=== PATIENT | male | born 1955 | race Caucasian/White ===

== ENCOUNTER 2024-01-04 09:53 | Inpatient (IN) ==
--- NOTE | 2024-01-04 10:17 | Emergency Department Note ---
Impression & Plan Hypoxia, SOB (shortness of breath), COPD exacerbation, Leukocytosis, Failure of outpatient treatment ED Provider Note NAME: VAZQUEZ ORDONEZ AGE: 68 SEX: M : 1955 ARRIVES VIA: Ambulance INFORMANT: [Patient][EMS, nursing] ED PROVIDER(S): [Prosper Barroso MD] CHIEF COMPLAINT: Short of breath HISTORY OF PRESENT ILLNESS: The patient is a 68-year-old male with COPD. He is currently residing at the [facility] on a voluntary commitment. He has a history of homelessness. He does still smoke tobacco products. Patient has had increasing shortness of breath over the last month. He states he has tried different antibiotics but he seems to keep getting diarrhea. He states that he was very short of breath today and his saturation was recorded at 88% as per EMS. He received 125 mg of IV Solu-Medrol in route. He was given a DuoNeb. He still feels short of breath. Patient states that the [facility] facility switched him from his inhalers to a nebulizer. He is not sure the nebulizer is doing its job. There has been no fever. He does cough but this is chronic with the COPD. He has no abdominal pain. No real chest pain, just chest tightness. The patient states that he is concerned that he may have COVID as he has been exposed to other [facility]. Of note, the patient was in this ED on the and also the with complaints of shortness of breath. CT imaging did not show findings of PE, he was felt to have a flare of COPD. He was not felt in need of a hospital stay. PMHx/PSHx/Social Hx: See Below PHYSICAL EXAM: GENERAL: Patient is in mild respiratory distress. HEENT: No acute trauma, normocephalic atraumatic, mucous membranes moist, no nasal congestion. NECK: No stridor, no adenopathy, no meningismus, trachea is midline. LUNGS: He does appear to be in mild respiratory distress but there is an increased respiratory rate. Breath sounds are diminished bilaterally. There are wheezes bilaterally. Dry cough noted. HEART: Without murmurs gallops or rubs, regular rate and rhythm. Heart tones are distant. ABDOMEN: Soft, nontender, no peritonitis. EXTREMITIES: No cyanosis, full range of motion of all the joints without pain or difficulty. NEUROLOGIC: Oriented x 3, no acute motor or sensory deficits, no focal weakness. SKIN: No jaundice, no diaphoresis. DIFFERENTIAL DIAGNOSIS: Exacerbation of COPD, CHF, pneumonia, bronchitis, anemia, SD, failed outpatient management, among others. EMERGENCY DEPARTMENT PROCEDURES: MEDICAL DECISION MAKING: There is a moderate leukocytosis, this could be consistent with infection or just the stress of his presentation. The patient was slightly anemic however, this has been documented before. There was a normal platelet count. No renal failure or significant electrolyte abnormality. Lactic acid level was not elevated making severe sepsis unlikely. There was no concerning liver enzyme elevation. ECG showed a normal sinus rhythm, no obvious ischemia. Cardiac enzyme testing x 1 was not consistent with acute cardiac injury. COVID, influenza and RSV test were negative. Chest x-ray did not show pneumonia, pneumothorax or CHF. On exam, the patient was in mild respiratory distress. He was tachypneic and wheezing. Patient was given 2 DuoNebs while here in the ED. He was given 1 g of IV magnesium. He had already received IV Solu-Medrol prior to his ED arrival. Patient has been here a few times already in the last 10 days for dyspnea. Things keep worsening. He was hypoxic prior to arrival. He had some mild respiratory distress and was tachypneic on my exam. Given the failure of outpatient management, I do think hospitalization is indicated. At this point, patient appears to have a flare of his COPD, no findings to suggest a bacterial pneumonia. I did speak with the patient and case management, the on-call hospitalist was consulted. Prior/Outside records/notes reviewed: Today's EMS notes describing his presentation and transport to this hospital. ECG per my interpretation: Indication was shortness of breath. The ECG shows a normal sinus rhythm with a potential old septal infarct. The rate was 75. There was no acute ST elevation, no PVCs, the QTc was 415. Continuous Cardiac Monitoring per my interpretation: An order was placed for continuous cardiac monitoring. The monitor shows a rate of 80 with normal sinus rhythm. Imaging/x-ray results per my interpretation: Chest x-ray shows findings of COPD, no infiltrate, CHF or pneumothorax. Chronic Medical/Social conditions affecting care: Homelessness, history of COPD. Care/Management discussed with: Case management, the on-call hospitalist. Level of care consideration(s): After review of the information above and other included data: --I believe the patient requires escalation of care to admission DISPOSITION: Admission Past Med/Surg History Medical History (Updated 01/04/24 @ 14:32 by Prosper Barroso MD) Agitation Depression Arthritis Encounter for smoking cessation counseling Dyspnea Acute exacerbation of chronic obstructive pulmonary disease (COPD) COPD (chronic obstructive pulmonary disease) Abdominal aneurysm Surgical History History of appendectomy Family History Mother Diabetes Social History Smoking Status: Current some day smoker Tobacco Type: Cigarettes Hx Alcohol Use: Yes Hx Substance Use: Yes Last Used Substance: Unknown Preferred Language: Cam[place]onian [employer] Required: No Current Living Situation: Homeless Feels Safe at Home: Yes Allergies Allergies Allergy/AdvReac Type Severity Reaction Status Date / Time No Known Allergies Allergy Verified 01/04/24 12:37 Home Meds Home Medications Medication Instructions Recorded Confirmed albuterol sulfate 90 mcg/actuation 2 puff inhalation Q6H PRN 11/13/19 01/04/24 aerosol inhaler (Ventolin HFA) Shortness Of Breath clonazepam 1 mg tablet (Klonopin) 1 mg PO BID PRN Anxiety 11/13/19 01/04/24 quetiapine 50 mg tablet (Seroquel) 25 mg PO HS 11/13/19 01/04/24 sertraline 50 mg tablet (Zoloft) 50 mg PO DAILY 11/13/19 01/04/24 tiotropium bromide 18 mcg capsule 1 cap inhalation DAILY 11/13/19 01/04/24 with inhalation device (Spiriva with HandiHaler) gabapentin 300 mg capsule 300 mg PO DAILY 12/27/23 01/04/24 cefdinir 300 mg capsule 300 mg PO BID 01/04/24 01/04/24 Previous Rx's Medication Instructions Recorded prochlorperazine maleate 10 mg 10 mg PO QID PRN nausea and 12/27/23 tablet vomiting #14 tabs Results & Data (ED) Vital Signs Vital Signs - 24 hr 01/04/24 10:05 01/04/24 10:06 01/04/24 10:30 Temperature 36.8 C Temperature Source Oral Pulse Rate 90 85 81 Pulse Rate from SpO2 Sensor 82 Respiratory Rate 20 27 H Blood Pressure 119/83 Blood Pressure Mean 95 Pulse Oximetry 95 96 Oxygen Delivery Method Nasal Cannula Oxygen Flow Rate 2 Sepsis New/Unexplained Change in Mental Status No Sepsis Action Taken by Nursing No Action Required 01/04/24 10:31 01/04/24 10:31 01/04/24 11:00 Temperature Temperature Source Pulse Rate 82 80 Pulse Rate from SpO2 Sensor 81 80 Respiratory Rate 24 31 H Blood Pressure 129/80 Blood Pressure Mean 100 Pulse Oximetry 94 100 Oxygen Delivery Method Nasal Cannula Room Air Oxygen Flow Rate 2 Sepsis New/Unexplained Change in Mental Status Sepsis Action Taken by Nursing 01/04/24 11:00 01/04/24 11:30 01/04/24 11:30 Temperature Temperature Source Pulse Rate Pulse Rate from SpO2 Sensor 91 H Respiratory Rate Blood Pressure 123/69 126/67 Blood Pressure Mean 85 77 Pulse Oximetry 100 Oxygen Delivery Method Nebulizer Oxygen Flow Rate Sepsis New/Unexplained Change in Mental Status Sepsis Action Taken by Nursing 01/04/24 12:00 01/04/24 12:00 Temperature Temperature Source Pulse Rate 92 H Pulse Rate from SpO2 Sensor 92 H Respiratory Rate 26 H Blood Pressure 126/79 Blood Pressure Mean 86 Pulse Oximetry 95 Oxygen Delivery Method Oxygen Flow Rate Sepsis New/Unexplained Change in Mental Status Sepsis Action Taken by [facility] Medications Current Medication List: was personally reviewed by me Laboratory Data Attestation: I reviewed the patient's lab results. 01/04/24 10:28 01/04/24 10:28 Lab Results 01/04/24 01/04/24 Range/Units 10:28 10:38 WBC 16.98 H (4.8-10.8) K/ul RBC 3.80 L (4.70-6.10) M/uL Hgb 11.6 L (14.0-18.0) g/dl Hct 33.6 L (42.0-52.0) % MCV 88.4 (80.0-100.0) fL MCH 30.5 (25.0-34.0) pg MCHC 34.5 (32.0-36.0) g/dL RDW Std Deviation 70.3 H (36.4-46.3) fL RDW Coeff of Judd 21.7 H (11.5-14.5) % Plt Count 353 (130-400) K/uL MPV 10.0 (9.4-12.4) fL Immature Gran % (Auto) 0.7 % Neut % (Auto) 80.2 % Lymph % (Auto) 7.5 % [place] % (Auto) 10.2 % Eos % (Auto) 1.2 % Baso % (Auto) 0.2 % Neut # (Auto) 13.60 H (1.40-6.50) K/uL Lymph # (Auto) 1.27 (1.20-3.40) K/uL [place] # (Auto) 1.74 H (0.11-0.59) K/uL Eos # (Auto) 0.21 (0.00-0.50) K/uL Baso # (Auto) 0.04 (0.00-0.20) K/uL Immature Gran # (Auto) 0.12 (0.01-0.20) K/uL Absolute Nucleated RBC 0.04 (0.00-0.12) K/uL Nucleated RBC % (auto) 0.2 % Anisocytosis Present Sodium 138 (136-145) mmol/L Potassium 4.3 (3.5-5.1) mmol/L Chloride 105 (98-107) mmol/L Carbon Dioxide 25 (21-32) mmol/L Anion Gap 8 (3-11) BUN 30 H (6-23) mg/dl Creatinine 0.79 (0.6-1.4) mg/dl Est Cr Clr Drug Dosing 84.8 ml/min Est GFR ( Amer) 107.7 ml/min Est GFR (Non-Af Amer) 92.9 ml/min BUN/Creatinine Ratio 38.0 H (10-20) Glucose 114 H (70-99(Fasting)) mg/dl Lactate 1.3 (0.4-2.0) mmol/L Calcium 9.6 (8.6-10.3) mg/dl Magnesium 1.9 (1.7-2.4) mg/dl Total Bilirubin 0.5 (0.2-1.0) mg/dl AST 14 (13-39) U/L ALT 15 (7-52) U/L Alkaline Phosphatase 68 (34-104) U/L Troponin I High Sens 4.3 (0-20) pg/ml Total Protein 6.7 (6.0-8.3) gm/dl Albumin 4.4 (3.4-5.0) gm/dl Globulin 2.3 L (2.5-4.0) gm/dl Albumin/Globulin Ratio 1.9 (0.9-2) SARS-CoV-2 (PCR) NEGATIVE (Negative) Influenza Type A (PCR) Negative (Neg) Influenza Type B (PCR) Negative (Neg) RSV (RT-PCR) Negative (Neg) Administered Medications Albuterol (Albuterol 0.083% Nebu Soln 3 Ml Vial) 2.5 mg NEB Q2H PRN; Protocol PRN Reason: Shortness Of Breath Or Wheezing Stop: 02/03/24 12:02 Last Admin: 01/04/24 12:21 Dose: 2.5 mg Documented By: STEVENSON Heparin Sodium (Porcine) (Heparin Sod 5,000 Unit/0.5 Ml Vial) 5,000 units SQ Q8 NIKKO Stop: 02/03/24 13:59 Last Admin: 01/04/24 13:19 Dose: Not Given Documented By: JESSICA Azithromycin 500 mg/ Dextrose 255 mls @ 125 mls/hr IV Q24H PENDING SALE TO [facility] Stop: 01/11/24 12:59 Last Admin: 01/04/24 12:35 Dose: 125 mls/hr Documented By: STEVENSON Discontinued Medications Albuterol (Albut/Ipratrop 3mg/0.5mg Neb 3 Ml Vial) 3 ml NEB NOW STA; Protocol Stop: 01/04/24 10:04 Last Admin: 01/04/24 10:37 Dose: 3 ml Documented By: STEVENSON Albuterol (Albut/Ipratrop 3mg/0.5mg Neb 3 Ml Vial) 3 ml NEB NOW STA; Protocol Stop: 01/04/24 11:11 Last Admin: 01/04/24 11:18 Dose: 3 ml Documented By: STEVENSON Magnesium Sulfate/Dextrose (Magnesium Sulfate / D5w) 1 gm in 100 mls @ 100 mls/hr IV NOW STA Stop: 01/04/24 11:09 Last Infusion: 01/04/24 11:35 Dose: Infused Documented By: Admin: 01/04/24 10:35 Dose: 100 mls/hr Documented By: STEVENSON Imaging Data Radiologist's Impression: Chest X-Ray 01/04/24 10:03 SINGLE VIEW CHEST CLINICAL HISTORY: Dyspnea FINDINGS: An AP, portable, upright chest radiograph is compared to chest x-ray and chest CT dated 01/01/2024. The cardiomediastinal silhouette is unremarkable. Emphysema and chronic interstitial thickening is similar to previous. There is mild bibasilar scarring/atelectasis. No pneumothorax is seen. The bony thorax is grossly intact. IMPRESSION: Emphysematous change with no active disease in the chest. ACT 112: Negative or not required by law. Electronically signed by: Prosper Quiroga M.D. 01/04/2024 10:37 AM Discharge Plan Visit Data Chief Complaint: Shortness of Breath/Dyspnea ED Provider: Prosper Barroso Discharge Problem: Hypoxia, SOB (shortness of breath), COPD exacerbation, Leukocytosis, Failure of outpatient treatment Patient Disposition: Admitted As Inpatient Condition: Fair Discharge Instructions Interventions: ED Discharge Assessment Last Done: 01/04/24 12:55 Discharge Problem: Leukocytosis Qualifiers: Leukocytosis type: unspecified Qualified Code(s): D72.829 - Elevated white blood cell count, unspecified
[2024-01-04] MEDS: MAGNESIUM SULFATE / D5W 1 GM/100 ML BAG IV STA (10:35)
[2024-01-04] MEDS: ALBUT/IPRATROP 3MG/0.5MG NEB 3 ML VIAL NEB STA ×2 (10:37→11:18)
--- NOTE | 2024-01-04 10:38 | XRay Report ---
SINGLE VIEW CHEST CLINICAL HISTORY: Dyspnea FINDINGS: An AP, portable, upright chest radiograph is compared to chest x-ray and chest CT dated 12/09. The cardiomediastinal silhouette is unremarkable. Emphysema and chronic interstitial thickeni ng is similar to previous. There is mild bibasilar scarring/atelectasis. No pneumothorax is seen. The bony thorax is grossly intact. IMPRESSION: Emphysematous change with no active disease in the chest. ACT 112: Negative or not required by law. Electronically signed by: Prosper Quiroga M.D. 01/04/2024 10:37 AM
[2024-01-04 10:53] LABS: Basophils # (auto) 0.04 K/uL (0.00-0.20); Basophils % (auto) 0.2 %; Eosinophils # (auto) 0.21 K/uL (0.00-0.50); Eosinophils % (auto) 1.2 %; Hematocrit (blood only) 33.6 % (42.0-52.0); Hemoglobin 11.6 g/dl (14.0-18.0); Immature Granulocytes # (auto) 0.12 K/uL (0.01-0.20); Immature Granulocytes % (auto) 0.7 %; Lymphocytes # (auto) 1.27 K/uL (1.20-3.40); Lymphocytes % (auto) 7.5 %; Mean Corpuscular Hemoglobin 30.5 pg (25.0-34.0); Mean Corpuscular Hgb Conc 34.5 g/dL (32.0-36.0); Mean Corpuscular Volume 88.4 fL (80.0-100.0); Monocytes # (auto) 1.74 K/uL (0.11-0.59); Monocytes % (auto) 10.2 %; Neutrophils % (auto) 80.2 %; Nucleated RBC # (auto) 0.04 K/uL (0.00-0.12); Nucleated RBC % (auto) 0.2 %; Platelet Count 353 K/uL (130-400); RDW Coefficient of Variation 21.7 % (11.5-14.5); RDW Standard Deviation 70.3 fL (36.4-46.3); White Blood Count 16.98 K/ul (4.8-10.8)
[2024-01-04 11:07] LABS: Albumin Globulin Ratio 1.9 (0.9-2); Albumin Level 4.4 gm/dl (3.4-5.0); Bilirubin,Total 0.5 mg/dl (0.2-1.0); Calcium 9.6 mg/dl (8.6-10.3); Creatinine Clr Calc Pharmacy 84.8 ml/min; Est GFR (African American) 107.7 ml/min; Est GFR (Non-African American) 92.9 ml/min; Globulin 2.3 gm/dl (2.5-4.0); Magnesium 1.9 mg/dl (1.7-2.4); Potassium 4.3 mmol/L (3.5-5.1); Total Protein 6.7 gm/dl (6.0-8.3)
[2024-01-04 11:13] LABS: Troponin I High Sensitivity 4.3 pg/ml (0-20)
[2024-01-04 11:23] LABS: Anisocytosis Present
[2024-01-04 11:38] LABS: Influenza A virus by PCR Negative (Neg); Influenza B virus by PCR Negative (Neg); RSV by PCR Negative (Neg); SARS CoV2 RNA(COVID-19) Ceph NEGATIVE (Negative)
[2024-01-04] MEDS ORDERED: MELATONIN 3 MG TAB PO PRN (12:05)
[2024-01-04] MEDS ORDERED: ACETAMINOPHEN 325 MG TAB PO PRN (12:05)
--- NOTE | 2024-01-04 12:18 | History & Physical Report ---
Date of Service January 04, 2024 Assessment & Plan (1) Acute hypoxemic respiratory failure: Plan: Assessment: 1. Acute hypoxemic respiratory failure secondary to #2. 2. Acute exacerbation of COPD. IV Solu-Medrol, nebulizer therapy DuoNebs 4 times daily plus as needed albuterol every 2 hours, IV azithromycin, sputum cultures. 3. Ongoing tobacco abuse in the form of smoking cigarettes she typically smokes 1-1/2 to 2 packs of cigarettes per day-discussed cessation. He states he quit 2 days ago. 4. History of abdominal aortic aneurysm with no abdominal pain today. He does state he has been following with his primary care physician for imaging with relatively recent ultrasound as an outpatient per patient. 5 depression. Patient currently patient at the [facility] admission for depression he is not actively homicidal or suicidal I personally discussed with him. 6. Homelessness case management's been consulted for discharge planning Plan: As discussed above. Please refer to orders for further planning. History of Present Illness Chief Complaint: Shortness of breath cough Primary Care Provider: Barak Almonte This is a pleasant 68-year-old male who is initially a patient at the [facility] as a voluntary admission for depression. He currently denies any homicidal or suicidal ideation. Over the last week he has had increasing shortness of breath and cough. This is his third ER visit today with the above complaint. On January 01 2024 he had a CTA of his chest in the ER which was negative for acute pulmonary embolism. And there were no other acute findings. He has been treated with outpatient nebulizers from steroid therapy. He continues to worsen. He presents today for further evaluation and treatment. He presents to the ER by EMS. And route he had 125 mg of IV Solu-Medrol. He was 88% on room air. He was placed on 2 L of oxygen nasal cannula. And received nebulizer treatment and route. In the emergency department he had an unremarkable plain film chest x-ray today. He had a negative respiratory viral panel including COVID, influenza a and B and RSV. In the ER he had multiple nebulizer treatments and continues to require supplemental oxygen therapy and has shortness of breath. We are called admit the patient for further evaluation and treatment. Will admit the patient to the general medical floor. He is IV steroids nebulizer therapy will add azithromycin. Case management has been consulted for discharge planning as the patient is homeless. Allergies Allergy/AdvReac Type Severity Reaction Status Date / Time No Known Allergies Allergy Verified 01/01/24 19:06 Home Medications Medication Instructions Recorded Confirmed Type albuterol sulfate 90 mcg/actuation 2 puff inhalation Q6H PRN 11/13/19 01/01/24 History aerosol inhaler (Ventolin HFA) Shortness Of Breath clonazepam 1 mg tablet (Klonopin) 1 mg PO BID PRN Anxiety 11/13/19 01/01/24 History quetiapine 50 mg tablet (Seroquel) 25 mg PO HS 11/13/19 01/01/24 History sertraline 50 mg tablet (Zoloft) 50 mg PO DAILY 11/13/19 01/01/24 History tiotropium bromide 18 mcg capsule 1 cap inhalation DAILY 11/13/19 01/01/24 History with inhalation device (Spiriva with HandiHaler) gabapentin 300 mg capsule 300 mg PO DAILY 12/27/23 01/01/24 History prochlorperazine maleate 10 mg 10 mg PO QID PRN nausea and 12/27/23 01/01/24 Rx tablet vomiting #14 tabs Past Med/Surg History Medical History (Updated 01/04/24 @ 12:15 by Michael Garcia, PhD, DO) Agitation Depression Arthritis Encounter for smoking cessation counseling Dyspnea Acute exacerbation of chronic obstructive pulmonary disease (COPD) COPD (chronic obstructive pulmonary disease) Abdominal aneurysm Surgical History History of appendectomy Family History Mother Diabetes Social History Smoking Status: Current some day smoker Tobacco Type: Cigarettes Preferred Language: Sami Feels Safe at Home: Yes Review of Systems Review of Systems: A 10 point review of system was obtained and unless otherwise stated here or in history of present illness are negative and noncontributory to chief complaint. Physical Exam Physical Exam: In General: In general pleasant 68-year-old white male he is short of breath he has conversational dyspnea approximately 4 words at a time during my interview. He is using accessory muscles of respiration during my interview. Otherwise he is in no acute distress and interacts appropriately and pleasantly. HEENT: Normocephalic atraumatic pupils are equal round and reactive to light bilaterally. No scleral icterus no conjunctival injection external auditory canals are patent septum is in the midline nose is without discharge oral mucosa is pink and moist without lesion. NECK: Supple no rigidity no lymphadenopathy no thyromegaly no carotid bruits no JVD no masses. HEART: Regular rate and rhythm I do not appreciate any ectopy or rub. No mur mur. LUNGS: Coarse bilaterally with diffuse expiratory wheezing and actually has inspiratory wheezing in the lower lung carmichael bilaterally. ABDOMEN: Soft nontender, no rebound, no peritoneal signs, positive bowel sounds, no abdominal bruits, no appreciable organomegaly. EXTREMITIES: Positive digital clubbing. Intact, no peripheral cyanosis, or edema. Strength is 5 out of 5 in extremities x4, no pathological reflexes. NEUROLOGICAL: Cranial nerves II through XII are grossly intact with no focal deficit elicited upon examination. No tremor. Results & Data Results & Data Vital Signs (Past 12 Hours) Vital Signs Temp Pulse Resp BP Pulse Ox O2 Del Method O2 Flow Rate 01/04/24 11:30 126/67 01/04/24 11:30 100 Nebulizer 01/04/24 11:00 123/69 01/04/24 11:00 80 31 H 100 Room Air 01/04/24 10:31 82 24 94 Nasal Cannula 2 01/04/24 10:31 129/80 01/04/24 10:30 81 27 H 96 01/04/24 10:06 85 01/04/24 10:05 36.8 C 90 20 119/83 95 Nasal Cannula 2 Code Status & VTE Plan Code Status Full code-I did personally discuss with the patient at the bedside today. VTE Prophylaxis Plan VTE Prophylaxis will be ordered: Yes PG Care Time/CCT Total # of Minutes Spent Total Time Spent with Patient: Total time spent is greater than 50% in coordination of care (as documented) at patient's floor/unit and/or counseling patient: Coding Level of Care Code 04709 INT INP/OBS CARE 3/75MIN Diagnoses Acute hypoxemic respiratory failure J96.01
[2024-01-04] MEDS: ALBUTEROL 0.083% NEBU SOLN 3 ML VIAL NEB PRN (12:21)
[2024-01-04] MEDS: AZITHROMYCIN 500 MG in DEXTROSE 5% 250 ML IV SCH (12:35)
[2024-01-04] MEDS: HEPARIN SOD 5,000 UNIT/0.5 ML VIAL SQ SCH (13:19)
--- NOTE | 2024-01-04 15:05 | Electrocardiogram Report ---
Test Reason : Blood Pressure : / mmHG Vent. Rate : 075 BPM Atrial Rate : 075 BPM P-R Int : 142 ms QRS Dur : 084 ms QT Int : 372 ms P-R-T Axes : 068 -26 052 degrees QTc Int : 415 ms Normal sinus rhythm Septal infarct , age undetermined Abnormal ECG When compared with ECG of 01-JAN-2024 18:12, Septal infarct is now Present Confirmed by Adria Trinidad ([id number]) on 01/04/2024 3:05:10 PM Referred By: REFERRED SELF Confirmed By:Adria Trinidad
[2024-01-04] MEDS: NICOTINE 14 MG/24 HR PATCH TD SCH (15:09)
[2024-01-04] MEDS: ALBUT/IPRATROP 3MG/0.5MG NEB 3 ML VIAL NEB SCH (15:13)
[2024-01-04] MEDS: QUEtiapine FUMARATE 25 MG TABLET PO SCH (20:34)
[2024-01-04] MEDS: methylPREDNISolone 40 MG in SYRINGE 0 ML IV SCH (20:34)
[2024-01-04] MEDS: FAMOTIDINE 20 MG TAB PO ONE (22:07)
[2024-01-05] MEDS: SERTRALINE HCL 50 MG TABLET PO SCH (08:31)
[2024-01-05] MEDS: GABAPENTIN 300 MG CAP PO SCH (08:32)
[2024-01-05 08:58] LABS: Basophils # (auto) 0.02 K/uL (0.00-0.20); Basophils % (auto) 0.2 %; Eosinophils # (auto) 0.02 K/uL (0.00-0.50); Eosinophils % (auto) 0.2 %; Hematocrit (blood only) 33.6 % (42.0-52.0); Hemoglobin 11.5 g/dl (14.0-18.0); Immature Granulocytes # (auto) 0.09 K/uL (0.01-0.20); Immature Granulocytes % (auto) 0.7 %; Lymphocytes # (auto) 1.85 K/uL (1.20-3.40); Lymphocytes % (auto) 14.8 %; Mean Corpuscular Hemoglobin 30.4 pg (25.0-34.0); Mean Corpuscular Hgb Conc 34.2 g/dL (32.0-36.0); Mean Corpuscular Volume 88.9 fL (80.0-100.0); Mean Platelet Volume 10.2 fL (9.4-12.4); Monocytes # (auto) 2.86 K/uL (0.11-0.59); Monocytes % (auto) 22.8 %; Neutrophils # (auto) 7.69 K/uL (1.40-6.50); Neutrophils % (auto) 61.3 %; Nucleated RBC # (auto) 0.05 K/uL (0.00-0.12); Nucleated RBC % (auto) 0.4 %; Platelet Count 388 K/uL (130-400); RDW Coefficient of Variation 22.5 % (11.5-14.5); RDW Standard Deviation 73.1 fL (36.4-46.3); Red Blood Count 3.78 M/uL (4.70-6.10); White Blood Count 12.53 K/ul (4.8-10.8)
[2024-01-05 09:18] LABS: Hypochromasia Present; Ovalocytes 1+; Polychromasia 1+
[2024-01-05 09:19] LABS: Albumin Globulin Ratio 2.1 (0.9-2); Albumin Level 4.5 gm/dl (3.4-5.0); BUN Creatinine Ratio 37.8 (10-20); Bilirubin,Total 0.6 mg/dl (0.2-1.0); Calcium 9.5 mg/dl (8.6-10.3); Creatinine Clr Calc Pharmacy 74.5 ml/min; Est GFR (African American) 102.1 ml/min; Est GFR (Non-African American) 88.1 ml/min; Globulin 2.1 gm/dl (2.5-4.0); Magnesium 2.2 mg/dl (1.7-2.4); Potassium 4.2 mmol/L (3.5-5.1); Total Protein 6.6 gm/dl (6.0-8.3)
--- NOTE | 2024-01-05 13:08 | Hospitalist Progress Note ---
Date of Service January 05, 2024 Assessment & Plan (1) Acute exacerbation of chronic obstructive pulmonary disease (COPD): Plan: Patient presents to the hospital worsening shortness of breath and wheeze. Has a history of COPD, has expiratory wheeze on exam Started on IV Solu-Medrol, albuterol nebulizer, IV azithromycin. Upon reevaluation this morning, patient states shortness of breath and wheeze much improved although still has some expiratory wheeze on exam. Will continue the above treatment. (2) Acute hypoxemic respiratory failure: Plan: Patient usually not on oxygen at home Acute hypoxemic respiratory failure secondary to COPD exacerbation Patient currently on 6 L of oxygen through nasal cannula Wean as tolerated (3) Abdominal aneurysm: Plan: Patient follows up with his primary care physician with regular imaging Plan Patient has been going in and out of the meters and currently some of his belongings are still in the [place]. However the measures said before he can come back he will need psychiatry evaluation Admission and Anticipated Discharge Date Admission Date: January 04, 2024 Subjective Patient seen and examined, states shortness of breath has improved but still has some minimal wheeze Review of Systems Review of Systems: The patient is awake, alert and oriented 3, well developed and well nourished, normocephalic and atraumatic, lying in bed and in no acute distress. HEENT--PERRL, EOMI, mucous membranes and oropharynx mildly dry Neck--supple. No JVD. No bruits. Thyroid normal, trachea midline, no adenopathy. Heart--normal S1 and S2. No murmurs, rubs or gallops. Lungs--reduced air entry on auscultation, bibasilar wheeze Abdomen--normal bowel sounds and soft. Extremities--no cyanosis or clubbing. No edema. Dermatologic--normal skin turgor, normal color, no abnormal lymph nodes, no rash. Neurologic--cranial nerves II through XII grossly intact. Rheumatologic--normal range of motion. Psychiatric--normal affect. Results & Data Results & Data Vital Signs (Past 12 Hours) Vital Signs Temp Pulse Resp BP Pulse Ox O2 Del Method O2 Flow Rate 01/05/24 11:32 98.2 F 79 24 142/71 H 97 Nebulizer 6 01/05/24 11:08 90 22 94 Nasal Cannula 2 01/05/24 08:00 Nasal Cannula 2 01/05/24 07:51 98.1 F 71 24 125/68 96 Nasal Cannula 2 01/05/24 06:06 86 18 94 Room Air PG Care Time/CCT Total # of Minutes Spent Total Time Spent with Patient: Total time spent is greater than 50% in coordination of care (as documented) at patient's floor/unit and/or counseling patient: Coding Level of Care Code 10138 SUB INP/OBS CARE 2/35MIN Diagnoses Acute exacerbation of chronic obstructive pulmonary disease (COPD) J44.1 Acute hypoxemic respiratory failure J96.01 Abdominal aneurysm I71.4 Time Spent (min) 35
[2024-01-05] MEDS: methylPREDNISolone 40 MG in SYRINGE 0 ML IV SCH (13:22)
[2024-01-05] MEDS: traMADol HCL 50 MG TABLET PO STA (16:10)
[2024-01-05] MEDS: ALPRAZolam 0.5 MG TABLET PO ONE (18:18)
[2024-01-06 08:29] LABS: Hematocrit (blood only) 34.5 % (42.0-52.0); Hemoglobin 11.7 g/dl (14.0-18.0); Mean Corpuscular Hemoglobin 30.2 pg (25.0-34.0); Mean Corpuscular Hgb Conc 33.9 g/dL (32.0-36.0); Mean Corpuscular Volume 89.1 fL (80.0-100.0); Nucleated RBC # (auto) 0.07 K/uL (0.00-0.12); Nucleated RBC % (auto) 0.5 %; Platelet Count 413 K/uL (130-400); RDW Coefficient of Variation 22.5 % (11.5-14.5); RDW Standard Deviation 74.5 fL (36.4-46.3); Red Blood Count 3.87 M/uL (4.70-6.10); White Blood Count 12.88 K/ul (4.8-10.8)
[2024-01-06 08:51] LABS: BUN Creatinine Ratio 48.9 (10-20); Calcium 9.7 mg/dl (8.6-10.3); Creatinine Clr Calc Pharmacy 76.2 ml/min; Est GFR (Non-African American) 88.9 ml/min; Potassium 4.5 mmol/L (3.5-5.1)
--- NOTE | 2024-01-06 10:32 | Pulmonary Consultation ---
Date of Consultation January 06, 2024 Assessment & Plan (1) Acute exacerbation of chronic obstructive pulmonary disease (COPD): (2) SOB (shortness of breath): (3) Cough: Cough type: acute Qualified Code(s): R05.1 - Acute cough Plan IMPRESSION: 68-year-old man with a significant history of COPD who presents in the setting of COPD exacerbation. RECOMMENDATIONS: 1. COPD exacerbation - Patient with apparent longstanding history of COPD and significant smoking history. On exam, he remains moderately bronchospastic. Patient reports previously not doing well on maintenance inhalers. That being said, given his recurrence of respiratory symptoms and admissions, he certainly should be on some degree of maintenance inhalers. He does report a history of asthma, however I do not have pulmonary function testings to review this. That being said consideration for outpatient inhaler combination to include LABA/LAMA/ICS may be in the patient's benefit until he can undergo formal pulmonary function testing. We will place him on nebulized budesonide and Perforomist as well as Incruse. Agree with continuing intravenous corticosteroids for now until he is with improved bronchospasm. Agree with continuing completion of atypical antibiotic coverage. Chest x-ray and CTA does not demonstrate any infiltrative processes concerning for overt pneumonia process. Ideally, the patient would benefit from routine outpatient pulmonary management, pulmonary function testing, etc., however I am uncertain as to how this will be achieved given his current home situation. Certainly, once the patient has recovered from current episode, he is welcome to follow-up at our outpatient clinic or 1 more convenient for his home location. 2. Shortness of breath/cough - Secondary to #1. 3. Tobacco abuse history - Patient with significant tobacco abuse history of 1- 1/2 to 2 packs/day for greater than 50 years. Thank you for allowing us to participate in the care of this patient. We will continue to follow along. History of Present Illness Reason for Consultation: copd exacerbation Requesting Physician: Dr. Ferreira Attending Physician: Jhon Calix MD History of Present Illness Patient is a 68-year-old male with a significant past medical history of COPD previously diagnosed at outside facility and psychiatric history who presented to the emergency department from the [facility] with complaints of ongoing COPD exacerbation. The patient reports a prior diagnosis several years ago in [facility]. He had previously followed with a regional training manager, but had not done so recently. He states that his only inhalers have been albuterol rescue inhalers. He had previously tried maintenance inhalers of which she reports he had not received symptomatic relief. He states that he was diagnosed with pneumonia approximately 1 month ago at [facility] and placed a course of Levaquin. He had felt better for several days, but had return of symptoms which have seemed to persist. He was provided a nebulizer at home, however he is undomiciled at this time and does not have the capabilities to be able to use this machine. He did receive nebulizer treatments while at the [facility] psychiatric facility, however these did not seem to provide relief. During his evaluation in the emergency department, the patient underwent chest x-ray which demonstrated no infiltrative process. CTA demonstrated no PE or consolidative pneumonia processes. He has received intravenous antibiotics as well as steroids and scheduled DuoNebs. Upon evaluation in room 3762, patient is awake, alert, and oriented. He reports ongoing cough and shortness of breath. He continues to wheeze. He has multiple complaints related to his care, but does not provide specifics regarding his breathing. He reports a significant smoking history of between 75 and 100 pack years. He smoked for 50 years and technically had continue to smoke up until 2 days ago. He does carry history of asthma as well as COPD. Again, there is been no records at our institution to follow otherwise. He complains of no chest pain, palpitations, dizziness, lightheadedness, or hemoptysis. Allergies Allergy/AdvReac Type Severity Reaction Status Date / Time No Known Allergies Allergy Verified 01/04/24 12:37 Home Medications Medication Instructions Recorded Confirmed Type albuterol sulfate 90 mcg/actuation 2 puff inhalation Q6H PRN 11/13/19 01/04/24 History aerosol inhaler (Ventolin HFA) Shortness Of Breath clonazepam 1 mg tablet (Klonopin) 1 mg PO BID PRN Anxiety 11/13/19 01/04/24 History quetiapine 50 mg tablet (Seroquel) 25 mg PO HS 11/13/19 01/04/24 History sertraline 50 mg tablet (Zoloft) 50 mg PO DAILY 11/13/19 01/04/24 History tiotropium bromide 18 mcg capsule 1 cap inhalation DAILY 11/13/19 01/04/24 History with inhalation device (Spiriva with HandiHaler) gabapentin 300 mg capsule 300 mg PO DAILY 12/27/23 01/04/24 History prochlorperazine maleate 10 mg 10 mg PO QID PRN nausea and 12/27/23 01/04/24 Rx tablet vomiting #14 tabs cefdinir 300 mg capsule 300 mg PO BID 01/04/24 01/04/24 History Patient History Medical History (Updated 01/05/24 @ 13:05 by Jhon Calix MD) Acute exacerbation of chronic obstructive pulmonary disease (COPD) Agitation Depression Arthritis Encounter for smoking cessation counseling Dyspnea COPD (chronic obstructive pulmonary disease) Abdominal aneurysm Surgical History History of appendectomy Family History Mother Diabetes Social History Smoking Status: Current some day smoker Tobacco Type: Cigarettes Hx Alcohol Use: Yes Hx Substance Use: Yes Last Used Substance: Unknown Preferred Language: Ivorian Communication Ability: Effective Paper Products Printer Required: No Current Living Situation: Homeless Feels Safe at Home: Yes Assistive Devices: Nebulizer Review of Systems Review of Systems: A complete 10 point review of systems was reviewed with the patient with pertinent positives and negatives as per history of present illness. All else were negative. Physical Exam Physical Exam: VITAL SIGNS - Vital signs and nursing notes were reviewed. GENERAL - 68-year-old male appearing his stated age who is in no acute distress. Communicates well with provider and answers questions appropriately. SKIN - Without rashes or lesions. NOSE - Midline and without cyanosis. MOUTH/OROPHARYNX - Without perioral cyanosis. NECK - Neck with FROM. LUNGS - Chest wall evaluation demonstrates increased chest wall A:P diameter. Auscultation reveals delayed air entry with diffuse expiratory wheezes throughout. No rales noted. CARDIAC - RRR with S1/S2. No murmur, rubs, or gallops appreciated. ABDOMEN - Abdominal inspection demonstrates a flat abdomen. BS normoactive all four quadrants. No tenderness, palpable masses, or ascites noted. PSYCH - A&Ox3 and cooperates fully with examiner. Pt is very pleasant and interacts well with examiner. Results & Data Results & Data Vital Signs (Past 12 Hours) Vital Signs Temp Pulse Resp BP Pulse Ox O2 Del Method O2 Flow Rate 01/06/24 10:16 74 18 133/73 93 Room Air 01/06/24 09:57 Nasal Cannula 2 01/06/24 07:35 67 18 94 Room Air 01/06/24 07:15 36.6 C 72 18 131/78 92 Room Air PG Care Time/CCT Total # of Minutes Spent Total Time Spent with Patient: Total time spent is greater than 50% in coordination of care (as documented) at patient's floor/unit and/or counseling patient: Coding Level of Care Code 07296 INT INP/OBS CARE MIN Diagnoses Acute exacerbation of chronic obstructive pulmonary disease (COPD) J44.1 SOB (shortness of breath) R06.02 Cough R05.1 Cough type: acute
--- NOTE | 2024-01-06 13:30 | Hospitalist Progress Note ---
Date of Service January 06, 2024 Assessment & Plan (1) Acute exacerbation of chronic obstructive pulmonary disease (COPD): Plan: Patient presents to the hospital worsening shortness of breath and wheeze. Has a history of COPD, has expiratory wheeze on exam Started on IV Solu-Medrol, albuterol nebulizer, IV azithromycin. Robitussin as needed for cough Patient states his shortness of breath and cough still not getting better Still some expiratory wheeze on exam Will consult pulmonology Will continue the above treatment. (2) Acute hypoxemic respiratory failure: Plan: Now resolved patient saturating well on room air (3) Abdominal aneurysm: Plan: Patient follows up with his primary care physician with regular imaging Plan Patient has been going in and [place] [facility] and currently some of his belongings are still in the [facility]. However the [facility] said before he can come back he will need psychiatry evaluation Admission and Anticipated Discharge Date Admission Date: January 04, 2024 Subjective Patient seen and examined, said that shortness of breath initially improved but got worse, still complains of a lot of coughing Review of Systems Review of Systems: All systems reviewed are negative, apart from the ones contained in the history. Physical Exam Physical Exam: The patient is awake, alert and oriented 3, well developed and well nourished, normocephalic and atraumatic, lying in bed and in no acute distress. HEENT--PERRL, EOMI, mucous membranes and oropharynx mildly dry Neck--supple. No JVD. No bruits. Thyroid normal, trachea midline, no a denopathy. Heart--normal S1 and S2. No murmurs, rubs or gallops. Lungs--reduced and on auscultation, bibasilar wheeze Abdomen--normal bowel sounds and soft. Extremities--no cyanosis or clubbing. No edema. Dermatologic--normal skin turgor, normal color, no abnormal lymph nodes, no rash. Neurologic--cranial nerves II through XII grossly intact. Rheumatologic--normal range of motion. Psychiatric--normal affect. Results & Data Results & Data Vital Signs (Past 12 Hours) Vital Signs Temp Pulse Resp BP Pulse Ox O2 Del Method O2 Flow Rate 01/06/24 11:11 80 16 92 Room Air 01/06/24 10:16 74 18 133/73 93 Room Air 01/06/24 09:57 Nasal Cannula 2 01/06/24 07:35 67 18 94 Room Air 01/06/24 07:15 97.9 F 72 18 131/78 92 Room Air PG Care Time/CCT Total # of Minutes Spent Total Time Spent with Patient: Total time spent is greater than 50% in coordination of care (as documented) at patient's floor/unit and/or counseling patient: Coding Level of Care Code 07946 SUB INP/OBS CARE 2/35MIN Diagnoses Acute exacerbation of chronic obstructive pulmonary disease (COPD) J44.1 Acute hypoxemic respiratory failure J96.01 Abdominal aneurysm I71.4 Time Spent (min) 35
[2024-01-06] MEDS: FORMOTEROL 20 MCG/2 ML VIAL INH SCH (19:27)
[2024-01-06] MEDS: BUDESONIDE 0.5 MG/2 ML VIAL (PULMICORT) INH SCH (19:27)
[2024-01-07 06:48] LABS: Hematocrit (blood only) 31.8 % (42.0-52.0); Hemoglobin 11.1 g/dl (14.0-18.0); Mean Corpuscular Hemoglobin 30.7 pg (25.0-34.0); Mean Corpuscular Hgb Conc 34.9 g/dL (32.0-36.0); Mean Corpuscular Volume 87.8 fL (80.0-100.0); Nucleated RBC # (auto) 0.07 K/uL (0.00-0.12); Nucleated RBC % (auto) 0.5 %; Platelet Count 402 K/uL (130-400); RDW Coefficient of Variation 22.4 % (11.5-14.5); RDW Standard Deviation 72.4 fL (36.4-46.3); Red Blood Count 3.62 M/uL (4.70-6.10); White Blood Count 15.13 K/ul (4.8-10.8)
[2024-01-07 07:12] LABS: Calcium 9.4 mg/dl (8.6-10.3); Creatinine Clr Calc Pharmacy 69.8 ml/min; Est GFR (African American) 94.4 ml/min; Est GFR (Non-African American) 81.5 ml/min; Potassium 4.5 mmol/L (3.5-5.1)
[2024-01-07] MEDS: UMECLIDINIUM BROMIDE 62.5MCG/BLISTER 7 PUFFS/INHALER INH SCH (08:49)
[2024-01-07] MEDS: guaiFENesin/DEXTROM SYRUP 200MG/20MG 10ML UDC PO PRN (08:50)
--- NOTE | 2024-01-07 10:50 | Hospitalist Progress Note ---
Date of Service January 07, 2024 Assessment & Plan (1) Acute exacerbation of chronic obstructive pulmonary disease (COPD): Plan: Patient presents to the hospital worsening shortness of breath and wheeze. Has a history of COPD, has expiratory wheeze on exam Started on IV Solu-Medrol, albuterol nebulizer, IV azithromycin. Bioprocess Development Engineer evaluated and added nebulized budesonide, Perforomist, and Incruse Robitussin as needed for cough Patient states his shortness of breath and cough still not getting better Still some expiratory wheeze on exam Will continue treatment as above Patient has been urged several times to quit smoking, he agrees at this time (2) Acute hypoxemic respiratory failure: Plan: Now resolved patient saturating well on room air (3) Abdominal aneurysm: Plan: Patient follows up with his primary care physician with regular imaging Plan Patient has been going in and [facility] and currently some of his belongings are still in the [facility]. However the [facility] said before he can come back he will need psychiatry evaluation Admission and Anticipated Discharge Date Admission Date: January 04, 2024 Subjective Patient seen and examined, said that shortness of breath initially improved but got worse, still complains of a lot of coughing Review of Systems Review of Systems: All systems reviewed are negative, apart from the ones contained in the history. Physical Exam Physical Exam: The patient is awake, alert and oriented 3, well developed and well nourished, normocephalic and atraumatic, lying in bed and in no acute distress. HEENT--PERRL, EOMI, mucous membranes and oropharynx mildly dry Neck--supple. No JVD. No bruits. Thyroid normal, trachea midline, no adenopathy. Heart--normal S1 and S2. No murmurs, rubs or gallops. Lungs--reduced and on auscultation, bibasilar wheeze Abdomen--normal bowel sounds and soft. Extremities--no cyanosis or clubbing. No edema. Dermatologic--normal skin turgor, normal color, no abnormal lymph nodes, no rash. Neurologic--cranial nerves II through XII grossly intact. Rheumatologic--normal range of motion. Psychiatric--normal affect. Results & Data Results & Data Vital Signs (Past 12 Hours) Vital Signs Temp Pulse Resp BP Pulse Ox O2 Del Method 01/07/24 08:14 97.9 F 72 20 161/88 H 91 Room Air 01/07/24 07:38 75 18 95 Room Air PG Care Time/CCT Total # of Minutes Spent Total Time Spent with Patient: Total time spent is greater than 50% in coordination of care (as documented) at patient's floor/unit and/or counseling patient: Coding Level of Care Code 76262 SUB INP/OBS CARE 2/35MIN Diagnoses Acute exacerbation of chronic obstructive pulmonary disease (COPD) J44.1 Acute hypoxemic respiratory failure J96.01 Abdominal aneurysm I71.4 Time Spent (min) 35
--- NOTE | 2024-01-07 10:59 | Pulmonology Progress Note ---
Date of Service January 07, 2024 Assessment & Plan (1) Acute exacerbation of chronic obstructive pulmonary disease (COPD): (2) SOB (shortness of breath): (3) Cough: Cough type: acute Qualified Code(s): R05.1 - Acute cough (4) Peripheral eosinophilia: Plan IMPRESSION: 68-year-old man with a significant history of COPD who presents in the setting of COPD exacerbation. RECOMMENDATIONS: 1. COPD exacerbation -continue nebulized budesonide and formoterol. Continue Incruse Ellipta. Continue azithromycin 500 mg daily for 5 days total. Continue methylprednisone 40 mg 3 times daily and consider transitioning to p.o. prednisone starting tomorrow for short course of 7 days. Continue as needed DuoNebs.Certainly may have an eosinophilic component as his absolute eosinophil counts have been elevated upwards of 750 during this admission. A benefit from outpatient allergy workup and potential biologic therapy once maximized on COPD therapies 2. Shortness of breath/cough - Secondary to #1 as well as deconditioning. 3. Tobacco abuse history - Patient with significant tobacco abuse history of 1- 1/2 to 2 packs/day for greater than 50 years. Patient would benefit from outpatient PFTs and low-dose lung cancer screening. He will need to establish with a pulmonary provider as an outpatient. Thank you for allowing us to participate in the care of this patient. We will continue to follow along. Admission and Anticipated Discharge Date Admission Date: January 04, 2024 Subjective Patient seen and examined. He still complains of severe shortness of breath with minimal exertion. He also notes cough with yellow productive sputum. He denies any fevers or chills. His sleep is poor last night. Review of Systems Review of Systems: All systems reviewed & are unremarkable except as noted in HPI & below Physical Exam Physical Exam: VITAL SIGNS - Vital signs and nursing notes were reviewed. GENERAL - 68-year-old male appearing his stated age who is in no acute distress. Communicates well with provider and answers questions appropriately. SKIN - Without rashes or lesions. NOSE - Midline and without cyanosis. MOUTH/OROPHARYNX - Without perioral cyanosis. NECK - Neck with FROM. LUNGS - Chest wall evaluation demonstrates increased chest wall A:P diameter. Auscultation reveals delayed air entry with diffuse expiratory wheezes throughout. No rales noted. CARDIAC - RRR with S1/S2. No murmur, rubs, or gallops appreciated. ABDOMEN - Abdominal inspection demonstrates a flat abdomen. BS normoactive all four quadrants. No tenderness, palpable masses, or ascites noted. PSYCH - A&Ox3 and cooperates fully with examiner. Pt is very pleasant and interacts well with examiner. Results & Data Results & Data Vital Signs (Past 12 Hours) Vital Signs Temp Pulse Resp BP Pulse Ox O2 Del Method 01/07/24 08:14 36.6 C 72 20 161/88 H 91 Room Air 01/07/24 07:38 75 18 95 Room Air PG Care Time/CCT Total # of Minutes Spent Total Time Spent with Patient: Total time spent is greater than 50% in coordination of care (as documented) at patient's floor/unit and/or counseling patient: Coding Level of Care Code 79720 SUB INP/OBS CARE 2/35MIN Diagnoses Acute exacerbation of chronic obstructive pulmonary disease (COPD) J44.1 SOB (shortness of breath) R06.02 Cough R05.1 Cough type: acute Peripheral eosinophilia D72.19
[2024-01-07] MEDS: clonazePAM 1 MG TAB PO PRN (15:58)
[2024-01-08 08:02] LABS: Hematocrit (blood only) 33.5 % (42.0-52.0); Hemoglobin 11.2 g/dl (14.0-18.0); Mean Corpuscular Hemoglobin 29.9 pg (25.0-34.0); Mean Corpuscular Hgb Conc 33.4 g/dL (32.0-36.0); Mean Corpuscular Volume 89.6 fL (80.0-100.0); Nucleated RBC # (auto) 0.06 K/uL (0.00-0.12); Nucleated RBC % (auto) 0.4 %; Platelet Count 389 K/uL (130-400); RDW Standard Deviation 72.6 fL (36.4-46.3); Red Blood Count 3.74 M/uL (4.70-6.10); White Blood Count 15.77 K/ul (4.8-10.8)
[2024-01-08 08:09] LABS: Calcium 9.3 mg/dl (8.6-10.3); Creatinine Clr Calc Pharmacy 79.8 ml/min; Est GFR (Non-African American) 90.6 ml/min; Potassium 4.5 mmol/L (3.5-5.1)
--- NOTE | 2024-01-08 11:01 | Hospitalist Progress Note ---
Date of Service January 08, 2024 Assessment & Plan (1) Acute exacerbation of chronic obstructive pulmonary disease (COPD): Plan: Patient presented to the hospital worsening shortness of breath and wheeze. Has a history of COPD, has expiratory wheeze on exam Started on IV Solu-Medrol, albuterol nebulizer, IV azithromycin. An/Syq 13 Nav/C2 Operator evaluated and added nebulized budesonide, Perforomist, and Incruse Robitussin as needed for cough Patient states shortness of breath wheezing cough much improved today Still some expiratory wheeze on exam Will continue treatment as above Patient has been urged several times to quit smoking, he agrees at this time (2) Acute hypoxemic respiratory failure: Plan: Now resolved patient saturating well on room air (3) Abdominal aneurysm: Plan: Patient follows up with his primary care physician with regular imaging Plan Patient has been going in and [facility] of [place] [facility] and currently some of his belongings are still in the [facility]. However the [facility] said before he can come back he will need psychiatry evaluation Admission and Anticipated Discharge Date Admission Date: January 04, 2024 Subjective Patient seen and examined today, states shortness of breath and wheeze much improved, although still coughing Review of Systems Review of Systems: All systems reviewed are negative, apart from the ones contained in the history. Physical Exam Physical Exam: The patient is awake, alert and oriented 3, well developed and well nourished, normocephalic and atraumatic, lying in bed and in no acute distress. HEENT--PERRL, EOMI, mucous membranes and oropharynx mildly dry Neck--supple. No JVD. No bruits. Thyroid normal, trachea midline, no adenopathy. Heart--normal S1 and S2. No murmurs, rubs or gallops. Lungs--reduced and on auscultation, bibasilar wheeze Abdomen--normal bowel sounds and soft. Extremities--no cyanosis or clubbing. No edema. Dermatologic--normal skin turgor, normal color, no abnormal lymph nodes, no rash. Neurologic--cranial nerves II through XII grossly intact. Rheumatologic--normal range of motion. Psychiatric--normal affect. Results & Data Results & Data Vital Signs (Past 12 Hours) Vital Signs Temp Pulse Resp BP Pulse Ox O2 Del Method 01/08/24 08:00 Room Air 01/08/24 07:59 97.5 F L 57 L 20 154/84 H 97 Room Air 01/08/24 07:42 67 16 96 Room Air PG Care Time/CCT Total # of Minutes Spent Total Time Spent with Patient: Total time spent is greater than 50% in coordination of care (as documented) at patient's floor/unit and/or counseling patient: Coding Level of Care Code 86984 SUB INP/OBS CARE 2/35MIN Diagnoses Acute exacerbation of chronic obstructive pulmonary disease (COPD) J44.1 Acute hypoxemic respiratory failure J96.01 Abdominal aneurysm I71.4 Time Spent (min) 35
--- NOTE | 2024-01-08 11:31 | Pulmonology Progress Note ---
Date of Service January 08, 2024 Assessment & Plan (1) Acute exacerbation of chronic obstructive pulmonary disease (COPD): (2) SOB (shortness of breath): (3) Cough: Cough type: acute Qualified Code(s): R05.1 - Acute cough (4) Peripheral eosinophilia: Plan IMPRESSION: 68-year-old man with a significant history of COPD who presents in the setting of COPD exacerbation. RECOMMENDATIONS: 1. COPD exacerbation -continue nebulized budesonide and formoterol. Continue Incruse Ellipta. Continue azithromycin 500 mg daily for 5 days total. Continue methylprednisone 40 mg 3 times daily and consider transitioning to p.o. prednisone starting tomorrow for short course of 7 days. Continue as needed DuoNebs.Certainly may have an eosinophilic component as his absolute eosinophil counts have been elevated upwards of 750 during this admission. Patient may benefit from outpatient allergy workup and potential biologic therapy once maximized on COPD therapies 2. Shortness of breath/cough - Secondary to #1 as well as deconditioning. 3. Tobacco abuse history - Patient with significant tobacco abuse history of 1- 1/2 to 2 packs/day for greater than 50 years. Patient would benefit from o utpatient PFTs and low-dose lung cancer screening. He will need to establish with a pulmonary provider as an outpatient. No further recommendations at this time. Pulmonary to sign off. Please call with questions. Admission and Anticipated Discharge Date Admission Date: January 04, 2024 Subjective Patient seen and examined. He continues to have wheezing and coughing. He lays in bed and has had minimal ambulation. He feels his breathing has remained the same over the past 24 hours. Review of Systems Review of Systems: All systems reviewed & are unremarkable except as noted in HPI & below Physical Exam Physical Exam: VITAL SIGNS - Vital signs and nursing notes were reviewed. GENERAL - 68-year-old male appearing his stated age who is in no acute distress. Communicates well with provider and answers questions appropriately. SKIN - Without rashes or lesions. NOSE - Midline and without cyanosis. MOUTH/OROPHARYNX - Without perioral cyanosis. NECK - Neck with FROM. LUNGS - Chest wall evaluation demonstrates increased chest wall A:P diameter. Auscultation reveals delayed air entry with diffuse expiratory wheezes throughout. No rales noted. CARDIAC - RRR with S1/S2. No murmur, rubs, or gallops appreciated. ABDOMEN - Abdominal inspection demonstrates a flat abdomen. BS normoactive all f our quadrants. No tenderness, palpable masses, or ascites noted. PSYCH - A&Ox3 and cooperates fully with examiner. Pt is very pleasant and interacts well with examiner. Results & Data Results & Data Vital Signs (Past 12 Hours) Vital Signs Temp Pulse Resp BP Pulse Ox O2 Del Method 01/08/24 08:00 Room Air 01/08/24 07:59 36.4 C L 57 L 20 154/84 H 97 Room Air 01/08/24 07:42 67 16 96 Room Air PG Care Time/CCT Total # of Minutes Spent Total Time Spent with Patient: Total time spent is greater than 50% in coordination of care (as documented) at patient's floor/unit and/or counseling patient: Coding Level of Care Code 03323 SUB INP/OBS CARE 25MIN Diagnoses Acute exacerbation of chronic obstructive pulmonary disease (COPD) J44.1 SOB (shortness of breath) R06.02 Cough R05.1 Cough type: acute Peripheral eosinophilia D72.19
[2024-01-09 07:16] LABS: Hematocrit (blood only) 33.8 % (42.0-52.0); Hemoglobin 11.5 g/dl (14.0-18.0); Mean Corpuscular Hemoglobin 30.4 pg (25.0-34.0); Mean Corpuscular Volume 89.4 fL (80.0-100.0); Mean Platelet Volume 10.1 fL (9.4-12.4); Nucleated RBC # (auto) 0.09 K/uL (0.00-0.12); Nucleated RBC % (auto) 0.5 %; Platelet Count 402 K/uL (130-400); RDW Coefficient of Variation 21.5 % (11.5-14.5); RDW Standard Deviation 71.1 fL (36.4-46.3); Red Blood Count 3.78 M/uL (4.70-6.10); White Blood Count 19.13 K/ul (4.8-10.8)
[2024-01-09 07:47] LABS: Anion Gap 7 (3-11); BUN Creatinine Ratio 46.3 (10-20); Blood Urea Nitrogen 44 mg/dl (6-23); Calcium 9.3 mg/dl (8.6-10.3); Carbon Dioxide 24 mmol/L (21-32); Chloride 104 mmol/L (98-107); Creatinine Clr Calc Pharmacy 70.5 ml/min; Est GFR (African American) 95.6 ml/min; Est GFR (Non-African American) 82.5 ml/min; Glucose 110 mg/dl (70-99(Fasting)); Sodium 135 mmol/L (136-145)
--- NOTE | 2024-01-09 14:38 | Hospitalist Progress Note ---
Date of Service January 09, 2024 Assessment & Plan (1) Acute exacerbation of chronic obstructive pulmonary disease (COPD): Plan: Patient presented to the hospital worsening shortness of breath and wheeze. Has a history of COPD, has mild expiratory wheeze on exam Started on IV Solu-Medrol, albuterol nebulizer, IV azithromycin. Jtac evaluated and added nebulized budesonide, Perforomist, and Incruse Robitussin as needed for cough Pulmonology recommends switching to prednisone Discontinue Solu-Medrol and start prednisone tomorrow Patient states shortness of breath wheezing cough much improved today Still some expiratory wheeze on exam Will continue treatment as above Smoking cessation discussed (2) Acute hypoxemic respiratory failure: Plan: Now resolved patient saturating well on room air (3) Abdominal aneurysm: Plan: Patient follows up with his primary care physician with regular imaging Plan Patient has been going in and [place] of [place] [facility] and currently some of his belongings are still in the [facility]. Per case management, patient will return to his hotel upon discharge. If he cannot afford the hotel, he will go to a homeless jail Admission and Anticipated Discharge Date Admission Date: January 04, 2024 Subjective Patient complains of continued wheezing and coughing. Breathing improved overall Review of Systems Review of Systems: All systems reviewed & are unremarkable except as noted in Subjective Physical Exam Physical Exam: General: Awake, conversant Heart: S1, S2/regular rate and rhythm, no murmur rubs or gallops Lungs: Prolonged expiration with minimal wheezing. Normal effort Abdomen: Soft/nontender/nondistended. No hepatosplenomegaly Extremities: No clubbing/cyanosis. No edema Behavior: Appropriate, cooperative Results & Data Results & Data Vital Signs (Past 12 Hours) Vital Signs Temp Pulse Resp BP Pulse Ox O2 Del Method 01/09/24 11:13 72 24 94 Room Air 01/09/24 08:16 36.6 C 69 22 157/88 H 93 Room Air 01/09/24 08:00 Room Air 01/09/24 07:12 77 18 94 Room Air Laboratory Results Abnormal lab results 01/09/24 Range/Units 06:41 WBC 19.13 H (4.8-10.8) K/ul RBC 3.78 L (4.70-6.10) M/uL Hgb 11.5 L (14.0-18.0) g/dl Hct 33.8 L (42.0-52.0) % RDW Std Deviation 71.1 H (36.4-46.3) fL RDW Coeff of Judd 21.5 H (11.5-14.5) % Plt Count 402 H (130-400) K/uL Sodium 135 L (136-145) mmol/L BUN 44 H (6-23) mg/dl BUN/Creatinine Ratio 46.3 H (10-20) Glucose 110 H (70-99(Fasting)) mg/dl PG Care Time/CCT Total # of Minutes Spent Total Time Spent with Patient: Total time spent is greater than 50% in coordination of care (as documented) at patient's floor/unit and/or counseling patient: Coding Level of Care Code 04221 SUB INP/OBS CARE 2/35MIN Diagnoses Acute exacerbation of chronic obstructive pulmonary disease (COPD) J44.1 Acute hypoxemic respiratory failure J96.01 Abdominal aneurysm I71.4
[2024-01-10] MEDS: ALBUT/IPRATROP 3MG/0.5MG NEB 3 ML VIAL NEB STA (08:41)
[2024-01-10] MEDS: predniSONE 20 MG TAB PO SCH (09:26)
--- NOTE | 2024-01-10 10:04 | Discharge Summary ---
Date of Service January 10, 2024 Admission HPI Per Admitting Provider This is a pleasant 68-year-old male who is initially a patient at the [facility] as a voluntary admission for depression. He currently denies any homicidal or suicidal ideation. Over the last week he has had increasing shortness of breath and cough. This is his third ER visit today with the above complaint. On January 01 2024 he had a CTA of his chest in the ER which was negative for acute pulmonary embolism. And there were no other acute findings. He has been treated with outpatient nebulizers from steroid therapy. He continues to worsen. He presents today for further evaluation and treatment. He presents to the ER by EMS. And route he had 125 mg of IV Solu-Medrol. He was 88% on room air. He was placed on 2 L of oxygen nasal cannula. And received nebulizer treatment and route. In the emergency department he had an unremarkable plain film chest x-ray today. He had a negative respiratory viral panel including COVID, influenza a and B and RSV. In the ER he had multiple nebulizer treatments and continues to require supplemental oxygen therapy and has shortness of breath. We are called admit the patient for further evaluation and treatment. Will admit the patient to the general medical floor. He is IV steroids nebulizer therapy will add azithromycin. Case management has been consulted for discharge planning as the patient is homeless. Admission Exam Per Admitting Provider In General: In general pleasant 68-year-old white male he is short of breath he has conversational dyspnea approximately 4 words at a time during my interview. He is using accessory muscles of respiration during my interview. Otherwise he is in no acute distress and interacts appropriately and pleasantly. HEENT: Normocephalic atraumatic pupils are equal round and reactive to light bilaterally. No scleral icterus no conjunctival injection external auditory canals are patent septum is in the midline nose is without discharge oral mucosa is pink and moist without lesion. NECK: Supple no rigidity no lymphadenopathy no thyromegaly no carotid bruits no JVD no masses. HEART: Regular rate and rhythm I do not appreciate any ectopy or rub. No murmur. LUNGS: Coarse bilaterally with diffuse expiratory wheezing and actually has inspiratory wheezing in the lower lung carmichael bilaterally. ABDOMEN: Soft nontender, no rebound, no peritoneal signs, positive bowel sounds, no abdominal bruits, no appreciable organomegaly. EXTREMITIES: Positive digital clubbing. Intact, no peripheral cyanosis, or edema. Strength is 5 out of 5 in extremities x4, no pathological reflexes. NEUROLOGICAL: Cranial nerves II through XII are grossly intact with no focal deficit elicited upon examination. No tremor. Principal Diagnosis Acute exacerbation of COPD Discharge Exam General: Awake, conversant Heart: S1, S2/regular rate and rhythm, no murmur rubs or gallops Lungs: Prolonged expiration with minimal wheezing. Normal effort Abdomen: Soft/nontender/nondistended. No hepatosplenomegaly Extremities: No clubbing/cyanosis. No edema Behavior: Appropriate, cooperative Discharge Data Allergies Allergy/AdvReac Type Severity Reaction Status Date / Time No Known Allergies Allergy Verified 01/04/24 12:37 Consultations 01/04/24 11:34 ED Decision to Admit Stat 01/05/24 18:04 Consult Pulmonology Routine Hospital Course (1) Acute exacerbation of chronic obstructive pulmonary disease (COPD): Patient presented to the hospital worsening shortness of breath and wheeze. Has a history of COPD, has mild expiratory wheeze on exam Started on IV Solu-Medrol, albuterol nebulizer, IV azithromycin. Manufacturing Assembler evaluated and added nebulized budesonide, Perforomist, and Incruse Robitussin as needed for cough Pulmonology recommends switching to prednisone Discontinue Solu-Medrol and started prednisone today Patient states shortness of breath wheezing cough much improved today Patient has been threatening to leave AMA today but decided to wait until I discharged him Patient is homeless and may not be able to afford the expensive inhalers. He is being discharged on Spiriva, Ventolin inhaler and prednisone. He has been advised to follow-up with his PCP. He may need a new certified first assistant established. Smoking cessation discussed (2) Acute hypoxemic respiratory failure: Now resolved patient saturating well on room air (3) Abdominal aneurysm: Patient follows up with his primary care physician with regular imaging Plan Patient has been going in and out of the [place] and currently some of his belongings are still in the [place]. Per case management, patient will return to his hotel upon discharge. If he cannot afford the hotel, he will go to a homeless skilled nursing Total Time Total Time Spent Total Time Spent (In Minutes): 35 Discharge Plan Discharge Items Patient Disposition: Home - Self-Care Reason For Visit: COPD EX Discharge Diagnosis: Acute exacerbation COPD Condition on Discharge: Fair Activity: Resume your previous activity Non-emergency contact: Primary Care Provider Call non-emergency contact if: you have any medication questions and your symp toms worsen Follow-up/Referrals: Barak Almonte [Primary Care Provider] - 01/13/24 9:30 am Diet: Heart Healthy Addtl Attending Provider Instructions: Advised to follow-up with PCP in 1 week. You may need a referral to a certified first assistant. Pending Studies at Discharge: No Stand-Alone Forms: My [facility], Smoking Cessation Medications and DC Order Prescriptions: New prednisone 10 mg tablet 10 mg PO DAILY Qty: 20 0RF Rx Instructions: 4 tabs for 2 days, then drop by 1 tab every 2 days, then stop Continued clonazepam [Klonopin] 1 mg Tablet 1 mg PO BID PRN (Reason: Anxiety) sertraline [Zoloft] 50 mg Tablet 50 mg PO DAILY quetiapine [Seroquel] 50 mg Tablet 25 mg PO HS albuterol sulfate [Ventolin HFA] 90 mcg/actuation Hfa Aerosol Inhaler 2 puff INHALATION Q6H PRN (Reason: Shortness Of Breath) tiotropium bromide [Spiriva with HandiHaler] 18 mcg Capsule, W/Inhalation Device 1 cap INHALATION DAILY gabapentin 300 mg Capsule 300 mg PO DAILY prochlorperazine maleate 10 mg tablet 10 mg PO QID PRN (Reason: nausea and vomiting) Qty: 14 0RF Discontinued cefdinir 300 mg Capsule 300 mg PO BID Rx Instructions: For 7 days , Recorded 12/27/2023 Discharge Orders: Discharge Order (Routine); Ordered 01/10/24 Ordered By: Andres Caal/Other Patient Handouts: COPD: Wheezing and Chest Tightness Admission Data Admit Date/Time: 01/04/24 12:07 Attending Provider: Andres Schafer Admit Provider: Michael Garcia Primary Care Provider: Barak Almonte Other Providers: Michael Garcia; Patrick Law Other Interventions: Discharge Summary Assessment (RN) Last Done: 01/10/24 10:07 Coding Level of Care Code 48200 INP/OBS DISCH >30 MIN Diagnoses Acute exacerbation of chronic obstructive pulmonary disease (COPD) J44.1 Acute hypoxemic respiratory failure J96.01 Abdominal aneurysm I71.4
== END 2024-01-10 12:31 | disposition home or self-care (01) | DRG 190 ==
LOC: ED 09:53 → 3N 12:07 → SUATTDRO 12:07 → 3N 12:55

== ENCOUNTER 2024-11-28 21:46 | Observation (INO) ==
[2024-11-28 22:20] LABS: Appearance Urine Clear (Clear); Bilirubin Urine Negative (Negative); Blood Urine Negative (Negative); Color Urine Yellow; Glucose Urine UA Negative (Negative); Ketones Urine Trace (Negative); Leukocyte Esterase Urine Negative (Negative); Nitrite Urine Negative (Negative); Protein Urine Negative (Negative); Specific Gravity Urine 1.026 (1.000-1.030); Urobilinogen Urine Negative (Negative)
[2024-11-28 22:28] LABS: Basophils # (auto) 0.06 K/uL (0.00-0.20); Basophils % (auto) 0.4 %; Eosinophils # (auto) 0.25 K/uL (0.00-0.50); Eosinophils % (auto) 1.6 %; Hematocrit (blood only) 34.1 % (42.0-52.0); Hemoglobin 11.8 g/dl (14.0-18.0); Immature Granulocytes # (auto) 0.04 K/uL (0.01-0.20); Immature Granulocytes % (auto) 0.3 %; Lymphocytes # (auto) 3.59 K/uL (1.20-3.40); Lymphocytes % (auto) 23.6 %; Mean Corpuscular Hemoglobin 30.9 pg (25.0-34.0); Mean Corpuscular Hgb Conc 34.6 g/dL (32.0-36.0); Mean Corpuscular Volume 89.3 fL (80.0-100.0); Mean Platelet Volume 9.7 fL (9.4-12.4); Monocytes # (auto) 1.39 K/uL (0.11-0.59); Monocytes % (auto) 9.1 %; Neutrophils # (auto) 9.91 K/uL (1.40-6.50); Nucleated RBC # (auto) 0.07 K/uL (0.00-0.12); Nucleated RBC % (auto) 0.5 %; Platelet Count 315 K/uL (130-400); RDW Coefficient of Variation 21.9 % (11.5-14.5); RDW Standard Deviation 72.7 fL (36.4-46.3); Red Blood Count 3.82 M/uL (4.70-6.10); White Blood Count 15.24 K/ul (4.8-10.8)
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
[2024-11-28 22:44] LABS: Alanine Aminotransferase 14 U/L (7-52); Albumin Level 4.7 gm/dl (3.4-5.0); Alkaline Phosphatase 90 U/L (34-104); Anion Gap 9 (3-11); Aspartate Aminotransferase 16 U/L (13-39); BUN Creatinine Ratio 31.5 (10-20); Bilirubin,Total 0.7 mg/dl (0.2-1.0); Blood Urea Nitrogen 29 mg/dl (6-23); Calcium 8.9 mg/dl (8.6-10.3); Carbon Dioxide 23 mmol/L (21-32); Chloride 105 mmol/L (98-107); Globulin 2.3 gm/dl (2.5-4.0); Glucose 99 mg/dl (70-99(Fasting)); Sodium 137 mmol/L (136-145)
[2024-11-28 22:45] LABS: Anisocytosis Present; Polychromasia 1+
[2024-11-28 22:46] LABS: Acetaminophen < 3 ug/ml (10-30); Salicylate < 3.0 mg/dl (3.0-30)
[2024-11-28 22:47] LABS: Amphetamines+Metham, Urine Neg (Neg); Barbiturates, Urine Neg (Neg); Benzodiazepine, Urine Neg (Neg); Cocaine, Urine Neg (Neg); Fentanyl, Urine Neg (Neg); MDMA (Ecstacy), Urine Neg (Neg); Marijuana, Urine Pos (Neg); Methadone, Urine Neg (Neg); Opiate, Urine Neg (Neg); Phencyclidine, Urine Neg (Neg)
[2024-11-28 22:59] LABS: Thyroid Stimulating Hormone 2.876 uIu/ml (0.300-4.500)
[2024-11-28] MEDS: guaiFENesin 600 MG TABCR PO ONE (23:59)
--- NOTE | 2024-11-29 00:55 | Emergency Department Note ---
ED Visit Note Patient signed out to me at change of shift from Dr. Hernandez. Patient medically cleared prior to signout, here with depression and suicidal ideation. 302 was originally petition by police and upon by Dr. Hernandez. Bed search ongoing at this time. During the course of my shift patient was denied by several facilities. This was due to his COVID-positive status additionally. Case management states in light of this he will need to be medically admitted with a psychiatric consult. .
[2024-11-29] MEDS: ALBUTEROL HFA 8 GM INHALER INH ONE (02:18)
--- NOTE | 2024-11-29 06:43 | History & Physical Report ---
Date of Service November 29, 2024 Assessment & Plan (1) COVID: (2) Suicidal ideation: Plan 69-year-old male PMHx COPD and depression presenting to ED after reportedly being argumentative and making suicidal comments at the [facility]. Initially brought in with health concerns and had presented with few suicidal ideations. 302 petition. Incidentally found to have COVID-19 and has been complaining of coughing with minimal sputum production, unsure for how long. CBC revealed leukocytosis. Patient was medically cleared with 302 which was petitioned by police signed by Dr. Hernandez in ED. Bed search for patient was ongoing but was denied by all facilities through statewide search mainly due to his COVID-positive status. Case management aware. To be medically admitted for now with psychiatric consult. #COVID-19 COVID 19 diagnosed on admission; no known sick contacts per the patient. States he has had an ongoing productive cough for an unknown amount of time and that he always wheezes. Does have underlying COPD and uses medications as prescribed. Does not feel as though these medications are helping. - CBC revealing leukocytosis on admission; unable to obtain CXR at time of admission - No O2 at baseline - Incentive spirometry + flutter valve; Oxygen as needed; although attempt to wean off as tolerated - DuoNebs scheduled- patient prefers mask rather than handheld device for such - Continue inhalers - Dexamethasone 6 mg daily; guaifenesin 600 p.o. as needed; consider adding hypertonic saline nebs if congestion - Nicotine patch order placed if patient needs - Since unknown duration of symptoms, deferred remdesivir at time of admission #COPD H/o COPD, no O2 at baseline. States he takes his medications as prescribed. - No evidence of exacerbation today; does have presence of COVID - Continue home meds in neb form #Suicidal ideations Police petitioned for 302 signed by ED physician. Statewide bed search yielded negative results given COVID-positive status. Patient being admitted to medical service with psychiatric in place. Patient continues to say derogatory things to staff throughout entire stay. - Denying active SI/HI at time of admission however states that he plans to lie about this so he can leave the hospital. - Patient aware of 302 - Suicide precautions - Psychiatric consult placed- appreciate psych input and recs Dispo: Admit, med/sx VTE prophylaxis: Lovenox This document was dictated utilizing [employer] Software. Please excuse any grammatical errors that may be secondary to use of this software. Admission and Anticipated Discharge Date Admission Date: 11/29/2024 History of Present Illness Chief Complaint: SOB Primary Care Provider: Barak Almonte 69-year-old male PMHx COPD and depression presenting to ED after reportedly being argumentative and making suicidal comments at the [facility]. Initially brought in with health concerns and had presented with few suicidal ideations. Upset about an episode that had happened at the [facility] was another individual and the police had to kick him out. Patient had made comments that there were razors and knives in his backpack and when he was going to use it to cut himself. Upon workup in the ED he was found to have a leukocytosis and tested positive for rhino/enterovirus and COVID-19. Does admit to feeling short of breath and states that he wheezes "all the time." Denying chest pain, palpitations, abdominal pain, N/V/D/C, numbness/tingling, LUTS, or fever/chills. 302 was petitioned; patient aware. Please see Dr. Yu's attestation for adjustments/additions to treatment plan. Allergies Allergy/AdvReac Type Severity Reaction Status Date / Time No Known Allergies Allergy Verified 01/04/24 12:37 Home Medications Medication Instructions Recorded Confirmed Type albuterol sulfate 90 mcg/actuation 2 puff inhalation Q6H PRN 11/13/19 11/29/24 History aerosol inhaler (Ventolin HFA) Shortness Of Breath tiotropium bromide 18 mcg capsule 1 cap inhalation DAILY 11/13/19 11/29/24 History with inhalation device (Spiriva with HandiHaler) gabapentin 300 mg capsule 300 mg PO DAILY 12/27/23 11/29/24 History prochlorperazine maleate 10 mg 10 mg PO QID PRN nausea and 12/27/23 11/29/24 Rx tablet vomiting #14 tabs clonazepam 1 mg tablet (Klonopin) 1 mg PO BID PRN Anxiety #20 tabs 11/29/24 Rx dexamethasone 1 mg tablet 6 mg (6 x 1 mg) PO DAILY #4 tabs 11/29/24 Rx guaifenesin 600 mg tablet, 600 mg PO Q12 #20 tabs 11/29/24 Rx extended release 12 hr (Mucinex) quetiapine 50 mg tablet (Seroquel) 25 mg (1/2 x 50 mg) PO HS #30 tabs 11/29/24 Rx Past Med/Surg History Problem List (Updated 11/29/24 @ 13:09 by Beth Faajrdo MD) Housing insecurity Depression Malingering Suicidal ideation (Acute) COVID (Acute) Peripheral eosinophilia Acute exacerbation of chronic obstructive pulmonary disease (COPD) Failure of outpatient treatment (Acute) Leukocytosis (Acute) COPD exacerbation (Acute) SOB (shortness of breath) (Acute) Hypoxia (Acute) Acute hypoxemic respiratory failure Arthritis COPD (chronic obstructive pulmonary disease) (Acute) Abdominal aneurysm Medical History Agitation Depression Encounter for smoking cessation counseling Dyspnea Surgical History History of appendectomy Family History Mother Diabetes Social History Smoking Status: Current every day smoker Tobacco Type: Cigarettes Hx Alcohol Use: No Hx Substance Use: Yes Last Used Substance: Just Prior to Arrival Preferred Language: Syriac Communication Ability: Effective Nuclear Control Room Operator Required: No Beliefs That Will Affect Care: None Current Living Situation: Homeless Feels Safe at Home: Yes Gender Identity: Male Assistive Devices: None Review of Systems Review of Systems: All systems reviewed & are unremarkable except as noted in Subjective Physical Exam Physical Exam: General: No acute distress, sleeping in bed Skin: Warm and dry Head: Normocephalic, atraumatic Eyes: PERRL, conjunctivae clear, sclera non-icteric ENT: External ear and ear canal without swelling; nose atraumatic; poor dentition Neck: Supple, no LAD Cardio: RRR, no M/G/R, S1 and S2 normal Resp: No respiratory distress, expiratory wheezing throughout all lung carmichael, otherwise lungs CTA in all lobes bilaterally, without rales or rhonchi Abdomen: Soft, symmetric, nontender; No masses or hepatosplenomegaly; Bowel sounds normoactive MSK: No deformities, full ROM throughout; pulses palpable and equal; no edema. Neuro: Awake, alert upon arrival in the room; CN grossly intact Psych: Easily agitated. States that he is going to tell people that he does not want to kill himself just if he can leave. States "I will see you in hell" when leaving the room. Results & Data Results & Data Vital Signs (Past 12 Hours) Vital Signs Temp Pulse Pulse Resp BP BP Pulse Ox 11/29/24 04:49 36.6 C 89 16 154/82 H 95 11/28/24 21:54 37.1 C 97 H 20 154/103 H 96 O2 Del Method 11/29/24 04:49 Room Air 11/28/24 21:54 Room Air Laboratory Results 11/28/24 11/28/24 11/28/24 22:07 22:06 21:52 WBC 15.24 H RBC 3.82 L Hgb 11.8 L Hct 34.1 L MCV 89.3 MCH 30.9 MCHC 34.6 RDW Std Deviation 72.7 H RDW Coeff of Judd 21.9 H Plt Count 315 MPV 9.7 Immature Gran % (Auto) 0.3 Neut % (Auto) 65.0 Lymph % (Auto) 23.6 Glades % (Auto) 9.1 Eos % (Auto) 1.6 Baso % (Auto) 0.4 Neut # (Auto) 9.91 H Lymph # (Auto) 3.59 H Glades # (Auto) 1.39 H Eos # (Auto) 0.25 Baso # (Auto) 0.06 Immature Gran # (Auto) 0.04 Absolute Nucleated RBC 0.07 Nucleated RBC % (auto) 0.5 Polychromasia 1+ Anisocytosis Present Sodium 137 Potassium 4.0 Chloride 105 Carbon Dioxide 23 Anion Gap 9 BUN 29 H Creatinine 0.92 Est Cr Clr Drug Dosing Not Reportable eGFR 90.61 BUN/Creatinine Ratio 31.5 H Glucose 99 Calcium 8.9 Total Bilirubin 0.7 AST 16 ALT 14 Alkaline Phosphatase 90 Total Protein 7.0 Albumin 4.7 Globulin 2.3 L Albumin/Globulin Ratio 2.0 TSH 2.876 Urine Color Yellow Urine Appearance Clear Urine pH 6.0 Ur Specific [place] 1.026 Urine Protein Negative Urine Glucose (UA) Negative Urine Ketones Trace H Urine Blood Negative Urine Nitrite Negative Urine Bilirubin Negative Urine Urobilinogen Negative Ur Leukocyte Esterase Negative Salicylates < 3.0 L Urine Opiates Screen Neg Ur Methadone, Qual Neg Urine Fentanyl Screen Neg Acetaminophen < 3 L Urine Barbiturates Neg Ur Phencyclidine (PCP) Neg U Amphetamin/Meth Scrn Neg MDMA (Ecstasy) Screen Neg U Benzodiazepines Scrn Neg Ur Cocaine Metabolite Neg U Marijuana (THC) Screen Pos H Ethyl Alcohol mg/dL < 10.0 SARS-CoV-2, RNA, NAAT POSITIVE A Medications Administered Guaifenesin 600 mg p.o. Albuterol inhaler Albuterol nebulizer Code Status & VTE Plan Code Status Full VTE Prophylaxis Plan VTE Prophylaxis will be ordered: Yes Supervising Physician Co-Signing Physician Notes During face to face encounter, I obtained a history and physical examination, discussed plan of care with patient. I discussed plan of care with DENTON Posada. I reviewed above note and agree with it except for the following: Patient will be admitted with COVID 19 and patient will be placed on IV dexamethasone. Patient will be closely monitored. Awaiting inpur from Psych regarding suicidal ideations. PG Care Time/CCT Total # of Minutes Spent Total Time Spent with Patient: Total time spent is greater than 50% in coordination of care (as documented) at patient's floor/unit and/or counseling patient: Coding Level of Care Code 28069 INT INP/OBS CARE 3MIN Diagnoses COVID U07.1 Suicidal ideation R45.851
[2024-11-29] MEDS ORDERED: LORazepam 1 MG/1 ML SYR ED Inj Use IM PRN (06:52)
[2024-11-29] MEDS: ALBUTEROL 0.5% NEB SOLN 2.5 MG/0.5 ML VIAL NEB STA (06:56)
[2024-11-29] MEDS: LORazepam 1 MG TAB SL STA (06:57)
[2024-11-29] MEDS: ALBUT/IPRATROP 3MG/0.5MG NEB 3 ML VIAL NEB SCH (07:05)
[2024-11-29] MEDS: HALOPERIDOL LACTATE 5 MG/ML 1 ML VIAL IM STA (07:19)
[2024-11-29] MEDS: HALOPERIDOL LACTATE 5 MG/ML 1 ML VIAL ONE (07:21)
[2024-11-29] MEDS ORDERED: clonazePAM 1 MG TAB PO PRN (08:35)
[2024-11-29] MEDS ORDERED: ACETAMINOPHEN 325 MG TAB PO PRN (08:35)
[2024-11-29] MEDS ORDERED: POLYETHYLENE (MIRALAX) 17 GM PACK PO PRN (08:35)
[2024-11-29] MEDS ORDERED: MELATONIN 3 MG TAB PO PRN (08:35)
[2024-11-29] MEDS ORDERED: PROCHLORPERAZINE MALEATE 10 MG TAB PO PRN (08:35)
[2024-11-29] MEDS: dexAMETHasone 1 MG TAB PO SCH (11:13)
[2024-11-29] MEDS: NICOTINE 21 MG/24 HR TDSY TD SCH (11:13)
[2024-11-29] MEDS: guaiFENesin 600 MG TABCR PO SCH (11:13)
[2024-11-29] MEDS: SERTRALINE HCL 50 MG TABLET PO SCH (11:14)
[2024-11-29] MEDS: GABAPENTIN 300 MG CAP PO SCH (11:14)
[2024-11-29] MEDS: UMECLIDINIUM BROMIDE 62.5MCG/BLISTER 7 PUFFS/INHALER INH SCH (11:24)
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
[2024-11-29 15:19] LABS: C Reactive Protein 2.76 mg/dl (0-0.5)
[2024-11-29] MEDS: ALBUT/IPRATROP 3MG/0.5MG NEB 3 ML VIAL NEB PRN (18:20)
[2024-11-29] MEDS: QUEtiapine FUMARATE 25 MG TABLET PO SCH (20:18)
[2024-11-29] MEDS: ALBUTEROL HFA 8 GM INHALER INH PRN (23:36)
[2024-11-30] MEDS ORDERED: guaiFENesin 600 MG TABCR PO SCH
[2024-11-30] MEDS ORDERED: clonazePAM 1 MG TAB PO SCH
[2024-11-30] MEDS ORDERED: dexAMETHasone 4 MG TAB PO SCH
[2024-11-30 06:08] VITALS: TEMP 97.9
[2024-11-30 08:01] LABS: Basophils # (auto) 0.02 K/uL (0.00-0.20); Basophils % (auto) 0.1 %; Eosinophils # (auto) 0.01 K/uL (0.00-0.50); Eosinophils % (auto) 0.1 %; Hematocrit (blood only) 34.1 % (42.0-52.0); Immature Granulocytes # (auto) 0.09 K/uL (0.01-0.20); Immature Granulocytes % (auto) 0.7 %; Lymphocytes # (auto) 2.64 K/uL (1.20-3.40); Lymphocytes % (auto) 19.1 %; Mean Corpuscular Hemoglobin 31.1 pg (25.0-34.0); Mean Corpuscular Hgb Conc 35.2 g/dL (32.0-36.0); Mean Corpuscular Volume 88.3 fL (80.0-100.0); Mean Platelet Volume 9.7 fL (9.4-12.4); Monocytes # (auto) 1.42 K/uL (0.11-0.59); Monocytes % (auto) 10.3 %; Neutrophils # (auto) 9.66 K/uL (1.40-6.50); Neutrophils % (auto) 69.7 %; Nucleated RBC # (auto) 0.05 K/uL (0.00-0.12); Nucleated RBC % (auto) 0.4 %; Platelet Count 357 K/uL (130-400); RDW Coefficient of Variation 21.7 % (11.5-14.5); RDW Standard Deviation 70.7 fL (36.4-46.3); Red Blood Count 3.86 M/uL (4.70-6.10); White Blood Count 13.84 K/ul (4.8-10.8)
[2024-11-30 08:23] LABS: Anisocytosis Present; Ovalocytes 1+; Polychromasia 1+
[2024-11-30 08:31] LABS: Anion Gap 8 (3-11); Calcium 9.7 mg/dl (8.6-10.3); Carbon Dioxide 21 mmol/L (21-32); Chloride 107 mmol/L (98-107); Potassium 4.3 mmol/L (3.5-5.1); Sodium 136 mmol/L (136-145)
[2024-11-30 08:36] LABS: BUN Creatinine Ratio 32.2 (10-20); Blood Urea Nitrogen 28 mg/dl (6-23); C Reactive Protein 2.79 mg/dl (0-0.5); Glucose 107 mg/dl (70-99(Fasting))
[2024-11-30 10:13] VITALS: BP 152/87; PULSE 84; RESP 22; O2SAT 96
[2024-11-30] MEDS ORDERED: clonazePAM 1 MG TAB PO PRN (10:17)
[2024-12-01 15:03] LABS: Marijuana Quant, GCMS Urine 512 ng/mL (<5)
--- NOTE | 2024-12-03 13:33 | Discharge Summary ---
Discharge Summary Date of Service November 30, 2024 Principal Dx & Hospital Course #1 = Principal Diagnosis (1) COVID: (2) Suicidal ideation: Plan 69-year-old male PMHx COPD and depression presenting to ED after reportedly being argumentative and making suicidal comments at the [employer] [facility]. Initially brought in with health concerns and had presented with few suicidal ideations. 302 petition. Incidentally found to have COVID-19 and has been complaining of coughing with minimal sputum production, unsure for how long. CBC revealed leukocytosis. Patient was medically cleared with 302 which was petitioned by police signed by Dr. Hernandez in ED. Bed search for patient was ongoing but was denied by all facilities through statewide search mainly due to his COVID-positive status. Case management aware. To be medically admitted for now with psychiatric consult. #COVID-19 COVID 19 diagnosed on admission; no known sick contacts per the patient. States he has had an ongoing productive cough for an unknown amount of time and that he always wheezes. Does have underlying COPD and uses medications as prescribed. - CBC revealing leukocytosis on admission; downtrending at discharge; no evidence of superimposed pneumonia. - No O2 at baseline; patient remained on room air. He passed his 2 step. - Incentive spirometry + flutter valve; Oxygen as needed; although attempt to wean off as tolerated - DuPavelbs scheduled- patient prefers mask rather than handheld device for such - Continue inhalers - Dexamethasone 6 mg daily; will complete short term dexamethasone course for 3 additonal days as patient was never truly hypoxic, however this may provide a mortality benefit. Home med packet was given to patient. Patient was agreeable to discharge and had a place to go #COPD H/o COPD, no O2 at baseline. States he takes his medications as prescribed. - No evidence of exacerbation today; does have presence of COVID - Continue home meds in neb form #Suicidal ideations Appears this was malingering as patient reports he never had suicidal ideations and was looking for a place to stay due to the cold weather Admission HPI Per Admitting Provider 69-year-old male PMHx COPD and depression presenting to ED after reportedly being argumentative and making suicidal comments at the [employer] [facility]. Initially brought in with health concerns and had presented with few suicidal ideations. Upset about an episode that had happened at the [employer] [facility] was another individual and the police had to kick him out. Patient had made comments that there were razors and knives in his backpack and when he was going to use it to cut himself. Upon workup in the ED he was found to have a leukocytosis and tested positive for rhino/enterovirus and COVID-19. Does admit to feeling short of breath and states that he wheezes "all the time." Denying chest pain, palpitations, abdominal pain, N/V/D/C, numbness/tingling, LUTS, or fever/chills. 302 was petitioned; patient aware. Discharge Exam General: No acute distress, sleeping in bed Skin: Warm and dry Head: Normocephalic, atraumatic Eyes: PERRL, conjunctivae clear, sclera non-icteric ENT: External ear and ear canal without swelling; nose atraumatic; poor dentition Neck: Supple, no LAD Cardio: RRR, no M/G/R, S1 and S2 normal Resp: lungs CTA in all lobes bilaterally, without rales or rhonchi Abdomen: Soft, symmetric, nontender; No masses or hepatosplenomegaly; Bowel sounds normoactive Discharge Plan Discharge Items Patient Disposition: Home - Self-Care Reason For Visit: SI, COVID Discharge Diagnosis: covid Activity: Resume your previous activity Non-emergency contact: Primary Care Provider Call non-emergency contact if: you have any medication questions Follow-up/Referrals: Barak Almonte [Primary Care Provider] - Sandra Packer DO [Resident] - 12/06/24 9:20 am (Please arrive at 9:05 This is a hospital follow up appointment. ) Rosalba Chan MD [Resident] - 11/30/24 9:20 am (Please arrive at 9:05 Please bring ID and insurance card with you This is an [facility] care appointment) Diet: Regular Addtl Attending Provider Instructions: recommend followup with PCP in 1-2 weeks Pending Studies at Discharge: No Stand-Alone Forms: [employer], Smoking Cessation Medications and DC Order Prescriptions: New dexamethasone 1 mg Tablet 6 mg PO DAILY Qty: 4 0RF guaifenesin [Mucinex] 600 mg Tablet Extended Release 12hr 600 mg PO Q12 Qty: 20 0RF Continued albuterol sulfate [Ventolin HFA] 90 mcg/actuation Hfa Aerosol Inhaler 2 puff INHALATION Q6H PRN (Reason: Shortness Of Breath) tiotropium bromide [Spiriva with HandiHaler] 18 mcg Capsule, W/Inhalation Device 1 cap INHALATION DAILY gabapentin 300 mg Capsule 300 mg PO DAILY prochlorperazine maleate 10 mg tablet 10 mg PO QID PRN (Reason: nausea and vomiting) Qty: 14 0RF clonazepam [Klonopin] 1 mg Tablet 1 mg PO BID PRN (Reason: Anxiety) Qty: 20 0RF quetiapine [Seroquel] 50 mg Tablet 25 mg PO HS Qty: 30 0RF Discontinued sertraline [Zoloft] 50 mg Tablet 50 mg PO DAILY Discharge Orders: Discharge Order (Routine); Ordered 11/30/24 Ordered By: Ulises Yu Admission Data Admit Date/Time: 11/29/24 06:26 Attending Provider: Ulises Yu Admit Provider: Yari Bach Primary Care Provider: Barak Almonte Other Providers: Eleazar Hernandez Erica K. Other Interventions: Discharge Summary Assessment (RN) Last Done: 11/30/24 10:15 Hospital Stay Data Consultations 11/29/24 06:15 ED Decision to Admit Stat 11/29/24 08:35 Consult Psychiatry Routine Pending Results Patient Have Any Pending Studies at Discharge: No Discharge Instructions Given to Patient (Per Discharging Provider) recommend followup with PCP in 1-2 weeks Total Time Total Time Spent Total Time Spent (In Minutes): 32 Coding Level of Care Code 93281 INP/OBS DISCH >30 MIN Diagnoses COVID U07.1 Suicidal ideation R45.851
== END 2024-11-30 10:51 | disposition home or self-care (01) ==
LOC: ED 21:46 → EDINP 11-29 06:26 → SUATTDRO 11-29 06:26 → INTOOBSV 11-29 06:26 → EDINP 11-30 08:35
DX: Z59.86 Financial insecurity; Z79.899 Other long term (current) drug therapy; Z60.8 Other problems related to social environment; Z59.01 Sheltered homelessness; F33.1 Major depressive disorder, recurrent, moderate; R45.851 Suicidal ideations; B34.8 Other viral infections of unspecified site; Z76.5 Malingerer [conscious simulation]; J44.9 Chronic obstructive pulmonary disease, unspecified; F17.210 Nicotine dependence, cigarettes, uncomplicated; B97.10 Unspecified enterovirus as the cause of diseases classified elsewhere; U07.1 COVID-19

== ENCOUNTER 2025-01-14 22:11 | Inpatient (IN) ==
--- NOTE | 2025-01-14 22:26 | Emergency Department Note ---
Impression & Plan Acute dyspnea, Non-ST elevation PR (NSTEMI) ED Provider Note HISTORY OF PRESENT ILLNESS: Patient is a 69-year-old male presenting with shortness of breath. Patient reports that he is homeless. States that he was just discharged from [facility] after being admitted for 2 days for COPD exacerbation. He reports he was on antibiotics and steroids at their facility but not discharged on any medications. He states that since being outside again he feels like he is having another COPD exacerbation. He reports a cough but is nonproductive. Denies any chest pain. Denies any DVT or PE history. He denies any notable fevers. He states that "I cannot take care of myself at home." However, he does state that he has been able to get to the marijuana dispensary. Patient was given a DuoNeb treatment en route with EMS. ROS: as above PHYSICAL EXAM: Constitutional: Patient appears in no acute distress. HENT: Head: Normocephalic and atraumatic. Eyes: EOMI, PERRL Mouth/Throat: Mucous membranes moist. Neck: Trachea midline. Neck supple. Cardiovascular: RRR, No murmurs, rubs or gallops. Intact distal pulses. Pulmonary/Chest: No respiratory distress. Breath sounds clear and equal bilaterally. Expiratory wheezes bilaterally. Abdominal: Abdomen soft, no tenderness, rebound or guarding Musculoskeletal: No edema, tenderness or deformity noted. Skin: Warm and dry. No rash, erythema, pallor or cyanosis Psychiatric: Appropriate mood and affect for situation. Neurological: Alert and keenly responsive. CN II-XII grossly intact, moving all extremities equally and fully. MDM: - Vitals signs stable. - History obtained via patient. History as above. - Chronic conditions affecting care: COPD; malingering - Differential diagnoses include, but are not limited to: Congestive heart failure; acute coronary syndrome; COPD/asthma exacerbation; pulmonary edema; pulmonary embolism; pneumonia; pneumothorax; viral syndrome - Order placed for continuous cardiac monitoring. At this time, monitor showed rate of 78 bpm with normal sinus rhythm, per my interpretation. - External medical records reviewed. Discharge summary dated 12/03/2024 was reviewed. Patient was admitted for COVID and suicidal ideation. - EKG image interpreted by myself showed normal sinus rhythm. Rate 86 bpm. QT 352. No acute ischemic changes. - Laboratory workup interpreted by myself showed leukocytosis (WBC 22.58 - may be reactive secondary to patient's recent steroid use); stable electrolytes; elevated BNP (114); elevated troponin (42.9) - Viral respiratory panel negative - CXR image reviewed by myself was negative for pneumonia, per my interpretation. - Patient was given an hour long duoneb treatment - Given 324 mg PO aspirin for NSTEMI. NSTEMI likely type II in etiology secondary to the patient's respiratory complaints. - Discussion was had with caseworker intake about patient's case and need for admission - Hospitalist, Dr. Moser, consulted for admission - Patient admitted to [facility]ist service for further evaluation and management. ASSESSMENT AND PLAN: Diagnosis: Acute dyspnea; NSTEMI Plan: Admit Past Med/Surg History Problem List (Updated 01/14/25 @ 23:38 by Nena Vick MD) Non-ST elevation PR (NSTEMI) (Acute) Acute dyspnea (Acute) Housing insecurity Depression Malingering Suicidal ideation (Acute) COVID (Acute) Peripheral eosinophilia Acute exacerbation of chronic obstructive pulmonary disease (COPD) Failure of outpatient treatment (Acute) Leukocytosis (Acute) COPD exacerbation (Acute) SOB (shortness of breath) (Acute) Hypoxia (Acute) Acute hypoxemic respiratory failure Arthritis COPD (chronic obstructive pulmonary disease) (Acute) Abdominal aneurysm Medical History Agitation Depression Encounter for smoking cessation counseling Dyspnea Surgical History History of appendectomy Family History Mother Diabetes Social History Smoking Status: Current every day smoker Tobacco Type: Cigarettes Hx Alcohol Use: No Hx Substance Use: Yes Last Used Substance: Just Prior to Arrival Preferred Language: Chadian Communication Ability: Effective [employer] Required: No Beliefs That Will Affect Care: None Current Living Situation: Homeless Feels Safe at Home: No Is there a partner from a previous relationship who is making you feel unsafe now?: No Gender Identity: Male Assistive Devices: None Allergies Allergies Allergy/AdvReac Type Severity Reaction Status Date / Time No Known Allergies Allergy Verified 01/04/24 12:37 Home Meds Home Medications Medication Instructions Recorded Confirmed albuterol sulfate 90 mcg/actuation 2 puff inhalation Q6H PRN 11/13/19 11/29/24 aerosol inhaler (Ventolin HFA) Shortness Of Breath tiotropium bromide 18 mcg capsule 1 cap inhalation DAILY 11/13/19 11/29/24 with inhalation device (Spiriva with HandiHaler) gabapentin 300 mg capsule 300 mg PO DAILY 12/27/23 11/29/24 Previous Rx's Medication Instructions Recorded prochlorperazine maleate 10 mg 10 mg PO QID PRN nausea and 12/27/23 tablet vomiting #14 tabs clonazepam 1 mg tablet (Klonopin) 1 mg PO BID PRN Anxiety #20 tabs 11/29/24 dexamethasone 1 mg tablet 6 mg (6 x 1 mg) PO DAILY #4 tabs 11/29/24 guaifenesin 600 mg tablet, 600 mg PO Q12 #20 tabs 11/29/24 extended release 12 hr (Mucinex) quetiapine 50 mg tablet (Seroquel) 25 mg (1/2 x 50 mg) PO HS #30 tabs 11/29/24 Results & Data (ED) Vital Signs Vital Signs - 24 hr 01/14/25 22:25 01/14/25 22:25 01/14/25 22:25 Temperature 37 C Temperature Source Oral Pulse Rate 78 Pulse Rhythm Regular Pulse Strength Normal Respiratory Rate 19 Respiratory Effort / Characteristics Non-Labored Spontaneous Non-Labored Spontaneous Respiratory Depth Normal Normal Respiratory Pattern Regular Regular Blood Pressure 124/79 Blood Pressure Mean 94 Blood Pressure Position Sitting Pulse Oximetry 94 94 Oxygen Delivery Method Room Air Room Air Room Air Sepsis Recent Fever Within 48 Hours No Sepsis New/Unexplained Change in Mental Status N/A Sepsis Action Taken by Nursing No Action Required 01/14/25 22:26 01/14/25 22:57 Temperature Temperature Source Pulse Rate 75 Pulse Rhythm Pulse Strength Respiratory Rate Respiratory Effort / Characteristics Respiratory Depth Respiratory Pattern Blood Pressure Blood Pressure Mean Blood Pressure Position Pulse Oximetry 93 Oxygen Delivery Method Room Air Sepsis Recent Fever Within 48 Hours Sepsis New/Unexplained Change in Mental Status Sepsis Action Taken by Nursing Laboratory Data 01/14/25 22:23 01/14/25 22:23 Lab Results 03/10/25 03/10/25 Range/Units 22:23 22:29 WBC 22.58 H (4.8-10.8) K/ul RBC 3.56 L (4.70-6.10) M/uL Hgb 11.2 L (14.0-18.0) g/dl Hct 33.0 L (42.0-52.0) % MCV 92.7 (80.0-100.0) fL MCH 31.5 (25.0-34.0) pg MCHC 33.9 (32.0-36.0) g/dL RDW Std Deviation 77.8 H (36.4-46.3) fL RDW Coeff of Judd 22.9 H (11.5-14.5) % Plt Count 346 (130-400) K/uL MPV 10.1 (9.4-12.4) fL Immature Gran % (Auto) 4.5 % Neut % (Auto) 63.4 % Lymph % (Auto) 18.0 % Davison % (Auto) 13.7 % Eos % (Auto) 0.1 % Baso % (Auto) 0.3 % Neut # (Auto) 14.30 H (1.40-6.50) K/uL Lymph # (Auto) 4.07 H (1.20-3.40) K/uL Davison # (Auto) 3.10 H (0.11-0.59) K/uL Eos # (Auto) 0.03 (0.00-0.50) K/uL Baso # (Auto) 0.07 (0.00-0.20) K/uL Immature Gran # (Auto) 1.01 H (0.01-0.20) K/uL Absolute Nucleated RBC 0.20 H (0.00-0.12) K/uL Nucleated RBC % (auto) 0.9 % Polychromasia 2+ Anisocytosis Present PT Cancelled INR Cancelled Sodium 141 (136-145) mmol/L Potassium 3.9 (3.5-5.1) mmol/L Chloride 108 H (98-107) mmol/L Carbon Dioxide 24 (21-32) mmol/L Anion Gap 9 (3-11) BUN 45 H (6-23) mg/dl Creatinine 1.27 (0.6-1.4) mg/dl Est Cr Clr Drug Dosing 52.0 ml/min eGFR 61.54 BUN/Creatinine Ratio 35.4 H (10-20) Glucose 127 H (70-99(Fasting)) mg/dl Calcium 8.8 (8.6-10.3) mg/dl Magnesium 1.9 (1.7-2.4) mg/dl Total Bilirubin 0.5 (0.2-1.0) mg/dl AST 11 L (13-39) U/L ALT 11 (7-52) U/L Alkaline Phosphatase 63 (34-104) U/L Troponin I High Sens 42.9 H (0-20) pg/ml B-Natriuretic Peptide 114 H (0-100) pg/ml Total Protein 6.1 (6.0-8.3) gm/dl Albumin 4.2 (3.4-5.0) gm/dl Globulin 1.9 L (2.5-4.0) gm/dl Albumin/Globulin Ratio 2.2 H (0.9-2) Adenovirus (PCR) Not Detected (NotDetected) B. pertussis DNA (PCR) Not Detected (NotDetected) B.parapertussis DNA PCR Not Detected (NotDetected) C. pneumoniae DNA (PCR) Not Detected (NotDetected) Coronavirus OC43 (PCR) Not Detected (NotDetected) Coronavirus HKU1 (PCR) Not Detected (NotDetected) Coronavirus 229E (PCR) Not Detected (NotDetected) SARS-CoV-2 (PCR) Not Detected (NotDetected) Coronavirus NL63 (PCR) Not Detected (NotDetected) Human Metapneumovir PCR Not Detected (NotDetected) Influenza Type A (PCR) Not Detected (NotDetected) Influenza Type B (PCR) Not Detected (NotDetected) M. pneumoniae (PCR) Not Detected (NotDetected) Parainfluenza 1 (PCR) Not Detected (NotDetected) Parainfluenza 2 (PCR) Not Detected (NotDetected) Parainfluenza 3 (PCR) Not Detected (NotDetected) Parainfluenza 4 (PCR) Not Detected (NotDetected) RSV (PCR) Not Detected (NotDetected) Entero/Rhino (PCR) Not Detected (NotDetected) Administered Medications Discontinued Medications Albuterol (Albut/Ipratrop 3mg/0.5mg Neb 3 Ml Vial) 12 ml NEB ONE ONE; Protocol Stop: 01/14/25 22:56 Last Admin: 01/14/25 23:02 Dose: 12 ml Documented By: Imaging Data Radiologist's Impression: Chest X-Ray 01/14/25 22:17 Exam(s): XR CXR 1 VIEW EXAM: XR Chest, 1 View CLINICAL HISTORY: Reason for exam: Dyspnea. TECHNIQUE: Frontal view of the chest. COMPARISON: 11/08/2024 FINDINGS: Lungs: No pulmonary vascular congestion is seen.. No consolidation. Pleural space: No pleural effusion is seen. No pneumothorax. Heart: Heart is normal in size.. Mediastinum: Unremarkable.. IMPRESSION: No acute pulmonary disease.. Findings appears similar to previous exam Electronically signed by: Ha Hussein MD 01/14/25 23:20 PM Discharge Plan Visit Data Chief Complaint: Shortness of Breath/Dyspnea Stated Complaint: SOB ED Provider: Nena Vick Discharge Problem: Acute dyspnea, Non-ST elevation PR (NSTEMI) Forms Stand Alone Forms: [facility] [email or web address] Prescriptions Prescriptions: No Action albuterol sulfate [Ventolin HFA] 90 mcg/actuation Hfa Aerosol Inhaler 2 puff INHALATION Q6H PRN (Reason: Shortness Of Breath) tiotropium bromide [Spiriva with HandiHaler] 18 mcg Capsule, W/Inhalation Device 1 cap INHALATION DAILY gabapentin 300 mg Capsule 300 mg PO DAILY prochlorperazine maleate 10 mg tablet 10 mg PO QID PRN (Reason: nausea and vomiting) Qty: 14 0RF dexamethasone 1 mg Tablet 6 mg PO DAILY Qty: 4 0RF guaifenesin [Mucinex] 600 mg Tablet Extended Release 12hr 600 mg PO Q12 Qty: 20 0RF clonazepam [Klonopin] 1 mg Tablet 1 mg PO BID PRN (Reason: Anxiety) Qty: 20 0RF quetiapine [Seroquel] 50 mg Tablet 25 mg PO HS Qty: 30 0RF Referrals Referrals: Barak Almonte [Primary Care Provider] -
[2025-01-14 22:36] LABS: Hemoglobin 11.2 g/dl (14.0-18.0); Mean Corpuscular Hemoglobin 31.5 pg (25.0-34.0); Mean Corpuscular Hgb Conc 33.9 g/dL (32.0-36.0); Mean Corpuscular Volume 92.7 fL (80.0-100.0); Mean Platelet Volume 10.1 fL (9.4-12.4); Nucleated RBC % (auto) 0.9 %; Platelet Count 346 K/uL (130-400); RDW Coefficient of Variation 22.9 % (11.5-14.5); RDW Standard Deviation 77.8 fL (36.4-46.3); Red Blood Count 3.56 M/uL (4.70-6.10); White Blood Count 22.58 K/ul (4.8-10.8)
[2025-01-14 22:52] LABS: Anisocytosis Present; Basophils # (auto) 0.07 K/uL (0.00-0.20); Basophils % (auto) 0.3 %; Eosinophils # (auto) 0.03 K/uL (0.00-0.50); Eosinophils % (auto) 0.1 %; Immature Granulocytes # (auto) 1.01 K/uL (0.01-0.20); Immature Granulocytes % (auto) 4.5 %; Lymphocytes # (auto) 4.07 K/uL (1.20-3.40); Monocytes % (auto) 13.7 %; Neutrophils % (auto) 63.4 %; Polychromasia 2+
[2025-01-14 22:54] LABS: Albumin Globulin Ratio 2.2 (0.9-2); Albumin Level 4.2 gm/dl (3.4-5.0); BUN Creatinine Ratio 35.4 (10-20); Bilirubin,Total 0.5 mg/dl (0.2-1.0); Calcium 8.8 mg/dl (8.6-10.3); Globulin 1.9 gm/dl (2.5-4.0); Magnesium 1.9 mg/dl (1.7-2.4); Potassium 3.9 mmol/L (3.5-5.1); Total Protein 6.1 gm/dl (6.0-8.3)
[2025-01-14 23:01] LABS: Troponin I High Sensitivity 42.9 pg/ml (0-20)
[2025-01-14] MEDS: ALBUT/IPRATROP 3MG/0.5MG NEB 3 ML VIAL NEB ONE (23:02)
--- NOTE | 2025-01-14 23:21 | XRay Report ---
Exam(s): XR CXR 1 VIEW EXAM: XR Chest, 1 View CLINICAL HISTORY: Reason for exam: Dyspnea. TECHNIQUE: Frontal view of the chest. COMPARISON: 11/08/2024 FINDINGS: Lungs: No pulmonary vascular congestion is seen.. No consolidation. Pleural space: No pleural effusion is seen. No pneumothorax. Heart: Heart is normal in size.. Mediastinum: Unremarkable.. IMPRESSION: No acute pulmonary disease.. Findings appears similar to previous exam Electronically signed by: Ha Hussein MD 01/14/25 23:20 PM
[2025-01-14 23:24] LABS: Adenovirus PCR Not Detected (NotDetected); Bordetella parapertussis PCR Not Detected (NotDetected); Bordetella pertussis PCR Not Detected (NotDetected); Chlamydia pneumoniae PCR Not Detected (NotDetected); Coronavirus 229E PCR Not Detected (NotDetected); Coronavirus CoV-2 (COVID19)PCR Not Detected (NotDetected); Coronavirus HKU1 PCR Not Detected (NotDetected); Coronavirus NL63 PCR Not Detected (NotDetected); Coronavirus OC43PCR Not Detected (NotDetected); Human Metapneumovirus PCR Not Detected (NotDetected); Influenza A PCR Not Detected (NotDetected); Influenza B PCR Not Detected (NotDetected); Mycoplasma pneumoniae PCR Not Detected (NotDetected); Parainfluenza Virus 1 PCR Not Detected (NotDetected); Parainfluenza Virus 2 PCR Not Detected (NotDetected); Parainfluenza Virus 3 PCR Not Detected (NotDetected); Parainfluenza Virus 4 PCR Not Detected (NotDetected); Respiratory Syncytial VirusPCR Not Detected (NotDetected); Rhinovirus/Enterovirus PCR Not Detected (NotDetected)
[2025-01-14] MEDS: ASPIRIN CHEW 324 MG PO STA (23:37)
--- NOTE | 2025-01-14 23:52 | History & Physical Report ---
Date of Service January 14, 2025 Assessment & Plan (1) Non-ST elevation [place] (NSTEMI): (2) Housing insecurity: (3) Depression: (4) Acute exacerbation of chronic obstructive pulmonary disease (COPD): (5) Failure of outpatient treatment: Plan The patient is a 69-year-old male with a past medical history including depression, COVID-19 infection on 11/28/2024, history of peripheral eosinophilia, history of COPD exacerbations, anxiety, BPH with LUTS, and marijuana use. The patient presents to the emergency department with complaint of progressively worsening shortness of breath, productive cough, dyspnea on exertion. He continues to smoke marijuana. He was just discharged from [facility] and remained there for 2 days for COPD exacerbation. He reports being on antibiotics and prednisone at that facility, both but was not discharged on any medications. He reports he is concerned about another COPD exacerbation, possible pneumonia, and is not able to function towards getting around due to his difficulty breathing. He reportedly is not able to take care of himself at home. In the emergency department, workup included elevated troponin of 42.9, with normal EKG, negative BioFire testing, and cleared COVID 19 infection from 11/28/2024, and normal-appearing chest x-ray. Patient presently is undergoing a nebulizer hour-long treatment, reports improvement in his breathing. He is referred for evaluation for admission to the [facility] for COPD exacerbation and NSTEMI. #NSTEMI- The patient will be admitted to telemetry for serial cardiac enzymes, serial EKG's, cardiac rhythm monitoring and a 2-D echocardiogram with Dopplers. Initial troponin 42.9, follow-up pending Advise give aspirin 324 mg p.o. now, then 81 mg every morning Blood pressure and heart rate will not tolerate beta-josefina or Nitropaste at this time Likely supply/demand mismatch secondary to COPD exacerbation and marijuana use with hypoxia #COPD exacerbation- Give Solu-Medrol 60 mg IV now, then 40 mg IV every 12 hours DuoNebs every 2 hours as needed Continue Spiriva and albuterol HFA Doxycycline 100 mg IV every 12 hours Respiratory BioFire testing negative Mucinex 600 mg p.o. every 12 hours #Tobacco use disorder/marijuana use Cessation counseling she is not talking today #Chronic medical conditions: Anxiety/depression-Continue clonazepam, gabapentin, quetiapine BPH with LUTS-continue tamsulosin Disposition: Full code Patient is homeless and may need psychiatric social worker supervisor History of Present Illness Chief Complaint: The patient presents to the emergency department with complaint of progressively worsening shortness of breath, productive cough, dyspnea on exertion. He continues to smoke marijuana. He was just discharged from [facility] and remained there for 2 days for COPD exacerbation. He reports being on antibiotics and prednisone at that facility, but was not discharged on any medications. He reports he is concerned about another COPD exacerbation, possible pneumonia, and is not able to function and able to get around due to his difficulty breathing. He reportedly is not able to take care of himself at home. Primary Care Provider: Barak Almonte The patient is a 69-year-old male with a past medical history including depression, COVID-19 infection on 11/28/2024, history of peripheral eosinophilia, history of COPD exacerbations, anxiety, BPH with LUTS, and marijuana use. The patient presents to the emergency department with complaint of progressively w orsening shortness of breath, productive cough, dyspnea on exertion. He continues to smoke marijuana. He was just discharged from [facility] and remained there for 2 days for COPD exacerbation. He reports being on antibiotics and prednisone at that facility, both but was not discharged on any medications. He reports he is concerned about another COPD exacerbation, possible pneumonia, and is not able to function towards getting around due to his difficulty breathing. He reportedly is not able to take care of himself at home. In the emergency department, workup included elevated troponin of 42.9, with normal EKG, negative BioFire testing, and cleared COVID 19 infection from 11/28/2024, and normal-appearing chest x-ray. Patient presently is undergoing a nebulizer hour-long treatment, reports improvement in his breathing. He is referred for evaluation for admission to the [facility] for COPD exacerbation and NSTEMI. Allergies Allergy/AdvReac Type Severity Reaction Status Date / Time No Known Allergies Allergy Verified 01/04/24 12:37 Home Medications Medication Instructions Recorded Confirmed Type albuterol sulfate 90 mcg/actuation 2 puff inhalation Q6H PRN 11/13/19 01/15/25 History aerosol inhaler (Ventolin HFA) Shortness Of Breath tiotropium bromide 18 mcg capsule 1 cap inhalation DAILY 11/13/19 01/15/25 History with inhalation device (Spiriva with HandiHaler) gabapentin 300 mg capsule 300 mg PO DAILY 12/27/23 01/15/25 History clonazepam 1 mg tablet (Klonopin) 1 mg PO BID PRN Anxiety #20 tabs 11/29/24 01/15/25 Rx quetiapine 50 mg tablet (Seroquel) 50 mg PO HS 01/15/25 01/15/25 History tamsulosin 0.4 mg capsule 0.4 mg PO DAILY 01/15/25 01/15/25 History Past Med/Surg History Problem List (Updated 01/14/25 @ 23:38 by Nena Vick MD) Non-ST elevation VA (NSTEMI) (Acute) Acute dyspnea (Acute) Housing insecurity Depression Malingering Suicidal ideation (Acute) COVID (Acute) Peripheral eosinophilia Acute exacerbation of chronic obstructive pulmonary disease (COPD) Failure of outpatient treatment (Acute) Leukocytosis (Acute) COPD exacerbation (Acute) SOB (shortness of breath) (Acute) Hypoxia (Acute) Acute hypoxemic respiratory failure Arthritis COPD (chronic obstructive pulmonary disease) (Acute) Abdominal aneurysm Medical History Agitation Depression Encounter for smoking cessation counseling Dyspnea Surgical History History of appendectomy Family History Mother Diabetes Social History Smoking Status: Current every day smoker Tobacco Type: Cigarettes Hx Alcohol Use: No Hx Substance Use: Yes Last Used Substance: Just Prior to Arrival Preferred Language: Hebrew Communication Ability: Effective Reel Man Required: No Beliefs That Will Affect Care: None Current Living Situation: Homeless Feels Safe at Home: No Is there a partner from a previous relationship who is making you feel unsafe now?: No Gender Identity: Male Assistive Devices: None Review of Systems Review of Systems: The patient denies chest pain, palpitations, lower extremity swelling, sore throat, fevers, chills, sweats, nausea, vomiting, diarrhea , constipation, abdominal pain, pelvic pain, blood in urine or stool, dysuria, urinary frequency or urgency, lightheadedness, dizziness, headache, memory loss, loss of consciousness, rash, abnormal bruising or bleeding, imbalance, focal or generalized weakness, numbness or tingling in arms or legs, generalized arthralgias or myalgias, back or neck pain, or night sweats. The review of systems is otherwise negative other than for that already noted above, and at least 10 systems have been reviewed. Physical Exam Physical Exam: The patient is awake, alert and oriented 3, well developed and well nourished, normocephalic and atraumatic, lying in bed and in no acute distress. HEENT--PERRL, EOMI, mucous membranes and oropharynx dry. Neck--supple. No JVD. No bruits. Thyroid normal, trachea midline, no adenopathy. Heart--normal S1 and S2. No murmurs, rubs or gallops. Lungs--coarse breath sounds bilaterally. Mild respiratory distress, no accessory muscle use. Abdomen--normal bowel sounds and soft. Nontender. Nondistended, no hernias or masses, no organomegaly. Extremities--no cyanosis or clubbing. No edema. Dermatologic--normal skin turgor, normal color, no abnormal lymph nodes, no rash. Neurologic--cranial nerves II through XII grossly intact. Rheumatologic--normal range of motion. Psychiatric--normal affect. Results & Data Results & Data Vital Signs (Past 12 Hours) Vital Signs Temp Pulse Resp BP Pulse Ox O2 Del Method 01/14/25 22:57 75 01/14/25 22:26 93 Room Air 01/14/25 22:25 94 Room Air 01/14/25 22:25 Room Air 01/14/25 22: 37 C 78 19 124/79 94 Room Air Laboratory Results Laboratory Results WBC 22.58 K/ul (4.8-10.8) H 01/14/25 22: RBC 3.56 M/uL (4.70-6.10) L 01/14/25 22:23 Hgb 11.2 g/dl (14.0-18.0) L 01/14/25 22: Hct 33.0 % (42.0-52.0) L 01/14/25 22:23 MCV 92.7 fL (80.0-100.0) 01/14/25 22: MCH 31.5 pg (25.0-34.0) 01/14/25 22: MCHC 33.9 g/dL (32.0-36.0) 01/14/25 22: RDW Std Deviation 77.8 fL (36.4-46.3) H 01/14/25: RDW Coeff of Judd 22.9 % (11.5-14.5) H 01/14/25: Plt Count 346 K/uL (130-400) 01/14/25: MPV 10.1 fL (9.4-12.4) 01/14/25: Immature Gran % (Auto) 4.5 % 01/14/25: Neut % (Auto) 63.4 % 01/14/25 22: Lymph % (Auto) 18.0 % 01/14/25 22: Greene % (Auto) 13.7 % 01/14/25 22: Eos % (Auto) 0.1 % 01/14/25 22:23 Baso % (Auto) 0.3 % 01/14/25 22:23 Neut # (Auto) 14.30 K/uL (1.40-6.50) H 01/14/25 22:23 Lymph # (Auto) 4.07 K/uL (1.20-3.40) H 01/14/25 22:23 Greene # (Auto) 3.10 K/uL (0.11-0.59) H 01/14/25 22:23 Eos # (Auto) 0.03 K/uL (0.00-0.50) 01/14/25 22:23 Baso # (Auto) 0.07 K/uL (0.00-0.20) 01/14/25: Immature Gran # (Auto) 1.01 K/uL (0.01-0.20) H 01/14/25 22: Absolute Nucleated RBC 0.20 K/uL (0.00-0.12) H 01/14/25: Nucleated RBC % (auto) 0.9 % 01/14/25: Polychromasia 2+ 01/14/25 22:23 Anisocytosis Present 01/14/25 22:23 PT 10.9 Seconds (9.0-12.0) 01/15/25 00:09 INR 1.0 (0.9-1.1) 01/15/25 00:09 Sodium 141 mmol/L (136-145) 01/14/25 22:23 Potassium 3.9 mmol/L (3.5-5.1) 01/14/25 22:23 Chloride 108 mmol/L (98-107) H 01/14/25 22:23 Carbon Dioxide 24 mmol/L (21-32) 01/14/25 22:23 Anion Gap 9 (3-11) 01/14/25 22:23 BUN 45 mg/dl (6-23) H 01/14/25 22:23 Creatinine 1.27 mg/dl (0.6-1.4) 01/14/25 22:23 Est Cr Clr Drug Dosing 52.0 ml/min 01/14/25 22:23 eGFR 61.54 01/14/25 22:23 BUN/Creatinine Ratio 35.4 (10-20) H 01/14/25 22:23 Glucose 127 mg/dl (70-99(Fasting)) H 01/14/25 22:23 Calcium 8.8 mg/dl (8.6-10.3) 01/14/25 22:23 Magnesium 1.9 mg/dl (1.7-2.4) 01/14/25 22:23 Total Bilirubin 0.5 mg/dl (0.2-1.0) 01/14/25 22:23 AST 11 U/L (13-39) L 01/14/25 22:23 ALT 11 U/L (7-52) 01/14/25 22:23 Alkaline Phosphatase 63 U/L (34-104) 01/14/25 22:23 Troponin I High Sens 31.2 pg/ml (0-20) H D 01/15/25 00:09 B-Natriuretic Peptide 114 pg/ml (0-100) H 01/14/25 22:23 Total Protein 6.1 gm/dl (6.0-8.3) 01/14/25 22:23 Albumin 4.2 gm/dl (3.4-5.0) 01/14/25 22:23 Globulin 1.9 gm/dl (2.5-4.0) L 01/14/25 22:23 Albumin/Globulin Ratio 2.2 (0.9-2) H 01/14/25 22:23 Adenovirus (PCR) Not Detected (NotDetected) 01/14/25 22:29 B. pertussis DNA (PCR) Not Detected (NotDetected) 01/14/25 22:29 B.parapertussis DNA PCR Not Detected (NotDetected) 01/14/25 22:29 C. pneumoniae DNA (PCR) Not Detected (NotDetected) 01/14/25 22:29 Coronavirus OC43 (PCR) Not Detected (NotDetected) 01/14/25 22: Coronavirus HKU1 (PCR) Not Detected (NotDetected) 01/14/25 22: Coronavirus 229E (PCR) Not Detected (NotDetected) 01/14/25 22:29 SARS-CoV-2 (PCR) Not Detected (NotDetected) 01/14/25 22:29 Coronavirus NL63 (PCR) Not Detected (NotDetected) 01/14/25 22:29 Human Metapneumovir PCR Not Detected (NotDetected) 01/14/25 22:29 Influenza Type A (PCR) Not Detected (NotDetected) 01/14/25 22:29 Influenza Type B (PCR) Not Detected (NotDetected) 01/14/25 22:29 M. pneumoniae (PCR) Not Detected (NotDetected) 01/14/25 22:29 Parainfluenza 1 (PCR) Not Detected (NotDetected) 01/14/25 22:29 Parainfluenza 2 (PCR) Not Detected (NotDetected) 01/14/25 22:29 Parainfluenza 3 (PCR) Not Detected (NotDetected) 01/14/25 22:29 Parainfluenza 4 (PCR) Not Detected (NotDetected) 01/14/25 22:29 RSV (PCR) Not Detected (NotDetected) 01/14/25 22:29 Entero/Rhino (PCR) Not Detected (NotDetected) 01/14/25 22:29 Impressions Chest X-Ray 01/14/25 22:17 Exam(s): XR CXR 1 VIEW EXAM: XR Chest, 1 View CLINICAL HISTORY: Reason for exam: Dyspnea. TECHNIQUE: Frontal view of the chest. COMPARISON: 11/08/2024 FINDINGS: Lungs: No pulmonary vascular congestion is seen.. No consolidation. Pleural space: No pleural effusion is seen. No pneumothorax. Heart: Heart is normal in size.. Mediastinum: Unremarkable.. IMPRESSION: No acute pulmonary disease.. Findings appears similar to previous exam Electronically signed by: Ha Hussein MD 01/14/25 23:20 PM Code Status & VTE Plan Code Status Full code VTE Prophylaxis Plan VTE Prophylaxis will be ordered: Yes PG Care Time/CCT Total # of Minutes Spent Total Time Spent with Patient: Total time spent is greater than 50% in coordination of care (as documented) at patient's floor/unit and/or counseling patient: Coding Level of Care Code 36305 INT INP/OBS CARE 3/75MIN Diagnoses Non-ST elevation VA (NSTEMI) I21.4 Housing insecurity Z59.819 Depression F33.1 Active/Remission status: currently active Depression Type: major depressive disorder Major depression episode severity: moderate Major depression recurrence: recurrent Acute exacerbation of chronic obstructive pulmonary disease (COPD) J44.1 Failure of outpatient treatment Z78.9 (3) Depression Active/Remission status: currently active Depression Type: major depressive disorder Major depression episode severity: moderate Major depression recurrence: recurrent Qualified Code(s): F33.1 - Major depressive disorder, recurrent, moderate
[2025-01-15] MEDS: methylPREDNISolone 125 MG/2 ML VIAL IV STA (00:17)
[2025-01-15] MEDS: DOXYCYCLINE HYCLATE 100 MG in DEXTROSE 5% MINI-B 100 ML IV SCH (00:42)
[2025-01-15 00:50] LABS: Prothrombin Time 10.9 Seconds (9.0-12.0)
[2025-01-15] MEDS ORDERED: ALBUT/IPRATROP 3MG/0.5MG NEB 3 ML VIAL NEB PRN (02:35)
[2025-01-15] MEDS ORDERED: ACETAMINOPHEN 325 MG TAB PO PRN (02:35)
[2025-01-15] MEDS ORDERED: PROCHLORPERAZINE MALEATE 10 MG TAB PO PRN (02:35)
[2025-01-15] MEDS ORDERED: NITROGLYCERIN SL 0.4 MG/TAB TAB SL PRN (02:35)
[2025-01-15] MEDS ORDERED: ALBUTEROL HFA 8 GM INHALER INH PRN (02:35)
[2025-01-15] MEDS ORDERED: clonazePAM 1 MG TAB PO PRN (02:35)
[2025-01-15 03:05] VITALS: BP 134/73; RESP 28; TEMP 97.9; O2SAT 94
[2025-01-15 03:23] VITALS: PULSE 80
[2025-01-15 05:34] LABS: Hematocrit (blood only) 30.4 % (42.0-52.0); Hemoglobin 10.2 g/dl (14.0-18.0); Mean Corpuscular Hemoglobin 31.3 pg (25.0-34.0); Mean Corpuscular Hgb Conc 33.6 g/dL (32.0-36.0); Mean Corpuscular Volume 93.3 fL (80.0-100.0); Mean Platelet Volume 10.1 fL (9.4-12.4); Nucleated RBC # (auto) 0.07 K/uL (0.00-0.12); Nucleated RBC % (auto) 0.5 %; Platelet Count 293 K/uL (130-400); RDW Coefficient of Variation 22.9 % (11.5-14.5); RDW Standard Deviation 79.3 fL (36.4-46.3); Red Blood Count 3.26 M/uL (4.70-6.10); White Blood Count 14.09 K/ul (4.8-10.8)
[2025-01-15 05:53] LABS: Albumin Globulin Ratio 2.1 (0.9-2); Albumin Level 3.7 gm/dl (3.4-5.0); BUN Creatinine Ratio 38.4 (10-20); Bilirubin,Total 0.4 mg/dl (0.2-1.0); Calcium 8.8 mg/dl (8.6-10.3); Chol HDL Ratio 2.7 (0-5); Globulin 1.8 gm/dl (2.5-4.0); Magnesium 1.8 mg/dl (1.7-2.4); Potassium 4.4 mmol/L (3.5-5.1); Total Protein 5.5 gm/dl (6.0-8.3)
[2025-01-15 06:00] LABS: Troponin I High Sensitivity 19.5 pg/ml (0-20)
[2025-01-15 06:04] LABS: Appearance Urine Clear (Clear); Bilirubin Urine Negative (Negative); Blood Urine Negative (Negative); Color Urine Yellow; Glucose Urine UA Trace (Negative); Ketones Urine Negative (Negative); Leukocyte Esterase Urine Negative (Negative); Nitrite Urine Negative (Negative); Protein Urine Negative (Negative); Specific Gravity Urine 1.025 (1.000-1.030); Urobilinogen Urine Negative (Negative); pH Urine 5.5 (4.5-7.5)
[2025-01-15 06:05] LABS: Anisocytosis Present; Basophils # (auto) 0.03 K/uL (0.00-0.20); Basophils % (auto) 0.2 %; Immature Granulocytes # (auto) 0.81 K/uL (0.01-0.20); Immature Granulocytes % (auto) 5.7 %; Lymphocytes # (auto) 1.12 K/uL (1.20-3.40); Lymphocytes % (auto) 7.9 %; Monocytes # (auto) 0.83 K/uL (0.11-0.59); Monocytes % (auto) 5.9 %; Neutrophils % (auto) 80.3 %
[2025-01-15 08:08] LABS: Estimated Average Glucose 120 mg/dl; Hemoglobin A1C 5.8 % (4.5-5.6)
--- NOTE | 2025-01-15 08:50 | Discharge Summary ---
Date of Service January 15, 2025 Admission HPI Per Admitting Provider The patient is a 69-year-old male with a past medical history including depression, COVID-19 infection on 11/28/2024, history of peripheral eosinophilia, history of COPD exacerbations, anxiety, BPH with LUTS, and marijuana use. The patient presents to the emergency department with complaint of progressively worsening shortness of breath, productive cough, dyspnea on exertion. He continues to smoke marijuana. He was just discharged from [facility] and remained there for 2 days for COPD exacerbation. He reports being on antibiotics and prednisone at that facility, both but was not discharged on any medications. He reports he is concerned about another COPD exacerbation, possible pneumonia, and is not able to function towards getting around due to his difficulty breathing. He reportedly is not able to take care of himself at home. In the emergency department, workup included elevated troponin of 42.9, with normal EKG, negative BioFire testing, and cleared COVID 19 infection from 11/28/2024, and normal-appearing chest x-ray. Patient presently is undergoing a nebulizer hour-long treatment, reports improvement in his breathing. He is referred for evaluation for admission to the [facility] for COPD exacerbation and NSTEMI. Principal Diagnosis COPD exacerbation Discharge Exam Patient left AMA. Never met or examined the patient Discharge Data Allergies Allergy/AdvReac Type Severity Reaction Status Date / Time No Known Allergies Allergy Verified 01/04/24 12:37 Consultations 01/14/25 23:05 ED Decision to Admit Stat Hospital Course (1) Non-ST elevation [place] (NSTEMI): (2) Housing insecurity: (3) Depression: (4) Acute exacerbation of chronic obstructive pulmonary disease (COPD): (5) Failure of outpatient treatment: Plan The patient is a 69-year-old male with a past medical history including depression, COVID-19 infection on 11/28/2024, history of peripheral eosinophilia, history of COPD exacerbations, anxiety, BPH with LUTS, and marijuana use. The patient presents to the emergency department with complaint of progressively worsening shortness of breath, productive cough, dyspnea on exertion. He continues to smoke marijuana. He was just discharged from [facility] and remained there for 2 days for COPD exacerbation. He reports being on antibiotics and prednisone at that facility, both but was not discharged on any medications. He reports he is concerned about another COPD exacerbation, p ossible pneumonia, and is not able to function towards getting around due to his difficulty breathing. He reportedly is not able to take care of himself at home. In the emergency department, workup included elevated troponin of 42.9, with normal EKG, negative BioFire testing, and cleared COVID 19 infection from 11/28/2024, and normal-appearing chest x-ray. Patient presently is undergoing a nebulizer hour-long treatment, reports improvement in his breathing. He is referred for evaluation for admission to the [facility] for COPD exacerbation and NSTEMI. #NSTEMI- The patient will be admitted to telemetry for serial cardiac enzymes, serial EKG's, cardiac rhythm monitoring and a 2-D echocardiogram with Dopplers. Initial troponin 42.9, follow-up pending Advise give aspirin 324 mg p.o. now, then 81 mg every morning Blood pressure and heart rate will not tolerate beta-josefina or Nitropaste at this time Likely supply/demand mismatch secondary to COPD exacerbation and marijuana use with hypoxia #COPD exacerbation- Give Solu-Medrol 60 mg IV now, then 40 mg IV every 12 hours DuoNebs every 2 hours as needed Continue Spiriva and albuterol HFA Doxycycline 100 mg IV every 12 hours Respiratory BioFire testing negative Mucinex 600 mg p.o. every 12 hours #Tobacco use disorder/marijuana use Cessation counseling she is not talking today #Chronic medical conditions: Anxiety/depression-Continue clonazepam, gabapentin, quetiapine BPH with LUTS-continue tamsulosin Please note that the patient left AMA before I ever met him. He left the hospital premises at 7:10 AM. I was notified of him leaving at 8:43 AM by the nurse. Since the patient left after my shift started at 7 AM, I completed the discharge summary. Total Time Total Time Spent Total Time Spent (In Minutes): 25 Discharge Plan Discharge Items Patient Disposition: Against Medical Advice Reason For Visit: COPD EX, NSTEMI Activity: Resume your previous activity Non-emergency contact: Primary Care Provider Follow-up/Referrals: Barak Almonte [Primary Care Provider] - Pending Studies at Discharge: No Stand-Alone Forms: My [facility], Smoking Cessation Medications and DC Order Prescriptions: Continued albuterol sulfate [Ventolin HFA] 90 mcg/actuation Hfa Aerosol Inhaler 2 puff INHALATION Q6H PRN (Reason: Shortness Of Breath) tiotropium bromide [Spiriva with HandiHaler] 18 mcg Capsule, W/Inhalation Device 1 cap INHALATION DAILY gabapentin 300 mg Capsule 300 mg PO DAILY tamsulosin 0.4 mg capsule 0.4 mg PO DAILY quetiapine [Seroquel] 50 mg tablet 50 mg PO HS clonazepam [Klonopin] 1 mg Tablet 1 mg PO BID PRN (Reason: Anxiety) Qty: 20 0RF Discharge Orders: Left Against Medical Advice (Routine); Ordered 01/15/25 Ordered By: Andres Schafer Admission Data Admit Date/Time: 01/14/25 23:50 Attending Provider: Andres Schafer Admit Provider: Juan Jose Moser Primary Care Provider: Barak Almonte Other Providers: Juan Jose Moser
[2025-01-15] MEDS ORDERED: ASPIRIN 81 MG ECTAB PO SCH (09:00)
[2025-01-15] MEDS ORDERED: methylPREDNISolone 10 mg/mL (For Ped Dose < 7mg) IV SCH (09:00)
[2025-01-15] MEDS ORDERED: methylPREDNISolone 40 MG in SYRINGE 0 ML IV SCH (09:00)
[2025-01-15] MEDS ORDERED: UMECLIDINIUM BROMIDE 62.5MCG/BLISTER 7 PUFFS/INHALER INH SCH (09:00)
[2025-01-15] MEDS ORDERED: HEPARIN SOD 5,000 UNIT/0.5 ML VIAL SQ SCH (09:00)
[2025-01-15] MEDS ORDERED: guaiFENesin 600 MG TABCR PO SCH ×2 (09:00)
[2025-01-15] MEDS ORDERED: NICOTINE 21 MG/24 HR TDSY TD SCH (09:00)
[2025-01-15] MEDS ORDERED: GABAPENTIN 300 MG CAP PO SCH (09:00)
[2025-01-15] MEDS ORDERED: QUEtiapine FUMARATE 25 MG TABLET PO SCH (21:00)
--- NOTE | 2025-01-15 22:19 | Electrocardiogram Report ---
Test Reason : Blood Pressure : */* mmHG Vent. Rate : 69 BPM Atrial Rate : 69 BPM P-R Int : 140 ms QRS Dur : 74 ms QT Int : 374 ms P-R-T Axes : 74 10 61 degrees QTcB Int : 400 ms Normal sinus rhythm Possible Septal infarct Abnormal ECG When compared with ECG of 14-Jan-2025 22:21, No significant change Confirmed by Naveen Hernández ([id number]) on 01/15/2025 10:19:52 PM Referred By: REFERRED SELF Confirmed By: Naveen Hernández
--- NOTE | 2025-01-15 22:19 | Electrocardiogram Report ---
Test Reason : Blood Pressure : */* mmHG Vent. Rate : 86 BPM Atrial Rate : 86 BPM P-R Int : 132 ms QRS Dur : 78 ms QT Int : 352 ms P-R-T Axes : 74 15 61 degrees QTcB Int : 421 ms Sinus rhythm When compared with ECG of 08-Nov-2024 16:59, No significant change Confirmed by Naveen Hernández ([id number]) on 01/15/2025 10:19:30 PM Referred By: REFERRED SELF Confirmed By: Naveen Hernández
== END 2025-01-15 07:17 | disposition left against medical advice (07) | DRG 281 ==
LOC: ED 22:11 → 2S 23:50 → SUATTDRO 23:50 → 2S 01-15 02:10

== ENCOUNTER 2025-01-23 18:58 | Inpatient (IN) ==
[2025-01-23 19:35] LABS: Hematocrit (blood only) 33.9 % (42.0-52.0); Hemoglobin 11.7 g/dl (14.0-18.0); Mean Corpuscular Hemoglobin 32.1 pg (25.0-34.0); Mean Corpuscular Hgb Conc 34.5 g/dL (32.0-36.0); Mean Corpuscular Volume 92.9 fL (80.0-100.0); Mean Platelet Volume 10.1 fL (9.4-12.4); Nucleated RBC # (auto) 0.06 K/uL (0.00-0.12); Nucleated RBC % (auto) 0.2 %; Platelet Count 251 K/uL (130-400); RDW Coefficient of Variation 22.6 % (11.5-14.5); RDW Standard Deviation 78.3 fL (36.4-46.3); Red Blood Count 3.65 M/uL (4.70-6.10); White Blood Count 25.46 K/ul (4.8-10.8)
[2025-01-23] MEDS: CEFEPIME 2000MG 2,000 MG/20 ML SYR IV STA (19:52)
[2025-01-23 19:53] LABS: Albumin Level 4.1 gm/dl (3.4-5.0); Anisocytosis Present; BUN Creatinine Ratio 36.7 (10-20); Basophils # (auto) 0.04 K/uL (0.00-0.20); Basophils % (auto) 0.2 %; Bilirubin Direct 0.1 mg/dl (0-0.2); Bilirubin,Total 0.7 mg/dl (0.2-1.0); Calcium 8.9 mg/dl (8.6-10.3); Creatinine Clr Calc Pharmacy 67.4 ml/min; Eosinophils % (auto) 0.4 %; Immature Granulocytes # (auto) 0.41 K/uL (0.01-0.20); Immature Granulocytes % (auto) 1.6 %; Lymphocytes # (auto) 3.09 K/uL (1.20-3.40); Lymphocytes % (auto) 12.1 %; Magnesium 2.1 mg/dl (1.7-2.4); Neutrophils # (auto) 18.52 K/uL (1.40-6.50); Neutrophils % (auto) 72.7 %; Potassium 3.9 mmol/L (3.5-5.1); Total Protein 6.2 gm/dl (6.0-8.3)
[2025-01-23] MEDS: ACETAMINOPHEN 325 MG TAB PO STA (19:55)
[2025-01-23] MEDS: SODIUM CHLORIDE 0.9% 1,000 ML IV SCH (19:58)
[2025-01-23 19:59] LABS: Troponin I High Sensitivity 31.6 pg/ml (0-20)
--- NOTE | 2025-01-23 20:06 | XRay Report ---
Chest radiograph, one view History: Sepsis Comparison: January 14, 2025 Findings: Single AP view of the chest performed. No focal consolidation or pleural effusion. No pneumothorax. The cardiomediastinal silhouette is within normal limits. Normal pulmonary vascularity. No evidence for lymphadenopathy. No visualized bony or soft tissue abnormality. Impression: Normal chest radiograph Electronically signed by Curtis Limon 01-23-2025 8:05 PM
[2025-01-23] MEDS: methylPREDNISolone 125 MG/2 ML VIAL IV STA (20:12)
[2025-01-23] MEDS: ALBUT/IPRATROP 3MG/0.5MG NEB 3 ML VIAL NEB ONE (20:14)
--- NOTE | 2025-01-23 20:15 | Emergency Department Note ---
Impression & Plan Acute hypoxemic respiratory failure, SOB (shortness of breath), COPD exacerbation ED Provider Note NAME: VAZQUEZ ORDONEZ AGE: 69 SEX: M : 1955 ARRIVES VIA: Ambulance INFORMANT: Patient ED PROVIDER(S): Galindo Mahmood DO CHIEF COMPLAINT: Short of breath HPI: Patient is a 69-year-old male with a past medical history of NSTEMI, homelessness, suicidal ideations, COPD who presents to the ER for shortness of breath. Symptoms started earlier today. He notes he was in the hospital about 2 to 3 days ago and was just discharged. Symptoms got worse this morning. He admits to cough, congestion, and runny nose. He feels significantly short of breath. Denies any belly pain, nausea, vomiting, or diarrhea. No dysuria, urgency, or frequency. No other exacerbating or remitting factors. ADDITIONAL HISTORY OBTAINED: Per HPI Chronic Medical/Social Conditions Affecting Care: Per HPI PAST MEDICAL HISTORY:See Below PAST SURGICAL HISTORY:See Below FAMILY HISTORY:See Below SOCIAL HISTORY:See Below HOME MEDICATIONS:See Below ALLERGIES:See Below VITALS:See Below PHYSICAL EXAMINATION: GENERAL: Sitting up in bed, alert, ill-appearing, disheveled, moderate distress, dyspneic with conversation and only able to state one-word answers EYE EXAM: normal conjunctiva. PERRL and EOM's grossly intact. OROPHARYNX: Dry mucous membranes NECK: supple, no nuchal rigidity, no adenopathy, non-tender LUNGS: Diffuse wheezing bilaterally. Normal chest wall mechanics HEART: no murmurs, S1 normal and S2 normal ABDOMEN: abdomen soft, non-tender, normo-active bowel sounds, no masses, no rebound or guarding. UPPER EXTREMITIES: upper extremities are grossly normal. LOWER EXTREMITIES: No pitting edema. NEURO EXAM: Normal sensorium, cranial nerves II-XII grossly intact, normal speech, no gross weakness of arms, no gross weakness of legs. MEDICAL DECISION MAKING: Patient is a 69-year-old male who presents to the ER for shortness of breath. Upon arrival he is found to be dyspneic with conversation only able to state 1 word. He is found to be significantly hypoxic initially at 85% on room air. He was placed on neb treatments and given an hour-long DuoNeb as well as steroids. His respiratory rate and pulse ox improved significantly. Labs showed a leukocytosis of 25,000. I do favor this likely secondary to the steroid use since he was recently placed on steroids in an outside facility. BMP is unremarkable. Lactate was elevated at 2.7. LFTs and bilirubin were unremarkable. Troponin was positive at 31. UA was clean. Patient was influenza positive. He was given as stated previously an hour-long neb treatment and steroids. Symptoms improved. Chest x-ray was clean. He was updated bedside. Discussed case with the hospitalist for further evaluation management treatment. Consults/Care Managements Discussions: Per [facility] Triage Nursing notes reviewed. Limited review of prior medical records performed Vital Signs: reviewed and remarkable for no significant abnormalities Differential diagnosis: Differential diagnoses includes but is not limited to pneumonia, bronchitis, COPD/Asthma exacerbation, pneumothorax, pulmonary embolism, congestive heart failure, acute coronary syndrome ER treatment provided: See below Diagnostics interpreted by me include EKG and cardiac monitoring as listed below: -Cardiac Monitoring: An order was placed for continuous cardiac monitoring. The monitor shows a rate of 101 with sinus rhythm. -ECG: Sinus tachycardia rate of 100 Left axis No PVCs Septal Q waves QTc 448 -Laboratory studies:Interpreted by me as stated above in MDM and shown below. Imaging studies: Xrays: As interpreted by me: Portable AP upright 1 view of the chest shows no focal infiltrate CTs show: none Procedures:none Critical Care: I have personally spent 44 minutes of critical care time in the direct management of this patient. This includes bedside care, interpretation of diagnostic studies, and testing, discussion with consultants, patient, and family members, and other required patient management activities. This 44 minutes is in excess of all separately billable procedures. Past Med/Surg History Problem List (Updated 01/24/25 @ 00:37 by Galindo Mahmood DO) Non-ST elevation ND (NSTEMI) (Acute) Acute dyspnea (Acute) Housing insecurity Depression Malingering Suicidal ideation (Acute) COVID (Acute) Peripheral eosinophilia Acute exacerbation of chronic obstructive pulmonary disease (COPD) Failure of outpatient treatment (Acute) Leukocytosis (Acute) COPD exacerbation (Acute) SOB (shortness of breath) (Acute) Hypoxia (Acute) Acute hypoxemic respiratory failure (Acute) Arthritis COPD (chronic obstructive pulmonary disease) (Acute) Abdominal aneurysm Medical History Agitation Depression Encounter for smoking cessation counseling Dyspnea Surgical History History of appendectomy Family History Mother Diabetes Social History Smoking Status: Current every day smoker Tobacco Type: Cigarettes Cigarettes Per Day: 1-2 ppd; Second Hand Exposure: No; Do You Dip or Chew Tobacco: No; Tobacco Cessation Education Requested by Patient: No Hx Alcohol Use: No Hx Substance Use: Yes Last Used Substance: Days (ago) Preferred Language: Brazilian Communication Ability: Effective Metal Caster Required: No Beliefs That Will Affect Care: None Current Living Situation: Homeless Other Information That Helps Us Care for You: No Feels Safe at Home: No Is there a partner from a previous relationship who is making you feel unsafe now?: No Gender Identity: Male Assistive Devices: Denture - Upper and Glasses Allergies Allergies Allergy/AdvReac Type Severity Reaction Status Date / Time No Known Allergies Allergy Verified 01/23/25 21:40 Home Meds Home Medications Medication Instructions Recorded Confirmed albuterol sulfate 90 mcg/actuation 2 puff inhalation Q6H PRN 11/13/19 01/23/25 aerosol inhaler (Ventolin HFA) Shortness Of Breath quetiapine 50 mg tablet (Seroquel) 50 mg PO HS 01/15/25 01/23/25 tamsulosin 0.4 mg capsule 0.4 mg PO DAILY 01/15/25 01/23/25 clonazepam 1 mg tablet (Klonopin) 0.5 mg PO BID PRN Anxiety 01/23/25 01/23/25 doxycycline hyclate 100 mg tablet 100 mg PO BID 01/23/25 01/23/25 triamcinolone acetonide 0.1 % 1 applic topical DIRECTED PRN 01/23/25 01/23/25 topical cream Skin Irritation Results & Data (ED) Vital Signs Vital Signs - 24 hr 01/23/25 19:00 01/23/25 19:00 01/23/25 19:00 Temperature 38.6 C H Temperature Source Oral Pulse Rate 120 H Pulse Rate [Apical] Pulse Rate from SpO2 Sensor Respiratory Rate 34 H Respiratory Effort / Characteristics Non-Labored Spontaneous Spontaneous Labored Respiratory Depth Normal Respiratory Pattern Regular Tachypnea Blood Pressure Blood Pressure [Right Arm] Blood Pressure Mean Blood Pressure Mean [Right Arm] Blood Pressure Position [Right Arm] Pulse Oximetry 94 94 Oxygen Delivery Method Room Air Room Air Room Air Oxygen Flow Rate Sepsis Recent Fever Within 48 Hours Yes Sepsis New/Unexplained Change in Mental Status N/A Sepsis Action Taken by Nursing Physician Notified 01/23/25 19:19 01/23/25 20:11 01/23/25 20:27 Temperature Temperature Source Pulse Rate 117 H 103 H 99 H Pulse Rate [Apical] Pulse Rate from SpO2 Sensor 99 H Respiratory Rate 24 13 Respiratory Effort / Characteristics Respiratory Depth Respiratory Pattern Blood Pressure Blood Pressure [Right Arm] Blood Pressure Mean Blood Pressure Mean [Right Arm] Blood Pressure Position [Right Arm] Pulse Oximetry 98 100 Oxygen Delivery Method Nasal Cannula Oxygen Flow Rate 2 Sepsis Recent Fever Within 48 Hours Sepsis New/Unexplained Change in Mental Status Sepsis Action Taken by Nursing 01/23/25 20:30 01/23/25 20:30 01/23/25 20:31 Temperature Temperature Source Pulse Rate Pulse Rate [Apical] 103 H Pulse Rate from SpO2 Sensor Respiratory Rate 18 Respiratory Effort / Characteristics Respiratory Depth Respiratory Pattern Blood Pressure 144/76 H 137/75 Blood Pressure [Right Arm] 144/76 H Blood Pressure Mean 99 106 Blood Pressure Mean [Right Arm] 98 Blood Pressure Position [Right Arm] Semi-fowlers Pulse Oximetry 100 Oxygen Delivery Method Room Air Oxygen Flow Rate Sepsis Recent Fever Within 48 Hours Sepsis New/Unexplained Change in Mental Status Sepsis Action Taken by Nursing 01/23/25 20:39 01/23/25 20:45 01/23/25 20:45 Temperature Temperature Source Pulse Rate 115 H 106 H Pulse Rate [Apical] Pulse Rate from SpO2 Sensor 109 H 105 H Respiratory Rate 21 18 Respiratory Effort / Characteristics Respiratory Depth Respiratory Pattern Blood Pressure 134/70 134/70 Blood Pressure [Right Arm] Blood Pressure Mean 91 80 Blood Pressure Mean [Right Arm] Blood Pressure Position [Right Arm] Pulse Oximetry 96 100 Oxygen Delivery Method Oxygen Flow Rate Sepsis Recent Fever Within 48 Hours Sepsis New/Unexplained Change in Mental Status Sepsis Action Taken by Nursing 01/23/25 20:55 01/23/25 21:00 01/23/25 21:15 Temperature 37.1 C Temperature Source Oral Pulse Rate 125 H Pulse Rate [Apical] Pulse Rate from SpO2 Sensor 125 H Respiratory Rate 31 H Respiratory Effort / Characteristics Respiratory Depth Respiratory Pattern Blood Pressure 151/87 H 147/84 H Blood Pressure [Right Arm] Blood Pressure Mean 91 105 Blood Pressure Mean [Right Arm] Blood Pressure Position [Right Arm] Pulse Oximetry 95 Oxygen Delivery Method Oxygen Flow Rate Sepsis Recent Fever Within 48 Hours Sepsis New/Unexplained Change in Mental Status Sepsis Action Taken by Nursing Laboratory Data 01/23/25 19:10 01/23/25 19:10 Lab Results 01/23/25 01/23/25 01/23/25 Range/Units 19:10 19:58 20:00 WBC 25.46 H (4.8-10.8) K/ul RBC 3.65 L (4.70-6.10) M/uL Hgb 11.7 L (14.0-18.0) g/dl Hct 33.9 L (42.0-52.0) % MCV 92.9 (80.0-100.0) fL MCH 32.1 (25.0-34.0) pg MCHC 34.5 (32.0-36.0) g/dL RDW Std Deviation 78.3 H (36.4-46.3) fL RDW Coeff of Judd 22.6 H (11.5-14.5) % Plt Count 251 (130-400) K/uL MPV 10.1 (9.4-12.4) fL Immature Gran % (Auto) 1.6 % Neut % (Auto) 72.7 % Lymph % (Auto) 12.1 % [place] % (Auto) 13.0 % Eos % (Auto) 0.4 % Baso % (Auto) 0.2 % Neut # (Auto) 18.52 H (1.40-6.50) K/uL Lymph # (Auto) 3.09 (1.20-3.40) K/uL [place] # (Auto) 3.30 H (0.11-0.59) K/uL Eos # (Auto) 0.10 (0.00-0.50) K/uL Baso # (Auto) 0.04 (0.00-0.20) K/uL Immature Gran # (Auto) 0.41 H (0.01-0.20) K/uL Absolute Nucleated RBC 0.06 (0.00-0.12) K/uL Nucleated RBC % (auto) 0.2 % Anisocytosis Present Sodium 140 (136-145) mmol/L Potassium 3.9 (3.5-5.1) mmol/L Chloride 104 (98-107) mmol/L Carbon Dioxide 31 (21-32) mmol/L Anion Gap 5 (3-11) BUN 36 H (6-23) mg/dl Creatinine 0.98 (0.6-1.4) mg/dl Est Cr Clr Drug Dosing 67.4 ml/min eGFR 83.99 BUN/Creatinine Ratio 36.7 H (10-20) Glucose 105 H (70-99(Fasting)) mg/dl Lactate (0.4-2.0) mmol/L Calcium 8.9 (8.6-10.3) mg/dl Magnesium 2.1 (1.7-2.4) mg/dl Total Bilirubin 0.7 (0.2-1.0) mg/dl Direct Bilirubin 0.1 (0-0.2) mg/dl AST 24 (13-39) U/L ALT 43 (7-52) U/L Alkaline Phosphatase 58 (34-104) U/L Troponin I High Sens 31.6 H (0-20) pg/ml Total Protein 6.2 (6.0-8.3) gm/dl Albumin 4.1 (3.4-5.0) gm/dl Procalcitonin 0.04 (0-0.5) ng/ml Urine Color Yellow Urine Appearance Clear (Clear) Urine pH 5.5 (4.5-7.5) Ur Specific [place] 1.028 (1.000-1.030) Urine Protein 1+ H (Negative) Urine Glucose (UA) Negative (Negative) Urine Ketones Trace H (Negative) Urine Blood Negative (Negative) Urine Nitrite Negative (Negative) Urine Bilirubin Negative (Negative) Urine Urobilinogen Negative (Negative) Ur Leukocyte Esterase Negative (Negative) Urine WBC (Auto) 0-5 (0-5) /hpf Urine RBC (Auto) 0-2 (0-2) /hpf U Hyaline Cast (Auto) 0-2 (0-2) /lpf U Epithel Cells (Auto) 0-2 (0-2) /hpf Urine Bacteria (Auto) None Seen (None Seen) Nasal Influ A H1 2008 PCR DETECTED A (NotDetected) Adenovirus (PCR) Not Detected (NotDetected) B. pertussis DNA (PCR) Not Detected (NotDetected) B.parapertussis DNA PCR Not Detected (NotDetected) C. pneumoniae DNA (PCR) Not Detected (NotDetected) Coronavirus OC43 (PCR) Not Detected (NotDetected) Coronavirus HKU1 (PCR) Not Detected (NotDetected) Coronavirus 229E (PCR) Not Detected (NotDetected) SARS-CoV-2 (PCR) Not Detected (NotDetected) Coronavirus NL63 (PCR) Not Detected (NotDetected) Human Metapneumovir PCR Not Detected (NotDetected) Influenza Type B (PCR) Not Detected (NotDetected) M. pneumoniae (PCR) Not Detected (NotDetected) Parainfluenza 1 (PCR) Not Detected (NotDetected) Parainfluenza 2 (PCR) Not Detected (NotDetected) Parainfluenza 3 (PCR) Not Detected (NotDetected) Parainfluenza 4 (PCR) Not Detected (NotDetected) RSV (PCR) Not Detected (NotDetected) Entero/Rhino (PCR) Not Detected (NotDetected) 01/23/25 01/23/25 Range/Units 20:05 21:12 WBC (4.8-10.8) K/ul RBC (4.70-6.10) M/uL Hgb (14.0-18.0) g/dl Hct (42.0-52.0) % MCV (80.0-100.0) fL MCH (25.0-34.0) pg MCHC (32.0-36.0) g/dL RDW Std Deviation (36.4-46.3) fL RDW Coeff of Judd (11.5-14.5) % Plt Count (130-400) K/uL MPV (9.4-12.4) fL Immature Gran % (Auto) % Neut % (Auto) % Lymph % (Auto) % [place] % (Auto) % Eos % (Auto) % Baso % (Auto) % Neut # (Auto) (1.40-6.50) K/uL Lymph # (Auto) (1.20-3.40) K/uL [place] # (Auto) (0.11-0.59) K/uL Eos # (Auto) (0.00-0.50) K/uL Baso # (Auto) (0.00-0.20) K/uL Immature Gran # (Auto) (0.01-0.20) K/uL Absolute Nucleated RBC (0.00-0.12) K/uL Nucleated RBC % (auto) % Anisocytosis Sodium (136-145) mmol/L Potassium (3.5-5.1) mmol/L Chloride (98-107) mmol/L Carbon Dioxide (21-32) mmol/L Anion Gap (3-11) BUN (6-23) mg/dl Creatinine (0.6-1.4) mg/dl Est Cr Clr Drug Dosing ml/min eGFR BUN/Creatinine Ratio (10-20) Glucose (70-99(Fasting)) mg/dl Lactate 2.7 H* (0.4-2.0) mmol/L Calcium (8.6-10.3) mg/dl Magnesium (1.7-2.4) mg/dl Total Bilirubin (0.2-1.0) mg/dl Direct Bilirubin (0-0.2) mg/dl AST (13-39) U/L ALT (7-52) U/L Alkaline Phosphatase (34-104) U/L Troponin I High Sens 36.5 H (0-20) pg/ml Total Protein (6.0-8.3) gm/dl Albumin (3.4-5.0) gm/dl Procalcitonin (0-0.5) ng/ml Urine Color Urine Appearance (Clear) Urine pH (4.5-7.5) Ur Specific [place] (1.000-1.030) Urine Protein (Negative) Urine Glucose (UA) (Negative) Urine Ketones (Negative) Urine Blood (Negative) Urine Nitrite (Negative) Urine Bilirubin (Negative) Urine Urobilinogen (Negative) Ur Leukocyte Esterase (Negative) Urine WBC (Auto) (0-5) /hpf Urine RBC (Auto) (0-2) /hpf U Hyaline Cast (Auto) (0-2) /lpf U Epithel Cells (Auto) (0-2) /hpf Urine Bacteria (Auto) (None Seen) Nasal Influ A H1 2009 PCR (NotDetected) Adenovirus (PCR) (NotDetected) B. pertussis DNA (PCR) (NotDetected) B.parapertussis DNA PCR (NotDetected) C. pneumoniae DNA (PCR) (NotDetected) Coronavirus OC43 (PCR) (NotDetected) Coronavirus HKU1 (PCR) (NotDetected) Coronavirus 229E (PCR) (NotDetected) SARS-CoV-2 (PCR) (NotDetected) Coronavirus NL63 (PCR) (NotDetected) Human Metapneumovir PCR (NotDetected) Influenza Type B (PCR) (NotDetected) M. pneumoniae (PCR) (NotDetected) Parainfluenza 1 (PCR) (NotDetected) Parainfluenza 2 (PCR) (NotDetected) Parainfluenza 3 (PCR) (NotDetected) Parainfluenza 4 (PCR) (NotDetected) RSV (PCR) (NotDetected) Entero/Rhino (PCR) (NotDetected) Administered Medications Albuterol (Albut/Ipratrop 3mg/0.5mg Neb 3 Ml Vial) 3 ml NEB Q4R NIKKO; Protocol Stop: 02/22/25 22:59 Last Admin: 01/23/25 23:50 Dose: 3 ml Documented By: EML Discontinued Medications Acetaminophen (Acetaminophen 325 Mg Tab) 650 mg PO NOW STA Stop: 01/23/25 19:23 Last Admin: 01/23/25 19:55 Dose: 650 mg Documented By: CEF Albuterol (Albut/Ipratrop 3mg/0.5mg Neb 3 Ml Vial) 12 ml NEB ONE ONE; Protocol Stop: 01/23/25 20:06 Last Admin: 01/23/25 20:14 Dose: 12 ml Documented By: JOSE Sodium Chloride (Nss) 1,000 mls @ 999 mls/hr IV .Q1H1M NIKKO Stop: 01/23/25 21:30 Last Infusion: 01/23/25 22:08 Dose: Infused Documented By: Admin: 01/23/25 20:53 Dose: 999 mls/hr Documented By: Infusion: 01/23/25 20:53 Dose: Infused Documented By: Admin: 01/23/25 19:58 Dose: 999 mls/hr Documented By: CEF Cefepime HCl (Maxipime 2000mg) 2,000 mg in 20 mls @ 5 mls/min IV NOW STA; Protocol Stop: 01/23/25 19:25 Last Admin: 01/23/25 19:52 Dose: 5 mls/min Documented By: CEF Methylprednisolone (Methylprednisolone 125 Mg/2 Ml Vial) 40 mg IV NOW STA Stop: 01/23/25 20:06 Last Admin: 01/23/25 20:12 Dose: 40 mg Documented By: TJS Imaging Data Radiologist's Impression: Chest X-Ray 01/23/25 19:23 Chest radiograph, one view History: Sepsis Comparison: January 14, 2025 Findings: Single AP view of the chest performed. No focal consolidation or pleural effusion. No pneumothorax. The cardiomediastinal silhouette is within normal limits. Normal pulmonary vascularity. No evidence for lymphadenopathy. No visualized bony or soft tissue abnormality. Impression: Normal chest radiograph Electronically signed by Curtis Limon 01-23-2025 8:05 PM Discharge Plan Visit Data Chief Complaint: Shortness of Breath/Dyspnea Stated Complaint: SOB ED Provider: Galindo Mahmood Discharge Problem: Acute hypoxemic respiratory failure, SOB (shortness of breath), COPD exacerbation Patient Disposition: Admitted As Inpatient Discharge Instructions Interventions: ED Discharge Assessment Last Done: 01/23/25 22:17
[2025-01-23 20:21] LABS: Appearance Urine Clear (Clear); Bacteria Urine Automated None Seen (None Seen); Bilirubin Urine Negative (Negative); Blood Urine Negative (Negative); Cast Urine Automated 0-2 /lpf (0-2); Color Urine Yellow; Epithelial Cell Urine Auto 0-2 /hpf (0-2); Glucose Urine UA Negative (Negative); Ketones Urine Trace (Negative); Leukocyte Esterase Urine Negative (Negative); Nitrite Urine Negative (Negative); Protein Urine 1+ (Negative); RBC Urine Automated 0-2 /hpf (0-2); Specific Gravity Urine 1.028 (1.000-1.030); Urobilinogen Urine Negative (Negative); WBC Urine Automated 0-5 /hpf (0-5); pH Urine 5.5 (4.5-7.5)
[2025-01-23 21:09] LABS: Adenovirus PCR Not Detected (NotDetected); Bordetella parapertussis PCR Not Detected (NotDetected); Bordetella pertussis PCR Not Detected (NotDetected); Chlamydia pneumoniae PCR Not Detected (NotDetected); Coronavirus 229E PCR Not Detected (NotDetected); Coronavirus CoV-2 (COVID19)PCR Not Detected (NotDetected); Coronavirus HKU1 PCR Not Detected (NotDetected); Coronavirus NL63 PCR Not Detected (NotDetected); Coronavirus OC43PCR Not Detected (NotDetected); Human Metapneumovirus PCR Not Detected (NotDetected); Influenza A (H1 2009) PCR DETECTED (NotDetected); Influenza B PCR Not Detected (NotDetected); Mycoplasma pneumoniae PCR Not Detected (NotDetected); Parainfluenza Virus 1 PCR Not Detected (NotDetected); Parainfluenza Virus 2 PCR Not Detected (NotDetected); Parainfluenza Virus 3 PCR Not Detected (NotDetected); Parainfluenza Virus 4 PCR Not Detected (NotDetected); Respiratory Syncytial VirusPCR Not Detected (NotDetected); Rhinovirus/Enterovirus PCR Not Detected (NotDetected)
--- NOTE | 2025-01-23 21:19 | History & Physical Report ---
Date of Service January 23, 2025 Assessment & Plan (1) Influenza A: Plan: (2) Acute exacerbation of chronic obstructive pulmonary disease (COPD): Plan 69-year-old male with history of COPD, depression presenting with 1 week of progressive shortness of breath, cough productive for thick, green sputum. Patient with acute hypoxic respiratory failure requiring supplemental oxygensecondary to influenza A infection and acute exacerbation of COPD. No respiratory distress at present. #Influenza A Admit to medical Maintain isolation precautions Continue supplemental oxygen as needed Tylenol as needed for pain and fever Zofran as needed for nausea Guaifenesin 1200 mg p.o. twice daily #Acute exacerbation of COPD DuoNebs every 4 hours scheduled Albuterol every 2 hours as needed Initiate fluticasone/vilanterol Solu-Medrol 30 mg IV 3 times daily Mucinex 1200 mg p.o. every 12 Flutter valve and incentive spirometry regular secretion management Where manage today for Will treat with ceftriaxone and azithromycin given patient's productive cough diabetes type 2 #Depression/mental health for Continue Seroquel 50 mg p.o. nightlycontinue clonazepam 0.5 mg p.o. twice daily as needed F/E/Npatient received IV fluids in the ER, continue to encourage oral intake, electrolytes within normal limits, regular diet as tolerated ProphylaxisLovenox 40 Codefull per discussion with patient and admission Dispositionadmit to medical History of Present Illness Chief Complaint: Shortness of breath, cough Primary Care Provider: NO PCP Stanton Yang is a 69-year-old undomiciled male with history of COPD, depression, antisocial personality disorder presenting with shortness of breath. Patient reports he was admitted to [facility] earlier in the month with similar presentation. He was treated with steroids, nebulizers and antibiotics. He was admitted to [facility] from - 01/15/2025 after presenting with cough and shortness of breath. Thought to have a COPD exacerbation. Unfortunately, he left AMA on 01/15/2025. He was admitted as a psychiatric inpatient from 01/16 - 01/21/2025. After being discharged from a psychiatric facility he reports worsening shortness of breath, cough which is occasionally dry but occasionally productive for thick, green sputum as well as chest congestion. His symptoms have progressively worsening. He reports he has been unable to take any inhalers and no longer has a nebulizer machine due to the fact that he has no home. Patient additionally reports chills, occasional nausea and vomiting. His diarrhea has improved In the ER patient febrile at 38.6, tachycardic at 103 bpm, mildly hypertensive at 144/76, saturating well on supplemental oxygen 2 L. Patient does not use home O2 ER course: Cefepime Albuterol Solumedrol Allergies Allergy/AdvReac Type Severity Reaction Status Date / Time No Known Allergies Allergy Verified 01/23/25 21:40 Home Medications Medication Instructions Recorded Confirmed Type albuterol sulfate 90 mcg/actuation 2 puff inhalation Q6H PRN 11/13/19 01/23/25 History aerosol inhaler (Ventolin HFA) Shortness Of Breath quetiapine 50 mg tablet (Seroquel) 50 mg PO HS 01/15/25 01/23/25 History tamsulosin 0.4 mg capsule 0.4 mg PO DAILY 01/15/25 01/23/25 History clonazepam 1 mg tablet (Klonopin) 0.5 mg PO BID PRN Anxiety 01/23/25 01/23/25 History doxycycline hyclate 100 mg tablet 100 mg PO BID 01/23/25 01/23/25 History triamcinolone acetonide 0.1 % 1 applic topical DIRECTED PRN 01/23/25 01/23/25 History topical cream Skin Irritation Past Med/Surg History Problem List (Updated 01/24/25 @ 02:27 by Yari Bach DO) Influenza A Non-ST elevation LA (NSTEMI) (Acute) Acute dyspnea (Acute) Housing insecurity Depression Malingering Suicidal ideation (Acute) COVID (Acute) Peripheral eosinophilia Acute exacerbation of chronic obstructive pulmonary disease (COPD) Failure of outpatient treatment (Acute) Leukocytosis (Acute) COPD exacerbation (Acute) SOB (shortness of breath) (Acute) Hypoxia (Acute) Acute hypoxemic respiratory failure (Acute) Arthritis COPD (chronic obstructive pulmonary disease) (Acute) Abdominal aneurysm Medical History Agitation Encounter for smoking cessation counseling Dyspnea Surgical History History of appendectomy Family History Mother Diabetes Social History Smoking Status: Current every day smoker Tobacco Type: Cigarettes Cigarettes Per Day: 1-2 ppd; Second Hand Exposure: No; Do You Dip or Chew Tobacco: No; Tobacco Cessation Education Requested by Patient: No Hx Alcohol Use: No Hx Substance Use: Yes Last Used Substance: Days (ago) Preferred Language: Latvian Communication Ability: Effective Smooth Plater Required: No Beliefs That Will Affect Care: None Current Living Situation: Homeless Other Information That Helps Us Care for You: No Feels Safe at Home: No Is there a partner from a previous relationship who is making you feel unsafe now?: No Gender Identity: Male Assistive Devices: Denture - Upper and Glasses Review of Systems Review of Systems: All systems reviewed & are unremarkable except as noted in HPI & below Physical Exam Physical Exam: General: patient ill in appearance, poorly kempt Skin: warm, dry, intact, no rashes or lesions HEENT: NC/AT, PERRL, EOMI, anicteric sclera, conjunctiva without injection, external ear normal to inspection and nontender, nares patent, moist mucus membranes, dentition intact, no oropharyngeal lesions, neck supple, trachea midline, no LAD, no thyromegaly, no JVD Heart: +S1/S2, regular, tachycardic, no m/r/g Lungs: equal air entry bilaterally, Coarse rhonchi anteriorly with diffuse end expiratory wheezing auscultated in bilateral lung carmichael, Abd: +BS, soft, NT/ND, no masses/organomegaly/ascites Ext: warm, 2+ pulses in UE/LE bilaterally, no clubbing/cyanosis or edema Neuro: nonfocal, patient AA&O x 4, speech intact, no facial droop, moving all extremities on command with equal strength 5/5 Results & Data Results & Data Vital Signs (Past 12 Hours) Vital Signs Temp Pulse Pulse Resp BP BP Pulse Ox 01/23/25 20:55 37.1 C 01/23/25 20:45 106 H 18 134/70 100 01/23/25 20:39 115 H 21 96 01/23/25 20:31 137/75 01/23/25 20:30 144/76 H 01/23/25 20:30 103 H 18 144/76 H 100 01/23/25 20:27 99 H 13 100 01/23/25 20:11 103 H 24 98 01/23/25 19:19 117 H 01/23/25 19:00 94 01/23/25 19:00 01/23/25 19:00 38.6 C H 120 H 34 H 94 O2 Del Method O2 Flow Rate 01/23/25 20:55 01/23/25 20:45 01/23/25 20:39 01/23/25 20:31 01/23/25 20:30 01/23/25 20:30 Room Air 01/23/25 20:27 01/23/25 20:11 Nasal Cannula 2 01/23/25 19:19 01/23/25 19:00 Room Air 01/23/25 19:00 Room Air 01/23/25 19:00 Room Air Laboratory Results Laboratory Results WBC 25.46 K/ul (4.8-10.8) H 01/23/25 19:10 RBC 3.65 M/uL (4.70-6.10) L 01/23/25 19:10 Hgb 11.7 g/dl (14.0-18.0) L 01/23/25 19:10 Hct 33.9 % (42.0-52.0) L 01/23/25 19:10 MCV 92.9 fL (80.0-100.0) 01/23/25 19:10 MCH 32.1 pg (25.0-34.0) 01/23/25 19:10 MCHC 34.5 g/dL (32.0-36.0) 01/23/25 19:10 RDW Std Deviation 78.3 fL (36.4-46.3) H 01/23/25 19:10 RDW Coeff of Judd 22.6 % (11.5-14.5) H 01/23/25 19:10 Plt Count 251 K/uL (130-400) 01/23/25 19:10 MPV 10.1 fL (9.4-12.4) 01/23/25 19:10 Immature Gran % (Auto) 1.6 % 01/23/25 19:10 Neut % (Auto) 72.7 % 01/23/25 19:10 Lymph % (Auto) 12.1 % 01/23/25 19:10 Allen % (Auto) 13.0 % 01/23/25 19:10 Eos % (Auto) 0.4 % 01/23/25 19:10 Baso % (Auto) 0.2 % 01/23/25 19:10 Neut # (Auto) 18.52 K/uL (1.40-6.50) H 01/23/25 19:10 Lymph # (Auto) 3.09 K/uL (1.20-3.40) 01/23/25 19:10 Allen # (Auto) 3.30 K/uL (0.11-0.59) H 01/23/25 19:10 Eos # (Auto) 0.10 K/uL (0.00-0.50) 01/23/25 19:10 Baso # (Auto) 0.04 K/uL (0.00-0.20) 01/23/25 19:10 Immature Gran # (Auto) 0.41 K/uL (0.01-0.20) H 01/23/25 19:10 Absolute Nucleated RBC 0.06 K/uL (0.00-0.12) 01/23/25 19:10 Nucleated RBC % (auto) 0.2 % 01/23/25 19:10 Anisocytosis Present 01/23/25 19:10 Sodium 140 mmol/L (136-145) 01/23/25 19:10 Potassium 3.9 mmol/L (3.5-5.1) 01/23/25 19:10 Chloride 104 mmol/L (98-107) 01/23/25 19:10 Carbon Dioxide 31 mmol/L (21-32) 01/23/25 19:10 Anion Gap 5 (3-11) 01/23/25 19:10 BUN 36 mg/dl (6-23) H 01/23/25 19:10 Creatinine 0.98 mg/dl (0.6-1.4) 01/23/25 19:10 Est Cr Clr Drug Dosing 67.4 ml/min 01/23/25 19:10 eGFR 83.99 01/23/25 19:10 BUN/Creatinine Ratio 36.7 (10-20) H 01/23/25 19:10 Glucose 105 mg/dl (70-99(Fasting)) H 01/23/25 19:10 Lactate 2.7 mmol/L (0.4-2.0) H* 01/23/25 22:03 Calcium 8.9 mg/dl (8.6-10.3) 01/23/25 19:10 Magnesium 2.1 mg/dl (1.7-2.4) 01/23/25 19:10 Total Bilirubin 0.7 mg/dl (0.2-1.0) 01/23/25 19:10 Direct Bilirubin 0.1 mg/dl (0-0.2) 01/23/25 19:10 AST 24 U/L (13-39) 01/23/25 19:10 ALT 43 U/L (7-52) 01/23/25 19:10 Alkaline Phosphatase 58 U/L (34-104) 01/23/25 19:10 Troponin I High Sens 36.5 pg/ml (0-20) H 01/23/25 21:12 Total Protein 6.2 gm/dl (6.0-8.3) 01/23/25 19:10 Albumin 4.1 gm/dl (3.4-5.0) 01/23/25 19:10 Procalcitonin 0.04 ng/ml (0-0.5) 01/23/25 19:10 Urine Color Yellow 01/23/25 20:00 Urine Appearance Clear (Clear) 01/23/25 20:00 Urine pH 5.5 (4.5-7.5) 01/23/25 20:00 Ur Specific [place] 1.028 (1.000-1.030) 01/23/25 20:00 Urine Protein 1+ (Negative) H 01/23/25 20:00 Urine Glucose (UA) Negative (Negative) 01/23/25 20:00 Urine Ketones Trace (Negative) H 01/23/25 20:00 Urine Blood Negative (Negative) 01/23/25 20:00 Urine Nitrite Negative (Negative) 01/23/25 20:00 Urine Bilirubin Negative (Negative) 01/23/25 20:00 Urine Urobilinogen Negative (Negative) 01/23/25 20:00 Ur Leukocyte Esterase Negative (Negative) 01/23/25 20:00 Urine WBC (Auto) 0-5 /hpf (0-5) 01/23/25 20:00 Urine RBC (Auto) 0-2 /hpf (0-2) 01/23/25 20:00 U Hyaline Cast (Auto) 0-2 /lpf (0-2) 01/23/25 20:00 U Epithel Cells (Auto) 0-2 /hpf (0-2) 01/23/25 20:00 Urine Bacteria (Auto) None Seen (None Seen) 01/23/25 20:00 Nasal Influ A H1 2009 PCR DETECTED (NotDetected) A 01/23/25 19:58 Adenovirus (PCR) Not Detected (NotDetected) 01/23/25 19:58 B. pertussis DNA (PCR) Not Detected (NotDetected) 01/23/25 19:58 B.parapertussis DNA PCR Not Detected (NotDetected) 01/23/25 19:58 C. pneumoniae DNA (PCR) Not Detected (NotDetected) 01/23/25 19:58 Coronavirus OC43 (PCR) Not Detected (NotDetected) 01/23/25 19:58 Coronavirus HKU1 (PCR) Not Detected (NotDetected) 01/23/25 19:58 Coronavirus 229E (PCR) Not Detected (NotDetected) 01/23/25 19:58 SARS-CoV-2 (PCR) Not Detected (NotDetected) 01/23/25 19:58 Coronavirus NL63 (PCR) Not Detected (NotDetected) 01/23/25 19:58 Human Metapneumovir PCR Not Detected (NotDetected) 01/23/25 19:58 Influenza Type B (PCR) Not Detected (NotDetected) 01/23/25 19:58 M. pneumoniae (PCR) Not Detected (NotDetected) 01/23/25 19:58 Parainfluenza 1 (PCR) Not Detected (NotDetected) 01/23/25 19:58 Parainfluenza 2 (PCR) Not Detected (NotDetected) 01/23/25 19:58 Parainfluenza 3 (PCR) Not Detected (NotDetected) 01/23/25 19:58 Parainfluenza 4 (PCR) Not Detected (NotDetected) 01/23/25 19:58 RSV (PCR) Not Detected (NotDetected) 01/23/25 19:58 Entero/Rhino (PCR) Not Detected (NotDetected) 01/23/25 19:58 Impressions Chest X-Ray 01/23/25 19:23 Chest radiograph, one view History: Sepsis Comparison: January 14, 2025 Findings: Single AP view of the chest performed. No focal consolidation or pleural effusion. No pneumothorax. The cardiomediastinal silhouette is within normal limits. Normal pulmonary vascularity. No evidence for lymphadenopathy. No visualized bony or soft tissue abnormality. Impression: Normal chest radiograph Electronically signed by Curtis Limon 01-23-2025 8:05 PM ECG Additional Comments: EKG with normal sinus rhythm at 100 bpm, NC = 128, QRS = 76, QTc 448. Left axis deviation present, no acute ischemic changes PG Care Time/CCT Total # of Minutes Spent Total Time Spent with Patient: Total time spent is greater than 50% in coordination of care (as documented) at patient's floor/unit and/or counseling patient: Coding Level of Care Code 11480 INT INP/OBS CARE 3/75MIN Diagnoses Influenza A J10.1 Acute exacerbation of chronic obstructive pulmonary disease (COPD) J44.1
[2025-01-23] MEDS ORDERED: DOCUSATE SODIUM 100 MG CAP PO PRN (22:50)
[2025-01-23] MEDS ORDERED: ONDANSETRON INJ 2 MG/ML 2 ML VIAL IV PRN (22:50)
[2025-01-23] MEDS ORDERED: ALBUTEROL 0.083% NEBU SOLN 3 ML VIAL NEB PRN (22:50)
[2025-01-23] MEDS ORDERED: ACETAMINOPHEN 325 MG TAB PO PRN (22:50)
[2025-01-23] MEDS: ALBUT/IPRATROP 3MG/0.5MG NEB 3 ML VIAL NEB SCH (23:50)
[2025-01-24] MEDS: AZITHROMYCIN 250 MG TAB PO ONE (00:32)
[2025-01-24] MEDS: QUEtiapine FUMARATE 25 MG TABLET PO SCH (00:33)
[2025-01-24] MEDS: cefTRIAXone SODIUM 1,000 MG/50 ML BAG IV SCH (05:08)
[2025-01-24] MEDS: guaiFENesin 600 MG TABCR PO SCH (07:41)
[2025-01-24] MEDS: FLUTICASONE/VILANTEROL 100/25MCG 14 PUFFS/INHALER INH SCH (07:41)
[2025-01-24] MEDS: TAMSULOSIN HCL 0.4 MG CAP PO SCH (07:42)
[2025-01-24] MEDS: ENOXAPARIN INJ 40 MG/0.4 ML SYR SQ SCH (08:42)
--- NOTE | 2025-01-24 08:43 | Electrocardiogram Report ---
Test Reason : Blood Pressure : */* mmHG Vent. Rate : 100 BPM Atrial Rate : 100 BPM P-R Int : 128 ms QRS Dur : 76 ms QT Int : 348 ms P-R-T Axes : 80 -70 73 degrees QTcB Int : 448 ms Normal sinus rhythm Left axis deviation Abnormal ECG When compared with ECG of 15-Jan-2025 05:16, QRS axis Shifted left Confirmed by Curtis Randall ([id number]) on 01/24/2025 8:43:12 AM Referred By: REFERRED SELF Confirmed By: Curtis Randall
[2025-01-24 09:00] LABS: Albumin Level 3.5 gm/dl (3.4-5.0); BUN Creatinine Ratio 35.7 (10-20); Bilirubin Direct 0.1 mg/dl (0-0.2); Bilirubin,Total 0.5 mg/dl (0.2-1.0); Calcium 8.2 mg/dl (8.6-10.3); Creatinine Clr Calc Pharmacy 78.7 ml/min; Potassium 3.9 mmol/L (3.5-5.1); Total Protein 5.2 gm/dl (6.0-8.3)
[2025-01-24 09:20] LABS: Hematocrit (blood only) 28.9 % (42.0-52.0); Hemoglobin 9.9 g/dl (14.0-18.0); Mean Corpuscular Hemoglobin 31.6 pg (25.0-34.0); Mean Corpuscular Hgb Conc 34.3 g/dL (32.0-36.0); Mean Corpuscular Volume 92.3 fL (80.0-100.0); Mean Platelet Volume 9.9 fL (9.4-12.4); Nucleated RBC # (auto) 0.04 K/uL (0.00-0.12); Nucleated RBC % (auto) 0.5 %; Platelet Count 202 K/uL (130-400); RDW Coefficient of Variation 22.6 % (11.5-14.5); RDW Standard Deviation 77.6 fL (36.4-46.3); Red Blood Count 3.13 M/uL (4.70-6.10); White Blood Count 8.56 K/ul (4.8-10.8)
[2025-01-24] MEDS: methylPREDNISolone 30 MG in SYRINGE 0 ML IV SCH (09:58)
[2025-01-24] MEDS: LACTATED RINGER'S 2,000 ML IV ONE (12:08)
--- NOTE | 2025-01-24 12:45 | Hospitalist Progress Note ---
Date of Service January 24, 2025 Assessment & Plan (1) Influenza A: (2) Housing insecurity: (3) Depression: (4) Acute exacerbation of chronic obstructive pulmonary disease (COPD): (5) Tobacco use disorder: Plan 69-year-old homeless male with past medical history of COPD, tobacco use disorder, depression who presents with 1 week history of progressive shortness of breath and productive cough and found to have influenza A infection #Sepsis likely secondary to influenza A infection, present on admission #Influenza A pneumonia #Acute exacerbation of COPD Patient presented with respiratory failure, shortness of breath, elevated lactate, elevated white count and tachycardia Patient tested positive for influenza A Chest x-ray portable film did not show any evidence of infiltrates Lactic acid levels are still elevated: Give LR bolus 30 mL/kg Continue with antibiotics: Ceftriaxone plus azithromycin (day 1) Check sputum culture Check repeat chest x-ray: Do two-view chest x-ray after hydration DuoNebs every 6 hours Albuterol as needed Continue inhalers Oxygen support as needed to keep oxygenation between 90 to 92% Given smoking history and ongoing shortness of breath issues, check 2D echo #Tobacco use disorder Smoking cessation counseling provided Nicotine replacement patch #Depression/anxiety Continue Seroquel 50 mg p.o. nightly Continue clonazepam 0.5 mg p.o. twice daily as needed #Homelessness Social work/case management consult CODE STATUS: Full code DVT prophylaxis: Lovenox 40 mg subcutaneous daily Care plan discussed with patient, nursing staff Admission and Anticipated Discharge Date Admission Date: January 23, 2025 Subjective Patient seen and examined H&P reviewed Labs reviewed Radiology reviewed Patient denies any chest pain, dizziness, lightheadedness, nausea, vomiting, diarrhea, abdominal pain. Appetite is good Requesting nicotine patch Smokes 1 pack of cigarettes a day Denies alcohol use Does report occasional cannabis use Denies IV drug use He does report feeling short of breath specially when he is ambulating Patient states he is homeless and requesting help with finding housing Physical Exam Physical Exam: General: No acute distress Psych: Awake and alert, oriented to place and person, talking in full sentences HEENT: Anicteric sclera, moist oral mucosa CVS: Regular rate and rhythm Lungs: Bilateral air entry, expiratory wheezing noted Abdomen: Soft, nontender, no rebound, no guarding Ext: No lower extremity edema, no calf tenderness Neuro: No focal motor deficits noted Results & Data Results & Data Vital Signs (Past 12 Hours) Vital Signs Temp Pulse Resp BP Pulse Ox O2 Del Method 01/24/25 11:58 77 16 96 Room Air 01/24/25 09:31 Room Air 01/24/25 08:06 36.7 C 81 18 130/77 95 Room Air 01/24/25 07:11 77 18 96 Room Air Laboratory Results Laboratory Results - last 24 hr 01/23/25 01/23/25 01/23/25 19:10 19:58 20:00 WBC 25.46 H RBC 3.65 L Hgb 11.7 L Hct 33.9 L MCV 92.9 MCH 32.1 MCHC 34.5 RDW Std Deviation 78.3 H RDW Coeff of Judd 22.6 H Plt Count 251 MPV 10.1 Immature Gran % (Auto) 1.6 Neut % (Auto) 72.7 Lymph % (Auto) 12.1 Burnet % (Auto) 13.0 Eos % (Auto) 0.4 Baso % (Auto) 0.2 Neut # (Auto) 18.52 H Lymph # (Auto) 3.09 Burnet # (Auto) 3.30 H Eos # (Auto) 0.10 Baso # (Auto) 0.04 Immature Gran # (Auto) 0.41 H Absolute Nucleated RBC 0.06 Nucleated RBC % (auto) 0.2 Anisocytosis Present Sodium 140 Potassium 3.9 Chloride 104 Carbon Dioxide 31 Anion Gap 5 BUN 36 H Creatinine 0.98 Est Cr Clr Drug Dosing 67.4 eGFR 83.99 BUN/Creatinine Ratio 36.7 H Glucose 105 H Lactate Calcium 8.9 Magnesium 2.1 Total Bilirubin 0.7 Direct Bilirubin 0.1 AST 24 ALT 43 Alkaline Phosphatase 58 Troponin I High Sens 31.6 H Total Protein 6.2 Albumin 4.1 Procalcitonin 0.04 Urine Color Yellow Urine Appearance Clear Urine pH 5.5 Ur Specific [place] 1.028 Urine Protein 1+ H Urine Glucose (UA) Negative Urine Ketones Trace H Urine Blood Negative Urine Nitrite Negative Urine Bilirubin Negative Urine Urobilinogen Negative Ur Leukocyte Esterase Negative Urine WBC (Auto) 0-5 Urine RBC (Auto) 0-2 U Hyaline Cast (Auto) 0-2 U Epithel Cells (Auto) 0-2 Urine Bacteria (Auto) None Seen Nasal Influ A H1 2008 PCR DETECTED A Adenovirus (PCR) Not Detected B. pertussis DNA (PCR) Not Detected B.parapertussis DNA PCR Not Detected C. pneumoniae DNA (PCR) Not Detected Coronavirus OC43 (PCR) Not Detected Coronavirus HKU1 (PCR) Not Detected Coronavirus 229E (PCR) Not Detected SARS-CoV-2 (PCR) Not Detected Coronavirus NL63 (PCR) Not Detected Human Metapneumovir PCR Not Detected Influenza Type B (PCR) Not Detected M. pneumoniae (PCR) Not Detected Parainfluenza 1 (PCR) Not Detected Parainfluenza 2 (PCR) Not Detected Parainfluenza 3 (PCR) Not Detected Parainfluenza 4 (PCR) Not Detected RSV (PCR) Not Detected Entero/Rhino (PCR) Not Detected 01/23/25 01/23/25 01/23/25 20:05 21:12 22:03 WBC RBC Hgb Hct MCV MCH MCHC RDW Std Deviation RDW Coeff of Judd Plt Count MPV Immature Gran % (Auto) Neut % (Auto) Lymph % (Auto) [place] % (Auto) Eos % (Auto) Baso % (Auto) Neut # (Auto) Lymph # (Auto) [place]et # (Auto) Eos # (Auto) Baso # (Auto) Immature Gran # (Auto) Absolute Nucleated RBC Nucleated RBC % (auto) Anisocytosis Sodium Potassium Chloride Carbon Dioxide Anion Gap BUN Creatinine Est Cr Clr Drug Dosing eGFR BUN/Creatinine Ratio Glucose Lactate 2.7 H* 2.7 H* Calcium Magnesium Total Bilirubin Direct Bilirubin AST ALT Alkaline Phosphatase Troponin I High Sens 36.5 H Total Protein Albumin Procalcitonin Urine Color Urine Appearance Urine pH Ur Specific [place] Urine Protein Urine Glucose (UA) Urine Ketones Urine Blood Urine Nitrite Urine Bilirubin Urine Urobilinogen Ur Leukocyte Esterase Urine WBC (Auto) Urine RBC (Auto) U Hyaline Cast (Auto) U Epithel Cells (Auto) Urine Bacteria (Auto) Nasal Influ A H1 2009 PCR Adenovirus (PCR) B. pertussis DNA (PCR) B.parapertussis DNA PCR C. pneumoniae DNA (PCR) Coronavirus OC43 (PCR) Coronavirus HKU1 (PCR) Coronavirus 229E (PCR) SARS-CoV-2 (PCR) Coronavirus NL63 (PCR) Human Metapneumovir PCR Influenza Type B (PCR) M. pneumoniae (PCR) Parainfluenza 1 (PCR) Parainfluenza 2 (PCR) Parainfluenza 3 (PCR) Parainfluenza 4 (PCR) RSV (PCR) Entero/Rhino (PCR) 01/24/25 01/24/25 01/24/25 08:01 09:49 11:56 WBC 8.56 D RBC 3.13 L Hgb 9.9 L Hct 28.9 L MCV 92.3 MCH 31.6 MCHC 34.3 RDW Std Deviation 77.6 H RDW Coeff of Judd 22.6 H Plt Count 202 MPV 9.9 Immature Gran % (Auto) Neut % (Auto) Lymph % (Auto) [place] % (Auto) Eos % (Auto) Baso % (Auto) Neut # (Auto) Lymph # (Auto) [place] # (Auto) Eos # (Auto) Baso # (Auto) Immature Gran # (Auto) Absolute Nucleated RBC 0.04 Nucleated RBC % (auto) 0.5 Anisocytosis Sodium 139 Potassium 3.9 Chloride 106 Carbon Dioxide 26 Anion Gap 7 BUN 30 H Creatinine 0.84 Est Cr Clr Drug Dosing 78.7 eGFR 94.99 BUN/Creatinine Ratio 35.7 H Glucose 123 H Lactate 3.5 H* 2.1 H* Calcium 8.2 L Magnesium Total Bilirubin 0.5 Direct Bilirubin 0.1 AST 21 ALT 34 Alkaline Phosphatase 51 Troponin I High Sens Total Protein 5.2 L Albumin 3.5 Procalcitonin Urine Color Urine Appearance Urine pH Ur Specific [place] Urine Protein Urine Glucose (UA) Urine Ketones Urine Blood Urine Nitrite Urine Bilirubin Urine Urobilinogen Ur Leukocyte Esterase Urine WBC (Auto) Urine RBC (Auto) U Hyaline Cast (Auto) U Epithel Cells (Auto) Urine Bacteria (Auto) Nasal Influ A H1 2008 PCR Adenovirus (PCR) B. pertussis DNA (PCR) B.parapertussis DNA PCR C. pneumoniae DNA (PCR) Coronavirus OC43 (PCR) Coronavirus HKU1 (PCR) Coronavirus 229E (PCR) SARS-CoV-2 (PCR) Coronavirus NL63 (PCR) Human Metapneumovir PCR Influenza Type B (PCR) M. pneumoniae (PCR) Parainfluenza 1 (PCR) Parainfluenza 2 (PCR) Parainfluenza 3 (PCR) Parainfluenza 4 (PCR) RSV (PCR) Entero/Rhino (PCR) Diagnostic Findings Chest X-Ray 01/23/25 19:23 Chest radiograph, one view History: Sepsis Comparison: January 14, 2025 Findings: Single AP view of the chest performed. No focal consolidation or pleural effusion. No pneumothorax. The cardiomediastinal silhouette is within normal limits. Normal pulmonary vascularity. No evidence for lymphadenopathy. No visualized bony or soft tissue abnormality. Impression: Normal chest radiograph Electronically signed by Curtis Limon 01-23-2025 8:05 PM PG Care Time/CCT Total # of Minutes Spent Total Time Spent with Patient: Total time spent is greater than 50% in coordination of care (as documented) at patient's floor/unit and/or counseling patient: Coding Level of Care Code 05873 SUB INP/OBS CARE 3/50MIN Diagnoses Influenza A J10.1 Housing insecurity Z59.819 Depression F33.1 Active/Remission status: currently active Depression Type: major depressive disorder Major depression episode severity: moderate Major depression recurrence: recurrent Acute exacerbation of chronic obstructive pulmonary disease (COPD) J44.1 Tobacco use disorder F17.200 (3) Depression Active/Remission status: currently active Depression Type: major depressive disorder Major depression episode severity: moderate Major depression recurrence: recurrent Qualified Code(s): F33.1 - Major depressive disorder, recurrent, moderate
[2025-01-24] MEDS: NICOTINE 14 MG/24 HR PATCH TD SCH (14:26)
[2025-01-24] MEDS: LACTATED RINGER'S 1,000 ML IV SCH (18:27)
[2025-01-24] MEDS: ALBUT/IPRATROP 3MG/0.5MG NEB 3 ML VIAL NEB SCH (19:10)
--- NOTE | 2025-01-24 19:25 | XRay Report ---
EXAM: XR chest 2V PA/lateral CLINICAL HISTORY: PNA. TECHNIQUE: X-ray images of the chest were obtained in posteroanterior (PA) and lateral projections. COMPARISON: Comparison done with study dated 01/04/2024. FINDINGS: Pulmonary Parenchyma: Hyperinflated both lungs. Subtle hazy opacities in the right lower lung zone. No evidence of consolidation, collapse, or focal opacities. No pulmonary nodules identified. No evidence of pleural effusion or pleural thickening. Heart and Mediastinum: Heart size and shape are normal. No mediastinal widening or masses. No hilar or mediastinal lymphadenopathy. Bony Thorax: Bony thorax appears intact without fractures or deformities. Soft Tissues: Soft tissues overlying the chest wall are unremarkable. IMPRESSION: 1. Subtle hazy opacities in the right lower lung zone. Prior chest xray also shows relative haziness in the right lower lung zone. 2. This may be new onset inflammation/infection versus due to crowding of vessels/soft tissues. 3. Clinical correlation is advised. Electronically signed by Sarabjit Freeman 01-24-2025 7:25 PM
[2025-01-24] MEDS: AZITHROMYCIN 250 MG TAB PO SCH (20:54)
[2025-01-24] MEDS: clonazePAM 0.5 MG TAB PO PRN (20:55)
[2025-01-25] MEDS: clonazePAM 0.5 MG TAB PO STA ×2 (08:31→16:26)
--- NOTE | 2025-01-25 11:32 | Hospitalist Progress Note ---
Date of Service January 25, 2025 Assessment & Plan (1) Influenza A: (2) Housing insecurity: (3) Depression: (4) Acute exacerbation of chronic obstructive pulmonary disease (COPD): (5) Tobacco use disorder: Plan 69-year-old homeless male with past medical history of COPD, tobacco use disorder, depression who presents with 1 week history of progressive shortness of breath and productive cough and found to have influenza A infection #Sepsis likely secondary to influenza A infection, present on admission #Influenza A pneumonia #Acute exacerbation of COPD Patient presented with respiratory failure, shortness of breath, elevated lactate, elevated white count and tachycardia Patient tested positive for influenza A Chest x-ray portable film did not show any evidence of infiltrates Repeat chest x-ray after hydration shows possibility of right lower lung opacity/haziness suspicious for infection Continue with antibiotics: Ceftriaxone plus azithromycin (day 2/) Check sputum culture DuoNebs every 6 hours Albuterol as needed Start budesonide and formoterol nebulizers twice daily Patient is saturating well on room air, switch IV steroids to oral prednisone 2D echo done: Results pending #Tobacco use disorder Smoking cessation counseling provided Nicotine replacement patch #Depression/anxiety Continue Seroquel 50 mg p.o. nightly Continue clonazepam 0.5 mg p.o. twice daily as needed Psychiatry consulted: Await market consultant recommendations #Hyperglycemia Check A1c #Homelessness Social work/case management working with the patient on [facility]: Referral has been made CODE STATUS: Full code DVT prophylaxis: Lovenox 40 mg subcutaneous daily Care plan discussed with patient, nursing staff Admission and Anticipated Discharge Date Admission Date: January 23, 2025 Subjective Patient seen and examined Nurse at bedside Patient was very agitated apparently early this morning but currently is pleasant and polite He saturating well on room air but still feels anxious and short of breath Denies any chest pain He is tearful about his living situation He is requesting psychiatry consult: Psychiatry has been consulted He denies suicidal ideation He denies any nausea, vomiting, diarrhea, abdominal pain and is tolerating oral diet without any issues He is agreeable to labs and labs have not been drawn as yet from this morning Physical Exam Physical Exam: General: Anxious appearing, tearful Psych: Awake and alert, oriented to place and person, talking in full sentences, anxious appearing HEENT: Anicteric sclera, moist oral mucosa CVS: Regular rate and rhythm Lungs: Bilateral air entry, expiratory wheezing noted: Breath sounds improved from yesterday Abdomen: Soft, nontender, no rebound, no guarding Ext: No lower extremity edema, no calf tenderness Neuro: No focal motor deficits noted Results & Data Results & Data Vital Signs (Past 12 Hours) Vital Signs Temp Pulse Resp BP Pulse Ox O2 Del Method 01/25/25 08:35 36.7 C 69 22 132/68 94 Room Air 01/25/25 07:56 Room Air 01/25/25 07:35 75 20 96 Room Air 01/25/25 00:12 68 18 97 Room Air Laboratory Results Laboratory Results - last 24 hr 01/24/25 11:56 Lactate 2.1 H* Diagnostic Findings Chest X-Ray 01/24/25 17:57 EXAM: XR chest 2V PA/lateral CLINICAL HISTORY: PNA. TECHNIQUE: X-ray images of the chest were obtained in posteroanterior (PA) and lateral projections. COMPARISON: Comparison done with study dated 01/04/2024. FINDINGS: Pulmonary Parenchyma: Hyperinflated both lungs. Subtle hazy opacities in the right lower lung zone. No evidence of consolidation, collapse, or focal opacities. No pulmonary nodules identified. No evidence of pleural effusion or pleural thickening. Heart and Mediastinum: Heart size and shape are normal. No mediastinal widening or masses. No hilar or mediastinal lymphadenopathy. Bony Thorax: Bony thorax appears intact without fractures or deformities. Soft Tissues: Soft tissues overlying the chest wall are unremarkable. IMPRESSION: 1. Subtle hazy opacities in the right lower lung zone. Prior chest xray also shows relative haziness in the right lower lung zone. 2. This may be new onset inflammation/infection versus due to crowding of vessels/soft tissues. 3. Clinical correlation is advised. Electronically signed by Sarabjit Freeman 01-24-2025 7:25 PM PG Care Time/CCT Total # of Minutes Spent Total Time Spent with Patient: Total time spent is greater than 50% in coordination of care (as documented) at patient's floor/unit and/or counseling patient: Coding Level of Care Code 64957 SUB INP/OBS CARE 3/50MIN Diagnoses Influenza A J10.1 Housing insecurity Z59.819 Depression F33.1 Active/Remission status: currently active Depression Type: major depressive disorder Major depression episode severity: moderate Major depression recurrence: recurrent Acute exacerbation of chronic obstructive pulmonary disease (COPD) J44.1 Tobacco use disorder F17.200 (3) Depression Active/Remission status: currently active Depression Type: major depressive disorder Major depression episode severity: moderate Major depression recurrence: recurrent Qualified Code(s): F33.1 - Major depressive disorder, recurrent, moderate
[2025-01-25 13:26] LABS: Hematocrit (blood only) 29.3 % (42.0-52.0); Hemoglobin 10.3 g/dl (14.0-18.0); Mean Corpuscular Hemoglobin 31.9 pg (25.0-34.0); Mean Corpuscular Hgb Conc 35.2 g/dL (32.0-36.0); Mean Corpuscular Volume 90.7 fL (80.0-100.0); Mean Platelet Volume 10.3 fL (9.4-12.4); Nucleated RBC # (auto) 0.08 K/uL (0.00-0.12); Nucleated RBC % (auto) 0.5 %; Platelet Count 228 K/uL (130-400); RDW Coefficient of Variation 22.4 % (11.5-14.5); RDW Standard Deviation 76.9 fL (36.4-46.3); Red Blood Count 3.23 M/uL (4.70-6.10)
[2025-01-25 13:43] LABS: BUN Creatinine Ratio 35.8 (10-20); Calcium 8.5 mg/dl (8.6-10.3); Creatinine Clr Calc Pharmacy 81.6 ml/min; Magnesium 1.8 mg/dl (1.7-2.4)
[2025-01-25 14:36] LABS: Estimated Average Glucose 128 mg/dl; Hemoglobin A1C 6.1 % (4.5-5.6)
[2025-01-25] MEDS: LACTATED RINGER'S 2,100 ML IV ONE (15:53)
[2025-01-25] MEDS: MAGNESIUM SULFATE / D5W 1 GM/100 ML BAG IV SCH (15:59)
[2025-01-25] MEDS: predniSONE 50 MG TAB PO ONE (16:12)
[2025-01-25] MEDS: CYANOCOBALAMIN 1000 MCG/ML VIAL IM SCH (16:13)
--- NOTE | 2025-01-25 17:36 | XCELERA ---
[id number] \\[id number]
[2025-01-25] MEDS: LORazepam 2 MG/1 ML VIAL IV STA (17:48)
[2025-01-25] MEDS: MAGNESIUM OXIDE 400 MG TAB PO SCH (20:10)
[2025-01-25] MEDS: BUDESONIDE 0.5 MG/2 ML VIAL (PULMICORT) NEB SCH (20:30)
[2025-01-25] MEDS: FORMOTEROL 20 MCG/2 ML VIAL NEB SCH (20:30)
[2025-01-26] MEDS ORDERED: ALUMINUM/MAGNESIUM SUSP 30 ML UDC PO PRN (01:30)
[2025-01-26] MEDS: FAMOTIDINE 20 MG TAB PO ONE (02:45)
[2025-01-26 07:08] LABS: Basophils # (auto) 0.01 K/uL (0.00-0.20); Basophils % (auto) 0.1 %; Hematocrit (blood only) 26.4 % (42.0-52.0); Hemoglobin 8.9 g/dl (14.0-18.0); Immature Granulocytes # (auto) 0.46 K/uL (0.01-0.20); Immature Granulocytes % (auto) 3.3 %; Lymphocytes # (auto) 0.74 K/uL (1.20-3.40); Lymphocytes % (auto) 5.4 %; Mean Corpuscular Hemoglobin 30.9 pg (25.0-34.0); Mean Corpuscular Hgb Conc 33.7 g/dL (32.0-36.0); Mean Corpuscular Volume 91.7 fL (80.0-100.0); Monocytes # (auto) 0.99 K/uL (0.11-0.59); Monocytes % (auto) 7.2 %; Neutrophils # (auto) 11.62 K/uL (1.40-6.50); Nucleated RBC # (auto) 0.05 K/uL (0.00-0.12); Nucleated RBC % (auto) 0.4 %; Platelet Count 186 K/uL (130-400); RDW Coefficient of Variation 22.5 % (11.5-14.5); RDW Standard Deviation 76.3 fL (36.4-46.3); Red Blood Count 2.88 M/uL (4.70-6.10); White Blood Count 13.82 K/ul (4.8-10.8)
[2025-01-26 07:37] LABS: Anisocytosis Present; Poikilocytosis Present; Polychromasia 1+
[2025-01-26 07:45] LABS: Albumin Globulin Ratio 1.9 (0.9-2); BUN Creatinine Ratio 34.7 (10-20); Bilirubin,Total 0.4 mg/dl (0.2-1.0); Calcium 7.7 mg/dl (8.6-10.3); Creatinine Clr Calc Pharmacy 91.8 ml/min; Globulin 1.6 gm/dl (2.5-4.0); Total Protein 4.6 gm/dl (6.0-8.3)
[2025-01-26] MEDS: predniSONE 20 MG TAB PO SCH (09:04)
[2025-01-26] MEDS: VITAMIN B COMPLEX TAB PO SCH (09:04)
--- NOTE | 2025-01-26 11:01 | Hospitalist Progress Note ---
Date of Service January 26, 2025 Assessment & Plan (1) Influenza A: (2) Housing insecurity: (3) Depression: (4) Acute exacerbation of chronic obstructive pulmonary disease (COPD): (5) Tobacco use disorder: Plan 69-year-old homeless male with past medical history of COPD, tobacco use disorder, depression who presents with 1 week history of progressive shortness of breath and productive cough and found to have influenza A infection #Sepsis likely secondary to influenza A infection, present on admission #Influenza A pneumonia #Acute exacerbation of COPD with hypoxia Patient presented with respiratory failure, shortness of breath, elevated lactate, elevated white count and tachycardia Patient tested positive for influenza A Chest x-ray portable film did not show any evidence of infiltrates Repeat chest x-ray after hydration shows possibility of right lower lung opacity/haziness suspicious for infection Continue with antibiotics: Ceftriaxone plus azithromycin (day 3/5) DuoNebs every 6 hours Albuterol as needed Start budesonide and formoterol nebulizers twice daily Currently on 3L oxygen through nasal canula 2D echo shows preserved EF, 55-60%, no wall motion abnormality #Tobacco use disorder Smoking cessation counseling provided Nicotine replacement patch #Depression/anxiety Continue Seroquel 50 mg p.o. nightly Continue clonazepam 0.5 mg p.o. twice daily as needed Psychiatry consulted: Await specification consultant recommendations #Hyperglycemia Check A1c #Homelessness Social work/case management working with the patient on [facility]: Referral has been made CODE STATUS: Full code DVT prophylaxis: Lovenox 40 mg subcutaneous daily Care plan discussed with patient, nursing staff Admission and Anticipated Discharge Date Admission Date: January 23, 2025 Subjective Patient seen and examined today, says he still feels lousy Review of Systems Review of Systems: All systems reviewed are negative, apart from the ones contained in the history. Physical Exam Physical Exam: The patient is awake, alert and oriented 3, well developed and well nourished, normocephalic and atraumatic, lying in bed and in no acute distress. HEENT--PERRL, EOMI, mucous membranes and oropharynx mildly dry Neck--supple. No JVD. No bruits. Thyroid normal, trachea midline, no adenopathy. Heart--normal S1 and S2. No murmurs, rubs or gallops. Lungs--clear bilaterally, no respiratory distress, no accessory muscle use. Abdomen--normal bowel sounds and soft. Extremities--no cyanosis or clubbing. No edema. Dermatologic--normal skin turgor, normal color, no abnormal lymph nodes, no rash. Neurologic--cranial nerves II through XII grossly intact. Rheumatologic--normal range of motion. Psychiatric--normal affect. Results & Data Results & Data Vital Signs (Past 12 Hours) Vital Signs Temp Pulse Resp BP Pulse Ox O2 Del Method O2 Flow Rate 01/26/25 08:09 97.9 F 69 24 161/73 H 96 Nasal Cannula 3 01/26/25 07:51 66 22 93 Nasal Cannula 3 PG Care Time/CCT Total # of Minutes Spent Total Time Spent with Patient: Total time spent is greater than 50% in coordination of care (as documented) at patient's floor/unit and/or counseling patient: Coding Level of Care Code 65244 SUB INP/OBS CARE 2/35MIN Diagnoses Influenza A J10.1 Housing insecurity Z59.819 Depression F33.1 Active/Remission status: currently active Depression Type: major depressive disorder Major depression episode severity: moderate Major depression recurrence: recurrent Acute exacerbation of chronic obstructive pulmonary disease (COPD) J44.1 Tobacco use disorder F17.200 Time Spent (min) 35 (3) Depression Active/Remission status: currently active Depression Type: major depressive disorder Major depression episode severity: moderate Major depression recurrence: recurrent Qualified Code(s): F33.1 - Major depressive disorder, recurrent, moderate
--- NOTE | 2025-01-27 09:54 | Hospitalist Progress Note ---
Date of Service January 27, 2025 Assessment & Plan (1) Influenza A: (2) Housing insecurity: (3) Depression: (4) Acute exacerbation of chronic obstructive pulmonary disease (COPD): (5) Tobacco use disorder: Plan 69-year-old homeless male with past medical history of COPD, tobacco use disorder, depression who presents with 1 week history of progressive shortness of breath and productive cough and found to have influenza A infection #Sepsis likely secondary to influenza A infection, present on admission #Influenza A pneumonia #Acute exacerbation of COPD with hypoxia Patient presented with respiratory failure, shortness of breath, elevated lactate, elevated white count and tachycardia Patient tested positive for influenza A Chest x-ray portable film did not show any evidence of infiltrates Repeat chest x-ray after hydration shows possibility of right lower lung opacity/haziness suspicious for infection Continue with antibiotics: Ceftriaxone plus azithromycin (day 4/5) DuoNebs every 6 hours Albuterol as needed Continue budesonide and formoterol nebulizers twice daily Currently on 3L oxygen through nasal canula 2D echo shows preserved EF, 55-60%, no wall motion abnormality #Tobacco use disorder Smoking cessation counseling provided Nicotine replacement patch #Depression/anxiety Continue Seroquel 50 mg p.o. nightly Continue clonazepam 0.5 mg p.o. twice daily as needed Psychiatry consulted #Hyperglycemia Check A1c #Homelessness Social work/case management working with the patient on [facility]: Referral has been made CODE STATUS: Full code DVT prophylaxis: Lovenox 40 mg subcutaneous daily Care plan discussed with patient, nursing staff Admission and Anticipated Discharge Date Admission Date: January 23, 2025 Subjective Patient seen and examined today, says he still feels terrible Review of Systems Review of Systems: All systems reviewed are negative, apart from the ones contained in the history. Physical Exam Physical Exam: The patient is awake, alert and oriented 3, well developed and well nourished, normocephalic and atraumatic, lying in bed and in no acute distress. HEENT--PERRL, EOMI, mucous membranes and oropharynx mildly dry Neck--supple. No JVD. No bruits. Thyroid normal, trachea midline, no adenopathy. Heart--normal S1 and S2. No murmurs, rubs or gallops. Lungs--clear bilaterally, no respiratory distress, no accessory muscle use. Abdomen--normal bowel sounds and soft. Extremities--no cyanosis or clubbing. No edema. Dermatologic--normal skin turgor, normal color, no abnormal lymph nodes, no rash. Neurologic--cranial nerves II through XII grossly intact. Rheumatologic--normal range of motion. Psychiatric--normal affect. Results & Data Results & Data Vital Signs (Past 12 Hours) Vital Signs Temp Pulse Resp BP Pulse Ox O2 Del Method O2 Flow Rate 01/27/25 08:07 71 18 93 Nasal Cannula 3 01/27/25 07:27 98.2 F 62 20 146/84 H 94 Nasal Cannula 3 01/27/25 04:49 150/60 H 01/26/25 23:26 Nasal Cannula 3 PG Care Time/CCT Total # of Minutes Spent Total Time Spent with Patient: Total time spent is greater than 50% in coordination of care (as documented) at patient's floor/unit and/or counseling patient: Coding Level of Care Code 29274 SUB INP/OBS CARE 2/35MIN Diagnoses Influenza A J10.1 Housing insecurity Z59.819 Depression F33.1 Active/Remission status: currently active Depression Type: major depressive disorder Major depression episode severity: moderate Major depression recurrence: recurrent Acute exacerbation of chronic obstructive pulmonary disease (COPD) J44.1 Tobacco use disorder F17.200 Time Spent (min) 35 (3) Depression Active/Remission status: currently active Depression Type: major depressive disorder Major depression episode severity: moderate Major depression recurrence: recurrent Qualified Code(s): F33.1 - Major depressive disorder, recurrent, moderate
[2025-01-27] MEDS ORDERED: IPRATROPIUM BROMIDE/ALBUTEROL respimat INH INH SCH (21:00)
[2025-01-28 07:18] LABS: Hematocrit (blood only) 28.8 % (42.0-52.0); Hemoglobin 10.1 g/dl (14.0-18.0); Mean Corpuscular Hemoglobin 31.6 pg (25.0-34.0); Mean Corpuscular Hgb Conc 35.1 g/dL (32.0-36.0); Mean Platelet Volume 10.2 fL (9.4-12.4); Nucleated RBC # (auto) 0.04 K/uL (0.00-0.12); Nucleated RBC % (auto) 0.4 %; Platelet Count 205 K/uL (130-400); RDW Coefficient of Variation 22.2 % (11.5-14.5); RDW Standard Deviation 73.3 fL (36.4-46.3)
[2025-01-28 07:36] LABS: BUN Creatinine Ratio 35.1 (10-20); Calcium 8.3 mg/dl (8.6-10.3); Creatinine Clr Calc Pharmacy 85.8 ml/min; Potassium 3.9 mmol/L (3.5-5.1)
[2025-01-28] MEDS: IPRATROPIUM BROMIDE HFA INHALER INH SCH ×2 (07:47→16:28)
[2025-01-28] MEDS: ALBUTEROL HFA 8 GM INHALER INH SCH ×2 (07:47→16:28)
[2025-01-28] MEDS: OLODATEROL HCL 2.5MCG/ACTUATION 60 PUFFS/INHALER INH SCH (10:12)
[2025-01-28] MEDS: FLUTICASONE FUROATE 100MCG 14 PUFFS/INHALER INH SCH (10:12)
--- NOTE | 2025-01-28 12:20 | Hospitalist Progress Note ---
Date of Service January 28, 2025 Assessment & Plan (1) Influenza A: (2) Housing insecurity: (3) Depression: (4) Acute exacerbation of chronic obstructive pulmonary disease (COPD): (5) Tobacco use disorder: Plan 69-year-old homeless male with past medical history of COPD, tobacco use disorder, depression who presents with 1 week history of progressive shortness of breath and productive cough and found to have influenza A infection #Sepsis likely secondary to influenza A infection, present on admission #Influenza A pneumonia #Acute exacerbation of COPD with hypoxia Patient presented with respiratory failure, shortness of breath, elevated lactate, elevated white count and tachycardia Patient tested positive for influenza A Chest x-ray portable film did not show any evidence of infiltrates Repeat chest x-ray after hydration shows possibility of right lower lung opacity/haziness suspicious for infection Continue with antibiotics: Ceftriaxone plus azithromycin (day 5) Albuterol as needed Continue budesonide and formoterol nebulizers twice daily, PO Prednsione 40mg daily Currently on 2L oxygen through nasal canula 2D echo shows preserved EF, 55-60%, no wall motion abnormality #Tobacco use disorder Smoking cessation counseling provided Nicotine replacement patch #Depression/anxiety Continue Seroquel 50 mg p.o. nightly Continue clonazepam 0.5 mg p.o. twice daily as needed Psychiatry consulted #Hyperglycemia Check A1c #Homelessness Social work/case management working with the patient on [facility]: Referral has been made CODE STATUS: Full code DVT prophylaxis: Lovenox 40 mg subcutaneous daily Care plan discussed with patient, nursing staff Admission and Anticipated Discharge Date Admission Date: January 23, 2025 Subjective Patient seen and examined today, was unhappy this morning that his inhaler has been changed Review of Systems Review of Systems: All systems reviewed are negative, apart from the ones contained in the history. Physical Exam Physical Exam: The patient is awake, alert and oriented 3, well developed and well nourished, normocephalic and atraumatic, lying in bed and in no acute distress. HEENT--PERRL, EOMI, mucous membranes and oropharynx mildly dry Neck--supple. No JVD. No bruits. Thyroid normal, trachea midline, no adenopathy. Heart--normal S1 and S2. No murmurs, rubs or gallops. Lungs--clear bilaterally, no respiratory distress, no accessory muscle use. Abdomen--normal bowel sounds and soft. Extremities--no cyanosis or clubbing. No edema. Dermatologic--normal skin turgor, normal color, no abnormal lymph nodes, no rash. Neurologic--cranial nerves II through XII grossly intact. Rheumatologic--normal range of motion. Psychiatric--normal affect. Results & Data Results & Data Vital Signs (Past 12 Hours) Vital Signs Temp Pulse Resp BP Pulse Ox O2 Del Method O2 Flow Rate 01/28/25 10:33 Nasal Cannula 2 01/28/25 07:10 98.1 F 60 16 137/71 98 Nasal Cannula 3 01/28/25 03:20 68 139/87 PG Care Time/CCT Total # of Minutes Spent Total Time Spent with Patient: Total time spent is greater than 50% in coordination of care (as documented) at patient's floor/unit and/or counseling patient: Coding Level of Care Code 76175 SUB INP/OBS CARE 2/35MIN Diagnoses Influenza A J10.1 Housing insecurity Z59.819 Depression F33.1 Active/Remission status: currently active Depression Type: major depressive disorder Major depression episode severity: moderate Major depression recurrence: recurrent Acute exacerbation of chronic obstructive pulmonary disease (COPD) J44.1 Tobacco use disorder F17.200 Time Spent (min) 35 (3) Depression Active/Remission status: currently active Depression Type: major depressive d isorder Major depression episode severity: moderate Major depression recurrence: recurrent Qualified Code(s): F33.1 - Major depressive disorder, recurrent, moderate
[2025-01-28] MEDS: ALBUTEROL HFA 8 GM INHALER INH PRN (12:46)
[2025-01-29] MEDS: ALBUTEROL HFA 8 GM INHALER INH SCH (08:34)
[2025-01-29 08:51] VITALS: BP 140/76; PULSE 66; RESP 16; TEMP 97.2; O2SAT 98
--- NOTE | 2025-01-29 10:42 | Discharge Summary ---
Date of Service January 29, 2025 Admission HPI Per Admitting Provider Stanton Yang is a 69-year-old undomiciled male with history of COPD, depression, antisocial personality disorder presenting with shortness of breath. Patient reports he was admitted to [facility] earlier in the month with similar presentation. He was treated with steroids, nebulizers and antibiotics. He was admitted to [facility] from - 01/15/2025 after presenting with cough and shortness of breath. Thought to have a COPD exacerbation. Unfortunately, he left AMA on 01/15/2025. He was admitted as a psychiatric inpatient from 01/16 - 01/21/2025. After being discharged from a psychiatric facility he reports worsening shortness of breath, cough which is occasionally dry but occasionally productive for thick, green sputum as well as chest congestion. His symptoms have progressively worsening. He reports he has been unable to take any inhalers and no longer has a nebulizer machine due to the fact that he has no home. Patient additionally reports chills, occasional nausea and vomiting. His diarrhea has improved In the ER patient febrile at 38.6, tachycardic at 103 bpm, mildly hypertensive at 144/76, saturating well on supplemental oxygen 2 L. Patient does not use home O2 ER course: Cefepime Albuterol Solumedrol Patient left Against Medical Advice, but declined to sign the AMA papers. I informed him of the risks involved in leaving the hospital against medical advice, whcih include, but not limited to worsening of his symptoms and even . he insisted on leaving anyway. Admission Exam (Per Admitting) Constitutional The patient is awake, alert and oriented 3, well developed and well nourished, normocephalic and atraumatic, lying in bed and in no acute distress. HEENT--PERRL, EOMI, mucous membranes and oropharynx mildly dry Neck--supple. No JVD. No bruits. Thyroid normal, trachea midline, no adenopathy. Heart--normal S1 and S2. No murmurs, rubs or gallops. Lungs--clear bilaterally, no respiratory distress, no accessory muscle use. Abdomen--normal bowel sounds and soft. Extremities--no cyanosis or clubbing. No edema. Dermatologic--normal skin turgor, normal color, no abnormal lymph nodes, no rash. Neurologic--cranial nerves II through XII grossly intact. Rheumatologic--normal range of motion. Psychiatric--normal affect. Discharge Data Consultations 01/23/25 20:07 ED Decision to Admit Stat 01/25/25 08:51 Consult Behavioral Health Liaison Routine Hospital Course (1) Influenza A: (2) Housing insecurity: (3) Depression: (4) Acute exacerbation of chronic obstructive pulmonary disease (COPD): (5) Tobacco use disorder: Plan 69-year-old homeless male with past medical history of COPD, tobacco use disorder, depression who presents with 1 week history of progressive shortness of breath and productive cough and found to have influenza A infection #Sepsis likely secondary to influenza A infection, present on admission #Influenza A pneumonia #Acute exacerbation of COPD with hypoxia Patient presented with respiratory failure, shortness of breath, elevated lactate, elevated white count and tachycardia Patient tested positive for influenza A Chest x-ray portable film did not show any evidence of infiltrates Repeat chest x-ray after hydration shows possibility of right lower lung opacity/haziness suspicious for infection Continue with antibiotics: Ceftriaxone plus azithromycin (day 03/11) Albuterol as needed Continue budesonide and formoterol nebulizers twice daily, PO Prednsione 40mg daily Currently on 2L oxygen through nasal canula 2D echo shows preserved EF, 55-60%, no wall motion abnormality #Tobacco use disorder Smoking cessation counseling provided Nicotine replacement patch #Depression/anxiety Continue Seroquel 50 mg p.o. nightly Continue clonazepam 0.5 mg p.o. twice daily as needed Psychiatry consulted #Hyperglycemia Check A1c #Homelessness Social work/case management working with the patient on [facility]: Referral has been made CODE STATUS: Full code DVT prophylaxis: Lovenox 40 mg subcutaneous daily Patient left Against Medical Advice, but declined to sign the AMA papers. I informed him of the risks involved in leaving the hospital against medical advice, whcih include, but not limited to worsening of his symptoms and even . he insisted on leaving anyway. Coding Level of Care Code None Diagnoses Influenza A J10.1 Housing insecurity Z59.819 Depression F33.1 Active/Remission status: currently active Depression Type: major depressive disorder Major depression episode severity: moderate Major depression recurrence: recurrent Acute exacerbation of chronic obstructive pulmonary disease (COPD) J44.1 Tobacco use disorder F17.200 Time Spent (min) 10
[2025-01-29] MEDS ORDERED: ALBUTEROL HFA 8 GM INHALER INH SCH (11:00)
== END 2025-01-29 10:17 | disposition left against medical advice (07) | DRG 871 ==
LOC: ED 18:58 → SUATTDRO 21:18 → 3N 21:18

== ENCOUNTER 2025-01-29 11:40 | Inpatient (IN) ==
[2025-01-29] MEDS: ALBUTEROL 0.083% NEBU SOLN 3 ML VIAL NEB STA (12:43)
--- NOTE | 2025-01-29 12:44 | XRay Report ---
XR chest 1V portable CLINICAL HISTORY: COPD, PNA COMPARISON STUDY: 01/24/2025 FINDINGS: Heart size and pulmonary vasculature are normal. Stable hyperexpanded lungs. No effusion, c onsolidation, or pneumothorax. IMPRESSION: No pneumonia seen. ACT 112: Negative or not required by law. Electronically signed by: Israel Ortiz M.D. 01/29/2025 12:43 PM
[2025-01-29 13:08] LABS: Hematocrit (blood only) 36.2 % (42.0-52.0); Hemoglobin 12.3 g/dl (14.0-18.0); Mean Corpuscular Hemoglobin 30.6 pg (25.0-34.0); Mean Platelet Volume 9.5 fL (9.4-12.4); Nucleated RBC # (auto) 0.04 K/uL (0.00-0.12); Nucleated RBC % (auto) 0.2 %; Platelet Count 252 K/uL (130-400); RDW Standard Deviation 73.9 fL (36.4-46.3); Red Blood Count 4.02 M/uL (4.70-6.10)
[2025-01-29 13:31] LABS: Anion Gap 5 (3-11); Carbon Dioxide 31 mmol/L (21-32); Chloride 101 mmol/L (98-107); Potassium 3.9 mmol/L (3.5-5.1); Sodium 137 mmol/L (136-145)
[2025-01-29 13:36] LABS: Blood Urea Nitrogen 34 mg/dl (6-23); Glucose 82 mg/dl (70-99(Fasting))
[2025-01-29 13:51] LABS: Anisocytosis Present; Basophils # (auto) 0.04 K/uL (0.00-0.20); Basophils % (auto) 0.2 %; Eosinophils # (auto) 0.21 K/uL (0.00-0.50); Immature Granulocytes # (auto) 0.31 K/uL (0.01-0.20); Immature Granulocytes % (auto) 1.5 %; Lymphocytes # (auto) 4.59 K/uL (1.20-3.40); Lymphocytes % (auto) 21.5 %; Monocytes # (auto) 1.43 K/uL (0.11-0.59); Monocytes % (auto) 6.7 %; Neutrophils # (auto) 14.72 K/uL (1.40-6.50); Neutrophils % (auto) 69.1 %; Polychromasia 1+
--- NOTE | 2025-01-29 14:38 | Emergency Department Note ---
Impression & Plan COPD (chronic obstructive pulmonary disease), Failure of outpatient treatment ED Provider Note NAME: VAZQUEZ ORDONEZ AGE: 69 SEX: M : 1955 ARRIVES VIA: Walk-In INFORMANT: Patient, ED PROVIDER(S): Will Farfan MD CHIEF COMPLAINT: Shortness of breath HPI: This is a 69-year-old male presented for shortness of breath. Patient states that he was in the hospital for the past few days and left AGAINST MEDICAL ADVICE. Present patient states he "was not getting the appropriate medication "and "the doctors are lying to me" Initial states he wants to be sent to a d different hospital. He then state he want to be sent to the "[facility] ". He notes he feels poorly and that his breathing is not any better. He was previously mated for influenza A and finished course of antibiotics with ceftriaxone azithromycin. He has been on steroids otherwise. ROS: See above HPI for pertinent positives & negatives. A total of 10 systems reviewed and were otherwise negative. PAST MEDICAL HISTORY: See Below PAST SURGICAL HISTORY: See Below FAMILY HISTORY: See Below SOCIAL HISTORY: See Below HOME MEDICATIONS: See Below ALLERGIES: See Below VITALS: See Below PHYSICAL EXAMINATION: General: Disheveled, chronically ill-appearing Head: Normocephalic and atraumatic Eyes: Normal inspection, extraocular muscles intact Ear, nose, throat: Normal external exam Neck: Normal range of motion Respiratory: speaking in full sentences, symmetric chest rise, rhonchi/wheezing in all lung carmichael Cardiovascular: Regular rate/rhythm Extremities: moves all extremities Neuro: The patient awake and alert, appropriately conversive, symmetric faces, no focal deficits Psych:, Paranoid, nonlinear thought process MEDICAL DECISION MAKING: This is a 69-year-old male male presenting for shortness of breath. Patient does appear fairly paranoid here and has flight of ideas/nonlinear thought process. He states initially wants to be admitted to the [facility] [place] and then tells me that his "doctors are lying to me". Discharge summary from today is reviewed. He states that he left AGAINST MEDICAL ADVICE. He had 5 days of ceftriaxone/azithromycin as well as treatments including nebulizers. Currently the patient wants Levaquin as this helped in the past. Otherwise he states he is homeless and denies SI or HI. -Patient was eventually agreeable to blood work and repeat chest x-ray -Chest Xray independently interpreted by me showing no pneumothorax, focal opacity, or pleural effusions. -Blood work reveals a leukocytosis over 21 -At this time patient does not have pneumonia on chest x-ray as of leukocytosis that is new. He does have difficulty breathing. Consider repeat COPD exacerbation. -At this current time we will admit the patient as he is amenable to this Differential diagnosis: COPD exacerbation, paranoia, pneumonia, sepsis Diagnostics interpreted by me: ECG: None Cardiac Monitoring: An order was placed for continuous cardiac monitoring. The monitor shows a rate of 99 with sinus rhythm. Past Med/Surg History Problem List (Updated 01/29/25 @ 19:27 by Will Farfan MD) Tobacco use disorder Influenza A Non-ST elevation MA (NSTEMI) (Acute) Acute dyspnea (Acute) Housing insecurity Depression Malingering Suicidal ideation (Acute) COVID (Acute) Peripheral eosinophilia Acute exacerbation of chronic obstructive pulmonary disease (COPD) Failure of outpatient treatment (Acute) Leukocytosis (Acute) COPD exacerbation (Acute) SOB (shortness of breath) (Acute) Hypoxia (Acute) Acute hypoxemic respiratory failure (Acute) Arthritis COPD (chronic obstructive pulmonary disease) (Acute) Abdominal aneurysm Medical History Agitation Encounter for smoking cessation counseling Dyspnea Surgical History History of appendectomy Family History Mother Diabetes Social History Smoking Status: Current every day smoker Tobacco Type: Cigarettes Cigarettes Per Day: 1-2 ppd; Second Hand Exposure: No; Do You Dip or Chew Tobacco: No; Tobacco Cessation Education Requested by Patient: No Hx Alcohol Use: No Hx Substance Use: Yes Last Used Substance: Days (ago) Last Used Substance Other:: 01/23/2025 Preferred Language: Swedish Communication Ability: Effective Dry House [place] Required: No Beliefs That Will Affect Care: None Current Living Situation: Homeless Other Information That Helps Us Care for You: Yes (housing) Feels Safe at Home: No Is there a partner from a previous relationship who is making you feel unsafe now?: No Any Concerns about Your Family Situation: No Would You Like to Speak to Someone About Your Situation: No Gender Identity: Male Assistive Devices: Denture - Lower and Glasses Allergies Allergies Allergy/AdvReac Type Severity Reaction Status Date / Time No Known Allergies Allergy Verified 01/29/25 15:36 Home Meds Home Medications Medication Instructions Recorded Confirmed albuterol sulfate 90 mcg/actuation 2 puff inhalation Q6H PRN 11/13/19 01/29/25 aerosol inhaler (Ventolin HFA) Shortness Of Breath quetiapine 50 mg tablet (Seroquel) 50 mg PO HS 01/15/25 01/29/25 tamsulosin 0.4 mg capsule 0.4 mg PO DAILY 01/15/25 01/29/25 clonazepam 1 mg tablet (Klonopin) 0.5 mg PO BID PRN Anxiety 01/23/25 01/29/25 triamcinolone acetonide 0.1 % 1 applic topical DIRECTED PRN 01/23/25 01/29/25 topical cream Skin Irritation budesonide-formoterol HFA 160 2 inh inhalation DAILY 01/29/25 01/29/25 mcg-4.5 mcg/actuation aerosol inhaler Results & Data (ED) Vital Signs Vital Signs - 24 hr 01/29/25 11:46 Temperature 36.7 C Temperature Source Skin Pulse Rate 100 H Respiratory Rate 20 Blood Pressure 161/97 H Blood Pressure Mean 118 Pulse Oximetry 94 Oxygen Delivery Method Room Air Sepsis Recent Fever Within 48 Hours No Sepsis New/Unexplained Change in Mental Status No Sepsis Action Taken by Nursing No Action Required Laboratory Data 01/29/25 12:46 01/29/25 12:46 Lab Results 01/29/25 01/29/25 Range/Units 12:46 12:53 WBC 21.30 H (4.8-10.8) K/ul RBC 4.02 L (4.70-6.10) M/uL Hgb 12.3 L (14.0-18.0) g/dl Hct 36.2 L (42.0-52.0) % MCV 90.0 (80.0-100.0) fL MCH 30.6 (25.0-34.0) pg MCHC 34.0 (32.0-36.0) g/dL RDW Std Deviation 73.9 H (36.4-46.3) fL RDW Coeff of Judd 22.0 H (11.5-14.5) % Plt Count 252 (130-400) K/uL MPV 9.5 (9.4-12.4) fL Immature Gran % (Auto) 1.5 % Neut % (Auto) 69.1 % Lymph % (Auto) 21.5 % [place] % (Auto) 6.7 % Eos % (Auto) 1.0 % Baso % (Auto) 0.2 % Neut # (Auto) 14.72 H (1.40-6.50) K/uL Lymph # (Auto) 4.59 H (1.20-3.40) K/uL [place] # (Auto) 1.43 H (0.11-0.59) K/uL Eos # (Auto) 0.21 (0.00-0.50) K/uL Baso # (Auto) 0.04 (0.00-0.20) K/uL Immature Gran # (Auto) 0.31 H (0.01-0.20) K/uL Absolute Nucleated RBC 0.04 (0.00-0.12) K/uL Nucleated RBC % (auto) 0.2 % Polychromasia 1+ Anisocytosis Present PT 10.2 (9.0-12.0) Seconds INR 0.9 (0.9-1.1) APTT 22 (21-31) Seconds PTT Ratio 0.8 D-Dimer 450 (0-500) ug/L FEU Sodium 137 (136-145) mmol/L Potassium 3.9 (3.5-5.1) mmol/L Chloride 101 (98-107) mmol/L Carbon Dioxide 31 (21-32) mmol/L Anion Gap 5 (3-11) BUN 34 H (6-23) mg/dl Creatinine 1.03 (0.6-1.4) mg/dl Est Cr Clr Drug Dosing Not Reportable eGFR 79.12 BUN/Creatinine Ratio 33.0 H (10-20) Glucose 82 (70-99(Fasting)) mg/dl Calcium 9.0 (8.6-10.3) mg/dl Troponin I High Sens 17.5 (0-20) pg/ml C-Reactive Protein < 0.50 (0-0.5) mg/dl Procalcitonin 0.02 (0-0.5) ng/ml Administered Medications Discontinued Medications Albuterol (Albuterol 0.083% Nebu Soln 3 Ml Vial) 2.5 mg NEB NOW STA; Protocol Stop: 01/29/25 12:26 Last Admin: 01/29/25 12:43 Dose: 2.5 mg Documented By: ISAI Albuterol (Albut/Ipratrop 3mg/0.5mg Neb 3 Ml Vial) 12 ml NEB ONE ONE; Protocol Stop: 01/29/25 15:12 Last Admin: 01/29/25 15:35 Dose: 12 ml Documented By: LUZ Clonazepam (Clonazepam 1 Mg Tab) 1 mg PO ONE STA Stop: 01/29/25 14:55 Last Admin: 01/29/25 15:35 Dose: 1 mg Documented By: LUZ Methylprednisolone (Methylprednisolone 125 Mg/2 Ml Vial) 40 mg IV NOW STA Stop: 01/29/25 14:53 Last Admin: 01/29/25 15:35 Dose: 40 mg Documented By: LUZ Imaging Data Radiologist's Impression: Chest X-Ray 01/29/25 12:25 XR chest 1V portable CLINICAL HISTORY: COPD, PNA COMPARISON STUDY: 01/24/2025 FINDINGS: Heart size and pulmonary vasculature are normal. Stable hyperexpanded lungs. No effusion, consolidation, or pneumothorax. IMPRESSION: No pneumonia seen. ACT 112: Negative or not required by law. Electronically signed by: Israel Ortiz M.D. 01/29/2025 12:43 PM Discharge Plan Visit Data Chief Complaint: Illness Stated Complaint: MENTAL HEALTH EVAL ED Provider: Will Farfan Discharge Problem: COPD (chronic obstructive pulmonary disease), Failure of outpatient treatment Patient Disposition: Admitted As Inpatient Discharge Instructions Interventions: ED Discharge Assessment Last Done: 01/29/25 17:05
[2025-01-29] MEDS ORDERED: Patient's HEIGHT &/or WEIGHT Needed STA (14:54)
--- NOTE | 2025-01-29 14:56 | History & Physical Report ---
Date of Service January 29, 2025 Assessment & Plan (1) Acute exacerbation of chronic obstructive pulmonary disease (COPD): (2) Tobacco use disorder: (3) Influenza A: (4) Housing insecurity: Plan 69 year old male presents to the ER with shortness of breath after signing out AMA just 2 hours ago. #Acute exacerbation of COPD Suspect precipitated by him not getting his usual morning medications this morning and smoking Solu-Medrol 40mg IV daily Duonebs q4hWA - patient reports not wanting this close to when he is sleeping as has difficulty falling asleep Formoterol/budesonide nebs BID - he notes difficulty taking Breo Ellipta and does not have any puffs left of his Symbicort in his pocket Declines guaifenesin Sputum culture ordered Already had recent course of azithromycin Smoking cessation discussed - declines nicotine patch or gum No pneumonia to suggest need for further antibiotics, procalcitonin negative, his request for Levaquin was denied, will monitor WBC but suspect this is just a stress demargination Overnight pulse oximetry tomorrow night once he has recovered a little from the acute worsening #Influenza A Diagnosed on January 23, remain on droplet isolation precautions pending review by infection control #Anxiety will increase his clonazepam back to 1mg PO BID PRN as this is his chronic dosing and only recently changed to 0.5 which he reports doing significant worse on, would consider reducing in the future once over recent exacerbation Previously on sertraline but unclear why this was discontinued Continue Seroquel for sleep VTE Prophylaxis - Lovenox 40mg SQ daily Diet - regular Disposition - admit to med/surg Admission and Anticipated Discharge Date Admission Date: January 29, 2025 History of Present Illness Chief Complaint: Shortness of breath Primary Care Provider: NO PCP Stanton Yang is a 69 year old male who presents to the ER after leaving against medical advice earlier today. Per records he refused all his morning medications this morning. He was escorted off the facility by security after signing out against medical advice at 9:45am. He reportedly went outside and smoked 3-4 cigarettes after leaving the hospital and re-presented to the ER with triage assessment at 11:46am very short of breath and wheezing. He reports not feeling safe inside or outside the hospital but wishes to stay. He was upset that he wasn't getting the medications that he wanted and started swearing at the nurses. He reports he only got what he wanted after threatening to call his production control manager. He is short of breath with a productive cough and does not feel like he was improving while he was here. His main complaints were he was not receiving his usual inhaler. He has a Symbicort in his pocket with zero puffs left. After discussing that we do not have this inhaler at the hospital we agreed to Formoterol/budesonide nebs as he feels unable to use the Breo Ellipta with is our equivalent. He also notes the recent Psychiatry hospitalization when his clonazepam was reduced from 1mg PO BID PRN to 0.5mg PO BID NIKKO. He has felt much worse with his anxiety since this change. PDMP confirms his prior prescription. He also feels he needs oxygen and this was discussed with him that it is likely suppressing his respiratory rate inappropriately if he retains CO2 and although he feels better on it he does not need it unless his O2 sats < 88% but given this is worse at night we will do an overnight pulse oximetry once he is recovered a little from this acute exacerbation. He also feels Levaquin is the only antibiotic that works for him however he just had a course of ceftriaxone + azithromycin and no sign of pneumonia on CXR with normal procalcitonin goes against a bacterial diagnosis and he is ok holding off on this currently. He wishes to have a different doctor while here as he did not get along with Dr Calix. Allergies Allergy/AdvReac Type Severity Reaction Status Date / Time No Known Allergies Allergy Verified 01/29/25 15:36 Home Medications Medication Instructions Recorded Confirmed Type albuterol sulfate 90 mcg/actuation 2 puff inhalation Q6H PRN 11/13/19 01/29/25 History aerosol inhaler (Ventolin HFA) Shortness Of Breath quetiapine 50 mg tablet (Seroquel) 50 mg PO HS 01/15/25 01/29/25 History tamsulosin 0.4 mg capsule 0.4 mg PO DAILY 01/15/25 01/29/25 History clonazepam 1 mg tablet (Klonopin) 0.5 mg PO BID PRN Anxiety 01/23/25 01/29/25 History triamcinolone acetonide 0.1 % 1 applic topical DIRECTED PRN 01/23/25 01/29/25 History topical cream Skin Irritation budesonide-formoterol HFA 160 2 inh inhalation DAILY 01/29/25 01/29/25 History mcg-4.5 mcg/actuation aerosol inhaler Past Med/Surg History Problem List (Updated 01/29/25 @ 19:27 by Will Farfan MD) Tobacco use disorder Influenza A Non-ST elevation [place] (NSTEMI) (Acute) Acute dyspnea (Acute) Housing insecurity Depression Malingering Suicidal ideation (Acute) COVID (Acute) Peripheral eosinophilia Acute exacerbation of chronic obstructive pulmonary disease (COPD) Failure of outpatient treatment (Acute) Leukocytosis (Acute) COPD exacerbation (Acute) SOB (shortness of breath) (Acute) Hypoxia (Acute) Acute hypoxemic respiratory failure (Acute) Arthritis COPD (chronic obstructive pulmonary disease) (Acute) Abdominal aneurysm Medical History Agitation Encounter for smoking cessation counseling Dyspnea Surgical History History of appendectomy Family History Mother Diabetes Social History Smoking Status: Current every day smoker Tobacco Type: Cigarettes Cigarettes Per Day: 1-2 ppd; Second Hand Exposure: No; Do You Dip or Chew Tobacco: No; Tobacco Cessation Education Requested by Patient: No Hx Alcohol Use: No Hx Substance Use: Yes Last Used Substance: Days (ago) Last Used Substance Other:: 01/23/2025 Preferred Language: Bulgarian Communication Ability: Effective Manager [place] Required: No Beliefs That Will Affect Care: None Current Living Situation: Homeless Other Information That Helps Us Care for You: Yes (housing) Feels Safe at Home: No Is there a partner from a previous relationship who is making you feel unsafe now?: No Any Concerns about Your Family Situation: No Would You Like to Speak to Someone About Your Situation: No Gender Identity: Male Assistive Devices: Denture - Lower and Glasses Review of Systems Review of Systems: All systems reviewed & are unremarkable except as noted in HPI & below Physical Exam Constitutional: WD/WN, vitals as above Respiratory: + labored breathing, + uses accessory mu scles and + prolonged expiratory phase Auscultation: + diminished lung sounds (bibasal) and + wheezes (ecpiratory throughout); no crackles and no rhonchi Cardiovascular: Rate/Rhythm: regular rhythm and + tachycardic Heart Sounds: no murmur Gastrointestinal (Abdomen): normal bowel sounds, soft, nontender, no hepatosplenomegaly Musculoskeletal: no cyanosis or clubbing, extremities motor strength 5/5 Skin: no rashes, warm and dry Neurologic: moves all extremities and awake; not confused Psychiatric: A+Ox3, euthymic affect Affect: euthymic affect Results & Data Results & Data Vital Signs (Past 12 Hours) Vital Signs Temp Pulse Resp BP Pulse Ox O2 Del Method 01/29/25 11:46 36.7 C 100 H 20 161/97 H 94 Room Air Laboratory Results Abnormal lab results 01/29/25 Range/Units 12:46 WBC 21.30 H (4.8-10.8) K/ul RBC 4.02 L (4.70-6.10) M/uL Hgb 12.3 L (14.0-18.0) g/dl Hct 36.2 L (42.0-52.0) % RDW Std Deviation 73.9 H (36.4-46.3) fL RDW Coeff of Judd 22.0 H (11.5-14.5) % Neut # (Auto) 14.72 H (1.40-6.50) K/uL Lymph # (Auto) 4.59 H (1.20-3.40) K/uL [place] # (Auto) 1.43 H (0.11-0.59) K/uL Immature Gran # (Auto) 0.31 H (0.01-0.20) K/uL BUN 34 H (6-23) mg/dl BUN/Creatinine Ratio 33.0 H (10-20) Diagnostic Findings XR chest 1V portable CLINICAL HISTORY: COPD, PNA COMPARISON STUDY: 01/24/2025 FINDINGS: Heart size and pulmonary vasculature are normal. Stable hyperexpanded lungs. No effusion, consolidation, or pneumothorax. IMPRESSION: No pneumonia seen. Medications Administered ER Medications Given: Duoneb 2.5mg NEB ECG Rate (beats per minute): 104 Rhythm: sinus tachycardia Findings: + left axis deviation Comparison ECG Date: from (January 23, 2025) Change: the following changes noted (Criteria for septal infarct no longer present) Code Status & VTE Plan Code Status Full VTE Prophylaxis Plan VTE Prophylaxis will be ordered: Yes PG Care Time/CCT Total # of Minutes Spent Total Time Spent with Patient: Total time spent is greater than 50% in coordination of care (as documented) at patient's floor/unit and/or counseling patient: Coding Level of Care Code 44614 INT INP/OBS CARE 375MIN Diagnoses Acute exacerbation of chronic obstructive pulmonary disease (COPD) J44.1 Tobacco use disorder F17.200 Influenza A J10.1 Housing insecurity Z59.816
[2025-01-29] MEDS: clonazePAM 1 MG TAB PO STA (15:35)
[2025-01-29] MEDS: ALBUT/IPRATROP 3MG/0.5MG NEB 3 ML VIAL NEB ONE (15:35)
[2025-01-29] MEDS: methylPREDNISolone 125 MG/2 ML VIAL IV STA ×2 (15:35→19:32)
[2025-01-29 15:55] LABS: D Dimer 450 ug/L FEU (0-500); INR 0.9 (0.9-1.1); Partial Thromboplastin Ratio 0.8; Partial Thromboplastin Time 22 Seconds (21-31); Prothrombin Time 10.2 Seconds (9.0-12.0)
[2025-01-29 16:00] LABS: C Reactive Protein < 0.50 mg/dl (0-0.5)
[2025-01-29 16:05] LABS: Troponin I High Sensitivity 17.5 pg/ml (0-20)
[2025-01-29] MEDS ORDERED: DEXTROMETHORPHAN POLYMR COMPLX 30 MG/5 ML UDP PO PRN (17:04)
[2025-01-29] MEDS ORDERED: TRIAMCINOLONE ACET 0.1% CR 15 GM TUBE TOP PRN (17:04)
[2025-01-29] MEDS: SODIUM CHLORIDE 0.9% 1,000 ML IV ONE (19:30)
[2025-01-29] MEDS: LACTATED RINGER'S 1,000 ML IV ONE (19:33)
[2025-01-29] MEDS: clonazePAM 1 MG TAB PO PRN (19:35)
[2025-01-29] MEDS: QUEtiapine FUMARATE 25 MG TABLET PO SCH (19:35)
[2025-01-29] MEDS: BUDESONIDE 0.5 MG/2 ML VIAL (PULMICORT) NEB SCH (19:55)
[2025-01-29] MEDS: ALBUT/IPRATROP 3MG/0.5MG NEB 3 ML VIAL NEB SCH (19:55)
[2025-01-29] MEDS: FORMOTEROL 20 MCG/2 ML VIAL NEB SCH (19:55)
[2025-01-30 07:12] LABS: Base Excess VBG 1.1 mEq/L; HCO3 VBG 25 mmol/L; Oxygen Saturation VBG 97.1 %; PCO2 VBG 37 mmHg (38-50); PO2 VBG 75 mmHg; pH VBG 7.44 (7.36-7.41)
[2025-01-30 07:37] LABS: BUN Creatinine Ratio 42.9 (10-20); Calcium 8.4 mg/dl (8.6-10.3); Creatinine Clr Calc Pharmacy 85.8 ml/min; Potassium 4.7 mmol/L (3.5-5.1)
[2025-01-30 07:48] LABS: Anisocytosis Present; Basophils # (auto) 0.01 K/uL (0.00-0.20); Basophils % (auto) 0.1 %; Eosinophils # (auto) 0.01 K/uL (0.00-0.50); Eosinophils % (auto) 0.1 %; Hemoglobin 10.6 g/dl (14.0-18.0); Immature Granulocytes # (auto) 0.17 K/uL (0.01-0.20); Immature Granulocytes % (auto) 1.6 %; Lymphocytes # (auto) 1.92 K/uL (1.20-3.40); Lymphocytes % (auto) 18.4 %; Mean Corpuscular Hemoglobin 31.1 pg (25.0-34.0); Mean Corpuscular Hgb Conc 34.2 g/dL (32.0-36.0); Mean Corpuscular Volume 90.9 fL (80.0-100.0); Mean Platelet Volume 9.3 fL (9.4-12.4); Monocytes # (auto) 0.73 K/uL (0.11-0.59); Neutrophils # (auto) 7.62 K/uL (1.40-6.50); Neutrophils % (auto) 72.8 %; Nucleated RBC # (auto) 0.02 K/uL (0.00-0.12); Nucleated RBC % (auto) 0.2 %; Platelet Count 231 K/uL (130-400); Polychromasia 1+; RDW Coefficient of Variation 22.3 % (11.5-14.5); RDW Standard Deviation 74.4 fL (36.4-46.3); Red Blood Count 3.41 M/uL (4.70-6.10); White Blood Count 10.46 K/ul (4.8-10.8)
[2025-01-30 07:57] VITALS: RESP 18
[2025-01-30 08:12] VITALS: BP 131/76; PULSE 69; TEMP 97.9; O2SAT 95
[2025-01-30] MEDS ORDERED: methylPREDNISolone 125 MG/2 ML VIAL IV SCH (09:00)
[2025-01-30] MEDS ORDERED: UMECLIDINIUM BROMIDE 62.5MCG/BLISTER 7 PUFFS/INHALER INH SCH (09:00)
[2025-01-30] MEDS: ENOXAPARIN INJ 40 MG/0.4 ML SYR SQ SCH (09:03)
[2025-01-30] MEDS: methylPREDNISolone 40 MG in SYRINGE 0 ML IV SCH (09:03)
[2025-01-30] MEDS: TAMSULOSIN HCL 0.4 MG CAP PO SCH (09:03)
--- NOTE | 2025-01-30 09:49 | Electrocardiogram Report ---
Test Reason : Blood Pressure : */* mmHG Vent. Rate : 104 BPM Atrial Rate : 104 BPM P-R Int : 124 ms QRS Dur : 70 ms QT Int : 322 ms P-R-T Axes : 75 -56 70 degrees QTcB Int : 423 ms Poor data quality, interpretation may be adversely affected Sinus tachycardia Left axis deviation Abnormal ECG When compared with ECG of 23-Jan-2025 20:27, Criteria for Septal infarct are no longer Present Confirmed by Adria Trinidad ([id number]) on 01/30/2025 9:48:39 AM Referred By: REFERRED SELF Confirmed By: Adria Trinidad
[2025-01-30] MEDS ORDERED: ALBUT/IPRATROP 3MG/0.5MG NEB 3 ML VIAL NEB PRN (14:27)
--- NOTE | 2025-01-30 17:02 | Discharge Summary ---
Discharge Summary Date of Service January 30, 2025 Principal Dx & Hospital Course #1 = Principal Diagnosis (1) Acute exacerbation of chronic obstructive pulmonary disease (COPD): (2) Tobacco use disorder: (3) Influenza A: (4) Housing insecurity: Plan 69 year old male presents to the ER with shortness of breath after signing out AMA just 2 hours ago. #Acute exacerbation of COPD Suspect precipitated by him not getting his usual morning medications this morning and smoking Solu-Medrol 40mg IV daily Duonebs q4hWA - patient reports not wanting this close to when he is sleeping as has difficulty falling asleep Formoterol/budesonide nebs BID - he notes difficulty taking Breo Ellipta and does not have any puffs left of his Symbicort in his pocket Declines guaifenesin Sputum culture ordered Already had recent course of azithromycin Smoking cessation discussed - declines nicotine patch or gum No pneumonia to suggest need for further antibiotics, procalcitonin negative, his request for Levaquin was denied, will monitor WBC but suspect this is just a stress demargination Overnight pulse oximetry tomorrow night once he has recovered a little from the acute worsening #Influenza A Diagnosed on January 23, remain on droplet isolation precautions pending review by infection control #Anxiety will increase his clonazepam back to 1mg PO BID PRN as this is his chronic dosing and only recently changed to 0.5 which he reports doing significant worse on, would consider reducing in the future once over recent exacerbation Previously on sertraline but unclear why this was discontinued Continue Seroquel for sleep VTE Prophylaxis - Lovenox 40mg SQ daily Diet - regular Disposition - admit to med/surg Admission HPI Per Admitting Provider Stanton Yang is a 69 year old male who presents to the ER after leaving against medical advice earlier today. Per records he refused all his morning medications this morning. He was escorted off the facility by security after signing out against medical advice at 9:45am. He reportedly went outside and smoked 3-4 cigarettes after leaving the hospital and re-presented to the ER with triage assessment at 11:46am very short of breath and wheezing. He reports not feeling safe inside or outside the hospital but wishes to stay. He was upset that he wasn't getting the medications that he wanted and started swearing at the nurses. He reports he only got what he wanted after threatening to call his branch operations manager. He is short of breath with a productive cough and does not feel like he was improving while he was here. His main complaints were he was not receiving his usual inhaler. He has a Symbicort in his pocket with zero puffs left. After discussing that we do not have this inhaler at the hospital we agreed to Formoterol/budesonide nebs as he feels unable to use the Breo Ellipta with is our equivalent. He also notes the recent Psychiatry hospitalization when his clonazepam was reduced from 1mg PO BID PRN to 0.5mg PO BID NIKKO. He has felt much worse with his anxiety since this change. PDMP confirms his prior prescription. He also feels he needs oxygen and this was discussed with him that it is likely suppressing his respiratory rate inappropriately if he retains CO2 and although he feels better on it he does not need it unless his O2 sats < 88% but given this is worse at night we will do an overnight pulse oximetry once he is recovered a little from this acute exacerbation. He also feels Levaquin is the only antibiotic that works for him however he just had a course of ceftriaxone + azithromycin and no sign of pneumonia on CXR with normal procalcitonin goes against a bacterial diagnosis and he is ok holding off on this currently. He wishes to have a different doctor while here as he did not get along with Dr Calix. Discharge Plan Discharge Items Patient Disposition: Against Medical Advice Reason For Visit: COPD EXACERBATION Activity: Resume your previous activity Non-emergency contact: Primary Care Provider Follow-up/Referrals: PCP,NO [Primary Care Provider] - Pending Studies at Discharge: No Stand-Alone Forms: My [facility], Smoking Cessation Medications and DC Order Prescriptions: Continued albuterol sulfate [Ventolin HFA] 90 mcg/actuation Hfa Aerosol Inhaler 2 puff INHALATION Q6H PRN (Reason: Shortness Of Breath) tamsulosin 0.4 mg capsule 0.4 mg PO DAILY quetiapine [Seroquel] 50 mg tablet 50 mg PO HS budesonide-formoterol 160-4.5 mcg/actuation HFA aerosol inhaler 2 inh INHALATION DAILY clonazepam [Klonopin] 1 mg tablet 0.5 mg PO BID PRN (Reason: Anxiety) triamcinolone acetonide 0.1 % cream 1 applic TOPICAL DIRECTED PRN (Reason: Skin Irritation) Discharge Orders: Left Against Medical Advice (Routine); Ordered 01/30/25 Ordered By: García Veronica Admission Data Admit Date/Time: 01/29/25 15:30 Attending Provider: García Veronica Admit Provider: García Sheikh Primary Care Provider: PCP,NO Other Providers: García Sheikh Hospital Stay Data Consultations 01/29/25 14:56 ED Decision to Admit Stat Pending Results Patient Have Any Pending Studies at Discharge: No Coding Diagnoses Acute exacerbation of chronic obstructive pulmonary disease (COPD) J44.1 Tobacco use disorder F17.200 Influenza A J10.1 Housing insecurity Z59.819
== END 2025-01-30 16:40 | disposition left against medical advice (07) | DRG 191 ==
LOC: ED 11:40 → EDINP 15:30 → SUATTDRO 15:30 → 2W 17:05
DX: F41.9 Anxiety disorder, unspecified; F17.210 Nicotine dependence, cigarettes, uncomplicated; I25.2 Old myocardial infarction; F32.A Depression, unspecified; J44.0 Chronic obstructive pulmonary disease with (acute) lower respiratory infection; J10.1 Influenza due to other identified influenza virus with other respiratory manifestations; Z59.819 Housing instability, housed unspecified; Z86.16 Personal history of COVID-19

== ENCOUNTER 2025-08-21 10:36 | Inpatient (IN) ==
--- NOTE | 2025-08-21 10:53 | Emergency Department Note ---
ED Provider Note History of Present Illness Chief Complaint: Shortness of Breath/Dyspnea Stated Complaint: SOB Time Seen by Provider: 08/21/25 10:49 Source: patient and EMS Mode of arrival: EMS Limitations: no limitations Patient is a 70-year-old male who presents to the emergency department with complaints of shortness of breath and difficulty breathing. Patient states that he gets significantly short of breath even with just 10 steps of ambulating. Patient's short of breath with any exertion. Patient is concerned that he may have gotten a virus of some sort and noted some intermittent diarrhea as well. Patient presents to the emergency department today somewhat agitated as well. Home Medications Medication Instructions Recorded Confirmed Type albuterol sulfate 90 mcg/actuation 2 puff inhalation Q6H PRN 11/13/19 08/21/25 History aerosol inhaler (Ventolin HFA) Shortness Of Breath quetiapine 50 mg tablet (Seroquel) 50 mg PO HS 01/15/25 08/21/25 History clonazepam 1 mg tablet (Klonopin) 1 mg PO BID PRN Anxiety 01/23/25 08/21/25 History triamcinolone acetonide 0.1 % 1 applic topical DIRECTED PRN 01/23/25 08/21/25 History topical cream Skin Irritation fluticasone fur. 200 mcg-umeclid 1 inh inhalation DAILY 08/13/25 08/21/25 History 62.5 mcg-vilant 25 mcg inhalat.powder (Trelegy Ellipta) gabapentin 300 mg capsule 300 mg PO DAILY 08/13/25 08/21/25 History azithromycin 500 mg tablet 500 mg PO DAILY 08/21/25 08/21/25 History escitalopram oxalate 10 mg tablet 10 mg PO DAILY 08/21/25 08/21/25 History ipratropium 20 mcg-albuterol 100 1 puff inhalation DAILY 08/21/25 08/21/25 History mcg/actuation mist for inhalation (Combivent Respimat) prednisone 20 mg tablet 20 mg PO BID 08/21/25 08/21/25 History Allergies Allergy/AdvReac Type Severity Reaction Status Date / Time No Known Allergies Allergy Verified 08/13/25 00:29 Past Med/Surg History Problem List (Updated 08/22/25 @ 18:23 by HOMAR Anthony) At high risk for violence against others Paranoia Agitation Physical deconditioning Dyspnea on minimal exertion (Acute) Unsheltered unhoused person Nicotine dependence with current use Depression Peripheral eosinophilia Acute exacerbation of chronic obstructive pulmonary disease (COPD) (Acute) Arthritis Abdominal aneurysm (Chronic) Medical History Suicidal ideation COVID Non-ST elevation MT (NSTEMI) Influenza A Encounter for smoking cessation counseling Dyspnea Surgical History History of appendectomy Family History Mother Diabetes Social History Smoking Status: Heavy tobacco smoker Tobacco Type: Cigarettes Cigarettes Per Day: refused to answer; Second Hand Exposure: No; Do You Dip or Chew Tobacco: No; Hx Alcohol Use: No Hx Substance Use: Yes Last Used Substance: Days (ago) Last Used Substance Other:: 01/23/2025 Preferred Language: Polish Communication Ability: Effective Correctional Program Specialist Required: No Beliefs That Will Affect Care: None Current Living Situation: Homeless Feels Safe at Home: Yes Gender Identity: Male Assistive Devices: Denture - Upper and Glasses Physical Exam Vital Signs Vital Signs - 24 hr 08/21/25 10:41 Temperature 36.7 C Temperature Source Temporal Artery Scan Pulse Rate 79 Respiratory Rate 22 Blood Pressure 173/95 H Blood Pressure Mean 121 Pulse Oximetry 95 Oxygen Delivery Method Nasal Cannula Oxygen Flow Rate 2 Sepsis New/Unexplained Change in Mental Status No Sepsis Action Taken by Nursing No Action Required VITAL SIGNS - Vital signs and nursing notes were reviewed. GENERAL -70-year-old male appearing their stated age, who is in no acute distress. Communicates well with provider and answers questions appropriately. HEAD - Normocephalic, Atraumatic. No Villegas's Sign or Raccoon's Eyes. EYES - PERRL with EOMI bilaterally. Sclera anicteric. Conjunctiva pink and moist with no injection noted. EARS - No deformities of external structures noted on gross examination bilaterally. NOSE - Midline and without cyanosis. No epistaxis or purulent drainage noted. NECK - Neck with FROM. Supple to palpation. No lymphadenopathy noted. LUNGS - Chest wall symmetric without accessory muscle use, intercostals retractions, or central cyanosis. Normal vesicular breath sounds CTA B/L. No wheezes, rales, or rhonchi appreciated. CARDIAC - RRR with S1/S2. No murmur, rubs, or gallops appreciated. EXTREMITIES - No edema present. +5/5 strength noted in UE/LE bilaterally. NEUROLOGIC -Sensory intact to light touch throughout. Course Administered Medications Albuterol (Albuterol Hfa 8 Gm Inhaler (Combivent Respimat P&T Subs)) 1 puffs INH QIDR NIKKO; Protocol Stop: 09/20/25 18:59 Last Admin: 08/22/25 14:24 Dose: 1 puffs Documented By: [id number] Admin: 08/22/25 11:08 Dose: 1 puffs Documented By: Admin: 08/22/25 07:07 Dose: 1 puffs Documented By: Admin: 08/21/25 20:20 Dose: 1 puffs Documented By: ROGELIO Clonazepam (Clonazepam 1 Mg Tab) 1 mg PO BID PRN PRN Reason: Anxiety Stop: 09/20/25 17:05 Last Admin: 08/21/25 21:08 Dose: 1 mg Documented By: maxi Fluticasone Furoate (Fluticasone Furoate 100mcg 14 Puffs/Inhaler) 1 puffs INH DAILY NIKKO Stop: 09/21/25 08:59 Last Admin: 08/22/25 09:12 Dose: 1 puffs Documented By: MARNIE Gabapentin (Gabapentin 300 Mg Cap) 300 mg PO DAILY NIKKO Stop: 09/21/25 08:59 Last Admin: 08/22/25 09:12 Dose: 300 mg Documented By: MARNIE Guaifenesin (Guaifenesin 600 Mg Tabcr) 1,200 mg PO BID NIKKO Stop: 09/20/25 20:59 Last Admin: 08/22/25 09:17 Dose: Not Given Documented By: Admin: 08/21/25 21:11 Dose: Not Given Documented By: clb Azithromycin (Zithromax) 500 mg in 255 mls @ 127.5 mls/hr IV Q24H NIKKO Stop: 08/24/25 17:29 Last Admin: 08/22/25 17:41 Dose: 127.5 mls/hr Documented By: Infusion: 08/21/25 21:41 Dose: Infused Documented By: clb Admin: 08/21/25 18:25 Dose: 127.5 mls/hr Documented By: DEANA Methylprednisolone 40 mg/ (Syringe) 0.64 mls @ 1.5 mls/min IV Q6H NIKKO Stop: 09/20/25 17:29 Last Admin: 08/22/25 17:41 Dose: 1.5 mls/min Documented By: Admin: 08/22/25 11:52 Dose: 1.5 mls/min Documented By: Admin: 08/22/25 05:47 Dose: 1.5 mls/min Documented By: maxi Admin: 08/21/25 22:58 Dose: 1.5 mls/min Documented By: Admin: 08/21/25 18:25 Dose: 1.5 mls/min Documented By: DEANA Ipratropium [place] (Ipratropium Hfa Inhaler (Combivent Respimat P&T Subs)) 1 puffs INH QIDR [facility]; Protocol Stop: 09/20/25 18:59 Last Admin: 08/22/25 14:24 Dose: 1 puffs Documented By: [id number] Admin: 08/22/25 11:08 Dose: 1 puffs Documented By: Admin: 08/22/25 07:07 Dose: 1 puffs Documented By: Admin: 08/21/25 20:21 Dose: 1 puffs Documented By: ROGELIO Miscellaneous (Remove Nicoderm Patch) 1 each N/A DAILY@0859 [facility] Stop: 09/21/25 08:58 Last Admin: 08/22/25 09:15 Dose: 1 each Documented By: MARNIE Nicotine (Nicotine 21 Mg/24 Hr Tdsy) 1 patch TD QAM NIKKO Stop: 09/20/25 17:05 Last Admin: 08/22/25 09:14 Dose: 1 patch Documented By: Admin: 08/21/25 18:25 Dose: 1 patch Documented By: DEANA Quetiapine Fumarate (Quetiapine Fumarate 25 Mg Tablet) 50 mg PO HS NIKKO Stop: 09/20/25 20:59 Last Admin: 08/21/25 21:08 Dose: 50 mg Documented By: maxi Saccharomyces Boulardii (Saccharomyces Boulardii 250 Mg Cap) 250 mg PO DAILY NIKKO Stop: 09/20/25 17:05 Last Admin: 08/22/25 09:14 Dose: 250 mg Documented By: Admin: 08/21/25 18:25 Dose: 250 mg Documented By: DEANA Umeclidinium/Vilanterol (Umeclidinium/Vilanterol 62.5/25mcg 7 Puffs/Inhaler) 1 puffs INH DAILY NIKKO Stop: 09/21/25 08:59 Last Admin: 08/22/25 09:13 Dose: 1 puffs Documented By: MARNIE Discontinued Medications Albuterol (Albut/Ipratrop 3mg/0.5mg Neb 3 Ml Vial) 3 ml INH NOW STA Stop: 08/21/25 10:50 Last Admin: 08/21/25 11:12 Dose: 3 ml Documented By: kendra Medical Decision Making Differential Diagnosis COVID, RSV, influenza, pneumonia, COPD exacerbation, among others Medical Records Attestation: I reviewed the patient's medical records. Home Medications was personally reviewed by me Laboratory Data Attestation: I reviewed the patient's lab results. 08/22/25 08:51 08/22/25 08:51 Lab Results 08/21/25 08/21/25 Range/Units 11:00 11:19 WBC 17.99 H (4.8-10.8) K/ul RBC 3.97 L (4.70-6.10) M/uL Hgb 12.2 L (14.0-18.0) g/dl Hct 35.4 L (42.0-52.0) % MCV 89.2 (80.0-100.0) fL MCH 30.7 (25.0-34.0) pg MCHC 34.5 (32.0-36.0) g/dL RDW Std Deviation 74.4 H (36.4-46.3) fL RDW Coeff of Judd 22.6 H (11.5-14.5) % Plt Count 437 H (130-400) K/uL MPV 9.8 (9.4-12.4) fL Immature Gran % (Auto) 2.3 % Neut % (Auto) 45.0 % Lymph % (Auto) 36.5 % [place] % (Auto) 14.5 % Eos % (Auto) 1.4 % Baso % (Auto) 0.3 % Neut # (Auto) 8.07 H (1.40-6.50) K/uL Lymph # (Auto) 6.57 H (1.20-3.40) K/uL [place] # (Auto) 2.61 H (0.11-0.59) K/uL Eos # (Auto) 0.26 (0.00-0.50) K/uL Baso # (Auto) 0.06 (0.00-0.20) K/uL Immature Gran # (Auto) 0.42 H (0.01-0.20) K/uL Absolute Nucleated RBC 0.06 (0.00-0.12) K/uL Nucleated RBC % (auto) 0.3 % Smudge Cells Present Blood Smear Review Toxic Granulation 1+ Toxic Vacuolation 1+ Hypochromasia Present Basophilic Stippling 1+ Target Cells 1+ Ovalocytes 1+ D-Dimer 230 (0-500) ug/L FEU Sodium 142 (136-145) mmol/L Potassium 3.5 (3.5-5.1) mmol/L Chloride 107 (98-107) mmol/L Carbon Dioxide 27 (21-32) mmol/L Anion Gap 8 (3-11) BUN 35 H (6-23) mg/dl Creatinine 0.86 (0.6-1.4) mg/dl Est Cr Clr Drug Dosing Not Reportable eGFR 93.73 BUN/Creatinine Ratio 40.7 H (10-20) Glucose 82 (70-99(Fasting)) mg/dl Calcium 9.3 (8.6-10.3) mg/dl Total Bilirubin 1.2 H (0.2-1.0) mg/dl AST 13 (13-39) U/L ALT 13 (7-52) U/L Alkaline Phosphatase 60 (34-104) U/L Troponin I High Sens 6.8 (0-20) pg/ml Total Protein 6.6 (6.0-8.3) gm/dl Albumin 4.1 (3.4-5.0) gm/dl Globulin 2.5 (2.5-4.0) gm/dl Albumin/Globulin Ratio 1.6 (0.9-2) Adenovirus (PCR) Not Detected (NotDetected) B. pertussis DNA (PCR) Not Detected (NotDetected) B.parapertussis DNA PCR Not Detected (NotDetected) C. pneumoniae DNA (PCR) Not Detected (NotDetected) Coronavirus OC43 (PCR) Not Detected (NotDetected) Coronavirus HKU1 (PCR) Not Detected (NotDetected) Coronavirus 229E (PCR) Not Detected (NotDetected) SARS-CoV-2 (PCR) Not Detected (NotDetected) Coronavirus NL63 (PCR) Not Detected (NotDetected) Human Metapneumovir PCR Not Detected (NotDetected) Influenza Type A (PCR) Not Detected (NotDetected) Influenza Type B (PCR) Not Detected (NotDetected) M. pneumoniae (PCR) Not Detected (NotDetected) Parainfluenza 1 (PCR) Not Detected (NotDetected) Parainfluenza 2 (PCR) Not Detected (NotDetected) Parainfluenza 3 (PCR) Not Detected (NotDetected) Parainfluenza 4 (PCR) Not Detected (NotDetected) RSV (PCR) Not Detected (NotDetected) Entero/Rhino (PCR) DETECTED A (NotDetected) MDM Narrative Patient is a 70-year-old male who presents to the emergency department with complaints of shortness of breath and difficulty breathing. Patient states that he gets significantly short of breath even with just 10 steps of ambulating. Patient's short of breath with any exertion. Patient is concerned that he may have gotten a virus of some sort and noted some intermittent diarrhea as well. Patient presents to the emergency department today somewhat agitated as well. Patient was evaluated by myself and findings were noted in the physical exam above. Patient was ordered IV placement, lab work, chest x-ray, and urinalysis. Patient was also ordered an EKG and DuoNeb for shortness of breath. Patient's lab work resulted with an elevated white blood cell count of 17.99. Patient had some mild anemia with a hemoglobin of 12.2 and hematocrit of 35.4. Patient had a normal D-dimer of 230. Patient also had a troponin level checked and that was normal at 6.8. Patient had no significant electrolyte imbalance noted. Patient had a [employer] upper respiratory panel which was completed and positive for enterovirus/rhinovirus. Patient had a chest x-ray that was completed and interpreted by radiology to show no evidence of any acute findings. Patient was ordered a DuoNeb and reports that he is feeling a little bit better after the DuoNeb, however he is still having a decent amount of wheezing. The patient reports that "I do not believe I can take care of myself anymore and I want to be placed in a assisted". Patient also reports that he cannot walk greater than 10 feet without feeling significantly short of breath and is concerned about his COPD worsening. The patient has required 2 L of oxygen via nasal cannula while here in the emergency department. Patient denies use of oxygen at home and denies using a CPAP at night. I reached out and spoke to the hospitalist group and gave them a full report on the patient's chief complaint, current status and the results of his imaging and lab work. Please refer to the [facility] hospitalist group's documentation for further evaluation and management of this patient. Impression Dyspnea on minimal exertion, Acute exacerbation of chronic obstructive pulmonary disease (COPD) Discharge Plan Visit Data Chief Complaint: Shortness of Breath/Dyspnea Stated Complaint: SOB ED Provider: Adria Armendariz ED Midlevel Provider: Marcie Coronado Discharge Problem: Dyspnea on minimal exertion, Acute exacerbation of chronic obstructive pulmonary disease (COPD) Patient Disposition: Admitted As Inpatient Condition: Fair Discharge Instructions Interventions: ED Discharge Assessment Last Done: 08/21/25 16:43 ED DC CONDITION Conditon at Discharge Condition at Discharge: Fair
[2025-08-21] MEDS: ALBUT/IPRATROP 3MG/0.5MG NEB 3 ML VIAL INH STA (11:12)
--- NOTE | 2025-08-21 11:19 | XRay Report ---
XR chest 1V portable CLINICAL HISTORY: Dyspnea COMPARISON STUDY: 08/15/2025 FINDINGS: Heart size and pulmonary vasculature are normal. No consolidation or pleural effusion. No p neumothorax. IMPRESSION: No acute findings. ACT 112: Negative or not required by law. Electronically signed by: Israel Ortiz M.D. 08/21/2025 11:18 AM
[2025-08-21 11:47] LABS: Hematocrit (blood only) 35.4 % (42.0-52.0); Hemoglobin 12.2 g/dl (14.0-18.0); Mean Corpuscular Hemoglobin 30.7 pg (25.0-34.0); Mean Corpuscular Volume 89.2 fL (80.0-100.0); Platelet Count 437 K/uL (130-400); RDW Standard Deviation 74.4 fL (36.4-46.3); Red Blood Count 3.97 M/uL (4.70-6.10); White Blood Count 17.99 K/ul (4.8-10.8)
[2025-08-21 12:08] LABS: Alanine Aminotransferase 13 U/L (7-52); Albumin Globulin Ratio 1.6 (0.9-2); Albumin Level 4.1 gm/dl (3.4-5.0); Alkaline Phosphatase 60 U/L (34-104); Anion Gap 8 (3-11); Bilirubin,Total 1.2 mg/dl (0.2-1.0); Blood Urea Nitrogen 35 mg/dl (6-23); Calcium 9.3 mg/dl (8.6-10.3); Carbon Dioxide 27 mmol/L (21-32); Chloride 107 mmol/L (98-107); Globulin 2.5 gm/dl (2.5-4.0); Glucose 82 mg/dl (70-99(Fasting)); Potassium 3.5 mmol/L (3.5-5.1); Sodium 142 mmol/L (136-145); Total Protein 6.6 gm/dl (6.0-8.3)
--- NOTE | 2025-08-21 12:25 | Emergency Department Note ---
ED Visit Note I was consulted by the Advanced Practice Provider, HOMAR Moscoso. I personally made/approved the management plan and take responsibility for the patient management. I performed a substantive portion of the visit. This includes the aspects of: -History/Physical/Personally seeing the patient -MDM .
[2025-08-21 12:39] LABS: Chlamydia pneumoniae PCR Not Detected (NotDetected); Coronavirus 229E PCR Not Detected (NotDetected); Coronavirus CoV-2 (COVID19)PCR Not Detected (NotDetected); Coronavirus HKU1 PCR Not Detected (NotDetected); Coronavirus NL63 PCR Not Detected (NotDetected); Coronavirus OC43PCR Not Detected (NotDetected); Human Metapneumovirus PCR Not Detected (NotDetected); Parainfluenza Virus 1 PCR Not Detected (NotDetected); Parainfluenza Virus 2 PCR Not Detected (NotDetected); Parainfluenza Virus 3 PCR Not Detected (NotDetected); Parainfluenza Virus 4 PCR Not Detected (NotDetected); Respiratory Syncytial VirusPCR Not Detected (NotDetected); Rhinovirus/Enterovirus PCR DETECTED (NotDetected)
[2025-08-21 13:15] LABS: Basophilic Stippling 1+; Hypochromasia Present; Immature Granulocytes # (auto) 0.42 K/uL (0.01-0.20); Immature Granulocytes % (auto) 2.3 %; Ovalocytes 1+; Smudge Cells Present; Target Cells 1+; Toxic Granulation 1+; Toxic Vacuolation 1+
--- NOTE | 2025-08-21 14:23 | History & Physical Report ---
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 - IV azithromycin in the interim, likely to follow a prolonged course given his eosinophilia history - oxygen to maintain sats greater than 89% - he reports that the enterovirus infection has been present for several days. Largely asymptomatic aside from the breathing. Expect he is near the end of the course - start Solu-Medrol IV 40 mg every 8 hours, taper to twice daily, likely 2- week taper on discharge #diarrhea/loose stool - entirely likely secondary to recent antibiotic use, also has enterovirus infection - no significant abdominal pain, will add a probiotic, - bland diet - cdiff testing and culture if he is still having loose stools #nicotine dependence - patch #history of agitation, paranoia #depression/anxiety - high risk for violent outburst, agitated but largely redirectable at this time - will continue Klonopin and Seroquel on a as needed basis #housing insecurity - consult case management, endorses being homeless, staying in shelters currently. - He reports being unable to care for himself. Case management to evaluate if there are other available resources for him #FEN - regular diet #CODE STATUS - full code per his wishes History of Present Illness Chief Complaint: Shortness of breath Primary Care Provider: Barak Almonte 70-year-old male history of COPD, anxiety, housing insecurity and homelessness, recent 2-week bout of loose stools and diarrhea presents with progressive shortness of breath. States that he is unable to even walk about 10-15 steps over the last 2 days. Was recently seen here about a week ago discharged after discharge had developed some diarrhea. Was seen in the emergency department in [facility] kept him in the ER for a short time but then was discharged. On arrival here yesterday he was dropped off at the group home over by sheets. States that he could not even walk to the bathroom without significant dyspnea. Still having some loose stools and diarrhea. Has been unable to eat anything for the last 24 hours. He came to the emergency department because of the shortness of breath and ongoing diarrhea. He also states "I am unable to take care of myself anymore and need to be in a mcc or something". Does not report the last time he had a bowel movement. No loose stools noted here. He denies any chest pain palpitations lower extremity edema. No fevers chills or other generalized signs of illness. He does report that he continues to use his outpatient medications. also continues to endorse smoking "too much" Allergies Allergy/AdvReac Type Severity Reaction Status Date / Time No Known Allergies Allergy Verified 08/13/25 00:29 Home Medications Medication Instructions Recorded Confirmed Type albuterol sulfate 90 mcg/actuation 2 puff inhalation Q6H PRN 11/13/19 08/13/25 History aerosol inhaler (Ventolin HFA) Shortness Of Breath quetiapine 50 mg tablet (Seroquel) 50 mg PO HS 01/15/25 08/13/25 History clonazepam 1 mg tablet (Klonopin) 1 mg PO BID PRN Anxiety 01/23/25 08/13/25 History triamcinolone acetonide 0.1 % 1 applic topical DIRECTED PRN 01/23/25 08/13/25 History topical cream Skin Irritation fluticasone fur. 200 mcg-umeclid 1 inh inhalation DAILY 08/13/25 08/13/25 History 62.5 mcg-vilant 25 mcg inhalat.powder (Trelegy Ellipta) gabapentin 300 mg capsule 300 mg PO DAILY 08/13/25 08/13/25 History Past Med/Surg History Problem List At high risk for violence against others Paranoia Agitation Physical deconditioning Dyspnea on minimal exertion Unsheltered unhoused person Nicotine dependence with current use Depression Peripheral eosinophilia Acute exacerbation of chronic obstructive pulmonary disease (COPD) (Acute) Arthritis Abdominal aneurysm (Chronic) Medical History Suicidal ideation COVID Non-ST elevation PR (NSTEMI) Influenza A Encounter for smoking cessation counseling Dyspnea Surgical History History of appendectomy Family History Mother Diabetes Social History Smoking Status: Current every day smoker Tobacco Type: Cigarettes Cigarettes Per Day: refused to answer; Second Hand Exposure: No; Do You Dip or Chew Tobacco: No; Preferred Language: Indian Communication Ability: Effective 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: No Beliefs That Will Affect Care: None Current Living Situation: Homeless Feels Safe at Home: Declines to Answer Gender Identity: Male Assistive Devices: Nebulizer Review of Systems Review of Systems: aside from that noted in the HPI full 10 point review of system is negative Physical Exam Constitutional: mildly agitated, generally anxious, comfortable, no visible respiratory distress at rest Eyes: sclera clear Neck: trachea midline, no adenopathy Respiratory: Limited air movement throughout with inspiratory and expiratory phase wheezing Cardiovascular: regular rate and rhythm no murmurs rubs or gallops Gastrointestinal (Abdomen): normal bowel sounds, nontender, nondistended Musculoskeletal: no edema Skin: no pallor rash or discoloration Neurologic: alert and oriented, normal movement, no tremor, no focal deficits. Normal speech Psychiatric: he is mildly agitated mostly upset at his current circumstances. Intact judgment and thinking, mildly anxious, no suicidal ideation, harmful ideation, hallucinations or disordered thinking Results & Data Results & Data Vital Signs (Past 12 Hours) Vital Signs Temp Pulse Resp BP Pulse Ox O2 Del Method O2 Flow Rate 08/21/25 11:21 95 Nasal Cannula 2 08/21/25 10:41 36.7 C 79 22 173/95 H 95 Nasal Cannula 2 Laboratory Results 08/21/25 08/21/25 11:19 11:00 WBC 17.99 H RBC 3.97 L Hgb 12.2 L Hct 35.4 L MCV 89.2 MCH 30.7 MCHC 34.5 RDW Std Deviation 74.4 H RDW Coeff of Judd 22.6 H Plt Count 437 H MPV 9.8 Immature Gran % (Auto) 2.3 Neut % (Auto) 45.0 Lymph % (Auto) 36.5 [place] % (Auto) 14.5 Eos % (Auto) 1.4 Baso % (Auto) 0.3 Neut # (Auto) 8.07 H Lymph # (Auto) 6.57 H [place] # (Auto) 2.61 H Eos # (Auto) 0.26 Baso # (Auto) 0.06 Immature Gran # (Auto) 0.42 H Absolute Nucleated RBC 0.06 Nucleated RBC % (auto) 0.3 Smudge Cells Present Blood Smear Review Toxic Granulation 1+ Toxic Vacuolation 1+ Hypochromasia Present Basophilic Stippling 1+ Target Cells 1+ Ovalocytes 1+ D-Dimer 230 Sodium 142 Potassium 3.5 Chloride 107 Carbon Dioxide 27 Anion Gap 8 BUN 35 H Creatinine 0.86 Est Cr Clr Drug Dosing Not Reportable eGFR 93.73 BUN/Creatinine Ratio 40.7 H Glucose 82 Calcium 9.3 Total Bilirubin 1.2 H AST 13 ALT 13 Alkaline Phosphatase 60 Troponin I High Sens 6.8 Total Protein 6.6 Albumin 4.1 Globulin 2.5 Albumin/Globulin Ratio 1.6 Adenovirus (PCR) Not Detected B. pertussis DNA (PCR) Not Detected B.parapertussis DNA PCR Not Detected C. pneumoniae DNA (PCR) Not Detected Coronavirus OC43 (PCR) Not Detected Coronavirus HKU1 (PCR) Not Detected Coronavirus 229E (PCR) Not Detected SARS-CoV-2 (PCR) Not Detected Coronavirus NL63 (PCR) Not Detected Human Metapneumovir PCR Not Detected Influenza Type A (PCR) Not Detected Influenza Type B (PCR) Not Detected M. pneumoniae (PCR) Not Detected Parainfluenza 1 (PCR) Not Detected Parainfluenza 2 (PCR) Not Detected Parainfluenza 3 (PCR) Not Detected Parainfluenza 4 (PCR) Not Detected RSV (PCR) Not Detected Entero/Rhino (PCR) DETECTED A Diagnostic Findings Chest X-Ray 08/21/25 10:49 XR chest 1V portable CLINICAL HISTORY: Dyspnea COMPARISON STUDY: 08/15/2025 FINDINGS: Heart size and pulmonary vasculature are normal. No consolidation or pleural effusion. No pneumothorax. IMPRESSION: No acute findings. ACT 112: Negative or not required by law. Electronically signed by: Israel Ortiz M.D. 08/21/2025 11:18 AM Code Status & VTE Plan VTE Prophylaxis Plan VTE Prophylaxis will be ordered: Yes PG Care Time/CCT Total # of Minutes Spent Total Time Spent with Patient: Total time spent is greater than 50% in coordination of care (as documented) at patient's floor/unit and/or counseling patient: Coding Level of Care Code 14321 INT INP/OBS CARE MIN Diagnoses Paranoia F22 Agitation R45.1 Nicotine dependence with current use F17.200 Depression F33.1 Active/Remission status: currently active Depression Type: major depressive disorder Major depression episode severity: moderate Major depression recurrence: recurrent Acute exacerbation of chronic obstructive pulmonary disease (COPD) J44.1 At high risk for violence against others Z91.89 (4) Depression Active/Remission status: currently active Depression Type: major depressive disorder Major depression episode severity: moderate Major depression recurrence: recurrent Qualified Code(s): F33.1 - Major depressive disorder, recurrent, moderate
[2025-08-21] MEDS ORDERED: IPRATROPIUM BROMIDE/ALBUTEROL respimat INH INH SCH (17:06)
[2025-08-21] MEDS ORDERED: ONDANSETRON INJ 2 MG/ML 2 ML VIAL IV PRN (17:06)
[2025-08-21] MEDS ORDERED: ALBUTEROL 0.5% NEB SOLN 2.5 MG/0.5 ML VIAL NEB PRN (17:06)
[2025-08-21] MEDS: SACCHAROMYCES BOULARDII 250 MG CAP PO SCH (18:25)
[2025-08-21] MEDS: AZITHROMYCIN 500 MG/255 ML BAG IV SCH (18:25)
[2025-08-21] MEDS: NICOTINE 21 MG/24 HR TDSY TD SCH (18:25)
[2025-08-21] MEDS: Albuterol HFA 8 GM Inhaler (Combivent Respimat P&T Subs) INH SCH (20:20)
[2025-08-21] MEDS: Ipratropium HFA Inhaler (Combivent Respimat P&T Subs) INH SCH (20:21)
[2025-08-21] MEDS: clonazePAM 1 MG TAB PO PRN (21:08)
[2025-08-21] MEDS: guaiFENesin 600 MG TABCR PO SCH (21:09)
[2025-08-22] MEDS ORDERED: NON-FORMULARY MEDICATION (Fluticasone-Umeclidin-Vilanter [Trelegy Ellipta] 200-62.5-25 mcg INH SCH (09:00)
[2025-08-22] MEDS: FLUTICASONE FUROATE 100MCG 14 PUFFS/INHALER INH SCH (09:12)
[2025-08-22] MEDS: GABAPENTIN 300 MG CAP PO SCH (09:12)
[2025-08-22] MEDS: UMECLIDINIUM/VILANTEROL 62.5/25MCG 7 PUFFS/INHALER INH SCH (09:13)
[2025-08-22] MEDS: REMOVE NICODERM PATCH SCH (09:15)
[2025-08-22 09:16] LABS: Hematocrit (blood only) 36.2 % (42.0-52.0); Hemoglobin 12.2 g/dl (14.0-18.0); Immature Granulocytes # (auto) 0.22 K/uL (0.01-0.20); Immature Granulocytes % (auto) 1.9 %; Mean Corpuscular Hemoglobin 30.2 pg (25.0-34.0); Mean Corpuscular Volume 89.6 fL (80.0-100.0); Platelet Count 390 K/uL (130-400); RDW Standard Deviation 74.4 fL (36.4-46.3); Red Blood Count 4.04 M/uL (4.70-6.10); White Blood Count 11.39 K/ul (4.8-10.8)
[2025-08-22 09:37] LABS: Anion Gap 7 (3-11); Blood Urea Nitrogen 37 mg/dl (6-23); Calcium 9.1 mg/dl (8.6-10.3); Carbon Dioxide 29 mmol/L (21-32); Chloride 102 mmol/L (98-107); Creatinine Clr Calc Pharmacy 73.7 ml/min; Glucose 192 mg/dl (70-99(Fasting)); Potassium 4.6 mmol/L (3.5-5.1); Sodium 138 mmol/L (136-145)
[2025-08-22 09:51] LABS: Appearance Urine Clear (Clear); Glucose Urine UA Negative (Negative)
[2025-08-22 10:05] LABS: Acanthocytes 1+; Anisocytosis Present; Ovalocytes 1+; Polychromasia 1+
--- NOTE | 2025-08-22 13:52 | Hospitalist Progress Note ---
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 - IV azithromycin in the interim, likely to follow a prolonged course given his eosinophilia history - oxygen to maintain sats greater than 89% - he reports that the enterovirus infection has been present for several days. Largely asymptomatic aside from the breathing. Expect he is near the end of the course - continue Solu-Medrol every 8 hours for the short-term, continue antibiotics although CRP was negative yesterday. Will repeat in the morning - aggressive supportive cares likely to need a prolonged course of steroid taper on discharge #diarrhea/loose stool - entirely likely secondary to recent antibiotic use, also has enterovirus infection - no significant abdominal pain, will add a probiotic, - bland diet - cdiff testing and culture if he is still having loose stools - no loose stools #nicotine dependence - patch noted #history of agitation, paranoia #depression/anxiety - high risk for violent outburst, agitated but largely redirectable at this time - will continue Klonopin and Seroquel on a as needed basis #housing insecurity - consult case management, endorses being homeless, staying in shelters currently. - He reports being unable to care for himself. Case management to evaluate if there are other available resources for him #FEN - regular diet #CODE STATUS - full code per his wishes Admission and Anticipated Discharge Date Admission Date: August 21, 2025 Subjective slept okay last night. Did feel hot at times cold at times. No new or different symptoms. Feels as though his breathing is slightly improved but not significantly. Still reports anytime he stands up even to walk the short distance of the bathroom that he is very short of breath. It takes him several minutes to recover. Has not worked with PT or OT. No new or different concerns per nursing. No other additional complaints per patient Physical Exam Constitutional: mildly agitated, generally anxious, comfortable, no visible respiratory distress at rest Eyes: sclera clear Neck: trachea midline, no adenopathy Respiratory: interval improvement in inspiratory and expiratory wheezing however no significant improvement in the volume of air removed, moderate to severe air trapping still noted Cardiovascular: regular rate and rhythm no murmurs rubs or gallops Gastrointestinal (Abdomen): normal bowel sounds, nontender, nondistended Musculoskeletal: no edema Skin: no pallor rash or discoloration Neurologic: alert and oriented, normal movement, no tremor, no focal deficits. Normal speech Psychiatric: he is mildly agitated mostly upset at his current circumstances. Intact judgment and thinking, mildly anxious, no suicidal ideation, harmful ideation, hallucinations or disordered thinking Results & Data Results & Data Vital Signs (Past 12 Hours) Vital Signs Temp Pulse Resp BP Pulse Ox O2 Del Method O2 Flow Rate 08/22/25 11:10 83 18 97 Nasal Cannula 2 08/22/25 09:17 94 H 20 98 Nasal Cannula 2 08/22/25 09:15 Nasal Cannula 2 08/22/25 08:00 36.5 C 85 16 112/68 95 Room Air 08/22/25 07:08 70 18 99 Nasal Cannula 4 Laboratory Results 08/22/25 09:15 Gram Stain - Final Sputum, Expectorated Sputum Culture - Final 08/22/25 08/22/25 08/21/25 08:51 05:47 11:00 WBC 11.39 H RBC 4.04 L Hgb 12.2 L Hct 36.2 L MCV 89.6 MCH 30.2 MCHC 33.7 RDW Std Deviation 74.4 H RDW Coeff of Judd 22.5 H Plt Count 390 MPV 9.9 Immature Gran % (Auto) 1.9 Neut % (Auto) 82.5 Lymph % (Auto) 12.6 [place] % (Auto) 2.9 Eos % (Auto) 0.0 Baso % (Auto) 0.1 Neut # (Auto) 9.40 H Lymph # (Auto) 1.43 [place] # (Auto) 0.33 Eos # (Auto) 0.00 Baso # (Auto) 0.01 Immature Gran # (Auto) 0.22 H Absolute Nucleated RBC 0.06 Nucleated RBC % (auto) 0.5 Blood Smear Review Polychromasia 1+ Anisocytosis Present Ovalocytes 1+ Acanthocytes (Spur) 1+ Sodium 138 Potassium 4.6 D Chloride 102 Carbon Dioxide 29 Anion Gap 7 BUN 37 H Creatinine 0.87 Est Cr Clr Drug Dosing 73.7 eGFR 93.40 BUN/Creatinine Ratio 42.5 H Glucose 192 H Calcium 9.1 C-Reactive Protein < 0.50 Procalcitonin < 0.02 Urine Color Yellow Urine Appearance Clear Urine pH 6.0 Ur Specific [place] 1.019 Urine Protein Negative Urine Glucose (UA) Negative Urine Ketones Negative Urine Blood Negative Urine Nitrite Negative Urine Bilirubin Negative Urine Urobilinogen Negative Ur Leukocyte Esterase Negative Urine Comment PG Care Time/CCT Total # of Minutes Spent Total Time Spent with Patient: Total time spent is greater than 50% in coordination of care (as documented) at patient's floor/unit and/or counseling patient: Coding Level of Care Code 69194 SUB INP/OBS CARE 2/35MIN Diagnoses Paranoia F22 Agitation R45.1 Nicotine dependence with current use F17.200 Depression F33.1 Active/Remission status: currently active Depression Type: major depressive disorder Major depression episode severity: moderate Major depression recurrence: recurrent Acute exacerbation of chronic obstructive pulmonary disease (COPD) J44.1 At high risk for violence against others Z91.89 (4) Depression Active/Remission status: currently active Depression Type: major depressive disorder Major depression episode severity: moderate Major depression recurrence: recurrent Qualified Code(s): F33.1 - Major depressive disorder, recurrent, moderate
[2025-08-23 09:03] LABS: Anion Gap 6 (3-11); Blood Urea Nitrogen 41 mg/dl (6-23); Calcium 9.1 mg/dl (8.6-10.3); Carbon Dioxide 25 mmol/L (21-32); Chloride 107 mmol/L (98-107); Creatinine Clr Calc Pharmacy 83.2 ml/min; Glucose 122 mg/dl (70-99(Fasting)); Magnesium 2.2 mg/dl (1.7-2.4); Potassium 4.3 mmol/L (3.5-5.1); Sodium 138 mmol/L (136-145)
[2025-08-23 09:40] LABS: Hematocrit (blood only) 35.2 % (42.0-52.0); Hemoglobin 11.9 g/dl (14.0-18.0); Mean Corpuscular Hemoglobin 30.3 pg (25.0-34.0); Mean Corpuscular Volume 89.6 fL (80.0-100.0); Platelet Count 397 K/uL (130-400); RDW Standard Deviation 74.1 fL (36.4-46.3); Red Blood Count 3.93 M/uL (4.70-6.10); White Blood Count 24.15 K/ul (4.8-10.8)
[2025-08-23 09:44] LABS: Anisocytosis Present; Immature Granulocytes # (auto) 0.41 K/uL (0.01-0.20); Immature Granulocytes % (auto) 1.7 %; Ovalocytes 1+; Toxic Vacuolation 1+
--- NOTE | 2025-08-23 12:10 | Hospitalist Progress Note ---
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 - IV azithromycin in the interim, likely to follow a prolonged course given his eosinophilia history - oxygen to maintain sats greater than 89% - he reports that the enterovirus infection has been present for several days. Largely asymptomatic aside from the breathing. Expect he is near the end of the course - following a slower course likely complicated by the eosinophilic history, continue high-dose steroids for the short-term, continue antibiotics, still minimal improvement in his exertional type symptoms which is consistent with his physical examination today - will have respiratory therapy complete a two-step tomorrow if his exertional symptoms are not improving #diarrhea/loose stool - entirely likely secondary to recent antibiotic use, also has enterovirus infection - no significant abdominal pain, will add a probiotic, - bland diet - cdiff testing and culture if he is still having loose stools - resolved #nicotine dependence - patch noted #history of agitation, paranoia #depression/anxiety - high risk for violent outburst, agitated but largely redirectable at this time - will continue Klonopin and Seroquel on a as needed basis #housing insecurity - consult case management, endorses being homeless, staying in shelters currently. - He reports being unable to care for himself. Case management to evaluate if there are other available resources for him #FEN - regular diet #CODE STATUS - full code per his wishes Admission and Anticipated Discharge Date Admission Date: August 21, 2025 Subjective Doing about the same this morning. Still unable to complete more than a few step of activity without quite significant shortness of breath. No fevers or chills. Still producing sputum but it is more clear. No lower extremity edema. Denies any chest pain palpitations orthostasis or orthopnea. No problem with oral intake or bowel/bladder function Physical Exam Constitutional: mildly agitated, generally anxious, comfortable, no visible respiratory distress at rest Eyes: sclera clear Neck: trachea midline, no adenopathy Respiratory: slight regression in air movement overall with expiratory phase wheezing noted and air trapping noted on examination today, worse compared to yesterday Cardiovascular: regular rate and rhythm no murmurs rubs or gallops Gastrointestinal (Abdomen): normal bowel sounds, nontender, nondistended Musculoskeletal: no edema Skin: no pallor rash or discoloration Neurologic: alert and oriented, normal movement, no tremor, no focal deficits. Normal speech Psychiatric: he is mildly agitated mostly upset at his current circumstances. Intact judgment and thinking, mildly anxious, no suicidal ideation, harmful ideation, hallucinations or disordered thinking Results & Data Results & Data Vital Signs (Past 12 Hours) Vital Signs Temp Pulse Resp BP Pulse Ox O2 Del Method O2 Flow Rate 08/23/25 11:42 84 16 97 Nasal Cannula 08/23/25 07:50 36.5 C 58 L 16 136/79 98 Nasal Cannula 08/23/25 07:34 Nasal Cannula 2 08/23/25 07:17 78 18 95 Nasal Cannula 2 Laboratory Results 08/22/25 09:15 Gram Stain - Final Sputum, Expectorated Sputum Culture - Final 08/23/25 08/22/25 08:12 14:19 WBC 24.15 H D RBC 3.93 L Hgb 11.9 L Hct 35.2 L MCV 89.6 MCH 30.3 MCHC 33.8 RDW Std Deviation 74.1 H RDW Coeff of Judd 22.4 H Plt Count 397 MPV 9.7 Immature Gran % (Auto) 1.7 Neut % (Auto) 82.8 Lymph % (Auto) 8.1 [place] % (Auto) 7.2 Eos % (Auto) 0.0 Baso % (Auto) 0.2 Neut # (Auto) 19.99 H Lymph # (Auto) 1.96 [place] # (Auto) 1.74 H Eos # (Auto) 0.00 Baso # (Auto) 0.05 Immature Gran # (Auto) 0.41 H Absolute Nucleated RBC 0.07 Nucleated RBC % (auto) 0.3 Toxic Vacuolation 1+ Anisocytosis Present Ovalocytes 1+ Sodium 138 Potassium 4.3 Chloride 107 Carbon Dioxide 25 Anion Gap 6 BUN 41 H Creatinine 0.77 Est Cr Clr Drug Dosing 83.2 eGFR 96.91 BUN/Creatinine Ratio 53.2 H Glucose 122 H Calcium 9.1 Magnesium 2.2 C-Reactive Protein < 0.50 Procalcitonin < 0.02 PG Care Time/CCT Total # of Minutes Spent Total Time Spent with Patient: Total time spent is greater than 50% in coordination of care (as documented) at patient's floor/unit and/or counseling patient: Coding Level of Care Code 28949 SUB INP/OBS CARE 2/35MIN Diagnoses Paranoia F22 Agitation R45.1 Nicotine dependence with current use F17.200 Depression F33.1 Active/Remission status: currently active Depression Type: major depressive disorder Major depression episode severity: moderate Major depression recurrence: recurrent Acute exacerbation of chronic obstructive pulmonary disease (COPD) J44.1 At high risk for violence against others Z91.89 (4) Depression Active/Remission status: currently active Depression Type: major depressive disorder Major depression episode severity: moderate Major depression recurrence: recurrent Qualified Code(s): F33.1 - Major depressive disorder, recurrent, moderate
[2025-08-23] MEDS: ALUMINUM/MAGNESIUM SUSP 30 ML UDC PO PRN (18:10)
[2025-08-24 08:05] LABS: Hematocrit (blood only) 32.7 % (42.0-52.0); Hemoglobin 11.3 g/dl (14.0-18.0); Mean Corpuscular Hemoglobin 31.0 pg (25.0-34.0); Mean Corpuscular Volume 89.6 fL (80.0-100.0); Platelet Count 341 K/uL (130-400); RDW Standard Deviation 73.8 fL (36.4-46.3); Red Blood Count 3.65 M/uL (4.70-6.10); White Blood Count 25.00 K/ul (4.8-10.8)
[2025-08-24 08:24] LABS: Anion Gap 6 (3-11); Calcium 8.6 mg/dl (8.6-10.3); Carbon Dioxide 25 mmol/L (21-32); Chloride 109 mmol/L (98-107); Potassium 4.5 mmol/L (3.5-5.1); Sodium 140 mmol/L (136-145)
[2025-08-24 08:28] LABS: Anisocytosis Present; Immature Granulocytes # (auto) 0.63 K/uL (0.01-0.20); Immature Granulocytes % (auto) 2.5 %; Ovalocytes 1+; Polychromasia 1+; Tear Drop Cells 1+
[2025-08-24 08:30] LABS: Blood Urea Nitrogen 38 mg/dl (6-23); Creatinine Clr Calc Pharmacy 82.2 ml/min; Glucose 115 mg/dl (70-99(Fasting))
--- NOTE | 2025-08-24 12:54 | Hospitalist Progress Note ---
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 - IV azithromycin in the interim, likely to follow a prolonged course given his eosinophilia history - oxygen to maintain sats greater than 89% - he reports that the enterovirus infection has been present for several days. Largely asymptomatic aside from the breathing. Expect he is near the end of the course - following a slower course likely complicated by the eosinophilic history, continue high-dose steroids for the short-term, continue antibiotics, still minimal improvement in his exertional type symptoms which is consistent with his physical examination today - Limited to no overall improvement with pulmonary exam and nation, expiratory phase wheezing. Hypoxemia. - CTPA to ensure there are no secondary factors. Also provide imaging for any underlying pneumonia although his CRP and procalcitonin remain negative. He has a history of eosinophilic reactive airway dysfunction however eosinophils are negative today. Very steroid refractory course with his COPD/asthma #diarrhea/loose stool - entirely likely secondary to recent antibiotic use, also has enterovirus infection - no significant abdominal pain, will add a probiotic, - bland diet - cdiff testing and culture if he is still having loose stools - resolved #nicotine dependence - patch noted #history of agitation, paranoia #depression/anxiety - high risk for violent outburst, agitated but largely redirectable at this time - will continue Klonopin and Seroquel on a as needed basis #housing insecurity - consult case management, endorses being homeless, staying in shelters currently. - He reports being unable to care for himself. Case management to evaluate if there are other available resources for him #FEN - regular diet #CODE STATUS - full code per his wishes Admission and Anticipated Discharge Date Admission Date: August 21, 2025 Subjective clinically has made very little progress from a breathing or respiratory standpoint. No fevers chills nausea vomiting or diarrhea. Only able to get a few steps and even getting up to use the bathroom is enough where he is unable to maintain strength. Sputum has not changed. He has no new or different symptoms. Per nursing he has no acute complaints or events. He is reporting being somewhat frustrated with the lack of resources given his homelessness Otherwise we discussed options for discharge planning when that time comes Physical Exam Constitutional: mildly agitated, generally anxious, comfortable, no visible respiratory di stress at rest Eyes: sclera clear Neck: trachea midline, no adenopathy Respiratory: no significant interval improvement still with persistent and widespread expiratory phase wheezing, air trapping and prolongation of the expiratory phase. Inspiratory phase wheezing noted. No focal decreases or deficits Cardiovascular: regular rate and rhythm no murmurs rubs or gallops Gastrointestinal (Abdomen): normal bowel sounds, nontender, nondistended Musculoskeletal: no edema Skin: no pallor rash or discoloration Neurologic: alert and oriented, normal movement, no tremor, no focal deficits. Normal speech Psychiatric: he is mildly agitated mostly upset at his current circumstances. Intact judgment and thinking, mildly anxious, no suicidal ideation, harmful ideation, hallucinations or disordered thinking Results & Data Results & Data Vital Signs (Past 12 Hours) Vital Signs Temp Pulse Resp BP Pulse Ox O2 Del Method O2 Flow Rate 08/24/25 10:39 85 18 95 Nasal Cannula 2 08/24/25 07:45 Nasal Cannula 2 08/24/25 07:30 56 L 18 92 Nasal Cannula 2 08/24/25 07:16 36.9 C 58 L 18 119/69 94 Nasal Cannula 2 Laboratory Results 08/24/25 07:30 WBC 25.00 H RBC 3.65 L Hgb 11.3 L Hct 32.7 L MCV 89.6 MCH 31.0 MCHC 34.6 RDW Std Deviation 73.8 H RDW Coeff of Judd 22.5 H Plt Count 341 MPV 10.1 Immature Gran % (Auto) 2.5 Neut % (Auto) 87.0 Lymph % (Auto) 6.3 [place] % (Auto) 4.0 Eos % (Auto) 0.0 Baso % (Auto) 0.2 Neut # (Auto) 21.75 H Lymph # (Auto) 1.57 [place] # (Auto) 1.00 H Eos # (Auto) 0.00 Baso # (Auto) 0.05 Immature Gran # (Auto) 0.63 H Absolute Nucleated RBC 0.04 Nucleated RBC % (auto) 0.2 Polychromasia 1+ Anisocytosis Present Tear Drop Cells 1+ Ovalocytes 1+ Sodium 140 Potassium 4.5 Chloride 109 H Carbon Dioxide 25 Anion Gap 6 BUN 38 H Creatinine 0.78 Est Cr Clr Drug Dosing 82.2 eGFR 96.53 BUN/Creatinine Ratio 48.7 H Glucose 115 H Calcium 8.6 C-Reactive Protein < 0.50 Procalcitonin < 0.02 PG Care Time/CCT Total # of Minutes Spent Total Time Spent with Patient: Total time spent is greater than 50% in coordination of care (as documented) at patient's floor/unit and/or counseling patient: Coding Level of Care Code 37609 SUB INP/OBS CARE 2/35MIN Diagnoses Paranoia F22 Agitation R45.1 Nicotine dependence with current use F17.200 Depression F33.1 Active/Remission status: currently active Depression Type: major depressive disorder Major depression episode severity: moderate Major depression recurrence: recurrent Acute exacerbation of chronic obstructive pulmonary disease (COPD) J44.1 At high risk for violence against others Z91.89 (4) Depression Active/Remission status: currently active Depression Type: major depressive disorder Major depression episode severity: moderate Major depression recurrence: recurrent Qualified Code(s): F33.1 - Major depressive disorder, recurrent, moderate
[2025-08-24] MEDS ORDERED: MENTHOL-ZINC OXIDE 360 APPLN/120 GM TUBE EXT PRN (12:55)
[2025-08-25] MEDS: FAMOTIDINE 20 MG TAB PO PRN (00:03)
[2025-08-25 07:17] LABS: Hematocrit (blood only) 32.3 % (42.0-52.0); Hemoglobin 11.1 g/dl (14.0-18.0); Immature Granulocytes # (auto) 1.15 K/uL (0.01-0.20); Immature Granulocytes % (auto) 5.0 %; Mean Corpuscular Hemoglobin 30.8 pg (25.0-34.0); Mean Corpuscular Volume 89.7 fL (80.0-100.0); Platelet Count 324 K/uL (130-400); RDW Standard Deviation 73.5 fL (36.4-46.3); Red Blood Count 3.60 M/uL (4.70-6.10); White Blood Count 22.86 K/ul (4.8-10.8)
[2025-08-25 07:35] LABS: Anion Gap 6 (3-11); Blood Urea Nitrogen 39 mg/dl (6-23); Calcium 8.6 mg/dl (8.6-10.3); Carbon Dioxide 24 mmol/L (21-32); Chloride 109 mmol/L (98-107); Creatinine Clr Calc Pharmacy 83.2 ml/min; Glucose 123 mg/dl (70-99(Fasting)); Potassium 4.5 mmol/L (3.5-5.1); Sodium 139 mmol/L (136-145)
[2025-08-25 07:58] LABS: Anisocytosis Present
--- NOTE | 2025-08-25 11:20 | Hospitalist Progress Note ---
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 - IV azithromycin in the interim, likely to follow a prolonged course given his eosinophilia history - oxygen to maintain sats greater than 89% - he reports that the enterovirus infection has been present for several days. Largely asymptomatic aside from the breathing. Expect he is near the end of the course - following a slower course likely complicated by the eosinophilic history, continue high-dose steroids for the short-term, continue antibiotics, still minimal improvement in his exertional type symptoms which is consistent with his physical examination today - Limited to no overall improvement with pulmonary exam and nation, expiratory phase wheezing. Hypoxemia. - limited to no improvement in pulmonary examination or oxygen tolerance over the first [address] PE run ordered yesterday not completed for some reason. Will place another order for today. No clear other lying factors. He does have a history of eosinophilic asthma however his eosinophils are negative. Consider pulmonology consult depending on the results of the CT PE run #diarrhea/loose stool - entirely likely secondary to recent antibiotic use, also has enterovirus infection - no significant abdominal pain, will add a probiotic, - bland diet - cdiff testing and culture if he is still having loose stools - resolved #nicotine dependence - patch noted #history of agitation, paranoia #depression/anxiety - high risk for violent outburst, agitated but largely redirectable at this time - will continue Klonopin and Seroquel on a as needed basis #housing insecurity - consult case management, endorses being homeless, staying in shelters currently. - He reports being unable to care for himself. Case management to evaluate if there are other available resources for him #FEN - regular diet #CODE STATUS - full code per his wishes Admission and Anticipated Discharge Date Admission Date: August 21, 2025 Subjective Really no improvement over the last 2-3 days. Persistently hypoxemic even with minimal effort. Quite significant wheezing and prolongation of expiratory phase. Discussed clinical course extensively with the patient. Otherwise he has no new or different symptoms. Denies any fevers chills malaise. We discussed the fact that his CRP and procalcitonin have been negative. No events or other new concerns per patient or nursing staff Physical Exam Constitutional: mildly agitated, generally anxious, comfortable, no visible respiratory distr ess at rest Eyes: sclera clear Neck: trachea midline, no adenopathy Respiratory: no significant interval improvement still with persistent and widespread expiratory phase wheezing, air trapping and prolongation of the expiratory phase. Inspiratory phase wheezing noted. No focal decreases or deficits Cardiovascular: regular rate and rhythm no murmurs rubs or gallops Gastrointestinal (Abdomen): normal bowel sounds, nontender, nondistended Musculoskeletal: no edema Skin: no pallor rash or discoloration Neurologic: alert and oriented, normal movement, no tremor, no focal deficits. Normal speech Psychiatric: he is mildly agitated mostly upset at his current circumstances. Intact judgment and thinking, mildly anxious, no suicidal ideation, harmful ideation, hallucinations or disordered thinking Results & Data Results & Data Vital Signs (Past 12 Hours) Vital Signs Temp Pulse Pulse Pulse Resp Resp Resp 08/25/25 10:20 96 H 71 24 18 08/25/25 10:19 96 H 22 08/25/25 07:54 36.6 C 68 18 08/25/25 07:35 08/25/25 07:06 61 16 BP Pulse Ox Pulse Ox Pulse Ox O2 Del Method O2 Flow Rate 08/25/25 10:20 92 97 08/25/25 10:19 92 Room Air 08/25/25 07:54 148/71 H 96 Nasal Cannula 2 08/25/25 07:35 Nasal Cannula 2 08/25/25 07:06 96 Nasal Cannula 2 Laboratory Results 08/25/25 06:51 WBC 22.86 H RBC 3.60 L Hgb 11.1 L Hct 32.3 L MCV 89.7 MCH 30.8 MCHC 34.4 RDW Std Deviation 73.5 H RDW Coeff of Judd 22.5 H Plt Count 324 MPV 9.9 Immature Gran % (Auto) 5.0 Neut % (Auto) 83.3 Lymph % (Auto) 6.0 [place] % (Auto) 5.4 Eos % (Auto) 0.0 Baso % (Auto) 0.3 Neut # (Auto) 19.04 H Lymph # (Auto) 1.37 [place] # (Auto) 1.24 H Eos # (Auto) 0.00 Baso # (Auto) 0.06 Immature Gran # (Auto) 1.15 H Absolute Nucleated RBC 0.06 Nucleated RBC % (auto) 0.3 Anisocytosis Present Sodium 139 Potassium 4.5 Chloride 109 H Carbon Dioxide 24 Anion Gap 6 BUN 39 H Creatinine 0.77 Est Cr Clr Drug Dosing 83.2 eGFR 96.91 BUN/Creatinine Ratio 50.6 H Glucose 123 H Calcium 8.6 C-Reactive Protein < 0.50 PG Care Time/CCT Total # of Minutes Spent Total Time Spent with Patient: Total time spent is greater than 50% in coordination of care (as documented) at patient's floor/unit and/or counseling patient: Coding Level of Care Code 77021 SUB INP/OBS CARE 2/35MIN Diagnoses Paranoia F22 Agitation R45.1 Nicotine dependence with current use F17.200 Depression F33.1 Active/Remission status: currently active Depression Type: major depressive disorder Major depression episode severity: moderate Major depression recurrence: recurrent Acute exacerbation of chronic obstructive pulmonary disease (COPD) J44.1 At high risk for violence against others Z91.89 (4) Depression Active/Remission status: currently active Depression Type: major depressive disorder Major depression episode severity: moderate Major depression recurrence: recurrent Qualified Code(s): F33.1 - Major depressive disorder, recurrent, moderate
[2025-08-25] MEDS: OPTIRAY 320 125ml IV ONE (13:24)
--- NOTE | 2025-08-25 14:35 | CT Scan Report ---
CT ANGIOGRAM OF THE CHEST CLINICAL HISTORY: Dyspnea COMPARISON STUDY: Chest x-ray dated 08/21/2015. Chest CT dated 01/01/2024. TECHNIQUE: Following the IV administration of 112 cc of Optiray 320, CT angiogram of the chest was pe rformed from the upper abdomen to the thoracic inlet utilizing the pulmonary embolus protocol. Images are reviewed in the axial, sagittal, and coronal planes. 3-D MIPS images are created and assessed. I V contrast was administered without complication. A dose lowering technique was utilized adhering to the principles of ALARA. CT DOSE: 746.11 mGy.cm FINDINGS: Thyroid: Imaged portions of the thyroid gland are normal in size and attenuation. Thoracic aorta: There is mild aneurysmal dilatation of the ascending thoracic aorta which measures up to 4.2 cm diameter. The remainder of the thoracic aorta is normal in caliber, in the arch demonstrat es bovine variant anatomy. No dissection is seen. Pulmonary vasculature: The pulmonary trunk is normal in caliber. There are segmental and subsegmental pulmonary emboli within branches of the right middle lobe pulmonary artery seen on axial image #132. There are also segmental and subsegmental pulmonary emboli within a branch of the right lower lobe p ulmonary artery on image #118, and within a subsegmental branch of the right upper lobe pulmonary art alon on image #198. The central pulmonary arteries are clear. No left-sided pulmonary emboli are clear ly seen. Heart: The heart is normal in size and without pericardial effusion. Lungs and pleural spaces: There is moderate emphysematous change. No airspace consolidation or pleura l effusion is identified. Secretions are noted in the trachea. Diffuse peribronchial thickening sugge sts bronchitis/reactive airway disease. Scattered foci of parenchymal scarring are seen throughout karina th lungs. Scattered foci of mucous plugging are observed. Mediastinum: There is no mediastinal lymphadenopathy. [place]: Clear. Axillae: There is no axillary lymphadenopathy. Upper abdomen: The pancreas is atrophic with numerous parenchymal calcifications. This is consistent with chronic pancreatitis. Partially visualized upper abdominal viscera is otherwise within normal li mits. Skeletal structures: No lytic or blastic bony lesions are seen. There are chronic/healed left-sided r ib fractures. IMPRESSION: 1. There are segmental and subsegmental pulmonary emboli within branches of the right upper, middle, and lower lobe pulmonary arteries. 2. Emphysema. 3. There is no airspace consolidation or pleural effusion. 4. Diffuse peribronchial thickening suggests bronchitis/reactive airway disease. 5. There is mild aneurysmal dilatation of the ascending thoracic aorta which measures up to 4.2 cm in diameter. 6. Chronic pancreatitis. 7. Additional findings as above. ACT 112: Negative or not required by law. Electronically signed by: Prosper Quiroga M.D. 08/25/2025 2:33 PM
--- NOTE | 2025-08-25 16:11 | Communication Note ---
Date of Service: August 25, 2025 UPDATE: CT PE around completed earlier today shows subsegmental pulmonary emboli. Findings note patient has a reported history of abdominal aortic aneur ysm below. However he had follow-up in the primary clinic and a repeat ultrasound of which he reports was negative. He is an ongoing smoker. He reports that his breathing symptoms of gotten progressively worse over the last several weeks. His pulmonary embolus severity index is moderate to high risk. Cardiac echocardiogram and thoracic ultrasound ordered. Will start heparin in the interim. He was very uncertain whether he want to do blood thinners over the long-term despite knowing the risks. He did report scant blood or red on the toilet paper 1 day when he was here but that has since resolved. No other significant history of bleeds at least in his recent past. No recent trauma. No contraindication to heparin. Subsegmental pulmonary embolus added to problem list, ascending thoracic aneurysm noted below at 4.2 cm. IMPRESSION: 1. There are segmental and subsegmental pulmonary emboli within branches of the right upper, middle, and lower lobe pulmonary arteries. 2. Emphysema. 3. There is no airspace consolidation or pleural effusion. 4. Diffuse peribronchial thickening suggests bronchitis/reactive airway disease. 5. There is mild aneurysmal dilatation of the ascending thoracic aorta which measures up to 4.2 cm in diameter. 6. Chronic pancreatitis. 7. Additional findings as above.
[2025-08-25] MEDS: Heparin IV Adult Wt-Based Standard *NO* INITIAL Bolus Protocol IV STA (16:23)
[2025-08-25] MEDS: HEPARIN 25000 UNIT/500 ML D5W 25,000 UNITS/500 ML BAG IV SCH (16:31)
[2025-08-25 17:11] LABS: INR 1.0 (0.9-1.1); Partial Thromboplastin Time 21 Seconds (21-31); Prothrombin Time 10.7 Seconds (9.0-12.0)
[2025-08-25 23:40] LABS: ANTI-Xa, UFH(UnfractionatedHep 0.78 IU/ml (0.3-0.7)
[2025-08-26 00:04] VITALS: BP 141/66; PULSE 57; RESP 16; TEMP 98.6; O2SAT 94
[2025-08-26] MEDS: MELATONIN 3 MG TAB PO PRN (01:09)
--- NOTE | 2025-08-26 08:04 | Communication Note ---
Alerted by nursing staff at 0736 that patient had left AMA without signing paperwork. Patient was never seen or assessed by me. Date of Service: August 26, 2025
--- NOTE | 2025-08-26 18:52 | Communication Note ---
Attempted to call patient at 1850 on 08/26 to discuss Eliquis 10mg p.o. BID x 7 days Rx in the setting of newfound PE, but was unable to reach the patient. Left brief voicemail requesting callback. Date of Service: August 26, 2025
== END 2025-08-26 08:09 | disposition left against medical advice (07) | DRG 190 ==
LOC: ED 10:36 → SUATTDRO 14:11 → 3N 14:11

== ENCOUNTER 2025-10-02 07:26 | Inpatient (IN) ==
--- NOTE | 2025-10-02 07:42 | Emergency Department Note ---
Impression & Plan Acute exacerbation of chronic obstructive pulmonary disease, Hypomagnesemia, Acute dyspnea, Elevated lactic acid level, Leukocytosis ED Provider Note HISTORY OF PRESENT ILLNESS: Patient is a 70-year-old male presenting with shortness of breath. Patient reports that he has been short of breath since October 2024. He reports that his breathing has "gone downhill ever since then." He states that for the last few days he has been very short of breath. He has been using prednisone that he has at home from her previous COPD exacerbation. He states he has been using his inhalers but "they do not do anything for me." He reports a chronic cough. Denies any fevers. Denies any recent sick contact exposures. Denies any chest pain. He states he feels like he cannot breathe. He states he was told previously that he had blood clots in his lungs and was on a blood thinner, but "I went to [facility] and they did the same exact scan and I did not have a blood clot, so they took me off the blood thinner." He denies any abdominal pain, nausea or vomiting. Patient reports that he is only able to take a few steps at a time before he has to stop and try to catch his breath. Patient was given a DuoNeb treatment and route with EMS. Patient does not wear any supplemental oxygen at baseline. ROS: as above PHYSICAL EXAM: Constitutional: Patient appears in no acute distress. Patient seated upright in bed at a 90 degree angle and conversationally dyspneic. HENT: Head: Normocephalic and atraumatic. Eyes: EOMI, PERRL Mouth/Throat: Mucous membranes moist. Neck: Trachea midline. Neck supple. Cardiovascular: RRR, No murmurs, rubs or gallops. Intact distal pulses. Pulmonary/Chest: No respiratory distress. Breath sounds clear and equal bilaterally. Audible expiratory wheezes without stethoscope use. Diffuse expiratory wheezes in all lung carmichael on auscultation. Abdominal: Abdomen soft, no tenderness, rebound or guarding. Musculoskeletal: No edema, tenderness or deformity noted. Skin: Warm and dry. No rash, erythema, pallor or cyanosis Psychiatric: Appropriate mood and affect for situation. Neurological: Alert and keenly responsive. CN II-XII grossly intact, moving all extremities equally and fully. MDM: - Vitals signs showed hypertension - History obtained via patient. History as above. - Chronic conditions affecting care: COPD; PE - Differential diagnoses include, but are not limited to: Congestive heart failure; acute coronary syndrome; COPD/asthma exacerbation; pulmonary edema; pulmonary embolism; pneumonia; pneumothorax; viral syndrome - Order placed for continuous cardiac monitoring. At this time, monitor showed rate of 80 bpm with normal sinus rhythm, per my interpretation. - External medical records reviewed. Discharge summary date 09/22/2025 was reviewed. Patient was admitted at that time for acute hypoxic respiratory failure and acute exacerbation of COPD. He had a CTA at that time to that did not show a PE. - EKG image interpreted by myself showed normal sinus rhythm. Rate 76 bpm. QT 376. No acute ischemic changes. - Laboratory workup interpreted by myself showed leukocytosis (WBC 24.94) with neutrophil predominance; normal PT/INR; elevated lactate (2.5); normal procalcitonin; normal troponin; normal AST/ALT - Blood cultures obtained - Viral respiratory panel negative - VBG grossly unremarkable - CXR image viewed interpreted by myself showed a right sided pneumonia, per my interpretation. - Blood cultures obtained - Patient had a repeat lactate drawn that was uptrending at 3.7. He was given 2100 cc of fluid. - Given 2g IV rocephin and 100 mg PO doxycycline for antibiotic coverage - VBG grossly unremarkable. - Viral respiratory panel negative. - UA negative for infection. - CXR image reviewed interpreted by myself was negative for pneumonia, per my interpretation. - Patient was given a hour-long breathing treatment on arrival to the ER, with improvement with his expiratory wheezes on reassessment.Given the patient's wheezes, he was also given 60 mg IV Solu-Medrol and 20 mg of IV Pepcid on arrival. - Discussion was had with bottle caser about patient's case and need for admission - Hospitalist consulted for admission - [facility] ASSESSMENT AND PLAN: Diagnosis: Acute exacerbation of COPD; acute dyspnea; elevated lactic acid level; hypomagnesemia; leukocytosis Plan: Admit Past Med/Surg History Problem List (Updated 10/02/25 @ 11:40 by Nena Vick MD) Leukocytosis (Acute) Elevated lactic acid level (Acute) Acute dyspnea (Acute) Hypomagnesemia (Acute) Acute exacerbation of chronic obstructive pulmonary disease (Acute) Community acquired pneumonia Atypical pneumonia Hypokalemia (Acute) Hypomagnesemia (Acute) Anemia (Acute) Melena Acute on chronic hypoxic respiratory failure (Acute) Housing insecurity Pulmonary embolism At high risk for violence against others Paranoia Agitation Physical deconditioning Dyspnea on minimal exertion (Acute) Unsheltered unhoused person Nicotine dependence with current use Depression Peripheral eosinophilia Arthritis Abdominal aneurysm (Chronic) Medical History Suicidal ideation COVID Non-ST elevation IN (NSTEMI) Influenza A Encounter for smoking cessation counseling Dyspnea Surgical History History of appendectomy Family History Mother Diabetes Social History Smoking Status: Current every day smoker Tobacco Type: Cigarettes Cigarettes Per Day: 2-5; Second Hand Exposure: No; Do You Dip or Chew Tobacco: No; Hx Alcohol Use: No Hx Substance Use: No Preferred Language: Indonesian Communication Ability: Effective Recruiter Coordinator Required: No Beliefs That Will Affect Care: None Current Living Situation: Homeless Current Living Situation Comment: homeless Feels Safe at Home: No Is there a partner from a previous relationship who is making you feel unsafe now?: No Gender Identity: Male Assistive Devices: Denture - Upper and Glasses Allergies Allergies Allergy/AdvReac Type Severity Reaction Status Date / Time bupropion [From Wellbutrin] AdvReac Unknown shortness Verified 10/02/25 08:45 of breath Home Meds Home Medications Medication Instructions Recorded Confirmed albuterol sulfate 90 mcg/actuation 2 puff inhalation Q6H PRN 11/13/19 10/02/25 aerosol inhaler (Ventolin HFA) Shortness Of Breath quetiapine 50 mg tablet (Seroquel) 50 mg PO HS 01/15/25 10/02/25 clonazepam 1 mg tablet (Klonopin) 1 mg PO BID 01/23/25 10/02/25 gabapentin 300 mg capsule 300 mg PO DAILY 08/13/25 10/02/25 ipratropium 20 mcg-albuterol 100 1 puff inhalation DAILY 08/21/25 10/02/25 mcg/actuation mist for inhalation (Combivent Respimat) prednisone 5 mg tablet 5 mg PO DAILY 10/02/25 10/02/25 Results & Data (ED) Vital Signs Vital Signs - 24 hr 10/02/25 07:17 10/02/25 07:33 10/02/25 07:37 Temperature Temperature Source Pulse Rate 79 Pulse Rate [Apical] Pulse Rhythm Pulse Rhythm [Apical] Respiratory Rate Respiratory Effort / Characteristics Spontaneous Respiratory Depth Normal Respiratory Pattern Regular Blood Pressure Blood Pressure [Right Arm] Blood Pressure Mean Blood Pressure Mean [Right Arm] Pulse Oximetry 98 Oxygen Delivery Method Room Air Sepsis Recent Fever Within 48 Hours Sepsis New/Unexplained Change in Mental Status Sepsis Action Taken by Nursing 10/02/25 07:37 10/02/25 08:49 10/02/25 10:00 Temperature 36.9 C Temperature Source Oral Pulse Rate 78 Pulse Rate [Apical] 81 69 Pulse Rhythm Regular Pulse Rhythm [Apical] Regular Regular Respiratory Rate 24 24 22 Respiratory Effort / Characteristics Spontaneous Spontaneous Spontaneous Respiratory Depth Normal Respiratory Pattern Regular Blood Pressure 160/107 H Blood Pressure [Right Arm] 148/87 H 131/75 Blood Pressure Mean 124 Blood Pressure Mean [Right Arm] 107 93 Pulse Oximetry 97 99 93 Oxygen Delivery Method Room Air Room Air Room Air Sepsis Recent Fever Within 48 Hours No Sepsis New/Unexplained Change in Mental Status No Sepsis Action Taken by Nursing No Action Required 10/02/25 11:33 Temperature Temperature Source Pulse Rate 79 Pulse Rate [Apical] Pulse Rhythm Pulse Rhythm [Apical] Respiratory Rate Respiratory Effort / Characteristics Respiratory Depth Respiratory Pattern Blood Pressure Blood Pressure [Right Arm] Blood Pressure Mean Blood Pressure Mean [Right Arm] Pulse Oximetry Oxygen Delivery Method Sepsis Recent Fever Within 48 Hours Sepsis New/Unexplained Change in Mental Status Sepsis Action Taken by Nursing Laboratory Data 10/02/25 07:32 10/02/25 07:32 Lab Results 10/02/25 10/02/25 10/02/25 Range/Units 07:32 07:49 08:07 WBC 24.94 H (4.8-10.8) K/ul RBC 3.34 L (4.70-6.10) M/uL Hgb 10.5 L (14.0-18.0) g/dL Hct 30.9 L (42.0-52.0) % MCV 92.5 (80.0-100.0) fL MCH 31.4 (25.0-34.0) pg MCHC 34.0 (32.0-36.0) g/dL RDW Std Deviation 82.4 H (36.4-46.3) fL RDW Coeff of Judd 24.4 H (11.5-14.5) % Plt Count 348 (130-400) K/uL MPV 9.5 (9.4-12.4) fL Immature Gran % (Auto) 6.1 % Neut % (Auto) 60.7 % Lymph % (Auto) 17.0 % Churchill % (Auto) 15.4 % Eos % (Auto) 0.4 % Baso % (Auto) 0.4 % Neut # (Auto) 15.16 H (1.40-6.50) K/uL Lymph # (Auto) 4.24 H (1.20-3.40) K/uL [place] # (Auto) 3.83 H (0.11-0.59) K/uL Eos # (Auto) 0.09 (0.00-0.50) K/uL Baso # (Auto) 0.09 (0.00-0.20) K/uL Immature Gran # (Auto) 1.53 H (0.01-0.20) K/uL Absolute Nucleated RBC 0.41 H (0.00-0.12) K/uL Nucleated RBC % (auto) 1.6 % Polychromasia 1+ Basophilic Stippling 1+ PT 10.1 (9.0-12.0) Seconds INR 1.0 (0.9-1.1) VBG pH 7.46 H (7.36-7.41) VBG pCO2 32 L (38-50) mmHg VBG pO2 72 mmHg VBG HCO3 23 mmol/L VBG O2 Saturation 96.1 % VBG Base Excess -0.3 mEq/L Sodium 140 (136-145) mmol/L Potassium 3.9 (3.5-5.1) mmol/L Chloride 105 (98-107) mmol/L Carbon Dioxide 26 (21-32) mmol/L Anion Gap 9 (3-11) BUN 30 H (6-23) mg/dl Creatinine 0.80 (0.6-1.4) mg/dl Est Cr Clr Drug Dosing Not Reportable eGFR 95.80 BUN/Creatinine Ratio 37.5 H (10-20) Glucose 91 (70-99(Fasting)) mg/dl Lactate (0.4-2.0) mmol/L Calcium 8.6 (8.6-10.3) mg/dl Magnesium 2.2 (1.7-2.4) mg/dl Total Bilirubin 0.6 (0.2-1.0) mg/dl AST 17 (13-39) U/L ALT 21 (7-52) U/L Alkaline Phosphatase 65 (34-104) U/L Troponin I High Sens 10.8 (0-20) pg/ml Total Protein 6.3 (6.0-8.3) gm/dl Albumin 4.2 (3.4-5.0) gm/dl Globulin 2.1 L (2.5-4.0) gm/dl Albumin/Globulin Ratio 2.0 (0.9-2) Procalcitonin (0-0.5) ng/ml Urine Color Urine Appearance (Clear) Urine pH (4.5-7.5) Ur Specific [place] (1.000-1.030) Urine Protein (Negative) Urine Glucose (UA) (Negative) Urine Ketones (Negative) Urine Blood (Negative) Urine Nitrite (Negative) Urine Bilirubin (Negative) Urine Urobilinogen (Negative) Ur Leukocyte Esterase (Negative) Urine Comment Adenovirus (PCR) Not Detected (NotDetected) B. pertussis DNA (PCR) Not Detected (NotDetected) B.parapertussis DNA PCR Not Detected (NotDetected) C. pneumoniae DNA (PCR) Not Detected (NotDetected) Coronavirus OC43 (PCR) Not Detected (NotDetected) Coronavirus HKU1 (PCR) Not Detected (NotDetected) Coronavirus 229E (PCR) Not Detected (NotDetected) SARS-CoV-2 (PCR) Not Detected (NotDetected) Coronavirus NL63 (PCR) Not Detected (NotDetected) Human Metapneumovir PCR Not Detected (NotDetected) Influenza Type A (PCR) Not Detected (NotDetected) Influenza Type B (PCR) Not Detected (NotDetected) M. pneumoniae (PCR) Not Detected (NotDetected) Parainfluenza 1 (PCR) Not Detected (NotDetected) Parainfluenza 2 (PCR) Not Detected (NotDetected) Parainfluenza 3 (PCR) Not Detected (NotDetected) Parainfluenza 4 (PCR) Not Detected (NotDetected) RSV (PCR) Not Detected (NotDetected) Entero/Rhino (PCR) Not Detected (NotDetected) 10/02/25 10/02/25 10/02/25 Range/Units 08:25 08:27 10:43 WBC (4.8-10.8) K/ul RBC (4.70-6.10) M/uL Hgb (14.0-18.0) g/dL Hct (42.0-52.0) % MCV (80.0-100.0) fL MCH (25.0-34.0) pg MCHC (32.0-36.0) g/dL RDW Std Deviation (36.4-46.3) fL RDW Coeff of Judd (11.5-14.5) % Plt Count (130-400) K/uL MPV (9.4-12.4) fL Immature Gran % (Auto) % Neut % (Auto) % Lymph % (Auto) % [place] % (Auto) % Eos % (Auto) % Baso % (Auto) % Neut # (Auto) (1.40-6.50) K/uL Lymph # (Auto) (1.20-3.40) K/uL [place] # (Auto) (0.11-0.59) K/uL Eos # (Auto) (0.00-0.50) K/uL Baso # (Auto) (0.00-0.20) K/uL Immature Gran # (Auto) (0.01-0.20) K/uL Absolute Nucleated RBC (0.00-0.12) K/uL Nucleated RBC % (auto) % Polychromasia Basophilic Stippling PT (9.0-12.0) Seconds INR (0.9-1.1) VBG pH (7.36-7.41) VBG pCO2 (38-50) mmHg VBG pO2 mmHg VBG HCO3 mmol/L VBG O2 Saturation % VBG Base Excess mEq/L Sodium (136-145) mmol/L Potassium (3.5-5.1) mmol/L Chloride (98-107) mmol/L Carbon Dioxide (21-32) mmol/L Anion Gap (3-11) BUN (6-23) mg/dl Creatinine (0.6-1.4) mg/dl Est Cr Clr Drug Dosing eGFR BUN/Creatinine Ratio (10-20) Glucose (70-99(Fasting)) mg/dl Lactate 2.5 H* 3.7 H* (0.4-2.0) mmol/L Calcium (8.6-10.3) mg/dl Magnesium (1.7-2.4) mg/dl Total Bilirubin (0.2-1.0) mg/dl AST (13-39) U/L ALT (7-52) U/L Alkaline Phosphatase (34-104) U/L Troponin I High Sens (0-20) pg/ml Total Protein (6.0-8.3) gm/dl Albumin (3.4-5.0) gm/dl Globulin (2.5-4.0) gm/dl Albumin/Globulin Ratio (0.9-2) Procalcitonin 0.04 (0-0.5) ng/ml Urine Color Urine Appearance (Clear) Urine pH (4.5-7.5) Ur Specific [place] (1.000-1.030) Urine Protein (Negative) Urine Glucose (UA) (Negative) Urine Ketones (Negative) Urine Blood (Negative) Urine Nitrite (Negative) Urine Bilirubin (Negative) Urine Urobilinogen (Negative) Ur Leukocyte Esterase (Negative) Urine Comment Adenovirus (PCR) (NotDetected) B. pertussis DNA (PCR) (NotDetected) B.parapertussis DNA PCR (NotDetected) C. pneumoniae DNA (PCR) (NotDetected) Coronavirus OC43 (PCR) (NotDetected) Coronavirus HKU1 (PCR) (NotDetected) Coronavirus 229E (PCR) (NotDetected) SARS-CoV-2 (PCR) (NotDetected) Coronavirus NL63 (PCR) (NotDetected) Human Metapneumovir PCR (NotDetected) Influenza Type A (PCR) (NotDetected) Influenza Type B (PCR) (NotDetected) M. pneumoniae (PCR) (NotDetected) Parainfluenza 1 (PCR) (NotDetected) Parainfluenza 2 (PCR) (NotDetected) Parainfluenza 3 (PCR) (NotDetected) Parainfluenza 4 (PCR) (NotDetected) RSV (PCR) (NotDetected) Entero/Rhino (PCR) (NotDetected) 10/02/25 Range/Units 11:22 WBC (4.8-10.8) K/ul RBC (4.70-6.10) M/uL Hgb (14.0-18.0) g/dL Hct (42.0-52.0) % MCV (80.0-100.0) fL MCH (25.0-34.0) pg MCHC (32.0-36.0) g/dL RDW Std Deviation (36.4-46.3) fL RDW Coeff of Judd (11.5-14.5) % Plt Count (130-400) K/uL MPV (9.4-12.4) fL Immature Gran % (Auto) % Neut % (Auto) % Lymph % (Auto) % [place] % (Auto) % Eos % (Auto) % Baso % (Auto) % Neut # (Auto) (1.40-6.50) K/uL Lymph # (Auto) (1.20-3.40) K/uL [place] # (Auto) (0.11-0.59) K/uL Eos # (Auto) (0.00-0.50) K/uL Baso # (Auto) (0.00-0.20) K/uL Immature Gran # (Auto) (0.01-0.20) K/uL Absolute Nucleated RBC (0.00-0.12) K/uL Nucleated RBC % (auto) % Polychromasia Basophilic Stippling PT (9.0-12.0) Seconds INR (0.9-1.1) VBG pH (7.36-7.41) VBG pCO2 (38-50) mmHg VBG pO2 mmHg VBG HCO3 mmol/L VBG O2 Saturation % VBG Base Excess mEq/L Sodium (136-145) mmol/L Potassium (3.5-5.1) mmol/L Chloride (98-107) mmol/L Carbon Dioxide (21-32) mmol/L Anion Gap (3-11) BUN (6-23) mg/dl Creatinine (0.6-1.4) mg/dl Est Cr Clr Drug Dosing eGFR BUN/Creatinine Ratio (10-20) Glucose (70-99(Fasting)) mg/dl Lactate (0.4-2.0) mmol/L Calcium (8.6-10.3) mg/dl Magnesium (1.7-2.4) mg/dl Total Bilirubin (0.2-1.0) mg/dl AST (13-39) U/L ALT (7-52) U/L Alkaline Phosphatase (34-104) U/L Troponin I High Sens (0-20) pg/ml Total Protein (6.0-8.3) gm/dl Albumin (3.4-5.0) gm/dl Globulin (2.5-4.0) gm/dl Albumin/Globulin Ratio (0.9-2) Procalcitonin (0-0.5) ng/ml Urine Color Yellow Urine Appearance Clear (Clear) Urine pH 6.0 (4.5-7.5) Ur Specific [place] 1.021 (1.000-1.030) Urine Protein Negative (Negative) Urine Glucose (UA) Negative (Negative) Urine Ketones Negative (Negative) Urine Blood Negative (Negative) Urine Nitrite Negative (Negative) Urine Bilirubin Negative (Negative) Urine Urobilinogen Negative (Negative) Ur Leukocyte Esterase Negative (Negative) Urine Comment Adenovirus (PCR) (NotDetected) B. pertussis DNA (PCR) (NotDetected) B.parapertussis DNA PCR (NotDetected) C. pneumoniae DNA (PCR) (NotDetected) Coronavirus OC43 (PCR) (NotDetected) Coronavirus HKU1 (PCR) (NotDetected) Coronavirus 229E (PCR) (NotDetected) SARS-CoV-2 (PCR) (NotDetected) Coronavirus NL63 (PCR) (NotDetected) Human Metapneumovir PCR (NotDetected) Influenza Type A (PCR) (NotDetected) Influenza Type B (PCR) (NotDetected) M. pneumoniae (PCR) (NotDetected) Parainfluenza 1 (PCR) (NotDetected) Parainfluenza 2 (PCR) (NotDetected) Parainfluenza 3 (PCR) (NotDetected) Parainfluenza 4 (PCR) (NotDetected) RSV (PCR) (NotDetected) Entero/Rhino (PCR) (NotDetected) Administered Medications Sodium Chloride (Nss) 2,000 mls @ 999 mls/hr IV .Q2H1M ONE Stop: 10/02/25 13:03 Last Admin: 10/02/25 11:14 Dose: 999 mls/hr Documented By: erm Discontinued Medications Albuterol (Albut/Ipratrop 3mg/0.5mg Neb 3 Ml Vial) 12 ml NEB ONE ONE; Protocol Stop: 10/02/25 07:40 Last Admin: 10/02/25 08:01 Dose: 12 ml Documented By: NA Doxycycline Hyclate (Doxycycline Hyclate 100 Mg Cap) 100 mg PO NOW STA Stop: 10/02/25 08:11 Last Admin: 10/02/25 08:46 Dose: 100 mg Documented By: NA Famotidine (Pepcid 20mg Iv Push) 20 mg in 5 mls @ 2.5 mls/min IV NOW STA Stop: 10/02/25 07:51 Last Admin: 10/02/25 08:01 Dose: 2.5 mls/min Documented By: NA Ceftriaxone Sodium (Rocephin) 2,000 mg in 50 mls @ 100 mls/hr IV NOW STA Stop: 10/02/25 08:39 Last Infusion: 10/02/25 09:41 Dose: Infused Documented By: Admin: 10/02/25 09:01 Dose: 100 mls/hr Documented By: NA Methylprednisolone (Methylprednisolone 125 Mg/2 Ml Vial) 60 mg IV NOW STA Stop: 10/02/25 07:51 Last Admin: 10/02/25 08:01 Dose: 60 mg Documented By: NA Imaging Data Radiologist's Impression: Chest X-Ray 10/02/25 07:39 XR chest 1V portable CLINICAL HISTORY: Dyspnea COMPARISON STUDY: 09/11/2025 FINDINGS: Heart size and pulmonary vasculature are normal. No consolidation or pleural effusion. No pneumothorax. IMPRESSION: No acute findings. ACT 112: Negative or not required by law. Electronically signed by: Israel Ortiz M.D. 10/02/2025 8:17 AM Discharge Plan Visit Data Chief Complaint: Shortness of Breath/Dyspnea Stated Complaint: Breathing Difficulty ED Provider: Nena Vick Discharge Problem: Acute exacerbation of chronic obstructive pulmonary disease, Hypomagnesemia, Acute dyspnea, Elevated lactic acid level, Leukocytosis Patient Disposition: Admitted As Inpatient Condition: Fair Forms Stand Alone Forms: My [facility] Prescriptions Prescriptions: No Action albuterol sulfate [Ventolin HFA] 90 mcg/actuation Hfa Aerosol Inhaler 2 puff INHALATION Q6H PRN (Reason: Shortness Of Breath) quetiapine [Seroquel] 50 mg tablet 50 mg PO HS gabapentin 300 mg capsule 300 mg PO DAILY Combivent Respimat 20-100 mcg/actuation mist 1 puff INHALATION DAILY clonazepam [Klonopin] 1 mg tablet 1 mg PO BID prednisone 5 mg tablet 5 mg PO DAILY Rx Instructions: 3 DAY COURSE Referrals Referrals: Barak Almonte [Primary Care Provider] -
[2025-10-02 07:58] LABS: Base Excess VBG -0.3 mEq/L; HCO3 VBG 23 mmol/L; Oxygen Saturation VBG 96.1 %; PCO2 VBG 32 mmHg (38-50); PO2 VBG 72 mmHg; pH VBG 7.46 (7.36-7.41)
[2025-10-02] MEDS: ALBUT/IPRATROP 3MG/0.5MG NEB 3 ML VIAL NEB ONE (08:01)
[2025-10-02] MEDS: FAMOTIDINE 20MG IV PUSH 20 MG/5 ML SYR IV STA (08:01)
[2025-10-02 08:07] LABS: Hematocrit (blood only) 30.9 % (42.0-52.0); Hemoglobin 10.5 g/dL (14.0-18.0); Mean Corpuscular Hemoglobin 31.4 pg (25.0-34.0); Mean Corpuscular Volume 92.5 fL (80.0-100.0); Platelet Count 348 K/uL (130-400); RDW Standard Deviation 82.4 fL (36.4-46.3); Red Blood Count 3.34 M/uL (4.70-6.10); White Blood Count 24.94 K/ul (4.8-10.8)
[2025-10-02 08:12] LABS: Alanine Aminotransferase 21 U/L (7-52); Albumin Globulin Ratio 2.0 (0.9-2); Albumin Level 4.2 gm/dl (3.4-5.0); Alkaline Phosphatase 65 U/L (34-104); Anion Gap 9 (3-11); Bilirubin,Total 0.6 mg/dl (0.2-1.0); Blood Urea Nitrogen 30 mg/dl (6-23); Calcium 8.6 mg/dl (8.6-10.3); Carbon Dioxide 26 mmol/L (21-32); Chloride 105 mmol/L (98-107); Globulin 2.1 gm/dl (2.5-4.0); Glucose 91 mg/dl (70-99(Fasting)); Magnesium 2.2 mg/dl (1.7-2.4); Potassium 3.9 mmol/L (3.5-5.1); Sodium 140 mmol/L (136-145); Total Protein 6.3 gm/dl (6.0-8.3)
--- NOTE | 2025-10-02 08:18 | XRay Report ---
XR chest 1V portable CLINICAL HISTORY: Dyspnea COMPARISON STUDY: 09/11/2025 FINDINGS: Heart size and pulmonary vasculature are normal. No consolidation or pleural effusion. No p neumothorax. IMPRESSION: No acute findings. ACT 112: Negative or not required by law. Electronically signed by: Israel Ortiz M.D. 10/02/2025 8:17 AM
[2025-10-02 08:20] LABS: INR 1.0 (0.9-1.1); Prothrombin Time 10.1 Seconds (9.0-12.0)
[2025-10-02] MEDS: DOXYCYCLINE HYCLATE 100 MG CAP PO STA (08:46)
[2025-10-02] MEDS: cefTRIAXone SODIUM 2,000 MG/50 ML BAG IV STA (08:46)
[2025-10-02 09:04] LABS: Chlamydia pneumoniae PCR Not Detected (NotDetected); Coronavirus 229E PCR Not Detected (NotDetected); Coronavirus CoV-2 (COVID19)PCR Not Detected (NotDetected); Coronavirus HKU1 PCR Not Detected (NotDetected); Coronavirus NL63 PCR Not Detected (NotDetected); Coronavirus OC43PCR Not Detected (NotDetected); Human Metapneumovirus PCR Not Detected (NotDetected); Parainfluenza Virus 1 PCR Not Detected (NotDetected); Parainfluenza Virus 2 PCR Not Detected (NotDetected); Parainfluenza Virus 3 PCR Not Detected (NotDetected); Parainfluenza Virus 4 PCR Not Detected (NotDetected); Respiratory Syncytial VirusPCR Not Detected (NotDetected); Rhinovirus/Enterovirus PCR Not Detected (NotDetected)
[2025-10-02 09:31] LABS: Basophilic Stippling 1+; Immature Granulocytes # (auto) 1.53 K/uL (0.01-0.20); Immature Granulocytes % (auto) 6.1 %; Polychromasia 1+
[2025-10-02] MEDS: SODIUM CHLORIDE 0.9% 2,000 ML IV ONE (11:14)
[2025-10-02 11:30] LABS: Appearance Urine Clear (Clear); Glucose Urine UA Negative (Negative)
--- NOTE | 2025-10-02 11:49 | History & Physical Report ---
Date of Service October 02, 2025 Assessment & Plan (1) Acute exacerbation of chronic obstructive pulmonary disease: (2) Anemia: (3) Depression: Plan 70-year-old male presents with worsening shortness of breath. Patient was in our facility in August where he was diagnosed with pulmonary embolisms. He reportedly states that he went to [facility] they did a repeat CTA there was no pulmonary embolism and he stopped his anticoagulation. Patient is not having any significant productive cough. Patient is homeless. #Acute on chronic respiratory failure. Patient is: No longer hypoxic. Patient will be continued on intravenous Solu-Medrol and DuoNeb therapy. With his di agnosis of pulmonary embolism in August he likely should be on anticoagulation. However the patient does not have home and likely has challenges with medications. To this end we will repeat a CT scan. If unrevealing for pulmonary embolisms may continue with pulmonary embolism prophylaxis. Will continue azithromycin for anti-inflammatory effects of the lung and also get some side effects of possible treating a dental infection. #Anemia. This is not microcytic. Patient had B12 checked last admission. This raises some concern given the consideration of anticoagulation as above. Will check an iron level with TSH in the morning. #Urinary urgency. Patient complains that this is a chronic issue for him he was on 2 sulla send in the past will start tamsulosin. #Neuropathy patient be restarted on his gabapentin #Mental health issues. Patient reportedly was previously on clonazepam 1 twice daily. Reportedly he lost his medications some weeks ago. Will not initiate this medication but we will continue Seroquel at bedtime. If he has problems with anxiety may consider nonbenzodiazepine therapy such as BuSpar Prior to admission from the emergency department I was called by nursing staff as the patient was verbally berating nursing staff and radiology techs telling him that they did not know what they are doing and demanding additional food. I did have a discussion with the patient and asked them to treat our staff with kindness and courtesy. He says what I do not believe that they were treating him inappropriately and I told him that I believe having worked with the staff that they were treated with courtesy and respect and ask for the same and return DVT prevention is Lovenox therapy at this time History of Present Illness Primary Care Provider: Barak Almonte 70-year-old male who is a history of COPD who presents by EMS for shortness of breath. Patient relates he is homeless and that he took a bus to [place] on Tuesday from [place] because he was intending to come to [facility]. Patient states that he has not had many of his typical home medications but he did did have an inhaler and prednisone which he has been taking. Patient reportedly presented with fairly significant respiratory distress with poor air movement he has a leukocytosis he has elevated lactic acid. Initial imaging of his chest x-ray did not show pneumonia and BioFire was unrevealing patient was treated with steroids and inhalers he was started on a ntibiotics for pneumonia/pulmonary infection. Patient relates since he left the [facility] on September 13 AGAINST MEDICAL ADVICE he was in [facility]. He reportedly was referred to a assisted living situation but left and has been on the street for about 2 weeks. Patient states he has had some dental issues on his right lower jaw with pain and he feels he may have an infected tooth. After being discharged from [facility] the patient was on Levaquin therapy which he said caused diarrhea. The Levaquin has been completed and the diarrhea has resolved. Patient is admitted for treatment of acute on chronic respiratory failure. He is currently not hypoxic. He will be on azithromycin for anti-inflammatory effect for COPD and this will also help treat some of his possible dental infection. Case management only to be involved for disposition arrangements. Allergies Allergy/AdvReac Type Severity Reaction Status Date / Time bupropion [From Wellbutrin] AdvReac Unknown shortness Verified 10/02/25 08:45 of breath Home Medications Medication Instructions Recorded Confirmed Type albuterol sulfate 90 mcg/actuation 2 puff inhalation Q6H PRN 11/13/19 10/02/25 History aerosol inhaler (Ventolin HFA) Shortness Of Breath quetiapine 50 mg tablet (Seroquel) 50 mg PO HS 01/15/25 10/02/25 History clonazepam 1 mg tablet (Klonopin) 1 mg PO BID 01/23/25 10/02/25 History gabapentin 300 mg capsule 300 mg PO DAILY 08/13/25 10/02/25 History ipratropium 20 mcg-albuterol 100 1 puff inhalation DAILY 08/21/25 10/02/25 History mcg/actuation mist for inhalation (Combivent Respimat) prednisone 5 mg tablet 5 mg PO DAILY 10/02/25 10/02/25 History Past Med/Surg History Problem List (Updated 10/02/25 @ 11:40 by Nena Vick MD) Leukocytosis (Acute) Elevated lactic acid level (Acute) Acute dyspnea (Acute) Hypomagnesemia (Acute) Acute exacerbation of chronic obstructive pulmonary disease (Acute) Community acquired pneumonia Atypical pneumonia Hypokalemia (Acute) Hypomagnesemia (Acute) Anemia (Acute) Melena Acute on chronic hypoxic respiratory failure (Acute) Housing insecurity Pulmonary embolism At high risk for violence against others Paranoia Agitation Physical deconditioning Dyspnea on minimal exertion (Acute) Unsheltered unhoused person Nicotine dependence with current use Depression Peripheral eosinophilia Arthritis Abdominal aneurysm (Chronic) Medical History Suicidal ideation COVID Non-ST elevation [facility] (NSTEMI) Influenza A Encounter for smoking cessation counseling Dyspnea Surgical History History of appendectomy Family History Mother Diabetes Social History Smoking Status: Current every day smoker Tobacco Type: Cigarettes Cigarettes Per Day: 40; Second Hand Exposure: No; Do You Dip or Chew Tobacco: No; Hx Alcohol Use: No Hx Substance Use: Yes Last Used Substance: Days (ago) Last Used Substance Other:: 01/23/2025 Preferred Language: Hungarian Communication Ability: Effective Manager Foreign Required: No Beliefs That Will Affect Care: None Current Living Situation: Homeless Current Living Situation Comment: homeless Other Information That Helps Us Care for You: No Feels Safe at Home: No Is there a partner from a previous relationship who is making you feel unsafe now?: No Any Concerns about Your Family Situation: No Would You Like to Speak to Someone About Your Situation: No Gender Identity: Male Assistive Devices: Denture - Upper and Glasses Review of Systems Review of Systems: Mild distress and fatigue no headache, no visual changes no speech or swallowing issues does have dental pain in his right lower jaw no chest pain, pressure or palpitations Patient is short of breath and wheezy. Did have 1 cough during evaluation no abdominal pain, nausea or vomiting, as mentioned diarrhea is resolved Patient has some issues with urinary urgency has a history of BPH no focal joint pain or swelling no back pain, CVA tenderness or radicular pain no bruising, bleeding or rashes no focal signs of weakness or numbness or altered sensation no complaints of anxiety or depression.. Physical Exam Physical Exam: The patient appeared well nourished and normally developed. Vital signs as documented. Head exam is normocephalic atraumatic Patient has a fractured tooth on his right lower jawline. There is no erythema or induration. He has no tenderness to the mandible nor submandibular adenopathy Neck is without JVD, thyromegaly, or carotid bruits. Lungs are poor air movement with bilateral wheezes Cardiac exam, Rhythm is regular.. No murmurs, rubs or gallops. Abdominal exam reveals normal bowel sounds, soft non tender, no masses Extremities are nonedematous and both pedal pulses are present Neurologic exam is alert and oriented, no focal loss of strength or sensation Skin is without bruises or rashes Psychologically is without concerns for anxiety or depression.. Patient has a history of paranoia Results & Data Results & Data Vital Signs (Past 12 Hours) Vital Signs Temp Pulse Pulse Resp BP BP Pulse Ox 10/02/25 11:33 79 10/02/25 10:00 69 22 131/75 93 10/02/25 08:49 81 24 148/87 H 99 10/02/25 07:37 98.4 F 78 24 160/107 H 97 10/02/25 07:33 79 10/02/25 07:17 98 O2 Del Method 10/02/25 11:33 10/02/25 10:00 Room Air 10/02/25 08:49 Room Air 10/02/25 07:37 Room Air 10/02/25 07:33 10/02/25 07:17 Room Air Laboratory Results Reviewed CBC showing leukocytosis and mild anemia Reviewed chemistry showing no changes in renal function LFTs are also normal Reviewed chest x-ray without infiltrate Reviewed EKG without acute changes Code Status & VTE Plan VTE Prophylaxis Plan VTE Prophylaxis will be ordered: Yes PG Care Time/CCT Total # of Minutes Spent Total Time Spent with Patient: Total time spent is greater than 50% in coordination of care (as documented) at patient's floor/unit and/or counseling patient: Coding Level of Care Code 00790 INT INP/OBS CARE Diagnoses Acute exacerbation of chronic obstructive pulmonary disease J44.1 Anemia D64.9 Depression F33.1 Active/Remission status: currently active Depression Type: major depressive disorder Major depression episode severity: moderate Major depression recurrence: recurrent (3) Depression Active/Remission status: currently active Depression Type: major depressive disorder Major depression episode severity: moderate Major depression recurrence: recurrent Qualified Code(s): F33.1 - Major depressive disorder, recurrent, moderate
[2025-10-02] MEDS: OPTIRAY 320 125ml IV ONE (12:31)
--- NOTE | 2025-10-02 12:54 | CT Scan Report ---
CT ANGIOGRAM OF THE CHEST CLINICAL HISTORY: Dyspnea COMPARISON STUDY: chest CT dated 09/11/2025. Chest x-ray dated 10/02/2025. TECHNIQUE: Following the IV administration of 70 cc of Optiray 320, CT angiogram of the chest was per formed from the upper abdomen to the thoracic inlet utilizing the pulmonary embolus protocol. Images are reviewed in the axial, sagittal, and coronal planes. 3-D MIPS images are created and assessed. IV contrast was administered without complication. A dose lowering technique was utilized adhering to the principles of ALARA. CT DOSE: 778.89 mGy.cm FINDINGS: Thyroid: Imaged portions of the thyroid gland are normal in size and attenuation. Thoracic aorta: The thoracic aorta is normal in caliber and demonstrates bovine variant arch anatomy. No dissection is seen. Pulmonary vasculature: The pulmonary trunk is normal in caliber. There are no filling defects identif ied in main, lobar, or segmental pulmonary branches to suggest pulmonary embolus. Heart: The heart is mildly enlarged and without pericardial effusion. There is coronary artery athero sclerosis. Lungs and pleural spaces: There is moderate to advanced emphysema. Secretions are noted in the trache a. No airspace consolidation typical for pneumonia or pleural effusion is identified. Diffuse peribro nchial thickening suggests bronchitis/reactive airway disease. There are scattered foci of mucus plug ging foci of parenchymal scarring are seen throughout both lungs. There are calcified granulomas. Mediastinum: There is no mediastinal lymphadenopathy. [place]: Clear. Axillae: There is no axillary lymphadenopathy. Upper abdomen: Numerous pancreatic parenchymal calcifications indicate chronic pancreatitis. The live r is steatotic. There are tiny calcified splenic granulomas. Skeletal structures: The skeletal structures are osteopenic. Mild degenerative change and hyperkyphos is is seen in the thoracic spine. No lytic or blastic bony lesions are seen. There are chronic/healed left-sided rib fractures. IMPRESSION: 1. There is no evidence of pulmonary embolus in the main, lobar, or segmental pulmonary arteries. 2. Cardiomegaly and emphysema. 3. There is no airspace consolidation or pleural effusion. 4. Coronary artery atherosclerosis. 5. Hepatic steatosis. 6. Chronic pancreatitis. 7. Additional findings as above. ACT 112: Negative or not required by law. Electronically signed by: Prosper Quiroga M.D. 10/02/2025 12:52 PM
[2025-10-02] MEDS ORDERED: ALBUTEROL HFA 8 GM INHALER INH PRN (14:56)
[2025-10-02] MEDS ORDERED: ACETAMINOPHEN 325 MG TAB PO PRN (14:56)
[2025-10-02] MEDS ORDERED: ONDANSETRON INJ 2 MG/ML 2 ML VIAL IV PRN (14:56)
[2025-10-02] MEDS: ALBUT/IPRATROP 3MG/0.5MG NEB 3 ML VIAL NEB SCH (15:12)
[2025-10-02] MEDS: ENOXAPARIN INJ 40 MG/0.4 ML SYR SQ SCH (15:26)
[2025-10-02] MEDS: AZITHROMYCIN 250 MG TAB PO ONE (15:26)
--- NOTE | 2025-10-02 18:54 | Electrocardiogram Report ---
Test Reason : Blood Pressure : */* mmHG Vent. Rate : 76 BPM Atrial Rate : 76 BPM P-R Int : 130 ms QRS Dur : 74 ms QT Int : 376 ms P-R-T Axes : 71 -48 69 degrees QTcB Int : 423 ms Normal sinus rhythm Left axis deviation Incomplete right bundle branch block Abnormal ECG When compared with ECG of 11-Sep-2025 20:50, No significant change was found Confirmed by Curtis Randall ([id number]) on 10/02/2025 6:53:47 PM Referred By: REFERRED SELF Confirmed By: Curtis Randall
[2025-10-02] MEDS: TAMSULOSIN HCL 0.4 MG CAP PO SCH (21:04)
[2025-10-03 08:08] LABS: Hematocrit (blood only) 26.6 % (42.0-52.0); Hemoglobin 9.0 g/dL (14.0-18.0); Mean Corpuscular Hemoglobin 30.6 pg (25.0-34.0); Mean Corpuscular Volume 90.5 fL (80.0-100.0); Platelet Count 282 K/uL (130-400); RDW Standard Deviation 80.0 fL (36.4-46.3); Red Blood Count 2.94 M/uL (4.70-6.10); White Blood Count 18.53 K/ul (4.8-10.8)
[2025-10-03 08:26] LABS: Anion Gap 9.0 (3-11); Blood Urea Nitrogen 35.0 mg/dl (6-23); Calcium 8.3 mg/dl (8.6-10.3); Carbon Dioxide 23.0 mmol/L (21-32); Chloride 108.0 mmol/L (98-107); Creatinine Clr Calc Pharmacy 77.6 ml/min; Glucose 106.0 mg/dl (70-99(Fasting)); Iron 82.0 mcg/dl (35-175); Potassium 4.2 mmol/L (3.5-5.1); Sodium 140.0 mmol/L (136-145)
[2025-10-03 08:41] LABS: Thyroid Stimulating Hormone 0.085 uIu/ml (0.300-4.500)
[2025-10-03] MEDS: GABAPENTIN 300 MG CAP PO SCH (09:38)
[2025-10-03] MEDS: AZITHROMYCIN 250 MG TAB PO SCH (09:38)
--- NOTE | 2025-10-03 15:44 | Hospitalist Progress Note ---
Date of Service October 03, 2025 Assessment & Plan (1) Acute exacerbation of chronic obstructive pulmonary disease: (2) Anemia: (3) Depression: Plan #Acute on chronic respiratory failure. Doing better. On room air. Appears to been due to a COPD exacerbation. Continue current care (Solu-Medrol 40 IV Q8, DuoNebs 4 times daily, azithromycin daily) and probably start to wean steroids tomorrow. #Anemia. Iron normal, TSH nonspecifically low. Check ferritin to round out iron studies. Continue to follow hemoglobin. Colonoscopy as an outpatient if not done recently #low TSHnonspecificrecheck in about a month #Urinary urgency. restarted tamsulosin on admission #Neuropathy patient be restarted on his gabapentin #Mental health issues. continue current medications, resting comfortably every time I see him. DVT prevention is Lovenox therapy at this time, Recent PE but none seen on current scan, and was not able to afford or get his anticoagulation as an outpatient. Admission and Anticipated Discharge Date Admission Date: October 02, 2025 Subjective Tried to see patient multiple times throughout the daysleeping each time. In discussion with nursing, he has been doing well. [place] it better to allow patient to sleep. Discussed with nursing to call me if patient needed me for absolutely anything Physical Exam Physical Exam: Sleeping every time I see himresting comfortably off of oxygen with regular unlabored respirations. Skin without pallor or icterus. Results & Data Results & Data Vital Signs (Past 12 Hours) Vital Signs Temp Pulse Pulse Resp BP Pulse Ox O2 Del Method 10/03/25 15:17 82 17 98 Room Air 10/03/25 12:22 98.1 F 66 20 129/72 98 Room Air 10/03/25 11:59 72 22 97 Room Air 10/03/25 08:24 97.5 F L 77 20 136/54 L 94 Room Air 10/03/25 07:19 89 26 H 93 Room Air 10/03/25 07:00 61 10/03/25 03:51 98.1 F 66 18 133/77 97 Room Air FiO2 10/03/25 15:17 21 10/03/25 12:22 10/03/25 11:59 10/03/25 08:24 10/03/25 07:19 10/03/25 07:00 10/03/25 03:51 PG Care Time/CCT Total # of Minutes Spent Total Time Spent with Patient: Total time spent is greater than 50% in coordination of care (as documented) at patient's floor/unit and/or counseling patient: Coding Level of Care Code 80435 SUB INP/OBS CARE Diagnoses Acute exacerbation of chronic obstructive pulmonary disease J44.1 Anemia D64.9 Depression F33.1 Active/Remission status: currently active Depression Type: major depressive disorder Major depression episode severity: moderate Major depression recurrence: recurrent (3) Depression Active/Remission status: currently active Depression Type: major depressive disorder Major depression episode severity: moderate Major depression recurrence: recurrent Qualified Code(s): F33.1 - Major depressive disorder, recurrent, moderate
[2025-10-04 06:55] LABS: Hematocrit (blood only) 25.9 % (42.0-52.0); Hemoglobin 9.0 g/dL (14.0-18.0); Mean Corpuscular Hemoglobin 31.0 pg (25.0-34.0); Mean Corpuscular Volume 89.3 fL (80.0-100.0); Platelet Count 273 K/uL (130-400); RDW Standard Deviation 78.3 fL (36.4-46.3); Red Blood Count 2.90 M/uL (4.70-6.10); White Blood Count 19.66 K/ul (4.8-10.8)
[2025-10-04 07:15] LABS: Anion Gap 9.0 (3-11); Blood Urea Nitrogen 36.0 mg/dl (6-23); Calcium 8.3 mg/dl (8.6-10.3); Carbon Dioxide 24.0 mmol/L (21-32); Chloride 105.0 mmol/L (98-107); Creatinine Clr Calc Pharmacy 77.6 ml/min; Glucose 111.0 mg/dl (70-99(Fasting)); Potassium 4.6 mmol/L (3.5-5.1); Sodium 138.0 mmol/L (136-145)
[2025-10-04 07:34] LABS: T4 Free Thyroxine 0.78 ng/dl (0.61-1.60)
[2025-10-04] MEDS: clonazePAM 1 MG TAB PO STA (08:58)
[2025-10-04] MEDS: NICOTINE 21 MG/24 HR TDSY TD SCH (08:59)
[2025-10-04] MEDS: REMOVE NICODERM PATCH SCH (08:59)
--- NOTE | 2025-10-04 15:21 | Hospitalist Progress Note ---
Date of Service October 04, 2025 Assessment & Plan (1) Acute exacerbation of chronic obstructive pulmonary disease: (2) Anemia: (3) Depression: Plan #Acute on chronic respiratory failure. Stableno hypoxia or hypercapniabut still very symptomatic. COPD exacerbation. Discussed that it has been a bad viral seasonand it is likely that he has had multiple exacerbations due to multiple different viruses; discussed that ongoing tobacco abuse certainly continues to cause lung irritation making COPD exacerbations worse/longer recovery/etc.; discussed that with the multiple exacerbations this fall and the change in the weather, the weather could certainly be affecting him worse than normal as well. - Given that he is still quite symptomaticcontinue Solu-Medrol at current dosing (suspect given his severity of COPD and frequent exacerbations, when it is time to reduce the steroids he might be someone who would do better with a long slow taper than a burst), finish out 5 days of azithromycin, continue nebulizers, continue supportive care - only has albuterol and Combivent as an outpatientwould probably benefit from a "triple therapy" of LAMA/LABA/ICShe notes he was on this before" it did not help"at the same time, he seems to have fairly severe COPD and continues to smokeI suspect it is more that he was not feeling relief in a way that was probably unrealistic expectations given the severity of his situation and ongoing tobacco abuse - discussed my extremely strong suspicion that what he is seeing on facebook is a total scam. #Anemia. Iron normal, TSH nonspecifically low. Check ferritin to round out iron studies. Continue to follow hemoglobin. as an outpatient, PCP to discuss colonoscopy if not done recently #low TSHnonspecificrecheck in about a month, free T4 normal #Urinary urgency. restarted tamsulosin on admission #Neuropathy patient be restarted on his gabapentin #Mental health issues. has been on clonazepam for a decade. Openly and honestly discussed my concerns that he has a degree of physical dependency. Discussed the difference between addiction and physical dependency. Discussed that generally chronic use of benzodiazepines is extremely problematic given that physical dependency creates a withdrawal sensation that is almost identical to the anxiety that someone is feeling/that they takes a benzodiazepine for. However, discussed that when someone is sick and acutely ill and in the hospital it is generally not the best time to undo a bad treatment regimenwith that in mind, resumed the clonazepam twice daily as needed anxiety. discussed long slow taper as outpt would be manager terminal beneficial. DVT prevention is Lovenox therapy at this time, Recent PE but none seen on current scan, and was not able to afford or get his anticoagulation as an outpatient. Admission and Anticipated Discharge Date Admission Date: October 02, 2025 Subjective Notes that he does not feel any better than whenever he came in. At the same time, notes that he does not feel worse. Wonders why he keeps getting sick all the time. Still smokes. Relates that he saw a care for COPD on Facebook that somehow related to [employer], but he does not have a credit card to order it. We then proceeded to have an extensive discussion on COPD exacerbations, his current situation of COPD, review his CT chest together, review current treatment, and review my recommendations for future treatment. He also notes irritability that improves with clonazepam, is aware of the possibility of clonazepam physical dependency, but does not feel like he is currently physically dependent. Review of Systems Review of Systems: All systems reviewed & are unremarkable except as noted in HPI & below Physical Exam Physical Exam: In general he is awake alert pleasant no distress. HEENT normocephalic atraumatic mucous membranes moist. Lungs with diminished air entry and expiratory wheezing no accessory muscle use no conversational dyspnea, good pulse ox on room air. Skin without rashes pallor or icterus. Neuro without focal deficits. Results & Data Results & Data Vital Signs (Past 12 Hours) Vital Signs Temp Pulse Pulse Resp BP Pulse Ox O2 Del Method 10/04/25 15:04 80 18 97 Room Air 10/04/25 14:33 98.1 F 75 16 154/82 H 97 Room Air 10/04/25 11:37 80 18 98 Room Air 10/04/25 07:58 Room Air 10/04/25 07:28 85 18 98 Room Air 10/04/25 07:01 97.9 F 78 16 161/85 H 98 Room Air PG Care Time/CCT Total # of Minutes Spent Total Time Spent with Patient: Total time spent is greater than 50% in coordination of care (as documented) at patient's floor/unit and/or counseling patient: Coding Level of Care Code 16654 SUB INP/OBS CARE 3/50MIN Diagnoses Acute exacerbation of chronic obstructive pulmonary disease J44.1 Anemia D64.9 Depression F33.1 Active/Remission status: currently active Depression Type: major depressive disorder Major depression episode severity: moderate Major depression recurrence: recurrent (3) Depression Active/Remission status: currently active Depression Type: major depressive disorder Major depression episode severity: moderate Major depression recurrence: recurrent Qualified Code(s): F33.1 - Major depressive disorder, recurrent, moderate
--- NOTE | 2025-10-04 15:28 | Billing Data ---
Date of Service October 04, 2025 Coding Level of Care Code 21998 SUB INP/OBS CARE MIN
[2025-10-04] MEDS: clonazePAM 1 MG TAB PO PRN (20:18)
[2025-10-05 06:18] LABS: Hematocrit (blood only) 26.1 % (42.0-52.0); Hemoglobin 9.2 g/dL (14.0-18.0); Mean Corpuscular Hemoglobin 31.3 pg (25.0-34.0); Mean Corpuscular Volume 88.8 fL (80.0-100.0); Platelet Count 256 K/uL (130-400); RDW Standard Deviation 79.0 fL (36.4-46.3); Red Blood Count 2.94 M/uL (4.70-6.10); White Blood Count 16.35 K/ul (4.8-10.8)
[2025-10-05 06:42] LABS: Anion Gap 9.0 (3-11); Blood Urea Nitrogen 37.0 mg/dl (6-23); Calcium 8.5 mg/dl (8.6-10.3); Carbon Dioxide 24.0 mmol/L (21-32); Chloride 106.0 mmol/L (98-107); Creatinine Clr Calc Pharmacy 82.5 ml/min; Glucose 119.0 mg/dl (70-99(Fasting)); Potassium 4.3 mmol/L (3.5-5.1); Sodium 139.0 mmol/L (136-145)
[2025-10-05 07:02] LABS: Ferritin 331.5 ng/ml (8-388)
[2025-10-05] MEDS: SIMETHICONE 80 MG CHEW PO PRN (12:13)
--- NOTE | 2025-10-05 14:07 | Progress Note ---
Date of Service October 05, 2025 Assessment & Plan (1) Acute exacerbation of chronic obstructive pulmonary disease: (2) Anemia: (3) Depression: Active/Remission status: currently active Depression Type: major depressive disorder Major depression episode severity: moderate Major depression recurrence: recurrent Qualified Code(s): F33.1 - Major depressive disorder, recurrent, moderate Plan #Acute on chronic respiratory failure. Stableno hypoxia or hypercapniabut still very symptomatic. COPD exacerbation. Discussed that it has been a bad viral seasonand it is likely that he has had multiple exacerbations due to multiple different viruses; discussed that ongoing tobacco abuse certainly continues to cause lung irritation making COPD exacerbations worse/longer recovery/etc.; discussed that with the multiple exacerbations this fall and the change in the weather, the weather could certainly be affecting him worse than normal as well. - Given that he is still quite symptomaticcontinue Solu-Medrol at current dosing (suspect given his severity of COPD and frequent exacerbations, when it is time to reduce the steroids he might be someone who would do better with a long slow taper than a burst), finish out 5 days of azithromycin, continue nebulizers, continue supportive care - only has albuterol and Combivent as an outpatientwould probably benefit from a "triple therapy" of LAMA/LABA/ICShe notes he was on this before" it did not help"at the same time, he seems to have fairly severe COPD and continues to smokeI suspect it is more that he was not feeling relief in a way that was probably unrealistic expectations given the severity of his situation and ongoing tobacco abuse - discussed my extremely strong suspicion that what he is seeing on facebook is a total scam. 10/05 - change solu-medrol from 40mg q8 to 40mg q12 - cont Azithro to complete 5 days - will need triple therapy on discharge; can probably do Advair + Spiriva; will need SW help as patient is homeless and needs affordable medications - SW consult due to homelessness #Anemia. Iron normal, TSH nonspecifically low. Check ferritin to round out iron studies. Continue to follow hemoglobin. as an outpatient, PCP to discuss colonoscopy if not done recently #low TSHnonspecificrecheck in about a month, free T4 normal #Urinary urgency. restarted tamsulosin on admission #Neuropathy patient be restarted on his gabapentin #Mental health issues. has been on clonazepam for a decade. Openly and ho nestly discussed my concerns that he has a degree of physical dependency. Discussed the difference between addiction and physical dependency. Discussed that generally chronic use of benzodiazepines is extremely problematic given that physical dependency creates a withdrawal sensation that is almost identical to the anxiety that someone is feeling/that they takes a benzodiazepine for. However, discussed that when someone is sick and acutely ill and in the hospital it is generally not the best time to undo a bad treatment regimenwith that in mind, resumed the clonazepam twice daily as needed anxiety. discussed long slow taper as outpt would be halfway beneficial. DVT prevention is Lovenox therapy at this time, Recent PE but none seen on current scan, and was not able to afford or get his anticoagulation as an outpatient. Admission and Anticipated Discharge Date Admission Date: October 02, 2025 Subjective Patient is feeling slightly better Review of Systems Review of Systems: Constitutional: No Weight Change, No Fever, No Chills, No Night Sweats, No Fatigue, No Malaise ENT/Mouth: No Hearing Changes, No Ear Pain, No Nasal Congestion, No Sinus Pain, No Hoarseness, No sore throat, No Rhinorrhea, No Swallowing Difficulty Eyes: No Eye Pain, No Swelling, No Redness, No Foreign Body, No Discharge, No Vision Changes Cardiovascular: No Chest Pain, No SOB, No PND, No Dyspnea on Exertion, No Orthopnea, No Claudication, No Edema, No Palpitations Respiratory: No Cough, No Sputum, No Wheezing, No Smoke Exposure, No Dyspnea Gastrointestinal: No Nausea, No Vomiting, No Diarrhea, No Constipation, No Pain, No Heartburn, No Anorexia, No Dysphagia, No Hematochezia, No Melena, No Flatulence, No Jaundice Genitourinary: No Dysmenorrhea, No DUB, No Dyspareunia, No Dysuria, No Urinary Frequency, No Hematuria, No Urinary Incontinence, No Urgency, No Flank Pain, No Urinary Flow Changes, No Hesitancy Musculoskeletal: No Arthralgias, No Myalgias, No Joint Swelling, No Joint Stiffness, No Back Pain, No Neck Pain, No Injury History Skin: No Skin Lesions, No Pruritis, No Hair Changes, No Breast/Skin Changes, No Nipple Discharge Neuro: No Weakness, No Numbness, No Paresthesias, No Loss of Consciousness, No Syncope, No Dizziness, No Headache, No Coordination Changes, No Recent Falls Psych: No Anxiety/Panic, No Depression, No Insomnia, No Personality Changes, No Delusions, No Rumination, No SI/HI/AH/VH, No Social Issues, No Memory Changes, No Violence/Abuse Hx., No Eating Concerns Heme/Lymph: No Bruising, No Bleeding, No Transfusions History, No Lymphadenopathy Endocrine: No Polyuria, No Polydipsia, No Temperature Intolerance Physical Exam Physical Exam: VITALS: Reviewed. WEIGHT/BMI reviewed. GEN: Healthy appearing, well-developed, NAD. PSYCH: Good Judgment. AOx3. Normal memory, mood, and affect. HEENT -Head: NC/AT; -Eyes: PERRL, EOMI. No discharge or redn ess; -Ears: External ears are normal. Normal TMs. -Nose: Normal nares. -Mouth and throat: MMM. Normal gums, muc pepe, palate,. Good dentition. NECK: Supple, with no masses. CV: RRR, no m/r/g. LUNGS: CTAB, no w/r/c. ABD: Soft, NT/ND, NBS, no masses or organomegaly. : N/A SKIN: Warm, well perfused. No skin rashes or abnormal lesions. MSK: No deformities, Normal gait. EXT: No clubbing, cyanosis, or edema. NEURO: Ambulating with no limitations. Normal muscle strength and tone. No focal deficits. Results & Data Vital Signs (Past 12 Hours) Vital Signs Temp Pulse Pulse Resp BP Pulse Ox O2 Del Method 10/05/25 11:15 92 H 18 98 Room Air 10/05/25 09:43 Room Air 10/05/25 07:22 36.8 C 71 18 151/81 H 95 Room Air 10/05/25 07:12 90 18 97 Room Air PG Care Time/CCT Total # of Minutes Spent Total Time Spent with Patient: Total time spent is greater than 50% in coordination of care (as documented) at patient's floor/unit and/or counseling patient: Coding Level of Care Code 94039 SUB INP/OBS CARE 2/35MIN Diagnoses Acute exacerbation of chronic obstructive pulmonary disease J44.1 Anemia D64.9 Depression F33.1 Active/Remission status: currently active Depression Type: major depressive disorder Major depression episode severity: moderate Major depression recurrence: recurrent
[2025-10-06] MEDS: ALUMINUM/MAGNESIUM SUSP 30 ML UDC PO PRN (02:42)
[2025-10-06 06:42] LABS: Hematocrit (blood only) 25.9 % (42.0-52.0); Hemoglobin 9.2 g/dL (14.0-18.0); Mean Corpuscular Hemoglobin 31.7 pg (25.0-34.0); Mean Corpuscular Volume 89.3 fL (80.0-100.0); Platelet Count 240 K/uL (130-400); RDW Standard Deviation 80.9 fL (36.4-46.3); Red Blood Count 2.90 M/uL (4.70-6.10); White Blood Count 15.74 K/ul (4.8-10.8)
[2025-10-06 07:16] LABS: Anion Gap 9.0 (3-11); Blood Urea Nitrogen 40.0 mg/dl (6-23); Calcium 8.3 mg/dl (8.6-10.3); Carbon Dioxide 24.0 mmol/L (21-32); Chloride 105.0 mmol/L (98-107); Creatinine Clr Calc Pharmacy 84.7 ml/min; Glucose 114.0 mg/dl (70-99(Fasting)); Magnesium 2.2 mg/dl (1.7-2.4); Potassium 4.4 mmol/L (3.5-5.1); Sodium 138.0 mmol/L (136-145)
[2025-10-06 07:21] LABS: Basophilic Stippling 1+; Immature Granulocytes # (auto) 0.94 K/uL (0.01-0.20); Immature Granulocytes % (auto) 6.0 %; Polychromasia 1+; Target Cells 1+; Tear Drop Cells 1+
--- NOTE | 2025-10-06 14:10 | Progress Note ---
Date of Service October 06, 2025 Assessment & Plan (1) Acute exacerbation of chronic obstructive pulmonary disease: (2) Anemia: (3) Depression: Active/Remission status: currently active Depression Type: major depressive disorder Major depression episode severity: moderate Major depression recurrence: recurrent Qualified Code(s): F33.1 - Major depressive disorder, recurrent, moderate Plan #Acute on chronic respiratory failure. Stableno hypoxia or hypercapniabut still very symptomatic. COPD exacerbation. Discussed that it has been a bad viral seasonand it is likely that he has had multiple exacerbations due to multiple different viruses; discussed that ongoing tobacco abuse certainly continues to cause lung irritation making COPD exacerbations worse/longer recovery/etc.; discussed that with the multiple exacerbations this fall and the change in the weather, the weather could certainly be affecting him worse than normal as well. - Given that he is still quite symptomaticcontinue Solu-Medrol at current dosing (suspect given his severity of COPD and frequent exacerbations, when it is time to reduce the steroids he might be someone who would do better with a long slow taper than a burst), finish out 5 days of azithromycin, continue nebulizers, continue supportive care - only has albuterol and Combivent as an outpatientwould probably benefit from a "triple therapy" of LAMA/LABA/ICShe notes he was on this before" it did not help"at the same time, he seems to have fairly severe COPD and continues to smokeI suspect it is more that he was not feeling relief in a way that was probably unrealistic expectations given the severity of his situation and ongoing tobacco abuse - discussed my extremely strong suspicion that what he is seeing on facebook is a total scam. 10/05 - change solu-medrol from 40mg q8 to 40mg q12 - cont Azithro to complete 5 days - will need triple therapy on discharge; can probably do Advair + Spiriva; will need SW help as patient is homeless and needs affordable medications - SW consult due to homelessness 10/06 - tapered down the Solul-medrol from 40mg q12 to daily dosing - will need long oral prednisone taper - adjust inhalers for discharge - SW on the case due to his homelessness - Azithro until 10/08 #Anemia. Iron normal, TSH nonspecifically low. Check ferritin to round out iron studies. Continue to follow hemoglobin. as an outpatient, PCP to discuss colonoscopy if not done recently #low TSHnonspecificrecheck in about a month, free T4 normal #Urinary urgency. restarted tamsulosin on admission #Neuropathy patient be restarted on his gabapentin #Mental health issues. has been on clonazepam for a decade. Openly and honestly discussed my concerns that he has a degree of physical dependency. Discussed the difference between addiction and physical dependency. Discussed that generally chronic use of benzodiazepines is extremely problematic given that physical dependency creates a withdrawal sensation that is almost identical to the anxiety that someone is feeling/that they takes a benzodiazepine for. However, discussed that when someone is sick and acutely ill and in the hospital it is generally not the best time to undo a bad treatment regimenwith that in mind, resumed the clonazepam twice daily as needed anxiety. discussed long slow taper as outpt would be half-way beneficial. DVT prevention is Lovenox therapy at this time, Recent PE but none seen on current scan, and was not able to afford or get his anticoagulation as an outpatient. Admission and Anticipated Discharge Date Admission Date: October 02, 2025 Subjective Patient still feels short of breath not hypoxemic, does not appear to be struggling with his breathing, completing full sentences Review of Systems Review of Systems: Constitutional: No Weight Change, No Fever, No Chills, No Night Sweats, No Fatigue, No Malaise ENT/Mouth: No Hearing Changes, No Ear Pain, No Nasal Congestion, No Sinus Pain, No Hoarseness, No sore throat, No Rhinorrhea, No Swallowing Difficulty Eyes: No Eye Pain, No Swelling, No Redness, No Foreign Body, No Discharge, No Vision Changes Cardiovascular: No Chest Pain, No SOB, No PND, No Dyspnea on Exertion, No Orthopnea, No Claudication, No Edema, No Palpitations Respiratory: No Cough, No Sputum, No Wheezing, No Smoke Exposure, No Dyspnea Gastrointestinal: No Nausea, No Vomiting, No Diarrhea, No Constipation, No Pain, No Heartburn, No Anorexia, No Dysphagia, No Hematochezia, No Melena, No Flatulence, No Jaundice Genitourinary: No Dysmenorrhea, No DUB, No Dyspareunia, No Dysuria, No Urinary Frequency, No Hematuria, No Urinary Incontinence, No Urgency, No Flank Pain, No Urinary Flow Changes, No Hesitancy Musculoskeletal: No Arthralgias, No Myalgias, No Joint Swelling, No Joint Stiffness, No Back Pain, No Neck Pain, No Injury History Skin: No Skin Lesions, No Pruritis, No Hair Changes, No Breast/Skin Changes, No Nipple Discharge Neuro: No Weakness, No Numbness, No Paresthesias, No Loss of Consciousness, No Syncope, No Dizziness, No Headache, No Coordination Changes, No Recent Falls Psych: No Anxiety/Panic, No Depression, No Insomnia, No Personality Changes, No Delusions, No Rumination, No SI/HI/AH/VH, No Social Issues, No Memory Changes, No Violence/Abuse Hx., No Eating Concerns Heme/Lymph: No Bruising, No Bleeding, No Transfusions History, No Lymphadeno natasha Endocrine: No Polyuria, No Polydipsia, No Temperature Intolerance Physical Exam Physical Exam: VITALS: Reviewed. WEIGHT/BMI reviewed. GEN: Healthy appearing, well-developed, NAD. PSYCH: Good Judgment. AOx3. Normal memory, mood, and affect. HEENT -Head: NC/AT; -Eyes: PERRL, EOMI. No discharge or redn ess; -Ears: External ears are normal. Normal TMs. -Nose: Normal nares. -Mouth and throat: MMM. Normal gums, muc pepe, palate,. Good dentition. NECK: Supple, with no masses. CV: RRR, no m/r/g. LUNGS: CTAB, no w/r/c. ABD: Soft, NT/ND, NBS, no masses or organomegaly. : N/A SKIN: Warm, well perfused. No skin rashes or abnormal lesions. MSK: No deformities, Normal gait. EXT: No clubbing, cyanosis, or edema. NEURO: Ambulating with no limitations. Normal muscle strength and tone. No focal deficits. Results & Data Vital Signs (Past 12 Hours) Vital Signs Temp Pulse Pulse Resp BP Pulse Ox O2 Del Method 10/06/25 11:07 93 H 18 97 Room Air 10/06/25 09:32 Room Air 10/06/25 07:13 90 20 95 Room Air 10/06/25 07:06 36.6 C 72 20 153/80 H 95 Room Air PG Care Time/CCT Total # of Minutes Spent Total Time Spent with Patient: Total time spent is greater than 50% in coordination of care (as documented) at patient's floor/unit and/or counseling patient: Coding Level of Care Code 47430 SUB INP/OBS CARE MIN Diagnoses Acute exacerbation of chronic obstructive pulmonary disease J44.1 Anemia D64.9 Depression F33.1 Active/Remission status: currently active Depression Type: major depressive disorder Major depression episode severity: moderate Major depression recurrence: recurrent
[2025-10-07 08:20] LABS: Hematocrit (blood only) 29.8 % (42.0-52.0); Hemoglobin 10.3 g/dL (14.0-18.0); Mean Corpuscular Hemoglobin 31.3 pg (25.0-34.0); Mean Corpuscular Volume 90.6 fL (80.0-100.0); Platelet Count 232 K/uL (130-400); RDW Standard Deviation 81.1 fL (36.4-46.3); Red Blood Count 3.29 M/uL (4.70-6.10); White Blood Count 18.04 K/ul (4.8-10.8)
[2025-10-07 08:35] LABS: Anion Gap 7.0 (3-11); Blood Urea Nitrogen 35.0 mg/dl (6-23); Calcium 8.6 mg/dl (8.6-10.3); Carbon Dioxide 26.0 mmol/L (21-32); Chloride 104.0 mmol/L (98-107); Creatinine Clr Calc Pharmacy 78.5 ml/min; Glucose 84.0 mg/dl (70-99(Fasting)); Magnesium 2.2 mg/dl (1.7-2.4); Potassium 4.8 mmol/L (3.5-5.1); Sodium 137.0 mmol/L (136-145)
[2025-10-07 08:40] LABS: Basophilic Stippling 1+; Immature Granulocytes # (auto) 1.04 K/uL (0.01-0.20); Immature Granulocytes % (auto) 5.8 %; Polychromasia 1+; Tear Drop Cells 1+
--- NOTE | 2025-10-07 17:37 | Hospitalist Progress Note ---
Date of Service October 07, 2025 Assessment & Plan (1) Acute exacerbation of chronic obstructive pulmonary disease: (2) Anemia: (3) Depression: Plan #Acute on chronic respiratory failure | Acute COPD exacerbation Stableno hypoxia or hypercapniabut still very symptomatic. Discussed that it has been a bad viral seasonand it is likely that he has had multiple exacerbations due to multiple different viruses; discussed that ongoing tobacco abuse certainly continues to cause lung irritation making COPD exacerbations worse/longer recovery/etc.; discussed that with the multiple exacerbations this fall and the change in the weather, the weather could certainly be affecting him worse than normal as well. - Given that he is still quite symptomaticcontinue Solu-Medrol at current dosing (suspect given his severity of COPD and frequent exacerbations, when it is time to reduce the steroids he might be someone who would do better with a long slow taper than a burst), finish out 5 days of azithromycin, continue nebulizers, continue supportive care - only has albuterol and Combivent as an outpatientwould probably benefit from a "triple therapy" of LAMA/LABA/ICShe notes he was on this before" it did not help"at the same time, he seems to have fairly severe COPD and continues to smokeI suspect it is more that he was not feeling relief in a way that was probably unrealistic expectations given the severity of his situation and ongoing tobacco abuse - discussed my extremely strong suspicion that what he is seeing on facebook is a total scam. 10/05 - change solu-medrol from 40mg q8 to 40mg q12 - cont Azithro to complete 5 days - will need triple therapy on discharge; can probably do Advair + Spiriva; will need SW help as patient is homeless and needs affordable medications - SW consult due to homelessness 10/06 - tapered down the Solul-medrol from 40mg q12 to daily dosing - will need long oral prednisone taper - adjust inhalers for discharge - SW on the case due to his homelessness - Azithro until 10/08 10/07 - Continue Solu-Medrol taper 40 mg daily -> 20mg daily - Will plan for long-term oral prednisone taper on discharge - consult appreciated -currently has referral out to [facility] ([facility]) as patient is homeless and requesting additional resources Still awaiting answer on 10/07; if no response, can consider referral to [place] [employer] or plan for patient to return to senior living on d/c #Anemia Iron normal, TSH nonspecifically low. Check ferritin to round out iron studies. Continue to follow hemoglobin. as an outpatient, PCP to discuss colonoscopy if not done recently #low TSH nonspecificrecheck in about a month, free T4 normal #Urinary urgency Restarted tamsulosin on admission #Neuropathy Restarted on gabapentin #Mental health issues Has been on clonazepam for a decade. Openly and honestly discussed my concerns that he has a degree of physical dependency. Discussed the difference between addiction and physical dependency. Discussed that generally chronic use of benzodiazepines is extremely problematic given that physical dependency creates a withdrawal sensation that is almost identical to the anxiety that someone is feeling/that they takes a benzodiazepine for. However, discussed that when someone is sick and acutely ill and in the hospital it is generally not the best time to undo a bad treatment regimenwith that in mind, resumed the clonazepam twice daily as needed anxiety. discussed long slow taper as outpt would be [employer] beneficial. Disposition: Continued stay on PCU telemetry DVT prevention is Lovenox therapy at this time, Recent PE but none seen on current scan, and was not able to afford or get his anticoagulation as an outpatient Admission and Anticipated Discharge Date Admission Date: October 02, 2025 Supervising Physician Co-Signing Physician Notes I did not see or examine the patient. I verified all chavez points and agree with Uri Martinez PA-C with the following exceptions and/or additions: None Subjective Mr. Yang reports his breathing is better today when compared to yesterday. He is still having productive cough, as well as dyspnea on exertion, but has no difficulty breathing at rest. He reports he felt so good yesterday, that he was able to shower, which helped him feel much better. While showering, he did have MORRIS. No recent falls, the patient does report feeling unsteady on his feet, as well as weak in his legs bilaterally. He would like to look into [facility] housing upon discharge. He is a current everyday tobacco and marijuana smoker. ROS: Patient endorses MORRIS, neuropathy in the feet bilaterally, feeling unsteady on his feet, and productive cough. Patient denies fevers overnight, chest pain, pleuritic CP, SOB at rest, hemoptysis, abdominal pain, N/V/D, or changes in urinary/bowel habits. Review of Systems Review of Systems: See HPI above Physical Exam Physical Exam: General: no acute distress; non-toxic appearing; cooperative; SpO2 94% on RA HEENT: normocephalic, atraumatic; PERRLA; vision and hearing intact Neck: supple; trachea midline Skin: warm, dry without signs of tenting; no cyanosis; no rashes, bruising, lesions, or erythema noted CV: chest wall NTP; RRR; S1/S2 normal; no murmurs/rubs/gallops; pulses intact and symmetric at radial, DP, and PT Lungs: no acute respiratory distress; symmetrical chest wall expansion; mild expiratory wheeze in the lower lung carmichael bilaterally ABD: Soft, NTP; BS present; no rebound/guarding; no distention MSK: no tics or fasciculations; no edema noted in the LEs b/l, nonerythematous Neuro: A&Ox3; normal mood and affect; fluent speech; sensation intact and symmetric in the LEs b/l Results & Data Results & Data Vital Signs (Past 12 Hours) Vital Signs Temp Pulse Resp BP Pulse Ox O2 Del Method FiO2 10/07/25 17:35 102 H 17 94 Room Air 21 10/07/25 16:32 36.5 C 93 H 18 152/87 H 96 Room Air 10/07/25 14:50 106 H 17 94 Room Air 10/07/25 11:01 93 H 19 95 Room Air 21 10/07/25 08:00 36.4 C L 97 H 18 173/85 H 97 Room Air 10/07/25 07:45 Room Air 10/07/25 07:17 83 15 97 Room Air 21 PG Care Time/CCT Total # of Minutes Spent Total Time Spent with Patient: Total time spent is greater than 50% in coordination of care (as documented) at patient's floor/unit and/or counseling patient: Coding [place] [address] SUB INP/OBS CARE 3/50MIN Patient Type Established Medical Decision Making High Complexity Diagnoses Acute exacerbation of chronic obstructive pulmonary disease J44.1 Anemia D64.9 Depression F33.1 Active/Remission status: currently active Depression Type: major depressive disorder Major depression episode severity: moderate Major depression recurrence: recurrent (3) Depression Active/Remission status: currently active Depression Type: major depressive disorder Major depression episode severity: moderate Major depression recurrence: recurrent Qualified Code(s): F33.1 - Major depressive disorder, recurrent, moderate
[2025-10-08 07:16] VITALS: BP 153/83; TEMP 98.1
[2025-10-08 11:24] VITALS: PULSE 100; RESP 20; O2SAT 92
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
[2025-10-08] MEDS: FLUTICASONE/VILANTEROL 100/25MCG 14 PUFFS/INHALER INH SCH (12:41)
[2025-10-08] MEDS: UMECLIDINIUM BROMIDE 62.5MCG/BLISTER 7 PUFFS/INHALER INH SCH (13:21)
== END 2025-10-08 14:19 | disposition home or self-care (01) | DRG 190 ==
LOC: ED 07:26 → 2E 11:20 → SUATTDRO 11:20 → 2E 15:50 → 3N 10-03 17:25

== ENCOUNTER 2025-10-13 20:28 | Inpatient (IN) ==
[2025-10-13] MEDS: ALBUT/IPRATROP 3MG/0.5MG NEB 3 ML VIAL INH STA (20:44)
[2025-10-13 21:08] LABS: Base Excess VBG -0.1 mEq/L; HCO3 VBG 24 mmol/L; Oxygen Saturation VBG 94.6 %; PCO2 VBG 36 mmHg (38-50); PO2 VBG 62 mmHg; pH VBG 7.43 (7.36-7.41)
--- NOTE | 2025-10-13 21:15 | Emergency Department Note ---
Impression & Plan Acute exacerbation of chronic obstructive pulmonary disease, Leukocytosis, Shortness of breath at rest, Ambulatory dysfunction ED Provider Note NAME: VAZQUEZ ORDONEZ AGE: 70 SEX: M : 1955 ARRIVES VIA: Ambulance INFORMANT: Patient, EMS ED PROVIDER(S): Elder Thompson DO CHIEF COMPLAINT: Dyspnea HPI: This is a 70-year-old male with the PMHx of COPD, tobacco use disorder, and homelessness presenting to [facility] for further evaluation of severe dyspnea. Patient is accompanied by EMS who provide additional history. EMS reports that the patient called for severe dyspnea. He is currently homeless. They report that he ran out of his medications for COPD. EMS gave 1 DuoNeb. They note that he was not hypoxic but notably tachypneic. Patient is reporting severe shortness of breath with chest tightness. He reports congestion and a nonproductive cough that has been ongoing. They deny fever or chills. They deny abdominal pain, nausea and vomiting. No urinary complaints. No recent changes in bowel movements. Patient denies recent changes in medications or OTC supplements. Patient offers no other complaints, today. ADDITIONAL HISTORY OBTAINED: Per HPI Chronic Medical/Social Conditions Affecting Care: Per HPI PAST MEDICAL HISTORY: See Below PAST SURGICAL HISTORY: See Below FAMILY HISTORY: See Below SOCIAL HISTORY: See Below HOME MEDICATIONS: See Below ALLERGIES: See Below VITALS: See Below PHYSICAL EXAMINATION: GENERAL: Sitting up in bed, alert, ill appearing, well nourished, no distress, non-toxic EYE EXAM: normal conjunctiva. OROPHARYNX: no exudate, no erythema, lips, buccal mucosa, and tongue normal and mucous membranes are moist. he is congested. NECK: supple, no nuchal rigidity, no adenopathy, non-tender LUNGS: Tachypnea with diffuse wheezing. Normal chest wall mechanics HEART: no murmurs, regular rate, regular rhythm ABDOMEN: abdomen soft, non-tender, no masses, no rebound or guarding. BACK: Back is symmetrical on inspection and there is no deformity, no midline tenderness, no CVA tenderness. SKIN: no rashes and no bruising UPPER EXTREMITIES: upper extremities are grossly normal. LOWER EXTREMITIES: No pitting edema. NEURO EXAM: Normal sensorium, GCS 15, normal speech, no gross weakness of arms, no gross weakness of legs. MEDICAL DECISION MAKING: Differential diagnoses includes but not limited to ACS, unstable angina, dysrhythmia, PNA, hypervolemia/pulmonary edema, CHF exacerbation, COPD exacerbation, PE, pneumothorax, pericardial effusion, cardiac tamponade, anxiety/psychogenic, viral URI In summary, this is a 70 year old male who presented with dyspnea. Differential as above. Nursing notes and pertinent past medical records reviewed. Vital signs reviewed and the patient is tachypneic but otherwise afebrile and HDS. History and presentation revealed history of numerous hospital stays due to COPD and homelessness. He does have utilize resources as discussed. He no longer has access to his medications. Physical examination revealed as above. As a result of my initial evaluation, IV access was established and the patient was placed on CCRM. Therapeutics ordered include steroids and Duoneb x1. Diagnostics interpreted by me include EKG and cardiac monitoring as listed below: -Cardiac Monitoring: An order was placed for continuous cardiac monitoring. The monitor shows a rate of 70-90s with regular rhythm. -ECG: Normal sinus rhythm at a ventricular rate of [address] segment changes to suggest STEMI. Intervals are within normal limits. Patient completed laboratory studies and imaging. Results independently interpreted by me are leukocytosis present but likely related to recent steroid use. Procalcitonin is normal. Normal kidney function and electrolytes. VBG shows evidence of hyperventilation rather than CO2 retention in the setting of COPD. Chest x-ray did not reveal focal consolidation as independently interpreted by me. The patient was managed with steroids and a DuoNeb. He had received 1 DuoNeb prior to arrival. Further, the patient was treated with an hour-long albuterol treatment. Patient is reporting severe dyspnea at rest despite breathing treatments. He has received 2 DuoNebs now as well as an hour- long albuterol treatment. Patient states now he is having significant indigestion. IV push famotidine ordered as well as a dose of Maalox. Patient can barely walk. Patient states that he needs a walker. Patient would be willing for inpatient rehabilitation services or potential placement. Discussed tobacco cessation therapy. Will initiate a nicotine patch while in the emergency department. I did have the patient meet with case management and he does not have significant resources. Patient has socioeconomic constraints and currently does not have a place to stay. He is homeless. Does not have access to his medications or further resources. For these reasons, the patient will be admitted to the hospital Ultimately, the decision was made to admit the patient for COPD exacerbation, homelessness and ambulatory dysfunction. It was recommended to admit this patient at [id number]. I discussed the case with the hospitalist service via telephone/TigerText and they are agreeable to admit the patient to their services by [facility], Dr. Moser. Based on the above, including the patient's age, coexisting illnesses, labs, imaging, and exam findings the decision to treat as an inpatient. I discussed the patient with the hospitalist team who recommended admission to their services. They received the medications, treatments, interventions indicated above and their condition remained stable. I discussed my findings with the patient and their family and they understand and agree with the treatment plan. All patient / family questions were answered to their satisfaction. Consults/Care Managements Discussions: Per MDM ER treatment provided: See above Procedures:none Critical Care: None The chart was completed utilizing [employer] Speech voice recognition software. Grammatical errors, random word insertions, pronoun errors, and incomplete sentences are an occasional consequence of this system due to software limitations, ambient noise, and hardware issues. Any formal questions or concerns about the content, text, or information contained within the body of this dictation should be directly addressed to the physician for clarification. Past Med/Surg History Problem List (Updated 10/13/25 @ 23:19 by Elder Thompson DO) Ambulatory dysfunction (Acute) Shortness of breath at rest (Acute) Leukocytosis (Acute) Acute exacerbation of chronic obstructive pulmonary disease (Acute) Leukocytosis (Acute) Elevated lactic acid level (Acute) Acute dyspnea (Acute) Hypomagnesemia (Acute) Acute exacerbation of chronic obstructive pulmonary disease (Acute) Community acquired pneumonia Atypical pneumonia Hypokalemia (Acute) Hypomagnesemia (Acute) Anemia (Acute) Melena Acute on chronic hypoxic respiratory failure (Acute) Housing insecurity Pulmonary embolism At high risk for violence against others Paranoia Agitation Physical deconditioning Dyspnea on minimal exertion (Acute) Unsheltered unhoused person Nicotine dependence with current use Depression Peripheral eosinophilia Arthritis Abdominal aneurysm (Chronic) Medical History Acute exacerbation of chronic obstructive pulmonary disease (COPD) Suicidal ideation COVID Non-ST elevation NV (NSTEMI) Influenza A Encounter for smoking cessation counseling Dyspnea Surgical History History of appendectomy Family History Mother Diabetes Social History Smoking Status: Current every day smoker Tobacco Type: Cigarettes Cigarettes Per Day: 40; Second Hand Exposure: No; Do You Dip or Chew Tobacco: No; Hx Alcohol Use: No Hx Substance Use: Yes Last Used Substance: Days (ago) Last Used Substance Other:: 01/23/2025 Preferred Language: Hebrew Communication Ability: Effective Canoe Builder Required: No Beliefs That Will Affect Care: None Current Living Situation: Homeless Current Living Situation Comment: homeless Feels Safe at Home: Yes Gender Identity: Male Assistive Devices: Glasses Allergies Allergies Allergy/AdvReac Type Severity Reaction Status Date / Time bupropion [From Wellbutrin] Allergy Severe shortness Verified 10/13/25 21:15 of breath Home Meds Home Medications Medication Instructions Recorded Confirmed albuterol sulfate 90 mcg/actuation 2 puff inhalation Q6H PRN 11/13/19 10/13/25 aerosol inhaler (Ventolin HFA) Shortness Of Breath Previous Rx's Medication Instructions Recorded clonazepam 0.5 mg tablet 0.5 mg PO BID PRN anxiety #14 tabs 10/08/25 fluticasone furoate 100 1 inh inhalation DAILY #60 ea 10/08/25 mcg-vilanterol 25 mcg/dose inhalation powder (Breo Ellipta) gabapentin 300 mg capsule 300 mg PO DAILY #10 caps 10/08/25 prednisone 5 mg tablet See Rx Instructions PO .COMPLEX 10/08/25 #36 tabs quetiapine 50 mg tablet (Seroquel) 50 mg PO HS #14 tabs 10/08/25 umeclidinium 62.5 mcg/actuation 1 inh inhalation DAILY #30 ea 10/08/25 blister powder for inhalation (Incruse Ellipta) Results & Data (ED) Vital Signs Vital Signs - 24 hr 10/13/25 20:34 10/13/25 20:44 10/13/25 20:46 Temperature 36.6 C Temperature Source Oral Pulse Rate 95 H 93 H 89 Pulse Rate [Apical] Pulse Rhythm Regular Regular Pulse Rhythm [Apical] Pulse Strength Normal Pulse Strength [Apical] Respiratory Rate 20 18 Respiratory Effort / Characteristics Spontaneous Respiratory Depth Normal Respiratory Pattern Regular Blood Pressure 152/82 H Blood Pressure [Right Arm] Blood Pressure Mean 105 Blood Pressure Mean [Right Arm] Blood Pressure Position Lying Blood Pressure Position [Right Arm] Pulse Oximetry 96 99 Oxygen Delivery Method Room Air Nebulizer Oxygen Flow Rate 6 Sepsis Recent Fever Within 48 Hours No Sepsis New/Unexplained Change in Mental Status No Sepsis Action Taken by Nursing No Action Required 10/13/25 20:49 10/13/25 20:52 10/13/25 22:00 Temperature Temperature Source Pulse Rate Pulse Rate [Apical] 79 Pulse Rhythm Pulse Rhythm [Apical] Regular Pulse Strength Pulse Strength [Apical] Normal Respiratory Rate 20 Respiratory Effort / Characteristics Spontaneous Short of Breath Non-Labored Spontaneous Respiratory Depth Deep Normal Respiratory Pattern Regular Regular Blood Pressure Blood Pressure [Right Arm] 129/84 Blood Pressure Mean Blood Pressure Mean [Right Arm] 99 Blood Pressure Position Blood Pressure Position [Right Arm] Lying Pulse Oximetry 96 99 Oxygen Delivery Method Room Air Room Air Room Air Oxygen Flow Rate 0 Sepsis Recent Fever Within 48 Hours Sepsis New/Unexplained Change in Mental Status Sepsis Action Taken by Nursing Laboratory Data 10/13/25 20:35 10/13/25 20:35 Lab Results 10/13/25 10/13/25 Range/Units 20:35 20:53 WBC 20.53 H (4.8-10.8) K/ul RBC 3.10 L (4.70-6.10) M/uL Hgb 9.8 L (14.0-18.0) g/dL Hct 28.8 L (42.0-52.0) % MCV 92.9 (80.0-100.0) fL MCH 31.6 (25.0-34.0) pg MCHC 34.0 (32.0-36.0) g/dL RDW Std Deviation 86.0 H (36.4-46.3) fL RDW Coeff of Judd 25.3 H (11.5-14.5) % Plt Count 301 (130-400) K/uL MPV 9.7 (9.4-12.4) fL Immature Gran % (Auto) 6.5 % Neut % (Auto) 76.3 % Lymph % (Auto) 7.5 % [place] % (Auto) 9.3 % Eos % (Auto) 0.0 % Baso % (Auto) 0.4 % Neut # (Auto) 15.68 H (1.40-6.50) K/uL Lymph # (Auto) 1.53 (1.20-3.40) K/uL [place] # (Auto) 1.90 H (0.11-0.59) K/uL Eos # (Auto) 0.00 (0.00-0.50) K/uL Baso # (Auto) 0.08 (0.00-0.20) K/uL Immature Gran # (Auto) 1.34 H (0.01-0.20) K/uL Absolute Nucleated RBC 0.62 H (0.00-0.12) K/uL Nucleated RBC % (auto) 3.0 % Polychromasia 2+ Basophilic Stippling 1+ Anisocytosis Present Target Cells 1+ VBG pH 7.43 H (7.36-7.41) VBG pCO2 36 L (38-50) mmHg VBG pO2 62 mmHg VBG HCO3 24 mmol/L VBG O2 Saturation 94.6 % VBG Base Excess -0.1 mEq/L Sodium 138 (136-145) mmol/L Potassium 3.9 (3.5-5.1) mmol/L Chloride 104 (98-107) mmol/L Carbon Dioxide 25 (21-32) mmol/L Anion Gap 9 (3-11) BUN 26 H (6-23) mg/dl Creatinine 0.84 (0.6-1.4) mg/dl Est Cr Clr Drug Dosing 77.6 ml/min eGFR 94.40 BUN/Creatinine Ratio 31.0 H (10-20) Glucose 156 H (70-99(Fasting)) mg/dl Calcium 8.8 (8.6-10.3) mg/dl Magnesium 1.9 (1.7-2.4) mg/dl Total Bilirubin 0.5 (0.2-1.0) mg/dl AST 17 (13-39) U/L ALT 45 (7-52) U/L Alkaline Phosphatase 56 (34-104) U/L Total Protein 6.1 (6.0-8.3) gm/dl Albumin 3.6 (3.4-5.0) gm/dl Globulin 2.5 (2.5-4.0) gm/dl Albumin/Globulin Ratio 1.4 (0.9-2) Procalcitonin 0.12 (0-0.5) ng/ml Adenovirus (PCR) Not Detected (NotDetected) B. pertussis DNA (PCR) Not Detected (NotDetected) B.parapertussis DNA PCR Not Detected (NotDetected) C. pneumoniae DNA (PCR) Not Detected (NotDetected) Coronavirus OC43 (PCR) Not Detected (NotDetected) Coronavirus HKU1 (PCR) Not Detected (NotDetected) Coronavirus 229E (PCR) Not Detected (NotDetected) SARS-CoV-2 (PCR) Not Detected (NotDetected) Coronavirus NL63 (PCR) Not Detected (NotDetected) Human Metapneumovir PCR Not Detected (NotDetected) Influenza Type A (PCR) Not Detected (NotDetected) Influenza Type B (PCR) Not Detected (NotDetected) M. pneumoniae (PCR) Not Detected (NotDetected) Parainfluenza 1 (PCR) Not Detected (NotDetected) Parainfluenza 2 (PCR) Not Detected (NotDetected) Parainfluenza 3 (PCR) Not Detected (NotDetected) Parainfluenza 4 (PCR) Not Detected (NotDetected) RSV (PCR) Not Detected (NotDetected) Entero/Rhino (PCR) Not Detected (NotDetected) Administered Medications Discontinued Medications Al Hydrox/Mg Hydrox/Simethicone (Aluminum/Magnesium Susp 30 Ml Udc) 30 ml PO NOW STA Stop: 10/13/25 22:38 Last Admin: 10/13/25 22:41 Dose: 30 ml Documented By: ran Albuterol (Albut/Ipratrop 3mg/0.5mg Neb 3 Ml Vial) 3 ml INH NOW STA Stop: 10/13/25 20:36 Last Admin: 10/13/25 20:44 Dose: 3 ml Documented By: RAYMON Albuterol (Albuterol 0.083% Nebu Soln 3 Ml Vial) 10 mg NEB NOW STA; Protocol Stop: 10/13/25 21:48 Last Admin: 10/13/25 21:52 Dose: 10 mg Documented By: ran Famotidine (Pepcid 20mg Iv Push) 20 mg in 5 mls @ 2.5 mls/min IV NOW STA Stop: 10/13/25 22:38 Last Admin: 10/13/25 22:41 Dose: 2.5 mls/min Documented By: ran Methylprednisolone (Methylprednisolone 125 Mg/2 Ml Vial) 60 mg IV NOW STA Stop: 10/13/25 20:36 Last Admin: 10/13/25 20:44 Dose: 60 mg Documented By: RAYMON Nicotine (Nicotine 21 Mg/24 Hr Tdsy) 1 patch TD NOW STA Stop: 10/13/25 23:01 Last Admin: 10/13/25 23:06 Dose: 1 patch Documented By: ran Imaging Data Radiologist's Impression: Chest X-Ray 10/13/25 20:35 Exam(s): XR CXR 2 VIEWS EXAM: XR Chest, 2 Views CLINICAL HISTORY: Reason for exam: Dyspnea. TECHNIQUE: Frontal and lateral views of the chest. COMPARISON: 10/02/2025 FINDINGS: Lungs: No consolidation. No overt edema. Pleural space: No pleural effusion. No pneumothorax. Heart: Unremarkable. No cardiomegaly. Bones/joints: Unremarkable. No fracture or malalignment. IMPRESSION: No acute cardiopulmonary abnormality. Electronically signed by: Shady Arce MD 10/13/25 22:19 PM Discharge Plan Visit Data Chief Complaint: Shortness of Breath/Dyspnea ED Provider: Elder Thompson Discharge Problem: Acute exacerbation of chronic obstructive pulmonary disease, Leukocytosis, Shortness of breath at rest, Ambulatory dysfunction Patient Disposition: Admitted As Inpatient Condition: Fair Forms Stand Alone Forms: My [facility] Prescriptions Prescriptions: No Action albuterol sulfate [Ventolin HFA] 90 mcg/actuation Hfa Aerosol Inhaler 2 puff INHALATION Q6H PRN (Reason: Shortness Of Breath) Rx Instructions: PER PT "EMPTY, NO REFILLS" fluticasone furoate-vilanterol [Breo Ellipta] 100-25 mcg/dose Blister With Device 1 inh inhalation DAILY Qty: 60 0RF Rx Instructions: PER PT "DON'T WORK FOR ME" Incruse Ellipta 62.5 mcg/actuation Blister With Device 1 inh inhalation DAILY Qty: 30 0RF Rx Instructions: PER PT "DON'T WORK FOR ME". clonazepam 0.5 mg tablet 0.5 mg PO BID PRN (Reason: anxiety) Qty: 14 0RF prednisone 5 mg tablet See Rx Instructions .ROUTE .COMPLEX Qty: 36 0RF Rx Instructions: PER PT "ALL DONE WITH IT, MUST HAVE TAKEN IT WRONG" ORDERED 10/08/25 FOR 8 DAYS. prednisone 5 mg: take 8 tablets (40 mg) on Day 1; 7 tablets (35 mg) on Day 2; then decrease by 1 tablet every day until finished quetiapine [Seroquel] 50 mg tablet 50 mg PO HS Qty: 14 0RF Rx Instructions: PER PT "RAN OUT" gabapentin 300 mg capsule 300 mg PO DAILY Qty: 10 0RF Rx Instructions: PER PT "THINK IT MAKES ME FEEL WOOZY" Referrals Referrals: Barak Almonte [Primary Care Provider] -
[2025-10-13 21:32] LABS: Alanine Aminotransferase 45.0 U/L (7-52); Albumin Globulin Ratio 1.4 (0.9-2); Albumin Level 3.6 gm/dl (3.4-5.0); Alkaline Phosphatase 56.0 U/L (34-104); Anion Gap 9.0 (3-11); Bilirubin,Total 0.5 mg/dl (0.2-1.0); Blood Urea Nitrogen 26.0 mg/dl (6-23); Calcium 8.8 mg/dl (8.6-10.3); Carbon Dioxide 25.0 mmol/L (21-32); Chloride 104.0 mmol/L (98-107); Creatinine Clr Calc Pharmacy 77.6 ml/min; Globulin 2.5 gm/dl (2.5-4.0); Glucose 156.0 mg/dl (70-99(Fasting)); Magnesium 1.9 mg/dl (1.7-2.4); Potassium 3.9 mmol/L (3.5-5.1); Sodium 138.0 mmol/L (136-145); Total Protein 6.1 gm/dl (6.0-8.3)
[2025-10-13 21:42] LABS: Hematocrit (blood only) 28.8 % (42.0-52.0); Hemoglobin 9.8 g/dL (14.0-18.0); Mean Corpuscular Hemoglobin 31.6 pg (25.0-34.0); Mean Corpuscular Volume 92.9 fL (80.0-100.0); Platelet Count 301 K/uL (130-400); RDW Standard Deviation 86.0 fL (36.4-46.3); Red Blood Count 3.10 M/uL (4.70-6.10); White Blood Count 20.53 K/ul (4.8-10.8)
[2025-10-13] MEDS: ALBUTEROL 0.083% NEBU SOLN 3 ML VIAL NEB STA (21:52)
[2025-10-13 21:59] LABS: Chlamydia pneumoniae PCR Not Detected (NotDetected); Coronavirus 229E PCR Not Detected (NotDetected); Coronavirus CoV-2 (COVID19)PCR Not Detected (NotDetected); Coronavirus HKU1 PCR Not Detected (NotDetected); Coronavirus NL63 PCR Not Detected (NotDetected); Coronavirus OC43PCR Not Detected (NotDetected); Human Metapneumovirus PCR Not Detected (NotDetected); Parainfluenza Virus 1 PCR Not Detected (NotDetected); Parainfluenza Virus 2 PCR Not Detected (NotDetected); Parainfluenza Virus 3 PCR Not Detected (NotDetected); Parainfluenza Virus 4 PCR Not Detected (NotDetected); Respiratory Syncytial VirusPCR Not Detected (NotDetected); Rhinovirus/Enterovirus PCR Not Detected (NotDetected)
[2025-10-13 22:11] LABS: Anisocytosis Present; Basophilic Stippling 1+; Immature Granulocytes # (auto) 1.34 K/uL (0.01-0.20); Immature Granulocytes % (auto) 6.5 %; Polychromasia 2+; Target Cells 1+
--- NOTE | 2025-10-13 22:20 | XRay Report ---
Exam(s): XR CXR 2 VIEWS EXAM: XR Chest, 2 Views CLINICAL HISTORY: Reason for exam: Dyspnea. TECHNIQUE: Frontal and lateral views of the chest. COMPARISON: 10/02/2025 FINDINGS: Lungs: No consolidation. No overt edema. Pleural space: No pleural effusion. No pneumothorax. Heart: Unremarkable. No cardiomegaly. Bones/joints: Unremarkable. No fracture or malalignment. IMPRESSION: No acute cardiopulmonary abnormality. Electronically signed by: Shady Arce MD 10/13/25 22:19 PM
[2025-10-13] MEDS: FAMOTIDINE 20MG IV PUSH 20 MG/5 ML SYR IV STA (22:41)
[2025-10-13] MEDS: ALUMINUM/MAGNESIUM SUSP 30 ML UDC PO STA (22:41)
[2025-10-13] MEDS: NICOTINE 21 MG/24 HR TDSY TD STA (23:06)
--- NOTE | 2025-10-14 00:02 | History & Physical Report ---
Date of Service October 14, 2025 Assessment & Plan (1) Unsheltered unhoused person: (2) Ambulatory dysfunction: (3) COPD (chronic obstructive pulmonary disease): Plan The patient is a 70-year-old male with past medical history including ambulatory dysfunction, COPD, CAP, atypical pneumonia, electrolyte disturbances, housing insecurity, PE, paranoia, agitation, physical deconditioning, nicotine dependence, depression, peripheral send failure, and abdominal aortic aneurysm. He presents to the emergency department with his usual complaint of shortness of breath with exertion. Workup in the emergency department included the following: Normal chest x-ray, normal respiratory BioFire test, normal basic metabolic panel, normal procalcitonin, and elevated WBC of 20.53 secondary to steroid use. From the ED the patient received the following: DuoNeb x 1, Solu- Medrol 60 mg IV, Ventolin nebulizer x 1, famotidine 20 mg IV, Maalox 30 mL, and NicoDerm 21 mg patch. Unsheltered person in need of housing- Patient presents with recurrent symptom complaint that led to his previous ad missions: 11/29-11/30/2024, 01/14-01/15/2025, 01/23-01/29/2025, 01/29-01/30/2025, 08/13-08/16/2025, 08/21-08/26/2025, 09/11-09/13/2025, and 10/02-10/08/2025. Patient overall appears to be doing well, laboratories are within his usual range. WBC is elevated at 20.53, secondary to chronic prednisone use. Patient reports that he is agreeable at this time to seeking help in finding long-term. He has refused his help in the past, which has led to recurrent hospital admissions due to exposure to the weather elements. COPD- He was given Solu-Medrol 60 mg IV in the ED, and will continue 20 mg IV every 12 hours DuoNebs every 2 hours as needed Pulmicort Respules 0.5 mg inhaled twice daily Guaifenesin extended release 12 mg p.o. every 12 hours Continue usual inhalers Ventolin HFA, Breo elliptica, and Incruse Ellipta. Pulse ox is 99% on room air, with target 94%. Paranoia/potential for agitation- Continue clonazepam twice daily as needed, gabapentin, and quetiapine support services tech- Hopefully can help patient with information regarding proper housing to help prevent further readmissions. History of Present Illness Primary Care Provider: Barak Almonte The patient is a 70-year-old male with past medical history including ambulatory dysfunction, COPD, CAP, atypical pneumonia, electrolyte disturbances, housing insecurity, PE, paranoia, agitation, physical deconditioning, nicotine dependence, depression, peripheral send failure, and abdominal aortic aneurysm. He presents to the emergency department with his usual complaint of shortness of breath with exertion. Workup in the emergency department included the following: Normal chest x-ray, normal respiratory BioFire test, normal basic metabolic panel, normal procalcitonin, and elevated WBC of 20.53 secondary to steroid use. From the ED the patient received the following: DuoNeb x 1, Solu- Medrol 60 mg IV, Ventolin nebulizer x 1, famotidine 20 mg IV, Maalox 30 mL, and NicoDerm 21 mg patch. Allergies Allergy/AdvReac Type Severity Reaction Status Date / Time bupropion [From Wellbutrin] Allergy Severe shortness Verified 10/13/25 21:15 of breath Home Medications Medication Instructions Recorded Confirmed Type albuterol sulfate 90 mcg/actuation 2 puff inhalation Q6H PRN 11/13/19 10/13/25 History aerosol inhaler (Ventolin HFA) Shortness Of Breath clonazepam 0.5 mg tablet 0.5 mg PO BID PRN anxiety #14 tabs 10/08/25 10/13/25 Rx fluticasone furoate 100 1 inh inhalation DAILY #60 ea 10/08/25 10/13/25 Rx mcg-vilanterol 25 mcg/dose inhalation powder (Breo Ellipta) gabapentin 300 mg capsule 300 mg PO DAILY #10 caps 10/08/25 10/13/25 Rx prednisone 5 mg tablet See Rx Instructions PO .COMPLEX 10/08/25 10/13/25 Rx #36 tabs quetiapine 50 mg tablet (Seroquel) 50 mg PO HS #14 tabs 10/08/25 10/13/25 Rx umeclidinium 62.5 mcg/actuation 1 inh inhalation DAILY #30 ea 10/08/25 10/13/25 Rx blister powder for inhalation (Incruse Ellipta) Past Med/Surg History Problem List (Updated 10/14/25 @ 00:23 by Juan Jose Moser MD) COPD (chronic obstructive pulmonary disease) Ambulatory dysfunction (Acute) Shortness of breath at rest (Acute) Leukocytosis (Acute) Acute exacerbation of chronic obstructive pulmonary disease (Acute) Leukocytosis (Acute) Acute exacerbation of chronic obstructive pulmonary disease (Acute) Community acquired pneumonia Atypical pneumonia Hypokalemia (Acute) Hypomagnesemia (Acute) Anemia (Acute) Melena Acute on chronic hypoxic respiratory failure (Acute) Housing insecurity Pulmonary embolism At high risk for violence against others Paranoia Agitation Physical deconditioning Dyspnea on minimal exertion (Acute) Unsheltered unhoused person Nicotine dependence with current use Depression Peripheral eosinophilia Arthritis Abdominal aneurysm (Chronic) Medical History Acute exacerbation of chronic obstructive pulmonary disease (COPD) Suicidal ideation COVID Non-ST elevation [place] (NSTEMI) Influenza A Encounter for smoking cessation counseling Dyspnea Surgical History History of appendectomy Family History Mother Diabetes Social History Smoking Status: Current every day smoker Tobacco Type: Cigarettes Cigarettes Per Day: 40; Second Hand Exposure: No; Do You Dip or Chew Tobacco: No; Hx Alcohol Use: No Hx Substance Use: Yes Last Used Substance: Days (ago) Last Used Substance Other:: 01/23/2025 Preferred Language: Chinese Communication Ability: Effective Immigration Case Manager Required: No Beliefs That Will Affect Care: None Current Living Situation: Homeless Current Living Situation Comment: homeless Feels Safe at Home: Yes Gender Identity: Male Assistive Devices: Glasses Review of Systems Review of Systems: The patient denies chest pain, palpitations, cough, lower extremity swelling, sore throat, fevers, chills, sweats, weight change, fatigue, nausea, vomiting, diarrhea , constipation, abdominal pain, pelvic pain, blood in urine or stool, dysuria, urinary frequency or urgency, lightheadedness, dizziness, headache, memory loss, loss of consciousness, rash, abnormal bruising or bleeding, imbalance, focal weakness, numbness or tingling in arms or legs, generalized arthralgias or myalgias, back or neck pain, or night sweats. The review of systems is otherwise negative other than for that already noted above, and at least 10 systems have been reviewed. Physical Exam Physical Exam: The patient is awake, alert and oriented 3, well developed and well nourished, normocephalic and atraumatic, lying in bed and in no acute distress. HEENT--PERRL, EOMI, mucous membranes and oropharynx normal. Neck--supple. No JVD. No bruits. Thyroid normal, trachea midline, no adenopathy. Heart--normal S1 and S2. No murmurs, rubs or gallops. Lungs--clear bilaterally, no respiratory distress, no accessory muscle use. Abdomen--normal bowel sounds and soft. Nontender. Nondistended, no hernias or masses, no organomegaly. Extremities--no cyanosis or clubbing. No edema. There are good distal pulses b/l. Dermatologic--normal skin turgor, normal color, no abnormal lymph nodes, no rash. Neurologic--cranial nerves II through XII grossly intact. Rheumatologic--normal range of motion. Psychiatric--normal affect. Results & Data Results & Data Vital Signs (Past 12 Hours) Vital Signs Temp Pulse Pulse Resp BP BP Pulse Ox 10/13/25 22:00 79 20 129/84 99 10/13/25 20:52 96 10/13/25 20:49 10/13/25 20:46 89 18 99 10/13/25 20:44 36.6 C 93 H 20 152/82 H 96 10/13/25 20:34 95 H O2 Del Method O2 Flow Rate 10/13/25 22:00 Room Air 10/13/25 20:52 Room Air 0 10/13/25 20:49 Room Air 10/13/25 20:46 Nebulizer 6 10/13/25 20:44 Room Air 10/13/25 20:34 Laboratory Results Laboratory Results WBC 20.53 K/ul (4.8-10.8) H 10/13/25 20:35 RBC 3.10 M/uL (4.70-6.10) L 10/13/25 20:35 Hgb 9.8 g/dL (14.0-18.0) L 10/13/25 20:35 Hct 28.8 % (42.0-52.0) L 10/13/25 20:35 MCV 92.9 fL (80.0-100.0) 10/13/25 20:35 MCH 31.6 pg (25.0-34.0) 10/13/25 20:35 MCHC 34.0 g/dL (32.0-36.0) 10/13/25 20:35 RDW Std Deviation 86.0 fL (36.4-46.3) H 10/13/25 20:35 RDW Coeff of Judd 25.3 % (11.5-14.5) H 10/13/25 20:35 Plt Count 301 K/uL (130-400) 10/13/25 20:35 MPV 9.7 fL (9.4-12.4) 10/13/25 20:35 Immature Gran % (Auto) 6.5 % 10/13/25 20:35 Neut % (Auto) 76.3 % 10/13/25 20:35 Lymph % (Auto) 7.5 % 10/13/25 20:35 [place] % (Auto) 9.3 % 10/13/25 20:35 Eos % (Auto) 0.0 % 10/13/25 20:35 Baso % (Auto) 0.4 % 10/13/25 20:35 Neut # (Auto) 15.68 K/uL (1.40-6.50) H 10/13/25 20:35 Lymph # (Auto) 1.53 K/uL (1.20-3.40) 10/13/25 20:35 [place] # (Auto) 1.90 K/uL (0.11-0.59) H 10/13/25 20:35 Eos # (Auto) 0.00 K/uL (0.00-0.50) 10/13/25 20:35 Baso # (Auto) 0.08 K/uL (0.00-0.20) 10/13/25 20:35 Immature Gran # (Auto) 1.34 K/uL (0.01-0.20) H 10/13/25 20:35 Absolute Nucleated RBC 0.62 K/uL (0.00-0.12) H 10/13/25 20:35 Nucleated RBC % (auto) 3.0 % 10/13/25 20:35 Polychromasia 2+ 10/13/25 20:35 Basophilic Stippling 1+ 10/13/25 20:35 Anisocytosis Present 10/13/25 20:35 Target Cells 1+ 10/13/25 20:35 VBG pH 7.43 (7.36-7.41) H 10/13/25 20:35 VBG pCO2 36 mmHg (38-50) L 10/13/25 20:35 VBG pO2 62 mmHg 10/13/25 20:35 VBG HCO3 24 mmol/L 10/13/25 20:35 VBG O2 Saturation 94.6 % 10/13/25 20:35 VBG Base Excess -0.1 mEq/L 10/13/25 20:35 Sodium 138 mmol/L (136-145) 10/13/25 20:35 Potassium 3.9 mmol/L (3.5-5.1) 10/13/25 20:35 Chloride 104 mmol/L (98-107) 10/13/25 20:35 Carbon Dioxide 25 mmol/L (21-32) 10/13/25 20:35 Anion Gap 9 (3-11) 10/13/25 20:35 BUN 26 mg/dl (6-23) H 10/13/25 20:35 Creatinine 0.84 mg/dl (0.6-1.4) 10/13/25 20:35 Est Cr Clr Drug Dosing 77.6 ml/min 10/13/25 20:35 eGFR 94.40 10/13/25 20:35 BUN/Creatinine Ratio 31.0 (10-20) H 10/13/25 20:35 Glucose 156 mg/dl (70-99(Fasting)) H 10/13/25 20:35 Calcium 8.8 mg/dl (8.6-10.3) 10/13/25 20:35 Magnesium 1.9 mg/dl (1.7-2.4) 10/13/25 20:35 Total Bilirubin 0.5 mg/dl (0.2-1.0) 10/13/25 20:35 AST 17 U/L (13-39) 10/13/25 20:35 ALT 45 U/L (7-52) 10/13/25 20:35 Alkaline Phosphatase 56 U/L (34-104) 10/13/25 20:35 Total Protein 6.1 gm/dl (6.0-8.3) 10/13/25 20:35 Albumin 3.6 gm/dl (3.4-5.0) 10/13/25 20:35 Globulin 2.5 gm/dl (2.5-4.0) 10/13/25 20:35 Albumin/Globulin Ratio 1.4 (0.9-2) 10/13/25 20:35 Procalcitonin 0.12 ng/ml (0-0.5) 10/13/25 20:35 Adenovirus (PCR) Not Detected (NotDetected) 10/13/25 20:53 B. pertussis DNA (PCR) Not Detected (NotDetected) 10/13/25 20:53 B.parapertussis DNA PCR Not Detected (NotDetected) 10/13/25 20:53 C. pneumoniae DNA (PCR) Not Detected (NotDetected) 10/13/25 20:53 Coronavirus OC43 (PCR) Not Detected (NotDetected) 10/13/25 20:53 Coronavirus HKU1 (PCR) Not Detected (NotDetected) 10/13/25 20:53 Coronavirus 229E (PCR) Not Detected (NotDetected) 10/13/25 20:53 SARS-CoV-2 (PCR) Not Detected (NotDetected) 10/13/25 20:53 Coronavirus NL63 (PCR) Not Detected (NotDetected) 10/13/25 20:53 Human Metapneumovir PCR Not Detected (NotDetected) 10/13/25 20:53 Influenza Type A (PCR) Not Detected (NotDetected) 10/13/25 20:53 Influenza Type B (PCR) Not Detected (NotDetected) 10/13/25 20:53 M. pneumoniae (PCR) Not Detected (NotDetected) 10/13/25 20:53 Parainfluenza 1 (PCR) Not Detected (NotDetected) 10/13/25 20:53 Parainfluenza 2 (PCR) Not Detected (NotDetected) 10/13/25 20:53 Parainfluenza 3 (PCR) Not Detected (NotDetected) 10/13/25 20:53 Parainfluenza 4 (PCR) Not Detected (NotDetected) 10/13/25 20:53 RSV (PCR) Not Detected (NotDetected) 10/13/25 20:53 Entero/Rhino (PCR) Not Detected (NotDetected) 10/13/25 20:53 Impressions Chest X-Ray 10/13/25 20:35 Exam(s): XR CXR 2 VIEWS EXAM: XR Chest, 2 Views CLINICAL HISTORY: Reason for exam: Dyspnea. TECHNIQUE: Frontal and lateral views of the chest. COMPARISON: 10/02/2025 FINDINGS: Lungs: No consolidation. No overt edema. Pleural space: No pleural effusion. No pneumothorax. Heart: Unremarkable. No cardiomegaly. Bones/joints: Unremarkable. No fracture or malalignment. IMPRESSION: No acute cardiopulmonary abnormality. Electronically signed by: Shady Arce MD 10/13/25 22:19 PM Code Status & VTE Plan Code Status Full code VTE Prophylaxis Plan VTE Prophylaxis will be ordered: Yes PG Care Time/CCT Total # of Minutes Spent Total Time Spent with Patient: Total time spent is greater than 50% in coordination of care (as documented) at patient's floor/unit and/or counseling patient: Coding Level of Care Code 78758 INT INP/OBS CARE 3/75MIN Diagnoses Unsheltered unhoused person Z59.02 Ambulatory dysfunction R26.2 COPD (chronic obstructive pulmonary disease) J44.9
[2025-10-14] MEDS ORDERED: ACETAMINOPHEN 325 MG TAB PO PRN (01:35)
[2025-10-14] MEDS ORDERED: ALBUTEROL HFA 8 GM INHALER INH PRN (01:35)
[2025-10-14 04:16] LABS: Hematocrit (blood only) 24.7 % (42.0-52.0); Hemoglobin 8.3 g/dL (14.0-18.0); Mean Corpuscular Hemoglobin 31.3 pg (25.0-34.0); Mean Corpuscular Volume 93.2 fL (80.0-100.0); Platelet Count 246 K/uL (130-400); RDW Standard Deviation 86.3 fL (36.4-46.3); Red Blood Count 2.65 M/uL (4.70-6.10); White Blood Count 13.12 K/ul (4.8-10.8)
[2025-10-14 04:32] LABS: Albumin Level 3.3 gm/dl (3.4-5.0); Anion Gap 11.0 (3-11); Blood Urea Nitrogen 27.0 mg/dl (6-23); Calcium 8.1 mg/dl (8.6-10.3); Carbon Dioxide 22.0 mmol/L (21-32); Chloride 105.0 mmol/L (98-107); Creatinine Clr Calc Pharmacy 72.4 ml/min; Glucose 232.0 mg/dl (70-99(Fasting)); Magnesium 1.9 mg/dl (1.7-2.4); Potassium 4.2 mmol/L (3.5-5.1); Sodium 138.0 mmol/L (136-145)
[2025-10-14 04:54] LABS: Immature Granulocytes # (auto) 0.91 K/uL (0.01-0.20); Immature Granulocytes % (auto) 6.9 %; Polychromasia 1+
[2025-10-14] MEDS: BUDESONIDE 0.5 MG/2 ML VIAL (PULMICORT) NEB SCH (07:06)
[2025-10-14] MEDS: ALBUT/IPRATROP 3MG/0.5MG NEB 3 ML VIAL NEB PRN (07:06)
[2025-10-14 07:51] LABS: Anisocytosis Present
[2025-10-14] MEDS: UMECLIDINIUM BROMIDE 62.5MCG/BLISTER 7 PUFFS/INHALER INH SCH (08:31)
[2025-10-14] MEDS: FLUTICASONE/VILANTEROL 100/25MCG 14 PUFFS/INHALER INH SCH (08:31)
[2025-10-14] MEDS: NICOTINE 21 MG/24 HR TDSY TD SCH (08:32)
[2025-10-14] MEDS: REMOVE NICODERM PATCH SCH (08:32)
[2025-10-14] MEDS: guaiFENesin 600 MG TABCR PO SCH (08:33)
[2025-10-14] MEDS: GABAPENTIN 300 MG CAP PO SCH (08:33)
[2025-10-14] MEDS ORDERED: REMOVE NICODERM PATCH SCH (08:59)
[2025-10-14] MEDS: predniSONE 20 MG TAB PO SCH ×2 (09:12→20:25)
--- NOTE | 2025-10-14 14:23 | Hospitalist Progress Note ---
Date of Service October 14, 2025 Assessment & Plan (1) Unsheltered unhoused person: (2) Ambulatory dysfunction: (3) COPD (chronic obstructive pulmonary disease): Plan The patient is a 70-year-old male with past medical history including ambulatory dysfunction, COPD, CAP, atypical pneumonia, electrolyte disturbances, housing insecurity, PE, paranoia, agitation, physical deconditioning, nicotine dependence, depression, peripheral send failure, and abdominal aortic aneurysm. He presents to the emergency department with his usual complaint of shortness of breath with exertion. Workup in the emergency department included the following: Normal chest x-ray, normal respiratory BioFire test, normal basic metabolic panel, normal procalcitonin, and elevated WBC of 20.53 secondary to steroid use. From the ED the patient received the following: DuoNeb x 1, Solu- Medrol 60 mg IV, Ventolin nebulizer x 1, famotidine 20 mg IV, Maalox 30 mL, and NicoDerm 21 mg patch. Unsheltered person in need of housing- Patient presents with recurrent symptom complaint that led to his previous ad missions: 11/29-11/30/2024, 01/14-01/15/2025, 01/23-01/29/2025, 01/29-01/30/2025, 08/13-08/16/2025, 08/21-08/26/2025, 09/11-09/13/2025, and 10/02-10/08/2025. WBC is elevated at 20.53, secondary to chronic prednisone use. Patient reports that he is agreeable at this time to seeking help in finding snf. He has refused his help in the past, which has led to recurrent hospital admissions due to exposure to the weather elements. COPD-acute exacerbation of chronic respiratory failure Patient with transition to prednisone twice daily Respiratory scheduled DuoNebs with the addition of typical inhaled medication including fluticasone vilanterol umeclidinium Guaifenesin extended release 12 mg p.o. every 12 hours Paranoia/potential for agitation- Continue clonazepam twice daily as needed, gabapentin, and quetiapine java web services developer- Hopefully can help patient with information regarding proper housing to help prevent further readmissions. Admission and Anticipated Discharge Date Admission Date: October 14, 2025 Subjective Patient appropriately tired from being up all night still with wheezing and shortness of breath. Physical Exam Physical Exam: Coarse bilateral breath sounds with wheezes in the bilateral lower lung carmichael. Moderate respiratory distress using accessory muscles of respiration Results & Data Results & Data Vital Signs (Past 12 Hours) Vital Signs Pulse Resp BP Pulse Ox O2 Del Method 10/14/25 09:05 Room Air 10/14/25 07:06 75 24 98 Room Air 10/14/25 05:38 83 20 139/74 97 Room Air PG Care Time/CCT Total # of Minutes Spent Total Time Spent with Patient: Total time spent is greater than 50% in coordination of care (as documented) at patient's floor/unit and/or counseling patient: Coding Level of Care Code None Diagnoses Unsheltered unhoused person Z59.02 Ambulatory dysfunction R26.2 COPD (chronic obstructive pulmonary disease) J44.9
[2025-10-14] MEDS: ALBUT/IPRATROP 3MG/0.5MG NEB 3 ML VIAL NEB SCH (14:43)
[2025-10-14] MEDS: clonazePAM 0.5 MG TAB PO PRN (20:25)
[2025-10-15 06:16] LABS: Hematocrit (blood only) 26.1 % (42.0-52.0); Hemoglobin 8.9 g/dL (14.0-18.0); Mean Corpuscular Hemoglobin 31.2 pg (25.0-34.0); Mean Corpuscular Volume 91.6 fL (80.0-100.0); Platelet Count 252 K/uL (130-400); RDW Standard Deviation 83.9 fL (36.4-46.3); Red Blood Count 2.85 M/uL (4.70-6.10); White Blood Count 21.75 K/ul (4.8-10.8)
[2025-10-15 06:38] LABS: Albumin Level 3.3 gm/dl (3.4-5.0); Anion Gap 9.0 (3-11); Blood Urea Nitrogen 32.0 mg/dl (6-23); Calcium 8.5 mg/dl (8.6-10.3); Carbon Dioxide 25.0 mmol/L (21-32); Chloride 106.0 mmol/L (98-107); Creatinine Clr Calc Pharmacy 84.7 ml/min; Glucose 109.0 mg/dl (70-99(Fasting)); Magnesium 2.1 mg/dl (1.7-2.4); Potassium 4.2 mmol/L (3.5-5.1); Sodium 140.0 mmol/L (136-145)
[2025-10-15 06:53] LABS: Anisocytosis Present; Immature Granulocytes # (auto) 1.38 K/uL (0.01-0.20); Immature Granulocytes % (auto) 6.3 %; Polychromasia 1+; Target Cells 1+
[2025-10-15] MEDS ORDERED: ALBUT/IPRATROP 3MG/0.5MG NEB 3 ML VIAL NEB STA (15:11)
[2025-10-15] MEDS: ALBUT/IPRATROP 3MG/0.5MG NEB 3 ML VIAL ONE (15:45)
[2025-10-15] MEDS: MoRPHine SULFATE 2 MG/ML CARP IV STA (15:57)
[2025-10-15] MEDS: AZITHROMYCIN 250 MG TAB PO ONE (17:33)
[2025-10-15] MEDS: FORMOTEROL 20 MCG/2 ML VIAL NEB SCH (19:46)
[2025-10-15] MEDS: ALBUT/IPRATROP 3MG/0.5MG NEB 3 ML VIAL NEB SCH (19:47)
[2025-10-15] MEDS: SIMETHICONE 80 MG CHEW PO PRN (20:54)
[2025-10-16 07:04] LABS: Hematocrit (blood only) 27.8 % (42.0-52.0); Hemoglobin 9.5 g/dL (14.0-18.0); Mean Corpuscular Hemoglobin 30.9 pg (25.0-34.0); Mean Corpuscular Volume 90.6 fL (80.0-100.0); Platelet Count 256 K/uL (130-400); RDW Standard Deviation 85.6 fL (36.4-46.3); Red Blood Count 3.07 M/uL (4.70-6.10); White Blood Count 19.32 K/ul (4.8-10.8)
[2025-10-16 07:30] LABS: Anisocytosis Present; Immature Granulocytes # (auto) 1.39 K/uL (0.01-0.20); Immature Granulocytes % (auto) 7.2 %; Polychromasia 1+; Tear Drop Cells 1+
[2025-10-16 07:55] LABS: Albumin Level 3.4 gm/dl (3.4-5.0); Anion Gap 10.0 (3-11); Blood Urea Nitrogen 34.0 mg/dl (6-23); Calcium 8.5 mg/dl (8.6-10.3); Carbon Dioxide 24.0 mmol/L (21-32); Chloride 104.0 mmol/L (98-107); Creatinine Clr Calc Pharmacy 83.6 ml/min; Glucose 119.0 mg/dl (70-99(Fasting)); Magnesium 2.1 mg/dl (1.7-2.4); Potassium 4.3 mmol/L (3.5-5.1); Sodium 138.0 mmol/L (136-145)
[2025-10-16] MEDS: AZITHROMYCIN 250 MG TAB PO SCH (10:07)
[2025-10-16] MEDS ORDERED: ALBUT/IPRATROP 3MG/0.5MG NEB 3 ML VIAL NEB PRN (12:44)
[2025-10-16] MEDS: ALBUT/IPRATROP 3MG/0.5MG NEB 3 ML VIAL NEB SCH (16:15)
--- NOTE | 2025-10-16 18:32 | Hospitalist Progress Note ---
Date of Service October 16, 2025 Assessment & Plan (1) Unsheltered unhoused person: (2) Ambulatory dysfunction: (3) COPD (chronic obstructive pulmonary disease): Plan The patient is a 70-year-old male with past medical history including ambulatory dysfunction, COPD, CAP, atypical pneumonia, electrolyte disturbances, housing insecurity, PE, paranoia, agitation, physical deconditioning, nicotine dependence, depression, peripheral send failure, and abdominal aortic aneurysm. He presents to the emergency department with his usual complaint of shortness of breath with exertion. Workup in the emergency department included the following: Normal chest x-ray, normal respiratory BioFire test, normal basic metabolic panel, normal procalcitonin, and elevated WBC of 20.53 secondary to steroid use. From the ED the patient received the following: DuoNeb x 1, Solu- Medrol 60 mg IV, Ventolin nebulizer x 1, famotidine 20 mg IV, Maalox 30 mL, and NicoDerm 21 mg patch. COPD-acute exacerbation of chronic respiratory failure Reduce Solu-medrol to 40mg IV daily Continue azithromycin daily Continue nicotine patch Continue duonebs QID Formoterol/budesonide NEBs BID Guaifenesin extended release 12 mg p.o. every 12 hours Unsheltered person in need of housing- Patient presents with recurrent symptom complaint that led to his previous admissions: 11/29-11/30/2024, 01/14-01/15/2025, 01/23-01/29/2025, 01/29-01/30/2025, 08/13-08/16/2025, 08/21-08/26/2025, 09/11-09/13/2025, and 10/02-10/08/2025. Ongoing tobacco use as outpatient Paranoia/potential for agitation- Continue clonazepam twice daily as needed, gabapentin, and quetiapine Admission and Anticipated Discharge Date Admission Date: October 16, 2025 Subjective Initially when seen he reports the same thing he has been talking to nursing all day about he thinks we are poisoning him. Feels we did a better job last time he was here. Ongoing difficulty in breathing. Think we are withholding the cure for COPD which is all over facebook called paresh. When revisted after duonebs re-prescribed and he tried the mouth tube rather than mask and feels he is doing better now Physical Exam Respiratory: normal respiratory effort; no respiratory distress Auscultation: + wheezes; no crackles, no rales and no rhonchi Cardiovascular: RRR, no murmur, no edema Gastrointestinal (Abdomen): normal bowel sounds, soft, nontender, no hepatosplenomegaly Results & Data Results & Data Vital Signs (Past 12 Hours) Vital Signs Temp Pulse Resp BP Pulse Ox O2 Del Method 10/16/25 16:16 76 20 95 Room Air 10/16/25 15:19 36.9 C 71 16 151/78 H 96 Room Air 10/16/25 11:05 78 22 95 Room Air 10/16/25 08:21 70 20 96 Room Air 10/16/25 07:52 36.6 C 78 16 115/65 91 Room Air 10/16/25 07:20 Room Air 10/16/25 07:19 68 22 97 Room Air PG Care Time/CCT Total # of Minutes Spent Total Time Spent with Patient: Total time spent is greater than 50% in coordination of care (as documented) at patient's floor/unit and/or counseling patient: Coding Level of Care Code 46437 SUB INP/OBS CARE 2/35MIN Diagnoses Unsheltered unhoused person Z59.02 Ambulatory dysfunction R26.2 COPD (chronic obstructive pulmonary disease) J44.9
[2025-10-16] MEDS ORDERED: ALBUT/IPRATROP 3MG/0.5MG NEB 3 ML VIAL NEB SCH (19:00)
[2025-10-17] MEDS ORDERED: clonazePAM 0.5 MG TAB PO PRN (12:12)
[2025-10-17] MEDS ORDERED: clonazePAM 1 MG TAB PO PRN (12:13)
[2025-10-17] MEDS ORDERED: ALBUT/IPRATROP 3MG/0.5MG NEB 3 ML VIAL NEB PRN (12:22)
[2025-10-17] MEDS ORDERED: ALBUT/IPRATROP 3MG/0.5MG NEB 3 ML VIAL NEB SCH (13:00)
[2025-10-17] MEDS: ALBUT/IPRATROP 3MG/0.5MG NEB 3 ML VIAL NEB SCH (14:49)
--- NOTE | 2025-10-17 20:19 | Hospitalist Progress Note ---
Date of Service October 17, 2025 Assessment & Plan (1) Unsheltered unhoused person: (2) Ambulatory dysfunction: (3) COPD (chronic obstructive pulmonary disease): Plan The patient is a 70-year-old male with past medical history including ambulatory dysfunction, COPD, CAP, atypical pneumonia, electrolyte disturbances, housing insecurity, PE, paranoia, agitation, physical deconditioning, nicotine dependence, depression, peripheral send failure, and abdominal aortic aneurysm. He presents to the emergency department with his usual complaint of shortness of breath with exertion. Workup in the emergency department included the following: Normal chest x-ray, normal respiratory BioFire test, normal basic metabolic panel, normal procalcitonin, and elevated WBC of 20.53 secondary to steroid use. From the ED the patient received the following: DuoNeb x 1, Solu- Medrol 60 mg IV, Ventolin nebulizer x 1, famotidine 20 mg IV, Maalox 30 mL, and NicoDerm 21 mg patch. COPD-acute exacerbation of chronic respiratory failure Switch Solu-medrol to prednisone 40mg PO daily tomorrow Continue azithromycin daily Continue nicotine patch Continue duonebs QID Formoterol/budesonide NEBs BID Guaifenesin extended release 12 mg p.o. every 12 hours Unsheltered person in need of housing- Patient presents with recurrent symptom complaint that led to his previous admissions: 11/29-11/30/2024, 01/14-01/15/2025, 01/23-01/29/2025, 01/29-01/30/2025, 08/13-08/16/2025, 08/21-08/26/2025, 09/11-09/13/2025, and 10/02-10/08/2025. Ongoing tobacco use as outpatient Paranoia/potential for agitation- Continue clonazepam twice daily as needed, gabapentin, and quetiapine Admission and Anticipated Discharge Date Admission Date: October 16, 2025 Subjective Improvement in shortness of breath but very annoyed about not getting his clonazepam last night and feeling more anxious today. Long conversation about the evidence that goes into supplements vs. medications. Found supplement he was trying to discuss yesterday and actually is [place]. We discussed likely little harm but probably little benefit of this and certainly not a cure. Physical Exam Respiratory: normal respiratory effort; no respiratory distress A uscultation: + wheezes; no crackles, no rales and no rhonchi Cardiovascular: RRR, no murmur, no edema Gastrointestinal (Abdomen): normal bowel sounds, soft, nontender, no hepatosplenomegaly Results & Data Results & Data Vital Signs (Past 12 Hours) Vital Signs Temp Pulse Resp BP Pulse Ox O2 Del Method 10/17/25 19:26 78 18 98 Room Air 10/17/25 15:20 36.5 C 78 16 146/92 H 94 Room Air 10/17/25 14:51 86 20 95 Room Air PG Care Time/CCT Total # of Minutes Spent Total Time Spent with Patient: Total time spent is greater than 50% in coordination of care (as documented) at patient's floor/unit and/or counseling patient: Coding Level of Care Code 26999 SUB INP/OBS CARE 2/35MIN Diagnoses Unsheltered unhoused person Z59.02 Ambulatory dysfunction R26.2 COPD (chronic obstructive pulmonary disease) J44.9
[2025-10-18] MEDS: clonazePAM 0.5 MG TAB PO PRN (08:20)
[2025-10-18] MEDS: predniSONE 20 MG TAB PO SCH (08:21)
[2025-10-18] MEDS: TAMSULOSIN HCL 0.4 MG CAP PO SCH (12:53)
--- NOTE | 2025-10-18 14:08 | Hospitalist Progress Note ---
Date of Service October 18, 2025 Assessment & Plan (1) Unsheltered unhoused person: (2) Ambulatory dysfunction: (3) COPD (chronic obstructive pulmonary disease): Plan The patient is a 70-year-old male with past medical history including ambulatory dysfunction, COPD, CAP, atypical pneumonia, electrolyte disturbances, housing insecurity, PE, paranoia, agitation, physical deconditioning, nicotine dependence, depression, peripheral send failure, and abdominal aortic aneurysm. He presents to the emergency department with his usual complaint of shortness of breath with exertion. Workup in the emergency department included the following: Normal chest x-ray, normal respiratory BioFire test, normal basic metabolic panel, normal procalcitonin, and elevated WBC of 20.53 secondary to steroid use. From the ED the patient received the following: DuoNeb x 1, Solu- Medrol 60 mg IV, Ventolin nebulizer x 1, famotidine 20 mg IV, Maalox 30 mL, and NicoDerm 21 mg patch. COPD-acute exacerbation of chronic respiratory failure Switch Solu-medrol to prednisone 40mg PO daily tomorrow Continue azithromycin daily Continue nicotine patch Continue duonebs QID Formoterol/budesonide NEBs BID Stop guaifenesin per patient preference Unsheltered person in need of housing- Patient presents with recurrent symptom complaint that led to his previous admissions: 11/29-11/30/2024, 01/14-01/15/2025, 01/23-01/29/2025, 01/29-01/30/2025, 08/13-08/16/2025, 08/21-08/26/2025, 09/11-09/13/2025, and 10/02-10/08/2025. Ongoing tobacco use as outpatient Paranoia/potential for agitation- Continue clonazepam twice daily as needed, gabapentin, and quetiapine Disposition - patient is medically stable for discharge pending safe discharge planning Admission and Anticipated Discharge Date Admission Date: October 16, 2025 Subjective Ongoing shortness of breath. He feels inhalers are not doing much for him at this point. No chest pain. Physical Exam Respiratory: normal respiratory effort; no respiratory distress Ausc ultation: + wheezes; no crackles, no rales and no rhonchi Cardiovascular: RRR, no murmur, no edema Gastrointestinal (Abdomen): normal bowel sounds, soft, nontender, no hepatosplenomegaly Results & Data Results & Data Vital Signs (Past 12 Hours) Vital Signs Temp Pulse Pulse Resp BP BP Pulse Ox 10/18/25 10:27 91 H 16 97 10/18/25 09:42 100 H 97 10/18/25 07:20 10/18/25 07:12 68 18 97 10/18/25 07:04 36.8 C 66 16 129/80 98 10/18/25 04:03 36.9 C 85 18 115/82 96 O2 Del Method 10/18/25 10:27 Room Air 10/18/25 09:42 Room Air 10/18/25 07:20 Room Air 10/18/25 07:12 Room Air 10/18/25 07:04 Room Air 10/18/25 04:03 Room Air PG Care Time/CCT Total # of Minutes Spent Total Time Spent with Patient: Total time spent is greater than 50% in coordination of care (as documented) at patient's floor/unit and/or counseling patient: Coding Level of Care Code 64272 SUB INP/OBS CARE 12/01MIN Diagnoses Unsheltered unhoused person Z59.02 Ambulatory dysfunction R26.2 COPD (chronic obstructive pulmonary disease) J44.9
[2025-10-19] MEDS: FAMOTIDINE 20 MG TAB PO ONE (02:22)
--- NOTE | 2025-10-19 07:36 | Electrocardiogram Report ---
Test Reason : Blood Pressure : */* mmHG Vent. Rate : 88 BPM Atrial Rate : 88 BPM P-R Int : 96 ms QRS Dur : 68 ms QT Int : 344 ms P-R-T Axes : 50 -27 115 degrees QTcB Int : 416 ms Sinus rhythm with short NH Septal infarct , age undetermined Abnormal ECG When compared with ECG of 02-Oct-2025 07:32, NH interval has decreased Septal infarct is now Present Confirmed by Gume Sheridan ([id number]) on 10/19/2025 7:35:52 AM Referred By: REFERRED SELF Confirmed By: Gume Sheridan
--- NOTE | 2025-10-19 09:36 | Hospitalist Progress Note ---
Date of Service October 19, 2025 Assessment & Plan (1) COPD (chronic obstructive pulmonary disease): Plan: witch Solu-medrol to prednisone 40mg PO daily tomorrow Continue azithromycin daily Continue nicotine patch Continue duonebs QID Formoterol/budesonide NEBs BID Stop guaifenesin per patient preference (2) Unsheltered unhoused person: Plan: Patient presents with recurrent symptom complaint that led to his previous admissions: 11/29-11/30/2024, 01/14-01/15/2025, 01/23-01/29/2025, 01/29-01/30/2025, 08/13-08/16/2025, 08/21-08/26/2025, 09/11-09/13/2025, and 10/02-10/08/2025. Ongoing tobacco use as outpatient Awaiting arrangement of discharge disposition with case management. Pt prefers hotel (3) Ambulatory dysfunction: Plan: -con't PT 1-2x per week (4) Paranoia: Plan: Continue clonazepam twice daily as needed, gabapentin, and quetiapine Plan The patient is a 70-year-old male with past medical history including ambulatory dysfunction, COPD, CAP, atypical pneumonia, electrolyte disturbances, housing i nsecurity, PE, paranoia, agitation, physical deconditioning, nicotine dependence, depression, peripheral send failure, and abdominal aortic aneurysm. He presents to the emergency department with his usual complaint of shortness of breath with exertion. Workup in the emergency department included the following: Normal chest x-ray, normal respiratory BioFire test, normal basic metabolic panel, normal procalcitonin, and elevated WBC of 20.53 secondary to steroid use. From the ED the patient received the following: DuoNeb x 1, Solu- Medrol 60 mg IV, Ventolin nebulizer x 1, famotidine 20 mg IV, Maalox 30 mL, and NicoDerm 21 mg patch. Disposition - patient is medically stable for discharge pending safe discharge planning Admission and Anticipated Discharge Date Admission Date: October 16, 2025 Subjective No events overnight. Pt is complaining of staff not turning over his bed daily. Review of Systems Review of Systems: CONST: Negative for fever, body aches and chills. HENT: Negative for neck pain/stiffness, headache, congestion, sore throat, swelling. EYES: Negative for discharge/pain or vision changes. RESP: Negative for cough/hemoptysis and shortness of breath. CV: Negative chest pain, difficulty breathing, palpitations. ABD: Negative pain, nausea, vomiting. : Negative increase frequency, dysuria, blood in urine or stool. MUSC: Negative for muscle aches, edema. SKIN: Negative rash, lesions/sores. NEURO: Negative headache, dizziness, weakness. Physical Exam Physical Exam: GENERAL APPEARANCE NAD, activity normal for age, well developed/ well nourished, no cyanosis, pallor, or diaphoresis. EYES lids/conjunctiva normal. EARS/NOSE/THROAT Mucous membranes moist, nares normal, lips/teeth normal uvula midline without oral pharyngeal erythema, exudate or swelling TMs normal bilaterally. No lymphangitis/lymphedema. HEAD/NECK normocephalic atraumatic, no facial trauma, neck is supple. RESPIRATORY respiratory effort normal, speaks in full sentences, no tripod position, no accessory muscle use. Lungs clear to auscultation without rhonchi, wheezes, rales CARDIAC Regular rate and rhythm, no edema. ABDOMINAL Soft, ND/NT. No evidence of fluid wave. No pulsatile masses on exam, rebound tenderness, Escalante sign or pain over Mcburney's point. MUSCLES/EXTREMITIES No abnormal range of motion, no swelling. SKIN Warm, pink and dry. No rashes, dermatoses, petechiae or lesions. NEUROLOGICAL Speech is clear and appropriate. Normal level of consciousness. Gait and coordination are normal. 5/5 strength in all extremities. PSYCH Normal mood and affect. Judgement/competence is appropriate Results & Data Results & Data Vital Signs (Past 12 Hours) Vital Signs Temp Pulse Resp BP BP Pulse Ox O2 Del Method 10/19/25 07:20 86 20 98 Room Air 10/19/25 07:17 36.8 C 69 16 107/67 98 Room Air 10/18/25 21:44 36.8 C 96 H 20 126/76 98 Room Air PG Care Time/CCT Total # of Minutes Spent Total Time Spent with Patient: Total time spent is greater than 50% in coordination of care (as documented) at patient's floor/unit and/or counseling patient: Coding Level of Care Code 73490 SUB INP/OBS CARE 2/35MIN Diagnoses COPD (chronic obstructive pulmonary disease) J44.9 Unsheltered unhoused person Z59.02 Ambulatory dysfunction R26.2 Paranoia F22
[2025-10-20] MEDS: FAMOTIDINE 20 MG TAB PO ONE (00:12)
--- NOTE | 2025-10-20 09:46 | Hospitalist Progress Note ---
Date of Service October 20, 2025 Assessment & Plan (1) COPD (chronic obstructive pulmonary disease): Plan: prednisone 40mg PO daily Continue azithromycin daily Continue nicotine patch Continue duonebs QID Formoterol/budesonide NEBs BID Stop guaifenesin per patient preference (2) Unsheltered unhoused person: Plan: Patient presents with recurrent symptom complaint that led to his previous admissions: 11/29-11/30/2024, 01/14-01/15/2025, 01/23-01/29/2025, 01/29-01/30/2025, 08/13-08/16/2025, 08/21-08/26/2025, 09/11-09/13/2025, and 10/02-10/08/2025. Ongoing tobacco use as outpatient Awaiting arrangement of discharge disposition with case management. Pt prefers hotel (3) Ambulatory dysfunction: Plan: -con't PT 1-2x per week (4) Paranoia: Plan: Continue clonazepam twice daily as needed, gabapentin, and quetiapine Plan The patient is a 70-year-old male with past medical history including ambulatory dysfunction, COPD, CAP, atypical pneumonia, electrolyte disturbances, housing insecurity, PE, paranoia, agitation, physical deconditioning, nicotine dependence, depression, peripheral send failure, and abdominal aortic aneurysm. He presents to the emergency department with his usual complaint of shortness of breath with exertion. Workup in the emergency department included the following: Normal chest x-ray, normal respiratory BioFire test, normal basic metabolic panel, normal procalcitonin, and elevated WBC of 20.53 secondary to steroid use. From the ED the patient received the following: DuoNeb x 1, Solu- Medrol 60 mg IV, Ventolin nebulizer x 1, famotidine 20 mg IV, Maalox 30 mL, and NicoDerm 21 mg patch. Disposition - patient is medically stable for discharge pending safe discharge planning Admission and Anticipated Discharge Date Admission Date: October 16, 2025 Subjective Pt states he had some chest discomfort overnight, that has since then resolved. Review of Systems Review of Systems: CONST: Negative for fever, body aches and chills. HENT: Negative for neck pain/stiffness, headache, congestion, sore throat, swelling. EYES: Negative for discharge/pain or vision changes. RESP: Negative for cough/hemoptysis and shortness of breath. CV: Negative chest pain, difficulty breathing, palpitations. ABD: Negative pain, nausea, vomiting. : Negative increase frequency, dysuria, blood in urine or stool. MUSC: Negative for muscle aches, edema. SKIN: Negative rash, lesions/sores. NEURO: Negative headache, dizziness, weakness. Physical Exam Physical Exam: GENERAL APPEARANCE NAD, activity normal for age, well developed/ well nourished, no cyanosis, pallor, or diaphoresis. EYES lids/conjunctiva normal. EARS/NOSE/THROAT Mucous membranes moist, nares normal, lips/teeth normal uvula midline without oral pharyngeal erythema, exudate or swelling TMs normal bilaterally. No lymphangitis/lymphedema. HEAD/NECK normocephalic atraumatic, no facial trauma, neck is supple. RESPIRATORY respiratory effort normal, speaks in full sentences, no tripod position, no accessory muscle use. Lungs clear to auscultation without rhonchi, wheezes, rales CARDIAC Regular rate and rhythm, no edema. ABDOMINAL Soft, ND/NT. No evidence of fluid wave. No pulsatile masses on exam, rebound tenderness, Escalante sign or pain over Mcburney's point. MUSCLES/EXTREMITIES No abnormal range of motion, no swelling. SKIN Warm, pink and dry. No rashes, dermatoses, petechiae or lesions. NEUROLOGICAL Speech is clear and appropriate. Normal level of consciousness. Gait and coordination are normal. 5/5 strength in all extremities. PSYCH Normal mood and affect. Judgement/competence is appropriate Results & Data Results & Data Vital Signs (Past 12 Hours) Vital Signs Temp Pulse Resp BP Pulse Ox O2 Del Method 10/20/25 07:34 90 18 95 Room Air 10/20/25 07:02 36.9 C 78 16 110/70 93 Room Air 10/19/25 22:42 36.8 C 71 16 109/69 96 Room Air 10/19/25 21:50 Room Air PG Care Time/CCT Total # of Minutes Spent Total Time Spent with Patient: Total time spent is greater than 50% in coordination of care (as documented) at patient's floor/unit and/or counseling patient: Coding Level of Care Code 40184 SUB INP/OBS CARE 2/35MIN Diagnoses COPD (chronic obstructive pulmonary disease) J44.9 Unsheltered unhoused person Z59.02 Ambulatory dysfunction R26.2 Paranoia F22
[2025-10-21 00:56] VITALS: BP 111/65; TEMP 97.5
[2025-10-21 07:21] VITALS: PULSE 90; RESP 20; O2SAT 97
--- NOTE | 2025-10-21 09:21 | Discharge Summary ---
Discharge Summary Date of Service October 21, 2025 Principal Dx & Hospital Course #1 = Principal Diagnosis (1) COPD (chronic obstructive pulmonary disease): (2) Unsheltered unhoused person: (3) Ambulatory dysfunction: (4) Paranoia: Plan Stanton Yang is a 70 year old male who presents to the ER with worsening shortness of breath. His breathing was improving with steroids, duonebs and course of azithromycin. He has been medically stable although trying to work on safe disposition. On day of discharge he was angry with his recurrent complaints that we are poisoning with him and we aren't doing anything for him. He threatened to marsha me and said I should be put in [facility]. He was verbally abusive to staff using words such as "bitch" and 'slut" to describe female members of staff. Tried to discuss what medications he wanted on discharge and he repeated we are just trying to poison him, he doesn't want any medications as nothing works. I have managed to calm him down from prior episodes like this but was unable to today. He is adamant about leaving but notes he has nowhere to go. We discussed smoking cessation and he tells me the first thing he will do after leaving the hospital is smoke. He refused to sign or look at AMA paperwork. He denies thoughts of harming himself. I offered psychiatry consult which he declined. He thinks we are keeping him in the hospital just to get money from his insurance company. On discussion with prior providers this is typically how his hospitalizations go and eventually he leaves against medical advice. Notes For Next Care Provider Follow up with PCP for ongoing clonazepam and COPD medications Medication Changes From Visit Prior prednisone prescription stopped Admission HPI Per Admitting Provider The patient is a 70-year-old male with past medical history including ambulatory dysfunction, COPD, CAP, atypical pneumonia, electrolyte disturbances, housing insecurity, PE, paranoia, agitation, physical deconditioning, nicotine dependence, depression, peripheral send failure, and abdominal aortic aneurysm. He presents to the emergency department with his usual complaint of shortness of breath with exertion. Workup in the emergency department included the following: Normal chest x-ray, normal respiratory BioFire test, normal basic metabolic panel, normal procalcitonin, and elevated WBC of 20.53 secondary to steroid use. From the ED the patient received the following: DuoNeb x 1, Solu- Medrol 60 mg IV, Ventolin nebulizer x 1, famotidine 20 mg IV, Maalox 30 mL, and NicoDerm 21 mg patch. Discharge Exam Respiratory normal respiratory effort; no respiratory distress Discharge Plan Discharge Items Patient Disposition: Against Medical Advice Reason For Visit: COPD, HOMELESS IN NEED OF ALF Condition on Discharge: Fair Activity: Resume your previous activity Non-emergency contact: Primary Care Provider Follow-up/Referrals: Barak Almonte [Primary Care Provider] - Pending Studies at Discharge: No Stand-Alone Forms: My [facility] APROOFED, Smoking Cessation Medications and DC Order Prescriptions: Continued albuterol sulfate [Ventolin HFA] 90 mcg/actuation Hfa Aerosol Inhaler 2 puff INHALATION Q6H PRN (Reason: Shortness Of Breath) Rx Instructions: PER PT "EMPTY, NO REFILLS" fluticasone furoate-vilanterol [Breo Ellipta] 100-25 mcg/dose Blister With Device 1 inh inhalation DAILY Qty: 60 0RF Rx Instructions: PER PT "DON'T WORK FOR ME" Incruse Ellipta 62.5 mcg/actuation Blister With Device 1 inh inhalation DAILY Qty: 30 0RF Rx Instructions: PER PT "DON'T WORK FOR ME". clonazepam 0.5 mg tablet 0.5 mg PO BID PRN (Reason: anxiety) Qty: 14 0RF quetiapine [Seroquel] 50 mg tablet 50 mg PO HS Qty: 14 0RF Rx Instructions: PER PT "RAN OUT" gabapentin 300 mg capsule 300 mg PO DAILY Qty: 10 0RF Rx Instructions: PER PT "THINK IT MAKES ME FEEL WOOZY" Discontinued prednisone 5 mg tablet See Rx Instructions .ROUTE .COMPLEX Qty: 36 0RF Rx Instructions: PER PT "ALL DONE WITH IT, MUST HAVE TAKEN IT WRONG" ORDERED 10/08/25 FOR 8 DAYS. prednisone 5 mg: take 8 tablets (40 mg) on Day 1; 7 tablets (35 mg) on Day 2; then decrease by 1 tablet every day until finished Discharge Orders: Left Against Medical Advice (Routine); Ordered 10/21/25 Ordered By: García Sheikh Admission Data Admit Date/Time: 10/16/25 16:15 Attending Provider: García Sheikh Admit Provider: Juan Jose Moser Primary Care Provider: Barak Almonte Other Providers: Juan Jose Moser; [facility]; [facility]; Lucia Mclaughlin at [facility] Stay Data Consultations 10/13/25 23:08 ED Decision to Admit Stat Pending Results Patient Have Any Pending Studies at Discharge: No Total Time Total Time Spent Total Time Spent (In Minutes): 40 Coding Level of Care Code 69367 INP/OBS DISCH >30 MIN Diagnoses COPD (chronic obstructive pulmonary disease) J44.9 Unsheltered unhoused person Z59.02 Ambulatory dysfunction R26.2 Paranoia F22
== END 2025-10-21 09:35 | disposition left against medical advice (07) | DRG 191 ==
LOC: SUATTDRO → EDINP 20:28 → ED 20:28 → SUATTDRO 10-14 00:02 → 3E 10-14 01:35 → SUATTDRO 10-16 16:15 → 3E 10-20 21:36